=== PATIENT | female | born 1945 | race Caucasian/White ===

== ENCOUNTER → 2017-10-25 | Outpatient (CLI) | payer OTHER ==
[2017-10-25 19:06] LABS: ALT/SGPT 39 U/L (12-78); AST/SGOT 39 U/L (15-37); BLOOD UREA NITROGEN 11 mg/dl (7-18); CALCIUM 9.5 mg/dl (8.5-10.1); CARBON DIOXIDE 30 mmol/L (21-32); CREATININE 0.84 mg/dl (0.60-1.20); GLUCOSE 113 mg/dl (70-99); POTASSIUM 5.1 mmol/L (3.5-5.1); SODIUM 127 mmol/L (136-145)
[2017-10-25 19:08] LABS: CHOLESTEROL 200 mg/dl (0-200); LDL CHOLESTEROL CALCULATED 105 mg/dl
== END | disposition home or self-care (01) ==
LOC: C.LABMFLN 16:38
PROVIDERS: ATTEND Family Medicine
DX: I10 Essential (primary) hypertension (principal); E78.00 Pure hypercholesterolemia, unspecified; E87.1 Hypo-osmolality and hyponatremia; E11.29 Type 2 diabetes mellitus with other diabetic kidney complication; R35.0 Frequency of micturition

== ENCOUNTER 2024-07-17 10:42 | Inpatient (IN) ==
[2024-07-17 11:28] LABS: Basophils # (auto) 0.04 K/uL (0.00-0.20); Basophils % (auto) 0.2 %; Eosinophils # (auto) 0.02 K/uL (0.00-0.50); Eosinophils % (auto) 0.1 %; Hematocrit (blood only) 28.9 % (37.0-47.0); Hemoglobin 9.7 g/dl (12.0-16.0); Immature Granulocytes # (auto) 0.12 K/uL (0.01-0.20); Immature Granulocytes % (auto) 0.7 %; Lymphocytes # (auto) 0.97 K/uL (1.20-3.40); Lymphocytes % (auto) 5.6 %; Mean Corpuscular Hemoglobin 27.1 pg (25.0-34.0); Mean Corpuscular Hgb Conc 33.6 g/dL (32.0-36.0); Mean Corpuscular Volume 80.7 fL (80.0-100.0); Mean Platelet Volume 10.3 fL (9.4-12.4); Monocytes # (auto) 0.98 K/uL (0.11-0.59); Monocytes % (auto) 5.6 %; Neutrophils # (auto) 15.34 K/uL (1.40-6.50); Neutrophils % (auto) 87.8 %; Platelet Count 226 K/uL (130-400); RDW Coefficient of Variation 14.3 % (11.5-14.5); RDW Standard Deviation 41.5 fL (36.4-46.3); Red Blood Count 3.58 M/uL (4.20-5.40); White Blood Count 17.47 K/ul (4.8-10.8)
[2024-07-17 11:44] LABS: Albumin Globulin Ratio 1.1 (0.9-2); Albumin Level 3.4 gm/dl (3.4-5.0); BUN Creatinine Ratio 13.6 (10-20); Bilirubin,Total 0.9 mg/dl (0.2-1.0); Calcium 8.7 mg/dl (8.6-10.3); Creatinine Clr Calc Pharmacy 34.1 ml/min; Est GFR (African American) 51.2 ml/min; Est GFR (Non-African American) 44.1 ml/min; Globulin 3.2 gm/dl (2.5-4.0); Magnesium 1.4 mg/dl (1.7-2.4); Potassium 3.7 mmol/L (3.5-5.1); Total Protein 6.6 gm/dl (6.0-8.3)
[2024-07-17 11:54] LABS: INR 1.4 (0.9-1.1); Partial Thromboplastin Ratio 1.3; Partial Thromboplastin Time 36 Seconds (21-31); Prothrombin Time 14.5 Seconds (9.0-12.0); Troponin I High Sensitivity 147.5 pg/ml (0-14)
[2024-07-17 12:00] LABS: Thyroid Stimulating Hormone 2.92 uIu/ml (0.300-4.500)
[2024-07-17] MEDS: SODIUM CHLORIDE 0.9% 1,000 ML IV ONE (12:03)
[2024-07-17] MEDS: ACETAMINOPHEN 1,000 MG/100 ML VIAL IV STA (12:03)
[2024-07-17] MEDS: cefTRIAXone SODIUM 2,000 MG/50 ML BAG IV STA (12:05)
--- NOTE | 2024-07-17 12:36 | Emergency Department Note ---
Impression & Plan Fever, Hypomagnesemia, Bacteremia, Leukocytosis, Acute hyponatremia, Non-ST elevation [place] (NSTEMI) ED Provider Note HISTORY OF PRESENT ILLNESS: Patient is a 78-year-old female presenting with fever. Patient reports over the last 3 days she has been having fever and chills and general malaise. Her outpatient provider had ordered laboratory workup, including blood cultures that were performed on 07/14/2024. She was called and told to present to the emergency department, as her blood cultures tested positive for Streptococcus species in 2 out of 2 bottles. Patient denies any chest pain or shortness of breath. She does have a history of mitral and aortic valve replacements. Reports her last valve was replaced about 2 years ago. Denies any abdominal pain, nausea or vomiting. She reportedly is on oral antibiotics, but this is unable to be confirmed in documentation. He denies any dysuria or hematuria. Patient denies any rashes or skin changes. Denies any headache or changes in vision. reports she has been intermittently confused over the last few days with her fever. ROS: as above PHYSICAL EXAM: Constitutional: Patient appears in no acute distress. HENT: Head: Normocephalic and atraumatic. Eyes: EOMI, PERRL Mouth/Throat: Mucous membranes moist. Neck: Trachea midline. Neck supple. Cardiovascular: RRR, No rubs or gallops. Intact distal pulses. Pulmonary/Chest: No respiratory distress. Breath sounds clear and equal bilaterally. No wheezes or rales. Abdominal: Abdomen soft, no tenderness, rebound or guarding. Musculoskeletal: No edema, tenderness or deformity noted. Skin: Warm and dry. No rash, erythema, pallor or cyanosis Psychiatric: Appropriate mood and affect for situation. Neurological: Alert and keenly responsive. CN II-XII grossly intact, moving all extremities equally and fully. MDM: - Vitals signs showed fever and tachycardia - History obtained via patient. History as above. - Chronic conditions affecting care: DM-2; HLD; CAD; aortic and mitral valve replacements - Differential diagnoses include, but are not limited to: Pneumonia; ACS; endocarditis; pulmonary edema; bacteremia; UTI - Order placed for continuous cardiac monitoring. At this time, monitor showed rate of 94 bpm with normal sinus rhythm, per my interpretation. - External medical records reviewed. Documentation from [facility] was reviewed. Patient grew Streptococcus species DNA by PCR on blood cultures obtained on 07/14/2024. - EKG interpreted by myself showed normal sinus rhythm. Rate 93 bpm. QT 400. No acute ischemic changes. - Laboratory workup interpreted by myself showed leukocytosis (WBC 17.47) with neutrophil predominance; elevated ESR (86); elevated INR (1.4); normal procalcitonin; hyponatremia (124); hypomagnesemia (Mg 1.4); evaded troponin (147.5); elevated CRP (16.05); normal TSH - Blood cultures obtained - UA negative for infection - Viral respiratory panel negative - CXR negative for pneumonia, per my interpretation. - Blood cultures results dated 07/14/2024 were reviewed. Patient grew Streptococcus mutans in 2 out of 2 bottles. On discussion with pharmacist in the ER, given 2g IV rocephin for antibiotic coverage. She was in 1500 cc normal saline for fluid resuscitation. Given 1 g IV acetaminophen for fever - Given patient's positive blood cultures and her valve replacements, concern for possible endocarditis. However, had an echocardiogram on 07/14/2024 which was read as negative and showed no abnormalities on the valves. However, given her positive blood cultures, will admit to hospital service for further evaluation and management. - Discussion was had with pillowcase cutter about patient's case and need for admission - Hospitalist, Dr. Ivory, consulted for admission - Patient admitted to [facility] hospitalist service for further evaluation and management. ASSESSMENT AND PLAN: Diagnosis: Fever; bacteremia; leukocytosis; acute hyponatremia; hypomagnesemia; NSTEMI Plan: Admit Past Med/Surg History Problem List (Updated 07/17/24 @ 15:48 by Kira Greenfield MD) Non-ST elevation [place] (NSTEMI) (Acute) Acute hyponatremia (Acute) Leukocytosis (Acute) Bacteremia (Acute) Hypomagnesemia (Acute) Fever (Acute) Fever Anemia Dyspnea H/O prosthetic aortic valve replacement Fatigue Chills Inflammatory arthritis Vitamin B 12 deficiency Purulent rhinorrhea Fugue Hypomagnesemia TIA (transient ischemic attack) S/P mitral valve replacement Atrial flutter Serous otitis media Bilateral otitis media SIADH (syndrome of inappropriate ADH production) CAD (coronary artery disease) S/P aortic valve replacement Mitral valve stenosis Chronic heart failure with preserved ejection fraction Dyslipidemia Benign essential hypertension (Acute) Aortic stenosis Congestive heart failure (CHF) Lesion of larynx Hoarseness Medicare annual wellness visit, subsequent Hyponatremia Peripheral neuropathy Insomnia Vitamin D insufficiency Medicare annual wellness visit, subsequent Benign paroxysmal positional vertigo (Acute) Controlled diabetes mellitus with microalbuminuria, without long-term current use of insulin (Acute) Edema (Acute) Gait disturbance (Acute) Hypercholesterolemia (Acute) Hyperkalemia (Acute) Hyponatremia (Acute) Osteopenia (Acute) Tremor (Acute) Urine frequency (Acute) Medical History Type 2 diabetes mellitus Surgical History Hx of aortic valve replacement History of appendectomy History of tonsillectomy History of hysterectomy History of section History of dilation and curettage History of colonoscopy History of cataract surgery Family History Brother COPD (chronic obstructive pulmonary disease) Mother COPD (chronic obstructive pulmonary disease) Father Coronary heart disease Myocardial infarction Daughter Rheumatoid arthritis Denies family history of Ovarian cancer Prostate cancer Breast cancer Colorectal cancer Social History Smoking Status: Never smoker Second Hand Exposure: Yes; Hx Alcohol Use: No Hx Substance Use: No Preferred Language: Pashto Communication Ability: Effective Visual Impairment: Limited Hearing Ability: Normal Assembly Detailer Required: No Beliefs That Will Affect Care: None marital status: Current Living Situation: Spouse current occupational status: retired Feels Safe at Home: Yes Childhood Exposure to Second-Hand Smoke: Yes Diet: diabetic caffeine: Yes Dental Care, Regularly: No Physical Activity Frequency: 3-4 Times per Week Seatbelt Use: always Sunscreen Use: No Allergies Allergies Allergy/AdvReac Type Severity Reaction Status Date / Time codeine Allergy Cough Verified 07/17/24 12:01 Penicillins Allergy Hives Verified 07/17/24 12:01 ropinirole [From Requip] Allergy Unknown Verified 07/17/24 12:01 Home Meds Home Medications Medication Instructions Recorded Confirmed docusate sodium 100 mg capsule 100 mg PO DAILY 08/17/22 07/09/24 (Dulcolax Stool Softener (docusate)) fluticasone propionate 50 2 spray intranasal DAILY PRN 08/17/22 07/09/24 mcg/actuation nasal allergy symptoms spray,suspension Previous Rx's Medication Instructions Recorded lancets 33 gauge (OneTouch Delica #100 ea 05/07/19 Lancets) blood sugar diagnostic #50 ea 06/07/22 azithromycin 500 mg tablet 500 mg PO .COMPLEX #3 tabs 07/24/22 cholecalciferol (vitamin D3) 25 2,000 unit PO DAILY #30 caps 08/16/22 mcg (1,000 unit) capsule (Vitamin D3) losartan 100 mg tablet 100 mg PO DAILY #90 tabs 12/04/23 rosuvastatin 20 mg tablet 20 mg PO DAILY #90 tabs 12/04/23 apixaban 5 mg tablet (Eliquis) 5 mg PO BID #60 tabs 12/16/23 albuterol sulfate 90 mcg/actuation 2 puff inhalation Q6H PRN 02/18/24 aerosol inhaler shortness of breath or wheezing #6.7 grams blood sugar diagnostic (OneTouch #100 ea 02/18/24 Ultra Test strips) blood-glucose meter (OneTouch #1 ea 02/18/24 Ultra2 Meter) lancets 30 gauge (OneTouch #100 ea 02/18/24 UltraSoft 2 Lancet) amitriptyline 10 mg tablet 20 mg (2 x 10 mg) PO DAILY #180 04/27/24 tabs amlodipine 5 mg tablet 5 mg PO DAILY #90 tabs 05/26/24 furosemide 20 mg tablet 20 mg PO DAILY #90 tabs 06/16/24 metformin 500 mg tablet 500 mg PO BID #180 tabs 07/02/24 cyanocobalamin (vitamin B-12) 1,000 mcg IM .COMPLEX 1 week #10 mL 07/13/24 1,000 mcg/mL injection solution syringe with needle, safety 3 mL #10 ea 07/13/24 25 gauge x 1" (BD Integra Syringe) Results & Data (ED) Vital Signs Vital Signs - 24 hr 07/17/24 10:57 07/17/24 10:57 07/17/24 11:14 Temperature 37.8 C H 37.8 C H Temperature Source Oral Oral Pulse Rate 83 Pulse Rate [Apical] 83 Pulse Rhythm Regular Pulse Rhythm [Apical] Regular Pulse Strength Normal Pulse Strength [Apical] Normal Respiratory Rate 20 20 Respiratory Effort / Characteristics Non-Labored Spontaneous Non-Labored Spontaneous Respiratory Depth Normal Normal Respiratory Pattern Regular Regular Blood Pressure [Left Arm] 130/60 Blood Pressure Mean [Left Arm] 83 Blood Pressure Position [Left Arm] Pulse Oximetry 98 98 98 Oxygen Delivery Method Room Air Room Air Room Air Sepsis Recent Fever Within 48 Hours Yes Sepsis New/Unexplained Change in Mental Status Yes Sepsis Action Taken by Nursing No Action Required 07/17/24 11:14 07/17/24 11:25 07/17/24 14:04 Temperature 36.6 C Temperature Source Oral Pulse Rate 83 93 H Pulse Rate [Apical] 81 Pulse Rhythm Regular Pulse Rhythm [Apical] Regular Pulse Strength Pulse Strength [Apical] Normal Respiratory Rate 20 20 Respiratory Effort / Characteristics Non-Labored Spontaneous Respiratory Depth Normal Respiratory Pattern Regular Blood Pressure [Left Arm] 117/70 Blood Pressure Mean [Left Arm] 85 Blood Pressure Position [Left Arm] Semi-fowlers Pulse Oximetry 98 98 Oxygen Delivery Method Room Air Room Air Sepsis Recent Fever Within 48 Hours Sepsis New/Unexplained Change in Mental Status Sepsis Action Taken by Nursing Laboratory Data 07/17/24 10:56 07/17/24 10:56 Lab Results 07/17/24 07/17/24 07/17/24 Range/Units 10:56 11:35 12:20 WBC 17.47 H (4.8-10.8) K/ul RBC 3.58 L (4.20-5.40) M/uL Hgb 9.7 L (12.0-16.0) g/dl Hct 28.9 L (37.0-47.0) % MCV 80.7 (80.0-100.0) fL MCH 27.1 (25.0-34.0) pg MCHC 33.6 (32.0-36.0) g/dL RDW Std Deviation 41.5 (36.4-46.3) fL RDW Coeff of Viktor 14.3 (11.5-14.5) % Plt Count 226 (130-400) K/uL MPV 10.3 (9.4-12.4) fL Immature Gran % (Auto) 0.7 % Neut % (Auto) 87.8 % Lymph % (Auto) 5.6 % [place] % (Auto) 5.6 % Eos % (Auto) 0.1 % Baso % (Auto) 0.2 % Neut # (Auto) 15.34 H (1.40-6.50) K/uL Lymph # (Auto) 0.97 L (1.20-3.40) K/uL [place] # (Auto) 0.98 H (0.11-0.59) K/uL Eos # (Auto) 0.02 (0.00-0.50) K/uL Baso # (Auto) 0.04 (0.00-0.20) K/uL Immature Gran # (Auto) 0.12 (0.01-0.20) K/uL ESR 86 H (0-30) mm/hr PT 14.5 H (9.0-12.0) Seconds INR 1.4 H (0.9-1.1) APTT 36 H (21-31) Seconds PTT Ratio 1.3 Sodium 124 L (136-145) mmol/L Potassium 3.7 (3.5-5.1) mmol/L Chloride 90 L (98-107) mmol/L Carbon Dioxide 24 (21-32) mmol/L Anion Gap 10 (3-11) BUN 16 (6-23) mg/dl Creatinine 1.18 (0.6-1.2) mg/dl Est Cr Clr Drug Dosing 34.1 ml/min Est GFR ( Amer) 51.2 ml/min Est GFR (Non-Af Amer) 44.1 ml/min BUN/Creatinine Ratio 13.6 (10-20) Glucose 178 H (70-99(Fasting)) mg/dl Osmolality (280-300) mOsm/kg Lactate 1.1 (0.4-2.0) mmol/L Calcium 8.7 (8.6-10.3) mg/dl Magnesium 1.4 L (1.7-2.4) mg/dl Total Bilirubin 0.9 (0.2-1.0) mg/dl AST 24 (13-39) U/L ALT 21 (7-52) U/L Alkaline Phosphatase 70 (34-104) U/L Troponin I High Sens 147.5 H* (0-14) pg/ml C-Reactive Protein 16.05 H (0-0.5) mg/dl Total Protein 6.6 (6.0-8.3) gm/dl Albumin 3.4 (3.4-5.0) gm/dl Globulin 3.2 (2.5-4.0) gm/dl Albumin/Globulin Ratio 1.1 (0.9-2) Procalcitonin Cancelled TSH 2.920 (0.300-4.500) uIu/ml Urine Color Urine Appearance (Clear) Urine pH (4.5-7.5) Ur Specific [place] (1.000-1.030) Urine Protein (Negative) Urine Glucose (UA) (Negative) Urine Ketones (Negative) Urine Blood (Negative) Urine Nitrite (Negative) Urine Bilirubin (Negative) Urine Urobilinogen (Negative) Ur Leukocyte Esterase (Negative) Urine WBC (Auto) (0-5) /hpf Urine RBC (Auto) (0-2) /hpf U Hyaline Cast (Auto) (0-2) /lpf U Epithel Cells (Auto) (0-2) /hpf Urine Bacteria (Auto) (None Seen) Adenovirus (PCR) Not Detected (NotDetected) B. pertussis DNA (PCR) Not Detected (NotDetected) B.parapertussis DNA PCR Not Detected (NotDetected) C. pneumoniae DNA (PCR) Not Detected (NotDetected) Coronavirus OC43 (PCR) Not Detected (NotDetected) Coronavirus HKU1 (PCR) Not Detected (NotDetected) Coronavirus 229E (PCR) Not Detected (NotDetected) SARS-CoV-2 (PCR) Not Detected (NotDetected) Coronavirus NL63 (PCR) Not Detected (NotDetected) Human Metapneumovir PCR Not Detected (NotDetected) Influenza Type A (PCR) Not Detected (NotDetected) Influenza Type B (PCR) Not Detected (NotDetected) M. pneumoniae (PCR) Not Detected (NotDetected) Parainfluenza 1 (PCR) Not Detected (NotDetected) Parainfluenza 2 (PCR) Not Detected (NotDetected) Parainfluenza 3 (PCR) Not Detected (NotDetected) Parainfluenza 4 (PCR) Not Detected (NotDetected) RSV (PCR) Not Detected (NotDetected) Entero/Rhino (PCR) Not Detected (NotDetected) 07/17/24 07/17/24 Range/Units 13:00 14:00 WBC (4.8-10.8) K/ul RBC (4.20-5.40) M/uL Hgb (12.0-16.0) g/dl Hct (37.0-47.0) % MCV (80.0-100.0) fL MCH (25.0-34.0) pg MCHC (32.0-36.0) g/dL RDW Std Deviation (36.4-46.3) fL RDW Coeff of Viktor (11.5-14.5) % Plt Count (130-400) K/uL MPV (9.4-12.4) fL Immature Gran % (Auto) % Neut % (Auto) % Lymph % (Auto) % [place] % (Auto) % Eos % (Auto) % Baso % (Auto) % Neut # (Auto) (1.40-6.50) K/uL Lymph # (Auto) (1.20-3.40) K/uL [place] # (Auto) (0.11-0.59) K/uL Eos # (Auto) (0.00-0.50) K/uL Baso # (Auto) (0.00-0.20) K/uL Immature Gran # (Auto) (0.01-0.20) K/uL ESR (0-30) mm/hr PT (9.0-12.0) Seconds INR (0.9-1.1) APTT (21-31) Seconds PTT Ratio Sodium (136-145) mmol/L Potassium (3.5-5.1) mmol/L Chloride (98-107) mmol/L Carbon Dioxide (21-32) mmol/L Anion Gap (3-11) BUN (6-23) mg/dl Creatinine (0.6-1.2) mg/dl Est Cr Clr Drug Dosing ml/min Est GFR ( Amer) ml/min Est GFR (Non-Af Amer) ml/min BUN/Creatinine Ratio (10-20) Glucose (70-99(Fasting)) mg/dl Osmolality 263 L (280-300) mOsm/kg Lactate (0.4-2.0) mmol/L Calcium (8.6-10.3) mg/dl Magnesium (1.7-2.4) mg/dl Total Bilirubin (0.2-1.0) mg/dl AST (13-39) U/L ALT (7-52) U/L Alkaline Phosphatase (34-104) U/L Troponin I High Sens (0-14) pg/ml C-Reactive Protein (0-0.5) mg/dl Total Protein (6.0-8.3) gm/dl Albumin (3.4-5.0) gm/dl Globulin (2.5-4.0) gm/dl Albumin/Globulin Ratio (0.9-2) Procalcitonin 0.28 TSH (0.300-4.500) uIu/ml Urine Color Yellow Urine Appearance Cloudy A (Clear) Urine pH 6.0 (4.5-7.5) Ur Specific [place] 1.012 (1.000-1.030) Urine Protein 2+ H (Negative) Urine Glucose (UA) Negative (Negative) Urine Ketones Negative (Negative) Urine Blood Negative (Negative) Urine Nitrite Negative (Negative) Urine Bilirubin Negative (Negative) Urine Urobilinogen Negative (Negative) Ur Leukocyte Esterase Negative (Negative) Urine WBC (Auto) 0-5 (0-5) /hpf Urine RBC (Auto) 0-2 (0-2) /hpf U Hyaline Cast (Auto) 0-2 (0-2) /lpf U Epithel Cells (Auto) 3-5 H (0-2) /hpf Urine Bacteria (Auto) None Seen (None Seen) Adenovirus (PCR) (NotDetected) B. pertussis DNA (PCR) (NotDetected) B.parapertussis DNA PCR (NotDetected) C. pneumoniae DNA (PCR) (NotDetected) Coronavirus OC43 (PCR) (NotDetected) Coronavirus HKU1 (PCR) (NotDetected) Coronavirus 229E (PCR) (NotDetected) SARS-CoV-2 (PCR) (NotDetected) Coronavirus NL63 (PCR) (NotDetected) Human Metapneumovir PCR (NotDetected) Influenza Type A (PCR) (NotDetected) Influenza Type B (PCR) (NotDetected) M. pneumoniae (PCR) (NotDetected) Parainfluenza 1 (PCR) (NotDetected) Parainfluenza 2 (PCR) (NotDetected) Parainfluenza 3 (PCR) (NotDetected) Parainfluenza 4 (PCR) (NotDetected) RSV (PCR) (NotDetected) Entero/Rhino (PCR) (NotDetected) Administered Medications Discontinued Medications Acetaminophen (Ofirmev) 1,000 mg in 100 mls @ 400 mls/hr IV NOW STA Stop: 07/17/24 12:04 Last Infusion: 07/17/24 13:06 Dose: Infused Documented By: Admin: 07/17/24 12:03 Dose: 400 mls/hr Documented By: NA Ceftriaxone Sodium (Rocephin) 2,000 mg in 50 mls @ 100 mls/hr IV NOW STA Stop: 07/17/24 12:24 Last Infusion: 07/17/24 13:06 Dose: Infused Documented By: Admin: 07/17/24 12:05 Dose: 100 mls/hr Documented By: NA Sodium Chloride (Nss) 1,000 mls @ 999 mls/hr IV .Q1H1M ONE Stop: 07/17/24 12:55 Last Infusion: 07/17/24 13:07 Dose: Infused Documented By: Admin: 07/17/24 12:03 Dose: 999 mls/hr Documented By: NA Sodium Chloride (Nss) 500 mls @ 999 mls/hr IV .Q31M ONE Stop: 07/17/24 12:25 Last Admin: 07/17/24 13:07 Dose: 999 mls/hr Documented By: CATHYW Imaging Data Radiologist's Impression: Chest X-Ray 07/17/24 12:45 SINGLE VIEW CHEST CLINICAL HISTORY: Fever FINDINGS: An AP, portable, upright chest radiograph is obtained. No prior studies are available for comparison at the time of dictation. The patient is status post midline sternotomy. The heart is enlarged noting atherosclerotic calcification of the thoracic aorta. The pulmonary vasculature is nondistended congested. Nonspecific interstitial thickening is likely chronic. Scarring/atelectasis is noted at the lung bases. The lungs and pleural spaces are otherwise clear. No pneumothorax is seen. The skeletal structures are osteopenic. The bony thorax is grossly intact. Degenerative change is noted in the spine. IMPRESSION: Cardiomegaly with no active disease in the chest. ACT 112: Negative or not required by law. Electronically signed by: Mulugeta Jolly M.D. 07/17/2024 1:18 PM Discharge Plan Visit Data Chief Complaint: Infection ED Provider: Kira Greenfield Discharge Problem: Fever, Hypomagnesemia, Bacteremia, Leukocytosis, Acute hyponatremia, Non-ST elevation [place] (NSTEMI) Forms Stand Alone Forms: [facility] Prescriptions Prescriptions: No Action (DME) OneTouch Ultra Blue Test Strip Strip See Dose Instructions .ROUTE .MEDSUPPLY Qty: 50 11RF Rx Instructions: test sugars once a day rosuvastatin 20 mg tablet 20 mg PO DAILY Qty: 90 3RF Rx Instructions: Take with supper instead of pravastatin for cholesterol. losartan 100 mg tablet 100 mg PO DAILY Qty: 90 3RF Eliquis 5 mg tablet 5 mg PO BID Qty: 60 5RF amitriptyline 10 mg tablet 20 mg PO DAILY Qty: 180 3RF furosemide 20 mg tablet 20 mg PO DAILY Qty: 90 3RF metformin 500 mg tablet 500 mg PO BID Qty: 180 3RF (DME) lancets [OneTouch Delica Lancets] 33 gauge misc See Dose Instructions .ROUTE .MEDSUPPLY Qty: 100 3RF Dose Instruction: As directed Rx Instructions: test sugar once a day fluticasone propionate 50 mcg/actuation spray,suspension 2 spray intranasal DAILY PRN (Reason: allergy symptoms) amlodipine 5 mg tablet 5 mg PO DAILY Qty: 90 3RF azithromycin 500 mg tablet 500 mg PO .COMPLEX Qty: 3 3RF Rx Instructions: 500 mg orally 30-60 mins prior to dental cleaning; docusate sodium [Dulcolax Stool Softener (dss)] 100 mg capsule 100 mg PO DAILY cholecalciferol (vitamin D3) [Vitamin D3] 25 mcg (1,000 unit) capsule 2,000 unit PO DAILY Qty: 30 0RF albuterol sulfate 90 mcg/actuation HFA aerosol inhaler 2 puff inhalation Q6H PRN (Reason: shortness of breath or wheezing) Qty: 6.7 5RF (DME) blood-glucose meter [OneTouch Ultra2 Meter] Misc See Rx Instructions .Route Qty: 1 0RF Rx Instructions: As directed (DME) lancets [OneTouch UltraSoft 2 Lancet] 30 gauge misc See Rx Instructions .Route Qty: 100 3RF Rx Instructions: daily As directed (DME) OneTouch Ultra Test Strip See Rx Instructions .Route Qty: 100 3RF Rx Instructions: daily As directed cyanocobalamin (vitamin B-12) 1,000 mcg/mL solution 1,000 mcg IM .COMPLEX 7 Days Qty: 10 3RF Rx Instructions: 1,000 mcg intramuscularly Daily for 1 week, weekly for 4 weeks, then monthly; (DME) BD Integra Syringe 3 mL 25 gauge x 1" syringe See Rx Instructions .ROUTE .MEDSUPPLY Qty: 10 3RF Rx Instructions: daily x 1 week, weekly x 4 weeks, then monthly Referrals Referrals: Mulugeta Roger MD [Primary Care Provider] -
[2024-07-17 12:59] LABS: Adenovirus PCR Not Detected (NotDetected); Bordetella parapertussis PCR Not Detected (NotDetected); Bordetella pertussis PCR Not Detected (NotDetected); Chlamydia pneumoniae PCR Not Detected (NotDetected); Coronavirus 229E PCR Not Detected (NotDetected); Coronavirus CoV-2 (COVID19)PCR Not Detected (NotDetected); Coronavirus HKU1 PCR Not Detected (NotDetected); Coronavirus NL63 PCR Not Detected (NotDetected); Coronavirus OC43PCR Not Detected (NotDetected); Human Metapneumovirus PCR Not Detected (NotDetected); Influenza A PCR Not Detected (NotDetected); Influenza B PCR Not Detected (NotDetected); Mycoplasma pneumoniae PCR Not Detected (NotDetected); Parainfluenza Virus 1 PCR Not Detected (NotDetected); Parainfluenza Virus 2 PCR Not Detected (NotDetected); Parainfluenza Virus 3 PCR Not Detected (NotDetected); Parainfluenza Virus 4 PCR Not Detected (NotDetected); Respiratory Syncytial VirusPCR Not Detected (NotDetected); Rhinovirus/Enterovirus PCR Not Detected (NotDetected)
[2024-07-17] MEDS: SODIUM CHLORIDE 0.9% 500 ML IV ONE (13:07)
--- NOTE | 2024-07-17 13:19 | XRay Report ---
SINGLE VIEW CHEST CLINICAL HISTORY: Fever FINDINGS: An AP, portable, upright chest radiograph is obtained. No prior studies are available for c omparison at the time of dictation. The patient is status post midline sternotomy. The heart is enlar ged noting atherosclerotic calcification of the thoracic aorta. The pulmonary vasculature is nondiste nded congested. Nonspecific interstitial thickening is likely chronic. Scarring/atelectasis is noted at the lung bases. The lungs and pleural spaces are otherwise clear. No pneumothorax is seen. The ske letal structures are osteopenic. The bony thorax is grossly intact. Degenerative change is noted in t he spine. IMPRESSION: Cardiomegaly with no active disease in the chest. ACT 112: Negative or not required by law. Electronically signed by: Mulugeta Jolly M.D. 07/17/2024 1:18 PM
[2024-07-17 14:19] LABS: Appearance Urine Cloudy (Clear); Bacteria Urine Automated None Seen (None Seen); Bilirubin Urine Negative (Negative); Blood Urine Negative (Negative); Cast Urine Automated 0-2 /lpf (0-2); Color Urine Yellow; Glucose Urine UA Negative (Negative); Ketones Urine Negative (Negative); Leukocyte Esterase Urine Negative (Negative); Nitrite Urine Negative (Negative); Protein Urine 2+ (Negative); RBC Urine Automated 0-2 /hpf (0-2); Specific Gravity Urine 1.012 (1.000-1.030); Urobilinogen Urine Negative (Negative); WBC Urine Automated 0-5 /hpf (0-5)
--- NOTE | 2024-07-17 14:48 | History & Physical Report ---
Date of Service July 17, 2024 Assessment & Plan (1) Endocarditis: Plan: Worsening fatigue x 1 week, and acute onset of fever the morning of 07/17 Concern for endocarditis given history of mitral and aortic valve replacement Recent outpatient workup showed elevated ESR and CRP on outpatient labs Blood cultures drawn on 07/14 revealed Streptococcus mutans in both bottles Patient denies any recent dental procedures Blood culture x 1 drawn in the ED; Rocephin given shortly after Lactate and procalcitonin WNL Leukocytosis at 17.47 with neutrophil predominance; afebrile, but reported fever at home Troponin elevated at 147.5 on arrival, repeat pending Continue Rocephin 2000 mg IV q24h Infectious disease consult appreciated; ?rifampin A.m. CBC, BMP, Mag, CRP (2) S/P aortic valve replacement: Plan: Aortic and mitral valve [place] [facility] [place] echocardiogram on 07/14 revealed LVEF at 60 to 65% and mild pulmonary hypertension (RVSP 47mmHg) Bioprosthetic aortic valve with acceptable transvalvular gradient, mitral valve with mildly elevated transvalvular gradient (no significant regurgitation) While echocardiogram was performed recently, if positive blood culture on repeat, would recommend getting a DION (3) Hyponatremia: Plan: Na 124 on arrival NSS 1000mL IV x 2 given in the ED SIADH labs ordered, pending Trend BMP (4) Hypomagnesemia: Plan: Mag 1.4 on arrival Magnesium sulfate 1 g IV x 2 Recheck a.m. mag (5) Anemia: Plan: Hgb 9.7 on arrival (most recently 11.4 on 07/09); MCV 80.7 Clinically no signs of bleeding on physical exam Suspected due to vitamin B12 deficiency (low at 80 on 07/09) Continue vitamin B12 supplementation Trend H&H Plan Disposition: Admit to PCU telemetry Full code Heart healthy, T2DM diet VTE PPx: On Eliquis History of Present Illness Chief Complaint: Infection Primary Care Provider: Mulugeta Roger MD Penny is a pleasant 78-year-old female with PMH of tremor, BPPV, peripheral neuropathy, CHF, dyslipidemia, CAD, s/p bioprosthetic mitral valve and aortic valve, SIADH, inflammatory arthritis, and TIA. She presented via EMS on 07/17 due to worsening fatigue x 1 week, and acute onset of fever this morning. Patient's (James) is at bedside and helps provide history. He reports that the patient has been increasingly fatigued over the past week, and was not responding as well to questioning this morning. Patient endorses being more confused than usual. Per , she had difficulty getting out of bed, and then could not get back into bed. She endorses ambulatory dysfunction. Does not ambulate with a walker or cane at baseline. Patient did not take her regular morning medications today; reports there was a medication check 1 week ago, when she was taken off Cozaar and placed on something else. believes this is when she started to go downhill. Patient denies any chest pain over the past week. However, when asked to take a deep breath, she does endorse pleuritic chest pain substernally. This is new for her. She characterizes it as an achy pain. History of valve replacements 2 years ago. She had an echocardiogram done 2 days ago to assess for valve infection given elevated CRP and ESR on outpatient labs. She denies any recent dental procedures. No prior history of valve infections. No sick contacts. She denies smoking, tobacco use, recent alcohol use. Regarding patient's penicillin allergy, she reports that she had a rash around 44 years ago when given penicillin; no history of anaphylaxis/throat closure. Patient's vitals are stable at time of admission. ED course: Acetaminophen 1000 mg IV Rocephin 2000 mg IV NSS 1500 mL IV ROS: Patient endorses OROZCO, fever this morning (did not take temp at the time), confusion, and pleuritic CP. Patient denies chills, nightsweats, dizziness, lightheadedness, rashes, loss of vision, double vision, photophobia, neck pain/stiffness, chest pain, chest palpitations, SOB, cough, abdominal pain, N/V/D, changes in urinary/bowel habits , burning with urination, blood in the urine/stool, or numbness/tingling in the arms/legs. Allergies Allergy/AdvReac Type Severity Reaction Status Date / Time codeine Allergy Cough Verified 07/17/24 12:01 Penicillins Allergy Hives Verified 07/17/24 12:01 ropinirole [From Requip] Allergy Unknown Verified 07/17/24 12:01 Home Medications Medication Instructions Recorded Confirmed Type lancets 33 gauge ([facility] #100 ea 05/07/19 07/09/24 Rx Lancets) blood sugar diagnostic #50 ea 06/07/22 07/09/24 Rx azithromycin 500 mg tablet 500 mg PO .COMPLEX #3 tabs 07/24/22 07/17/24 Rx cholecalciferol (vitamin D3) 25 2,000 unit PO DAILY #30 caps 08/16/22 07/17/24 Rx mcg (1,000 unit) capsule (Vitamin D3) docusate sodium 100 mg capsule 100 mg PO DAILY 08/17/22 07/17/24 History (Dulcolax Stool Softener (docusate)) fluticasone propionate 50 2 spray intranasal DAILY PRN 08/17/22 07/17/24 History mcg/actuation nasal allergy symptoms spray,suspension losartan 100 mg tablet 100 mg PO DAILY #90 tabs 12/04/23 07/17/24 Rx rosuvastatin 20 mg tablet 20 mg PO DAILY #90 tabs 12/04/23 07/17/24 Rx apixaban 5 mg tablet (Eliquis) 5 mg PO BID #60 tabs 12/16/23 07/17/24 Rx albuterol sulfate 90 mcg/actuation 2 puff inhalation Q6H PRN 02/18/24 07/17/24 Rx aerosol inhaler shortness of breath or wheezing #6.7 grams blood sugar diagnostic ([facility] 02/18/24 07/09/24 Rx Ultra Test strips) blood-glucose meter ([facility] 02/18/24 07/09/24 Rx Ultra2 Meter) lancets 30 gauge ([facility] 02/18/24 07/09/24 Rx UltraSoft 2 Lancet) amitriptyline 10 mg tablet 20 mg (2 x 10 mg) PO DAILY #180 04/27/24 07/17/24 Rx tabs furosemide 20 mg tablet 20 mg PO DAILY #90 tabs 06/16/24 07/17/24 Rx metformin 500 mg tablet 500 mg PO BID #180 tabs 07/02/24 07/17/24 Rx syringe with needle, safety 3 mL #10 ea 07/13/24 07/13/24 Rx 25 gauge x 1" (BD Integra Syringe) amlodipine 5 mg tablet 5 mg PO UD 07/17/24 07/17/24 History cyanocobalamin (vitamin B-12) 1,000 mcg IM UD 07/17/24 07/17/24 History 1,000 mcg/mL injection solution Past Med/Surg History Problem List (Updated 07/17/24 @ 16:16 by Haris Mcgovern PA-C) Endocarditis Non-ST elevation AK (NSTEMI) (Acute) Acute hyponatremia (Acute) Leukocytosis (Acute) Bacteremia (Acute) Hypomagnesemia (Acute) Fever (Acute) Fever Anemia Dyspnea H/O prosthetic aortic valve replacement Fatigue Chills Inflammatory arthritis Vitamin B 12 deficiency Purulent rhinorrhea Fugue Hypomagnesemia TIA (transient ischemic attack) S/P mitral valve replacement Atrial flutter Serous otitis media Bilateral otitis media SIADH (syndrome of inappropriate ADH production) CAD (coronary artery disease) S/P aortic valve replacement Mitral valve stenosis Chronic heart failure with preserved ejection fraction Dyslipidemia Benign essential hypertension (Acute) Aortic stenosis Congestive heart failure (CHF) Lesion of larynx Hoarseness Medicare annual wellness visit, subsequent Hyponatremia Peripheral neuropathy Insomnia Vitamin D insufficiency Medicare annual wellness visit, subsequent Benign paroxysmal positional vertigo (Acute) Controlled diabetes mellitus with microalbuminuria, without long-term current use of insulin (Acute) Edema (Acute) Gait disturbance (Acute) Hypercholesterolemia (Acute) Hyperkalemia (Acute) Hyponatremia (Acute) Osteopenia (Acute) Tremor (Acute) Urine frequency (Acute) Medical History Type 2 diabetes mellitus Surgical History Hx of aortic valve replacement History of appendectomy History of tonsillectomy History of hysterectomy History of section History of dilation and curettage History of colonoscopy History of cataract surgery Family History Brother COPD (chronic obstructive pulmonary disease) Mother COPD (chronic obstructive pulmonary disease) Father Coronary heart disease Myocardial infarction Daughter Rheumatoid arthritis Denies family history of Ovarian cancer Prostate cancer Breast cancer Colorectal cancer Social History Smoking Status: Never smoker Second Hand Exposure: Yes; Hx Alcohol Use: No Hx Substance Use: No Preferred Language: Polish Communication Ability: Effective Visual Impairment: Limited Hearing Ability: Normal Patient Registration Manager Required: No Beliefs That Will Affect Care: None marital status: Current Living Situation: Spouse current occupational status: retired Feels Safe at Home: Yes Childhood Exposure to Second-Hand Smoke: Yes Diet: diabetic caffeine: Yes Dental Care, Regularly: No Physical Activity Frequency: 3-4 Times per Week Seatbelt Use: always Sunscreen Use: No Review of Systems Review of Systems: See HPI above Physical Exam Physical Exam: General: no acute distress; lethargic; non-toxic appearing; cooperative; SpO2 98% on RA HEENT: normocephalic, atraumatic; no scleral icterus; PERRLA w/ EOMs intact; vision and hearing grossly intact Neck: supple; no lymphadenopathy; trachea midline Skin: warm, dry without signs of tenting; no cyanosis; no rashes, bruising, lesions, or erythema noted CV: chest wall is TTP below the xiphoid on palpation; RRR; S1/S2 normal; no murmurs/rubs/gallops; pulses intact and symmetric at radial, DP, and PT Lungs: no acute respiratory distress; symmetrical chest wall expansion; clear breath sounds across all lung boykin w/o adventitious sounds; no wheezing ABD: Soft, NTP in all 4 quadrants; BS present; no rebound/guarding; no distention; no rashes or bruising on the abdomen, flanks, or chest wall MSK: no tics or fasciculations; no edema noted in the LEs b/l, nonerythematous Neuro: A&Ox3; patient appears lethargic and is sometimes slow to respond to questioning; however, she exhibits a normal mood and affect; fluent speech; no focal deficits; patient reports decrease sensation in lower extremities bilaterally (which she reports is not new for her) Results & Data Results & Data Vital Signs (Past 12 Hours) Vital Signs Temp Pulse Pulse Resp BP Pulse Ox O2 Del Method 07/17/24 14:04 36.6 C 81 20 117/70 98 Room Air 07/17/24 11:25 93 H 07/17/24 11:14 83 20 98 Room Air 07/17/24 11:14 98 Room Air 07/17/24 10:57 37.8 C H 83 20 130/60 98 Room Air 07/17/24 10:57 37.8 C H 83 20 98 Room Air Laboratory Results Abnormal lab results 07/17/24 07/17/24 Range/Units 10:56 14:00 WBC 17.47 H (4.8-10.8) K/ul RBC 3.58 L (4.20-5.40) M/uL Hgb 9.7 L (12.0-16.0) g/dl Hct 28.9 L (37.0-47.0) % Neut # (Auto) 15.34 H (1.40-6.50) K/uL Lymph # (Auto) 0.97 L (1.20-3.40) K/uL [place] # (Auto) 0.98 H (0.11-0.59) K/uL PT 14.5 H (9.0-12.0) Seconds INR 1.4 H (0.9-1.1) APTT 36 H (21-31) Seconds Sodium 124 L (136-145) mmol/L Chloride 90 L (98-107) mmol/L Glucose 178 H (70-99(Fasting)) mg/dl Magnesium 1.4 L (1.7-2.4) mg/dl Troponin I High Sens 147.5 H* (0-14) pg/ml Urine Appearance Cloudy A (Clear) Urine Protein 2+ H (Negative) U Epithel Cells (Auto) 3-5 H (0-2) /hpf Diagnostic Findings Chest X-Ray 07/17/24 12:45 SINGLE VIEW CHEST CLINICAL HISTORY: Fever FINDINGS: An AP, portable, upright chest radiograph is obtained. No prior studies are available for comparison at the time of dictation. The patient is status post midline sternotomy. The heart is enlarged noting atherosclerotic calcification of the thoracic aorta. The pulmonary vasculature is nondistended congested. Nonspecific interstitial thickening is likely chronic. Scarring/atelectasis is noted at the lung bases. The lungs and pleural spaces are otherwise clear. No pneumothorax is seen. The skeletal structures are osteopenic. The bony thorax is grossly intact. Degenerative change is noted in the spine. IMPRESSION: Cardiomegaly with no active disease in the chest. ACT 112: Negative or not required by law. Electronically signed by: Mulugeta Jolly M.D. 07/17/2024 1:18 PM ECG Additional Comments: ECG revealed wide QRS rhythm at 93 bpm; QTc 497; ST wave abnormality, consider lateral ischemia Code Status & VTE Plan VTE Prophylaxis Plan VTE Prophylaxis will be ordered: Yes Supervising Physician Co-Signing Physician Notes Patient seen and examined, chart reviewed, case discussed with Haris Mcgovern PA-C and I agree with the assessment and plan as above except as otherwise noted Labs and images reviewed Penny is a 78-year-old female with a past medical history of CAD, bioprosthetic mitral valve/aortic valve, SIADH, inflammatory arthritis, TIA, peripheral neuropathy, BPPV who presents with worsening fatigue of 1 week and concern for altered mentation. No chest pain or chest pressure. She reportedly had elevated CRP/here as outpatient labs and had an outpatient echo TTE which did not show evidence of vegetation at that time. Blood cultures from 07/14+11/22 for strep mutans; no odontogenic disease. She has a leukocytosis with neutrophilic predominance and a NLR of approximately 15 with persistently elevated inflammatory markers. CRP is rapidly uptrending. Troponin is elevated at 182 and trended, no chest pain. She does not have any shortness of breath and chest x-ray is clear. She is anticoagulated on Eliquis and compliant with this medication. Given positive blood cultures, viridans streptococci, leukocytosis and prosthetic AV and MV she is at high risk for endocarditis. Agree with Rocephin every 24 hours 2 g. While this was not seen on her TTE this is not sufficient to rule out potential endocarditis. Patient has been placed on Rocephin which is continued. ID consulted. Valence blood cultures have been drawn; if positive would follow-up with DION for further evaluation. Agree with above. PG Care Time/CCT Total # of Minutes Spent Total Time Spent with Patient: Total time spent is greater than 50% in coordination of care (as documented) at patient's floor/unit and/or counseling patient: Coding [place] [address] INT INP/OBS CARE 3/75MIN Patient Type Established History Comprehensive Exam Comprehensive Medical Decision Making High Complexity Diagnoses Endocarditis I38 S/P aortic valve replacement Z95.2 Hyponatremia E87.1 Hypomagnesemia E83.42 Anemia D64.9
[2024-07-17 15:29] LABS: C Reactive Protein 16.05 mg/dl (0-0.5)
[2024-07-17] MEDS: MAGNESIUM SULFATE / D5W 1 GM/100 ML BAG IV SCH (16:26)
[2024-07-17 16:30] LABS: BUN Creatinine Ratio 12.5 (10-20); Calcium 8.1 mg/dl (8.6-10.3); Creatinine Clr Calc Pharmacy 33.5 ml/min; Est GFR (African American) 50.1 ml/min; Est GFR (Non-African American) 43.3 ml/min; Potassium 3.7 mmol/L (3.5-5.1)
[2024-07-17] MEDS ORDERED: ONDANSETRON INJ 2 MG/ML 2 ML VIAL IV PRN (17:54)
[2024-07-17] MEDS ORDERED: GLUCAGON FOR INJ 1 MG VIAL SQ PRN (17:54)
[2024-07-17] MEDS ORDERED: FLUTICASONE PROPIONATE NA SPR 16 GM BTL PRN (17:54)
[2024-07-17] MEDS ORDERED: GLUCOSE 40% GEL 15 GM TUBE PO PRN (17:54)
[2024-07-17] MEDS ORDERED: CARBOHYDRATES FOR HYPOGLYCEMIA PO PRN (17:54)
[2024-07-17] MEDS ORDERED: DEXTROSE 50% 50 ML SYRINGE IV PRN (17:54)
[2024-07-17] MEDS ORDERED: GLUCOSE 10 TAB/TUBE PO PRN (17:54)
[2024-07-17] MEDS: INSULIN ASPART PER UNIT CHARGE SC SCH (18:31)
--- OUTSIDE RECORDS SUMMARY | 2024-07-17 18:47 | External Medical Summary | Summary of Care ---
Author Name Unknown Organization [facility] Address [address] [place] [address] Phone [phone] Care Team Providers Care Scrap Drop Engineer Name Role Phone Mulugeta Roger MD Primary Care Provider [phone] Reason for Visit * Reason Comments Outpatient Testing Encounter Details Date Type Department Care Team (Late st Contact Info) Description 07/14/2024 11:40 AM EDT Laboratory Laboratory, [facility] [address] [place] [phone] [facility], Lab [address] [place], [place] [id number] Anemia; Chills; Fatigue; Heart valve transplanted; Hyposmolality Allergies Active Allergy Reactions Criticality Noted Date Comments Lisinopril Cough 01/18/2012 Morphine And Codeine Rash 10/19/2008 Penicillins Rash 10/19/2008 Ropinirole Edema Other 08/25/2014 Feet/hands documented as of this encounter (statuses as of 07/14/2024) Medications Medication Sig Dispensed Refills Start Date End Date Status FLUTICASONE PROPIONATE 50 MCG/ACT NA SUSPIndications:B enign paroxysmal vertigo,Allergic rhinitis 2 sprays in each nostril daily 1 Inhaler 5 11/01/2011 Active Additional Information Patient taking differently: 2 SprayNasalDAILY PRN, Reported on 05/23/2023 LOSARTAN POTASSIUM 100 MG PO TABSIndications:H TN, goal below 140/90 TAKE 1 TABLET BY MOUTH EVERY DAY 90 Tab 3 09/15/2013 Active AMITRIPTYLINE HCL 10 MG PO TABS Take 2 Tablets by mouth at bedtime. 180 Tab 1 08/25/2014 Active Vitamin D3 25 MCG (1000 UT) Oral Tablet Take 1 Tablet by mouth in the morning. Active metFORMIN (GLUCOPHAGE) 500 MG Tablet Take 1 Tablet by mouth 2 times a day with morning and evening meals. Active Classics Rolling Walker Use as directed . 1 Each 06/26/2022 Active Docusate Sodium 100 MG Oral Tablet Take 1 Tablet by mouth in the morning. Active Furosemide 20 MG Oral Tablet (Lasix) Take 1 Tablet by mouth in the morning. 30 Tablet 09/04/2022 Active Rosuvastatin Calcium 20 MG Oral Tablet (Crestor) 1 Tablet. 02/14/2023 Active Apixaban 5 MG Oral Tablet (Eliquis) Take 1 Tablet by mouth in the morning and 1 Tablet before bedtime. Active documented as of this encounter (statuses as of 07/14/2024) Active Problems Problem Noted Date Diagnosed Date Aortic valve stenosis, etiol ogy of cardiac valve disease unspecified 05/27/2023 Dysrhythmia 05/23/2023 Generalized weakness 05/23/2023 Chronic diastolic (congestive) heart failure Last Assessment & Plan: Current Status: "Stable" for patient / At or near baseline Degree of Condition Awareness: Demonstrates very good awareness of condition, disease course, and prognosis "RED FLAG" HF Symptoms: o NO IDENTIFIED SYMPTOMS Current Heart Failure Classifications: o No symptoms ([employer] [place] [employer] CLASS I) Diagnostic Review: Recent Labs Units 09/05/22 0940 08/04/22 0632 08/03/22 1036 08/03/22 0551 08/02/222036 LEFT VENTRICULAR EJECTION FRACTION % -- -- 55 -- -- BNP (NT-PRO-BNP) - [facility] pg/mL -- -- -- -- 2,545* ESTIMATED GLOMERULAR FILTRATION RATE - [facility] mL/min 62 < > -- < > 79 HGB - [facility] g/dL 11.6* < > -- < > 10.0* < > = values in this interval not displayed. 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 She reports she never heard about ortho spine referral. New referral placed for eval and sent via telephone encounter for scheduling to arrange Anemia 09/05/2022 Aortic valve stenosis 06/19/2022 Mitral valve disease 06/19/2022 S/P AVR (aortic valve replacement) 06/19/2022 S/P MVR (mitral valve replacement) 06/19/2022 Iron deficiency anemia 05/25/2022 History of pemphigoid 09/14/2015 Overview: ICD10 Remitted as of 2014. 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 Dyslipidemia, goal LDL below 100 10/06/2009 Overview: 01/28--st zocor 10mg (did not use 08/30-01/29)--04/30--chg to lipitor. -- Tc/ldl high--st crestor Was on vytorin x 3 wks Roxann Keys, CYNDEE and dc sec to Feeling sick to stomach( was ok on crestor), is on colestid now. Cervical spondylosis 07/26/2009 Overview: Xray--LH-- ylb48--dxs DDD, mod spondylarthriis Alcohol ingestion, 1-4 drinks per day on alcohol screening 05/13/2009 Overview: 04/01-US RT UQ--fatty liver, 2 cysts, prob ashley repl pancreas. Dbf67--els hep screen 05/13/2009--nl cbc ex MCV 99, nl B12, folate,na 130, bmp ow ok, ua dil sg 1.009, lft ex ast/alt 65/65, GGTP 116, nl coags, mg low 1.3--st suppl-- 334/86/154/163 ---dec etoh - start colestid. --ch hepatitis -- HTN, goal below 140/90 05/11/2009 Overview: 12/30--dc lis cough--chg losartan --05/01--cough resolved Cpg44--fnh lis 20-dc hctz low na 05/29--chg lis/hctz 10/12.5 sec cost Ykjn75-Rgoaib 100/12.5 --ekg-- Sinus rhythm with Possible Premature atrial complexes with Aberrant conduction Nonspecific ST abnormality Benign paroxysmal vertigo 05/11/2009 Overview: Saw Jaya And Elizabeth Ramos -- had Joie montes with help yr ago - meclizine prn Ckkcs66--kxv C Doppler,nml stress echo, nml ekg, EEg, nml ECHO, ef >60%, Ct Head-- chr sm vs isch chg, cxr,MRA, MRI-- chr sm vs ds (ford by Hector) Allergic rhinitis 05/11/2009 Overview: Altagracia. Overweight (BMI 25.0-29.9) 05/11/2009 Overview: 05/11/2009--BMI: 28.69 kg/m documented as of this encounter (statuses as of 07/14/2024) Resolved Problems Problem Noted Date Diagnosed Date Resolved Date Shortness of breath 08/03/2022 08/04/20 Simple chronic serous otitis media 12/17/2011 08/20/2022 Overview: ICD-10 update of inactive term Aortic valve stenosis 02/21/20102021 Overview: 02/27--Ef 55-60%, Bl ., Tr MR Reeder 07/26/2009 09/04/2022 Overview: H/o zoster . Hypomagnesemia 05/13/2009 05/27/2023 Overview: Buqa81-1.3--st ysd89--9.8, Abnormal transaminases 05/13/200908/20 Overview: 04/30--neg sec cause ford--spe, ceruloplasmin, miguel, ama, c/p anca, AAT, gliadin ab Mixed dyslipidemia 05/11/2009 9 Overview: Per Lipid Taxonomy. Was on vytorin x 3 wks Roxann Yohn, [employer] and dc sec to Feeling sick to stomach( was ok on crestor Routine medical exam 05/11/2009 022 Overview: New pt eval--05/11/2009--no records available.---07/26/2009--rec rev-- Zspon64--uoz C Doppler,nml stress echo, nml ekg, EEg, nml ECHO, ef >60%, CT Head-- chr sm vs isch chg, cxr,MRA, MRI-- chr sm vs ds (ford by Hector) Other screening mammogram 05/11/2009 Overview: Neg 05/02;; 04/01--lt neg---rt asy--scv--neg. 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 SSA,SSB, MIGUEL all were negative 11/29 documented as of this encounter (statuses as of 07/14/2024) Immunizations Name Administration Dates Next Due COVID-19, mRNA, LNP-s, PF, B ooster, 100mcg/0.5mg (Moderna) 10/18/2021 Pneumococcal Polysaccharide PPV23 (Pneumovax) 01/30/2011 Seasonal Influenza, MDCK, Tr ivalent, PF, (Flucelvax) 10/01/2013 Seasonal Influenza, Trivalen t, (IIV3), with Preserv, (Fluzone) 08/28/2012,08/08/2011,07/26/2009 TDAP, Age 7 and older, IM (Adacel) 03/06(Deferred: Patient Refused - insurance does not cover) Varicella Zoster Vaccine (Adult) 01/01/2012 documented as of this encounter Social History Tobacco Use Types Packs/Day Years Used Date Smoking Tobacco: Never Smokeless Tobacco: Never Alcohol Use Standard Drinks/Week Comments Not Currently 3.3 (1 standard drink = 0.6 oz p ure alcohol) not since 01/2022 Hunger Vital Sign Answer Date Recorded Within the past 12 months, y ou worried that your food would run out before you got the money to buy more. Never true 05/28/20 23 Within the past 12 months, t he food you bought just didn't last and you didn't have money to get more. Never true 05/28/2023 Childcare Answer Date Recorded Do you feel overwhelmed with taking care of a child, family member or friend? No 05/28/2023 Does your family need help f inding childcare? (Household - for ages 0-17 years) Not on file 05/28/2023 Clothing Answer Date Recorded Have you been unable to get clothing when it was really needed? No 05/28/2023 Is your family able to get c lothes or diapers when needed? (Household - for ages 0-17 years) Not on file 05/28/2023 Personal Safety Answer Date Recorded Do you feel unsafe or have concerns for your saf ety? No 05/28/2023 Do you have concerns for you r family's safety? (Household - for ages 0-17 years) Not on file 05/28/2023 Utilities Answer Date Recorded Do you have trouble paying y our heating, water, or electric bill? (Adult - for ages 18 years and over) Not on file 06/02/2024 Is your family able to pay t he heat, water, or electric bill? (Household - for ages 0-17 years) Not on file 06/02/2024 Does your family have access to good internet? (Household - for ages 0-17 years) Not on file 06/02/2024 Employment Status Answer Date Recorded Are you unemployed or without regular income? No 05/28/2023 Does the household have a re gular source of income? (Household - for ages 0-17 years) Not on file 05/28/2023 Social Connections Answer Date Recorded How often do you feel lonely or isolated from those around you? (Adult - for ages 18 years and over) Not on file 06/02/2024 Financial Resource Strain Answer Date R ecorded Do you have any trouble payi ng for your medications, or do you think you might in the future? No 05/28/2023 Does your family have troubl e paying for medicine? (Household - for ages 0-17 years) Not on file 05/28/2023 Transportation Needs Answer Date Record ed READ ONLY Do you have troubl e getting a ride to medical visits or work? Never True 05/28/2023 Does your family have a hard time getting a ride to doctors visits? (Household - for ages 0-17 years) Not on file 05/28/2023 Has lack of transportation k ept you from medical appointments, meetings, work, or from getting things needed for daily living? Check all that apply. (Adult - for ages 18 years and over) Not on file 05/28/2023 Do you (or your family) have trouble finding or paying for a ride (transportation)? (Household - for ages 0-17 years) Not on file 05/28/2023 Housing Stability Answer Date Recorded Do you currently live in a s helter or have no steady place to sleep at night? No 05/28/2023 READ ONLY Do you think you a re at risk of becoming homeless? No 05/28/2023 Does your family worry about paying for your home or becoming homeless? (Household - for ages 0-17 years) Not on file 0 05/28/2023 Are you homeless or worried that you might be in the future? (Adult - for ages 18 years and over) Not on file Are you (or your family) ivring eless or worried that you might be in the future? (Household - for ages 0-17 years) Not on file Food Insecurity Answer Date Recorded Do you need food for this week? No 05/28/2023 Are you able to get enough f ood for your family? (Household - for ages 0-17 years) Not on file 05/28/2023 Does your family need food t his week? (Household - for ages 0-17 years) Not on file 05/28/2023 Do you always have enough fo od for your family? (Household - for ages 0-17 years) Not on file 05/28/2023 Sex and Gender Information Value Date Recorded Sex Assigned at Not on file Gender Identity Not on file Sexual Orientation Not on file Job Start Date Occupation Industry Not on file Not on file Not on file documented as of this encounter Functional Status Functional Status Response Date of Assess ment Are you deaf or do you have serious difficulty h earing? No 05/23/2023 Are you blind or do you have serious difficulty seeing, even when wearing glasses? No 05/23/2023 Do you have serious difficul ty walking or climbing stairs? (5 years old or older) No 05/23/2023 Do you have difficulty dress ing or bathing? (5 years old or older) No 05/23/2023 Because of a physical, menta l, or emotional condition, do you have difficulty doing errands alone such as visiting a doctor s office or shopping? (15 years old or older) No 05/23/20 Cognitive Status Response Date of Assessm ent Because of a physical, menta l, or emotional condition, do you have serious difficulty concentrating, remembering, or making decisions? (5 years old or older) No 05/23/2023 documented as of this encounter Plan of Treatment Pending Results Name Type Priority Associated Diagnoses Date /Time CBC WITH WBC DIFFERENTIAL Lab Routine Anemia 07/14/2024 11:46 AM EDT CULTURE, BLOOD Lab Routine Chills Fatigue Heart valve transplanted 07/14/2024 11:46 AM EDT BASIC METABOLIC PANEL Lab Routine Hyposmolality 07/14/2024 11:46 AM EDT CBC Lab Routine Anemia 07/14/2024 11:46 AM EDT DIFFERENTIAL, AUTOMATED Lab Routine Anemia 07/14/2024 11:46 AM EDT Scheduled Procedures Name Priority Associated Diagnoses Date/Ti me COLONOSCOPY FLEXIBLE PROXIMA L DIAGNOSTIC Recall Encounter for screening colonoscopy Health Maintenance Due Date Last Done Comments DTap/Tdap Vaccines (1 - Tdap) 1964 Depression Screening 03/31/2015 03/31/2014 Diabetic Foot Exam 12/29/2017 12/29/2016 Zoster Vaccines (3 of 3) 04/19/2023 02/22/2023, 12/19 COVID-19 Vaccine ( season) 2024 08/19/2023, 08/16/2022, 10/18/2021 Influenza Vaccine (FLU shot) (#1) 2024 11/17/2019, 10/01/2013, 08/28/2012, Additional history exists Albumin/Creatinine Ratio 08/12/2024 023, 05/09/2022, 11/07/2021, Additional history exists HbA1c 08/13/2024 02/12/2024, 07/22, 05/24/2023, Additional history exists Diabetic Eye Exam 04/02/2025 04/02/2024, , 07/05/2021, Additional history exists GFR 05/22/2025 05/22/2024, 01/20, 08/12/2023, Additional history exists DXA Scan 03/14/2030 03/14/2023, 04/21, 03/21/2012, Additional history exists Hepatitis C Screening Completed 05/25/2009 Pneumococcal Vaccine: 65+ Years Completed 02/14/2023, 09/30/2015, 08/10/2014, Additional history exists HPV (Gardasil) Vaccine Aged Out No lo nger eligible based on patient's age to complete this topic Hepatitis B Vaccine Aged Out No longe r eligible based on patient's age to complete this topic MENINGOCOCCAL (MENACTRA/MENVEO) Aged Out No longer eligible based on patient's age to complete this topic documented as of this encounter Medical Devices Implanted Type Area Gas Pipe Layer Device Identifier Shelf Expiration Date Model / Serial / Lot Suture Steel 6 B&S19 M654g - [id number] Implanted:Qty: 7 on 06/19/2022 by Jack Garner MD at OR [facility] [place] N/A: Sternum JNJ : [employer] 03/20/2027 [id number] / / [id number] Clip Occl Atri Flex V 35mm - [id number] Implanted:Qty: 1 on 06/19/2022 by Jack Garner MD at OR [facility] [place] N/A: Heart [employer] [id number] 12/19/2024 [id number] / / [id number] Pericardium Bovine 8x14 - [id number] - [id number] Implanted:Qty: 1 on 06/19/2022 by Jack Garner MD at OR [facility] [place] N/A: Heart [employer] [facility] [id number] 01/16/2028 E8P14 / [id number] / [id number] Valve Heart Mitral Epic 27mm - [id number] Implanted:Qty: 1 on 06/19/2022 by Jack Garner MD at OR [facility] [place] N/A: Heart [facility] : CARDIOVASCULAR [id number] 04/30/2025 H661-32D- 00 / [id number] / [id number] Valve Heart Aortic Epic 21mm - [id number] Implanted:Qty: 1 on 06/19/2022 by Jack Garner MD at OR [facility] [place] N/A: Heart [employer] : CARDIOVASCULAR [id number] 05/05/2024 TBM984-52 -00 / [id number] / [id number] documented as of this encounter Visit Diagnoses Diagnosis Anemia Anemia, unspecified Chills Chills (without fever) Fatigue Other malaise and fatigue Heart valve transplanted Heart valve replaced by transplant Hyposmolality Hyposmolality and/or hyponatremia documented in this encounter Advance Directives * Full Code (Latest Code Status on File) Date Activated Date Inactivated Comments 05/23/2023 10:05 PM 05/27/2023 4:57 PM This order re flects the patients wishes and were consensually agreed upon. Question Answer Comments Discussion of Advance Directives occurred with: Patient * Full Code Date Activated Date Inactivated Comments 08/03/2022 12:44 AM 08/04/2022 8:30 PM This orde r reflects the patients wishes and were consensually agreed upon. Question Answer Comments Discussion of Advance Directives occurred with: Patient * Full Code Date Activated Date Inactivated Comments 06/19/2022 7:08 PM 06/27/2022 5:04 PM Question Answer Comments Discussion of Advance Directives occurred with: Patient Healthcare Agents on File Name Relationship Healthcare Agent Relationshi p Communication Vik Camarena Spouse Health Care Repr esentative (appointed verbally by patient or by statute hierarchy) Care Teams Scrap Drop Engineer Relationship Specialty Start Date End Date Mulugeta Roger MD PCP - General Family Medicine 08/02/22 documented as of this encounter
--- OUTSIDE RECORDS SUMMARY | 2024-07-17 18:47 | External Medical Summary ---
Author Name Unknown Address Unknown Organization [id number]:[facility] [place] [facility] [place] [address] [place] [address] Laboratory Report Ordering Provider Test Date Status ALVA COTE 07/14/2024 11:46:02 Final Observation Date Value Abnormality Reference (Units ) Status WBC, Total 07/14/2024 11:46:02 12.19 Above high normal 4.00-10.80 (K/uL) Final RBC 07/14/2024 11:46:02 3.78 3.85-5.15 (M/uL) Final Hemoglobin 07/14/2024 11:46:02 10.7 Below low normal 12.0-15.3 (g/dL) Final HCT 07/14/2024 11:46:02 32.5 Below low normal 36.0-45.2 (%) Final MCV 07/14/2024 11:46:02 86.0 81.5-97.5 (fL) Final MCH 07/14/2024 11:46:02 28.3 27.0-34.0 (pg) Final MCHC 07/14/2024 11:46:02 32.9 32.0-36.0 (g/dL) Final RDW 07/14/2024 11:46:02 14.6 11.5-15.5 (%) Final Platelets 07/14/2024 11:46:02 173 140-400 (K/uL) Final MPV 07/14/2024 11:46:02 11.6 6.6-11.1 (fL) Final Nucleated erythrocytes/100 leukocytes [Ratio] in Blood by Automated count 07/14/2024 11:46:02 0 <=0 (/100 WBCs) Final Performing Location [facility] [place] [address] [place] [address]
--- OUTSIDE RECORDS SUMMARY | 2024-07-17 18:47 | External Medical Summary ---
Author Name Unknown Address Unknown Organization [id number][place] [place] [address] [facility] [facility] [address] Laboratory Report Ordering Provider Test Date Status ALVA COTE 07/14/2024 11:46:02 Final Observation Date Value Abnormality Reference (Units ) Status SYNC LEUKOCYTES IN BLOOD BY AUTOMATED COUNT 07/14/2024 11:46:02 12.19 Above high normal 4.00-10.80 (K/uL) Final Segs 07/14/2024 11:46:02 82.1 Above high normal 40.0-75.0 (%) Final Lymphs % 07/14/2024 11:46:02 10.1 Below low normal 18.0-42.0 (%) Final Monos 07/14/2024 11:46:02 6.8 1.0-11.0 (%) Final Eosinophils 07/14/2024 11:46:02 0.2 0.0-6.0 (%) Final Basos 07/14/2024 11:46:02 0.2 0.0-2.0 (%) Final Immature Granulocyte, Percent 07/14/2024 11:46:02 0.6 0.0-2.0 (%) Final Absolute Segs 07/14/2024 11:46:02 10.01 Above high normal 1.80-7.70 (K/uL) Final Lymphs, absolute 07/14/2024 11:46:02 1.23 1.00-4.80 (K/ul) Final Monos, Abs 07/14/2024 11:46:02 0.83 0.00-1.10 (K/uL) Final Eos, Abs 07/14/2024 11:46:02 0.02 0.00-0.70 (K/uL) Final Basos, Abs 07/14/2024 11:46:02 0.03 0.00-0.20 (K/uL) Final Immature Granulocytes, Number 07/14/2024 11:46:02 0.07 0.00-0.20 (K/uL) Final Performing Location [facility] [place] [facility] [address] [facility] [address]
--- OUTSIDE RECORDS SUMMARY | 2024-07-17 18:47 | External Medical Summary ---
Author Name Unknown Address Unknown Organization [id number]:LABORATORY [facility] - [address] [place], [place] [address] [address] Laboratory Report Ordering Provider Test Date Status ALVA COTE 07/14/2024 11:46:02 Final Observation Date Value Abnormality Reference (Units) Status Streptococcus sp DNA [Presence] by JENIFER with probe detection in Positive blood culture 07/14/2024 11:46:02 Positive Very abnormal Negative Final Blood pathogens panel by JENIFER with non-probe detection in Positive blood culture 07/14/2024 11:46:02 Negative for all other bacterial targets and resistance genes. Final This assay detects: Enteroco ccus faecalis,Enterococcus faecium, Listeria monocytogenes,Staphylococcus,Staphylococcus aureus,Staphylococcus epidermidis,Staphylococcus lugdunensis, Streptococcus,Streptococcus agalactiae, Streptococcus pneumoniae,Streptococcus pyogenes, Acinetobacter calcoaceticus-baumannii complex,Bacteriodes fragilis,Stenotrophomonas maltophilia,Enterobacterales,Enterobacter cloacae complex,Escherichia coli, Klebsiella oxytoca,Klebsiella pneumoniae,Klebsiella aerogenes,Proteus, Serratia marcescens,Salmonella spp.,Haemophilus influenzae, Neisseria meningitidis, Pseudomonas aeruginosa,Charu albicans,Charu auris,Charu glabrata,Charu krusei,Charu parapsilosis,Charu tropicalis,Cryptococcus neoformans/phoebe, KPC carbapenem resistance gene, mecA/C resistance gene,mecA/C MREJ (MRSA)resistance gene,Ruddy/B vancomycin resistance gene,VIM resistance gene, OXA-48-like resistance gene, NDM resistance gene,MCR-1 resistance gene, IMP resistance gene and CTX-M resistance gene.

The validation of this specimen type for this assay was developed and performance characteristics determined by [facility]. It has not been cleared or approved by the U.S. Food and Drug Administration (FDA). The FDA has determined that such clearance or approval is not necessary. Performing Location LABORATORY [facility] - [address] [place] [address]
--- OUTSIDE RECORDS SUMMARY | 2024-07-17 18:47 | External Medical Summary ---
Author Name Unknown Address Unknown Organization [id number]:[facility] [place] - [facility] [address] [place] [address] Laboratory Report Ordering Provider Test Date Status ALVA COTE 07/14/2024 11:46:02 Final Observation Date Value Abnormality Reference (Units ) Status BUN 07/14/2024 11:46:02 17 6-20 (mg/dL) Final Creatinine 07/14/2024 11:46:02 1.3 Above high normal 0.5-1.0 (mg/dL) Final Glomerular filtration rate/1.73 sq M.predicted [Volume Rate/Area] in Serum, Plasma or Blood by Creatinine-based formula (CKD-EPI) 07/14/2024 11:46:02 42 Below low normal >=60 (mL/min) Final eGFR is calculated based on the CKD-EPI 2020 equation. Sodium 07/14/2024 11:46:02 125 Below low normal 135 -146 (mmol/L) Final Potassium 07/14/2024 11:46:02 3.9 3.5-5.1 (m mol/L) Final Cl 07/14/2024 11:46:02 90 Below low normal 98- 107 (mmol/L) Final CO2 07/14/2024 11:46:02 23 22-32 (mmo l/L) Final Anion gap 07/14/2024 11:46:02 12 7-15 (mmol /L) Final Glucose 07/14/2024 11:46:02 161 Above high normal 70 -120 (mg/dL) Final Calcium 07/14/2024 11:46:02 8.9 8.4-10.2 ( mg/dL) Final Performing Location LABORATORY [facility] [place] - [address] [place] [address]
[2024-07-17] MEDS: APIXABAN 5 MG TABLET PO SCH (20:03)
--- NOTE | 2024-07-17 22:25 | Electrocardiogram Report ---
Test Reason : Blood Pressure : */* mmHG Vent. Rate : 93 BPM Atrial Rate : * BPM P-R Int : 200 ms QRS Dur : 122 ms QT Int : 400 ms P-R-T Axes : * -12 100 degrees QTcB Int : 497 ms Sinus rhythm Minimal voltage criteria for LVH, may be normal variant Non-specific intra-ventricular conduction block Septal infarct , age undetermined Abnormal ECG No previous ECGs available Confirmed by Ronen Espinoza ([id number]) on 07/17/2024 10:25:39 PM Referred By: Mulugeta Roger Confirmed By: Ronen Espinoza
[2024-07-18] MEDS: ACETAMINOPHEN 325 MG TAB PO PRN (03:21)
[2024-07-18] MEDS: ALBUTEROL HFA 8 GM INHALER INH PRN (03:47)
--- OUTSIDE RECORDS SUMMARY | 2024-07-18 06:00 | External Medical Summary ---
Author Name Unknown Address Unknown Organization [id number]:[facility] [place] [address] [facility] [address] [place] [id number] Laboratory Report Ordering Provider Test Date Status ALVA COTE 07/14/2024 11:46:02 Final Observation Date Value Abnormality Reference (Units ) Status Bacteria identified in Specimen by Culture 07/14/2024 11:46:02 [id number]^STREP TOCOCCUS MUTANS Very abnormal Final Both bottles of set Streptoc occus mutans
Antimicrobial susceptibility testing is not routinely performed on isolates from only one of two blood cultures as these are almost always not clinically significant. Gram Stain 07/14/2024 11:46:02 Anaerobic alan ttle Gram positive cocci Very abnormal Final This is an appended report. These results have been appended to a previously preliminary verified report. Gram Stain 07/14/2024 11:46:02 Anaerobic bottle Very abnorma l Final No yeast seen
This is an appended report. These results have been appended to a previously preliminary verified report.
Corrected result: Previously reported as Yeast on 07/15/2024 at 1301 EDT.
Corrected result: Previously reported as Anaerobic bottle No organisms seen on 07/17/2024 at 1016 EDT. Gram Stain 07/14/2024 11:46:02 Aerobic montrell le Gram positive cocci in chains Very abnormal Final This is an appended report. These results have been appended to a previously preliminary verified report.
Test: Culture, Blood
Specimen Source: Blood, Venous
Specimen Type: Blood
Specimen Date: 07/14/2024 1146
Result Date: 07/17/2024 1114
Result Status: Final result
Abnormal: Yes
Resulting Lab: [facility] [place]
[address]
[place] [address]

CULTURE

Both bottles of set Streptococcus mutans (Panic)

Antimicrobial susceptibility testing is not routinely performed on isolates
from only one of two blood cultures as these are almost always not
clinically significant.

STAIN

Anaerobic bottle Gram positive cocci

This is an appended report. These results have been appended to a
previously preliminary verified report.

Anaerobic bottle

No yeast seen
This is an appended report. These results have been appended to a
previously preliminary verified report.
Corrected result: Previously reported as Yeast on 07/15/2024 at 1301 EDT.
Corrected result: Previously reported as Anaerobic bottle No organisms seen
on 07/17/2024 at 1016 EDT.

Aerobic bottle Gram positive cocci in chains

This is an appended report. These results have been appended to a
previously preliminary verified report.

null Performing Location [facility] [place] [address] [facility] [id number]
--- OUTSIDE RECORDS SUMMARY | 2024-07-18 06:00 | External Medical Summary | Summary of Care ---
Author Name Unknown Organization [facility] Address [address] [place] [address] Phone [phone] Care Team Providers Care Flexographic Press Helper Name Role Phone Mulugeta Roger MD Primary Care Provider [phone] Reason for Referral * Evaluate & Treat - Unlimited Visits (Within 10 days (routine)) - Authorized Specialty Diagnoses / Procedures Referred By Contkristi t Referred To Contact Rheumatology Diagnoses Unspecified osteoarthritis, unspecified site Mulugeta Roger MD [address] [place] [id number] Referral ID Status Reason Start Date Expiration Date Visits Requested Visits Authorized [id number] Authorized Specialty Services Required 07/17/2024 999 999 Question Answer Referral Priority Within 10 days (routine) Where should this appointment be scheduled? Sue Reason for referral: Osteoarthritis Did you try PT or standard pain control measures? Yes - not specified Comments Osteoarthritis, unspecified Encounter Details Date Type Department Care Team (Late st Contact Info) Description 07/17/2024 Orders Only Access [facility], [address] *DO NOT REMOVE THIS DEPARTMENT* [place] [id number] Request, External Referral Unspecified osteoarthritis, unspecified site* Allergies Active Allergy Reactions Criticality Noted Date Comments Lisinopril Cough 01/18/2012 Morphine And Codeine Rash 10/19/2008 Penicillins Rash 10/19/2008 Ropinirole Edema Other 08/25/2014 Feet/hands documented as of this encounter (statuses as of 07/17/2024) Medications Medication Sig Dispensed Refills Start Date [...] as of this encounter (statuses as of 07/17/2024) Active Problems Problem Noted Date Diagnosed Date [...] other specified forms of tremor Overview: 03/02--Real santana--no intervention Special screening for osteoporosis 03/31/2012 Overview: 03/01--Low risk --rpt 4 yrs. Dyslipidemia, goal LDL below 100 10/06/2009 Overview: 4/10--st zocor 10mg (did not use 08/30-01/29)--04/30--chg to lipitor. -- Tc/ldl high--st chapincito Was on vytorin x 3 wks Roxannnathaniel Keys, CYNDEE and dc sec to Feeling sick to stomach( was ok on crestor), is on colestid now. Cervical spondylosis 07/26/2009 Overview: Xray--LH-- mti03--wwv DDD, mod spondylarthriis Alcohol ingestion, 1-4 drinks per day on alcohol screening 05/13/2009 Overview: 04/01-US RT UQ--fatty liver, 2 cysts, prob ashley repl pancreas. Ydk34--bhs hep screen 05/13/2009--nl cbc ex MCV 99, nl B12, folate,na 130, bmp ow ok, ua dil sg 1.009, lft ex ast/alt 65/65, GGTP 116, nl coags, mg low 1.3--st suppl-- 334/86/154/163 ---dec etoh - start colestid. --ch hepatitis -- HTN, goal below 140/90 05/11/2009 Overview: 12/30--dc lis cough--chg losartan --05/01--cough resolved Phi71--xph lis 20-dc hctz low na 05/29--chg lis/hctz 10/12.5 sec cost Arxq53-Kbbkpd 100/12.5 --ekg-- Sinus rhythm with Possible Premature atrial complexes with Aberrant conduction Nonspecific ST abnormality Benign paroxysmal vertigo 05/11/2009 Overview: Saw Jaya And Elizabeth Ramos -- had Joie montes with help yr ago - meclizine prn Mgvai47--fdt C Doppler,nml stress echo, nml ekg, EEg, nml ECHO, ef >60%, Ct Head-- chr sm vs isch chg, cxr,MRA, MRI-- chr sm vs ds (ford by Hector) Allergic rhinitis 05/11/2009 Overview: Altagracia. Overweight (BMI 25.0-29.9) 05/11/2009 Overview: 05/11/2009--BMI: 28.69 kg/m documented as of this encounter (statuses as of 07/17/2024) Resolved Problems Problem Noted Date Diagnosed Date Resolved Date Shortness of breath 08/03/2022 08/04/20 Simple chronic serous otitis media 12/17/2011 08/20/2022 Overview: ICD-10 update of inactive term Aortic valve stenosis 02/21/20102021 Overview: 02/27--Ef 55-60%, Bl ., Tr MR Reeder 07/26/2009 09/04/2022 Overview: H/o zoster dec06. Hypomagnesemia 05/13/2009 05/27/2023 Overview: Zrca46-9.3--st opu55--3.8, Abnormal transaminases 05/13/200908/20 Overview: 04/30--neg sec cause ford--spe, ceruloplasmin, miguel, ama, c/p anca, AAT, gliadin ab Mixed dyslipidemia 05/11/2009 12//200 9 Overview: Per Lipid Taxonomy. Was on vytorin x 3 wks Roxann Massimo, CYNDEE and dc sec to Feeling sick to stomach( was ok on crestor Routine medical exam 05/11/2009 022 Overview: New pt eval--05/11/2009--no records available.---07/26/2009--rec rev-- Wtjvl71--mgr C Doppler,nml stress echo, nml ekg, EEg, nml ECHO, ef >60%, CT Head-- chr sm vs isch chg, cxr,MRA, MRI-- chr sm vs ds (ford by Hector) Other screening mammogram 05/11/2009 Overview: Neg 05/02;; 04/01--lt neg---rt asy--scv--neg. Mammo--mhr55--SW---4/10--neg;;;neg -02/28 Screening for malignant neoplasm of cervix 05/11/2009 08/20/2022 Overview: Sp total hysterectomy 1990, last pap 5-6 yrs ago --Roxann Keys--pap-fb [employer] worker vag smear neg --04/30 Special screening for malign ant neoplasms, colon 05/11/2009 08/20/2022 Overview: Iam69--=EXRT+ --had csope--DrEverhart-07/14/2009--Gr IH, diverticulosis, --07/15/09 - UGI series-- neg Pdjk88-Dfbhy had csope--had ho yr ago. 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 SSA,SSB, MIGUEL all were negative 11/29 documented as of this encounter (statuses as of 07/17/2024) Immunizations Name Administration Dates Next Due COVID-19, [...] on file Are you (or your family) irving eless or worried that you might be [...] as of this encounter Plan of Treatment Scheduled Procedures Name Priority Associated Diagnoses Date/Ti me COLONOSCOPY FLEXIBLE PROXIMA L DIAGNOSTIC Recall Encounter for screening colonoscopy Scheduled Referrals Name Type Priority Associated Diagnoses Orde r Schedule RHEUMATOLOGY REFERRAL OP Referral Within 10 days (routine) Unspecified osteoarthritis, unspecified site Ordered: 07/17/2024 Health Maintenance Due Date Last Done Comments [...] 04/02/2024, , 07/05/2021, Additional history exists GFR 07/14/2025 07/14/2024, 0811/2023, 02/12/2024, Additional history exists DXA Scan 03/14/2030 03/14/2023, [...] this encounter Medical Devices Implanted Type Area Frame Opener Device Identifier Shelf Expiration Date Model / Serial / Lot Suture Steel 6 B&S19 M654g - [id number] Implanted:Qty: 7 on 06/19/2022 by Jack Garner MD at [facility] [place] N/A: Sternum JNJ : [employer] 03/20/2027 M654G / / [id number] Clip Occl Atri Flex V 35mm - [id number] Implanted:Qty: 1 on 06/19/2022 by Jack Garner MD at [facility] [place] N/A: Heart [employer] [id number] 12/19/2024 [id number] / / [id number] Pericardium Bovine 8x14 - [id number] - [id number] Implanted:Qty: 1 on 06/19/2022 by Jack Garner MD at [facility] [place] N/A: Heart [employer] [id number] 01/16/2028 [id number] / [id number] / [id number] Valve Heart Mitral Epic 27mm - [id number] Implanted:Qty: 1 on 06/19/2022 by Jack Garner MD at [facility] [place] N/A: Heart [employer] : CARDIOVASCULAR [id number] 04/30/2025 [id number] 00 / [id number] / [id number] Valve Heart Aortic Epic 21mm - [id number] Implanted:Qty: 1 on 06/19/2022 by Jack Garner MD at [facility] [place] N/A: Heart [employer] : CARDIOVASCULAR [id number] 05/05/2024 [id number] -00 / [id number] / [id number] documented as of this encounter Visit Diagnoses Diagnosis Unspecified osteoarthritis, unspecified site- Primary documented in this encounter Advance Directives * [...] patient or by statute hierarchy) Care Teams Flexographic Press Helper Relationship Specialty Start Date End Date Mulugeta Roger MD PCP - General Family Medicine 08/02/22 documented as of this encounter
[2024-07-18 06:24] LABS: Basophils # (auto) 0.03 K/uL (0.00-0.20); Basophils % (auto) 0.2 %; Eosinophils # (auto) 0.02 K/uL (0.00-0.50); Eosinophils % (auto) 0.1 %; Hematocrit (blood only) 28.3 % (37.0-47.0); Hemoglobin 9.3 g/dl (12.0-16.0); Immature Granulocytes % (auto) 0.7 %; Lymphocytes # (auto) 1.01 K/uL (1.20-3.40); Lymphocytes % (auto) 6.8 %; Mean Corpuscular Hgb Conc 32.9 g/dL (32.0-36.0); Mean Corpuscular Volume 82.3 fL (80.0-100.0); Mean Platelet Volume 10.6 fL (9.4-12.4); Monocytes # (auto) 0.94 K/uL (0.11-0.59); Monocytes % (auto) 6.4 %; Neutrophils # (auto) 12.69 K/uL (1.40-6.50); Neutrophils % (auto) 85.8 %; Platelet Count 205 K/uL (130-400); RDW Coefficient of Variation 14.4 % (11.5-14.5); RDW Standard Deviation 42.7 fL (36.4-46.3); Red Blood Count 3.44 M/uL (4.20-5.40); White Blood Count 14.79 K/ul (4.8-10.8)
[2024-07-18 06:37] LABS: BUN Creatinine Ratio 15.5 (10-20); C Reactive Protein 18.68 mg/dl (0-0.5); Calcium 8.7 mg/dl (8.6-10.3); Creatinine Clr Calc Pharmacy 33.3 ml/min; Est GFR (African American) 52.2 ml/min; Est GFR (Non-African American) 45.1 ml/min; Magnesium 1.9 mg/dl (1.7-2.4); Potassium 3.6 mmol/L (3.5-5.1)
[2024-07-18] MEDS: amLODIPine BESYLATE 5 MG TAB PO SCH (08:42)
[2024-07-18] MEDS: LOSARTAN POTASSIUM 50 MG TAB PO SCH (08:42)
[2024-07-18] MEDS: ROSUVASTATIN CALCIUM 20 MG TAB PO SCH (08:42)
[2024-07-18] MEDS: DOCUSATE SODIUM 100 MG CAP PO SCH (08:48)
--- NOTE | 2024-07-18 10:07 | Hospitalist Progress Note ---
Date of Service July 18, 2024 Assessment & Plan (1) Endocarditis: (2) S/P mitral valve replacement: (3) Hyponatremia: (4) Hypomagnesemia: (5) Anemia: Plan # Endocarditis: Worsening fatigue x 1 week, and acute onset of fever the morning of 07/17 Concern for endocarditis given history of mitral and aortic valve replacement Recent outpatient workup showed elevated ESR and CRP on outpatient labs Blood cultures drawn on 07/14 revealed Streptococcus mutans in both bottles Patient denies any recent dental procedures Blood culture x 1 drawn in the ED; Rocephin given shortly after Lactate and procalcitonin WNL Troponin elevated at 147.5 trending to 279 Continue Rocephin 2000 mg IV q24h Infectious disease consult appreciated; ?rifampin # S/P aortic valve replacement: Aortic and mitral valve replacement on 06/19/2022 at [facility] Most recent echocardiogram on 07/14 revealed LVEF at 60 to 65% and mild pulmonary hypertension (RVSP 47mmHg) Bioprosthetic aortic valve with acceptable transvalvular gradient, mitral valve with mildly elevated transvalvular gradient (no significant regurgitation) While echocardiogram was performed recently, if positive blood culture on repeat, would recommend getting a DION # Hyponatremia: Improving NSS 1000mL IV x 2 given in the ED Trend BMP # Hypomagnesemia: Improved # Anemia: Hgb 9.3 Suspected due to vitamin B12 deficiency (low at 80 on 07/09) Continue vitamin B12 supplementation Trend H&H Plan Disposition: Admit to PCU telemetry Full code Heart healthy, T2DM diet VTE PPx: On Eliquis Admission and Anticipated Discharge Date Admission Date: July 17, 2024 Supervising Physician Co-Signing Physician Notes I personally examined the patient and verified all carnes points of history and exam, discussed case, and agree with decision making with Dr Calderón Feels much better. notes that her mentation is back to baseline. No new joint pain/back pain/etc. Vitals noted, in general she is awake and alert pleasant no distress. HEENT normocephalic atraumatic mucous membranes moist. Breathing unlabored no accessory muscle use good effort. Skin without rashes pallor or icterus. Neuro without focal deficits. Strep bacteremiafollow-up culture showing no growth to date. Will need to obtain cultures from outside lab especially to evaluate sensitivities. Continue Rocephin for now. Continue to follow. Transthoracic echo negative which is reassuring. No new bone or joint pain making osteomyelitis or septic arthritis less likely. Await sensitivities, and then likely start to build plan for definitive therapy. anticoagulated Subjective Patient seen and evaluated at bedside this morning. No acute events overnight. No acute concerns or complaints this am. States feeling slightly better than at time of admission. Review of Systems Review of Systems: reviewed, per HPI Physical Exam Physical Exam: Constitutional: well-appearing, no acute distress HEENT: NCAT, no conjunctival injection CV: clinically well perfused Resp: no increased work of breathing GI: non-distended MSK: no gross deformities appreciated Skin: warm, dry, no rash appreciated Neuro: alert, oriented, no focal neurologic deficit appreciated Results & Data Results & Data Vital Signs (Past 12 Hours) Vital Signs Temp Pulse Pulse Pulse Resp BP Pulse Ox 07/18/24 07:52 36.7 C 75 17 128/78 99 07/18/24 07:31 74 07/18/24 03:47 100 H 20 90 07/18/24 03:28 38.5 C H 102 H 18 137/59 L 90 07/18/24 03:22 38.5 C H 07/17/24 23:00 76 07/17/24 22:54 37.7 C H 90 18 153/89 H 94 O2 Del Method 07/18/24 07:52 Room Air 07/18/24 07:31 07/18/24 03:47 Room Air 07/18/24 03:28 Room Air 07/18/24 03:22 07/17/24 23:00 07/17/24 22:54 Room Air Resident Activity Tracking Resident Involvement: Resident Care Provided Care Provided: Adult Hospital Medicine
[2024-07-18] MEDS: cefTRIAXone SODIUM 2,000 MG/50 ML BAG IV SCH (12:15)
--- NOTE | 2024-07-18 16:03 | Billing Data ---
Date of Service July 18, 2024 Coding Level of Care Code 06427 SUB INP/OBS CARE
[2024-07-18 18:50] LABS: A calco-baum cmplx NotReported Not Detected (NotDetected); Bact fragilis Not Reported Not Detected (NotDetected); Blood Culture Id Panel See PCR Comment (NotDetected); C auris Not Reported Not Detected (NotDetected); Calbicans Not Reported Not Detected (NotDetected); Candida glabrata Not Reported Not Detected (NotDetected); Candida krusei Not Reported Not Detected (NotDetected); Cneoformans/gatti Not Reported Not Detected (NotDetected); Cparapsilosis Not Reported Not Detected (NotDetected); E cloacae compx Not Reported Not Detected (NotDetected); Efaecalis Not Reported Not Detected (NotDetected); Efaecium Not Reported Not Detected (NotDetected); Enterobacterales Not Reported Not Detected (NotDetected); Escherichia coli Not Reported Not Detected (NotDetected); H influenzae Not Reported Not Detected (NotDetected); K aerogenes Not Reported Not Detected (NotDetected); Koxytoca Not Reported Not Detected (NotDetected); Kpneumoniae grp Not Reported Not Detected (NotDetected); Lmonocyt Not Reported Not Detected (NotDetected); N meningitidis Not Reported Not Detected (NotDetected); P aeruginosa Not Reported Not Detected (NotDetected); Proteus spp Not Reported Not Detected (NotDetected); Salmonella spp Not Reported Not Detected (NotDetected); Staph lugdunensis Not Reported Not Detected (NotDetected); Staph spp. Not Reported Not Detected (NotDetected); Staphaureus Not Reported Not Detected (NotDetected); Staphepi Not Reported Not Detected (NotDetected); Stenmaltophilia Not Reported Not Detected (NotDetected); Strep agal(GrpB) Not Reported Not Detected (NotDetected); Strep pneum Not Reported Not Detected (NotDetected); Strep pyog (GrpA) Not Reported Not Detected (NotDetected); Strep spp Not Reported DETECTED (NotDetected)
[2024-07-18 18:55] LABS: Streptococcus spp DETECTED (NotDetected)
[2024-07-19 07:15] LABS: Basophils # (auto) 0.04 K/uL (0.00-0.20); Basophils % (auto) 0.3 %; Eosinophils # (auto) 0.07 K/uL (0.00-0.50); Eosinophils % (auto) 0.5 %; Hematocrit (blood only) 27.2 % (37.0-47.0); Hemoglobin 9.4 g/dl (12.0-16.0); Immature Granulocytes % (auto) 0.7 %; Lymphocytes # (auto) 1.35 K/uL (1.20-3.40); Lymphocytes % (auto) 9.1 %; Mean Corpuscular Hemoglobin 27.5 pg (25.0-34.0); Mean Corpuscular Hgb Conc 34.6 g/dL (32.0-36.0); Mean Corpuscular Volume 79.5 fL (80.0-100.0); Mean Platelet Volume 10.3 fL (9.4-12.4); Monocytes # (auto) 0.98 K/uL (0.11-0.59); Monocytes % (auto) 6.6 %; Neutrophils # (auto) 12.24 K/uL (1.40-6.50); Neutrophils % (auto) 82.8 %; Platelet Count 229 K/uL (130-400); RDW Coefficient of Variation 14.2 % (11.5-14.5); RDW Standard Deviation 41.7 fL (36.4-46.3); Red Blood Count 3.42 M/uL (4.20-5.40); White Blood Count 14.78 K/ul (4.8-10.8)
[2024-07-19 07:46] LABS: BUN Creatinine Ratio 17.7 (10-20); C Reactive Protein 16.15 mg/dl (0-0.5); Calcium 8.8 mg/dl (8.6-10.3); Creatinine Clr Calc Pharmacy 40.6 ml/min; Est GFR (African American) 65.7 ml/min; Est GFR (Non-African American) 56.6 ml/min; Potassium 3.6 mmol/L (3.5-5.1)
--- NOTE | 2024-07-19 10:11 | Hospitalist Progress Note ---
Date of Service July 19, 2024 Assessment & Plan (1) Endocarditis: (2) S/P mitral valve replacement: (3) Hyponatremia: (4) Hypomagnesemia: (5) Anemia: Plan # Endocarditis: Worsening fatigue x 1 week, and acute onset of fever the morning of 07/17 Concern for endocarditis given history of mitral and aortic valve replacement Recent outpatient workup showed elevated ESR and CRP on outpatient labs Blood cultures drawn on 07/14 revealed Streptococcus mutans in both bottles Patient denies any recent dental procedures Blood culture x 1 drawn in the ED; Rocephin given shortly after Lactate and procalcitonin WNL Troponin elevated at 147.5 trending to 279 Continue Rocephin 2000 mg IV q24h Add gentamicin per pharmacy Await sensitivities Infectious disease consult appreciated; ?rifampin # S/P aortic valve replacement: Aortic and mitral valve replacement on 06/19/2022 at [facility] [place] Most recent echocardiogram on 07/14 revealed LVEF at 60 to 65% and mild pulmonary hypertension (RVSP 47mmHg) Bioprosthetic aortic valve with acceptable transvalvular gradient, mitral valve with mildly elevated transvalvular gradient (no significant regurgitation) While echocardiogram was performed recently, if positive blood culture on repeat, would recommend getting a DION # Hyponatremia: Improving NSS 1000mL IV x 2 given in the ED Trend BMP # Hypomagnesemia: Improved # Anemia: Hgb 9.3 Suspected due to vitamin B12 deficiency (low at 80 on 07/09) Continue vitamin B12 supplementation Trend H&H Plan Disposition: Admit to PCU telemetry Full code Heart healthy, T2DM diet VTE PPx: On Eliquis Admission and Anticipated Discharge Date Admission Date: July 17, 2024 Supervising Physician Co-Signing Physician Notes I personally examined the patient and verified all carnes points of history and exam, discussed case, and agree with decision making with Dr Saldana visited twice - sleeping comfortably both times. Vitals noted, resting comfortably and appears in no distress. HEENT normocephalic atraumatic mucous membranes moist. Breathing unlabored no accessory muscle use good effort. Skin without rashes pallor or icterus. Neuro without focal deficits at rest. Strep bacteremiafollow-up culture showing no growth to date. dr saldana called outside lab - no sensitivities to be run. hopefully can get sensitivities on in-house culture. add gent to rocephin for now, f/u culture sent today to eval for clearing. TTE negative. no significant bone/joint pain. ongoing supportive care. ID input to come tomorrow (and will most specifically request input on utility of DION and on optimal treatment abx/duration) anticoagulated Subjective Patient seen and evaluated at bedside this morning. No acute events overnight. New oxygen requirement 2L NC this am. Blood cultures this visit gram positive cocci in chains in both bottles. Attempted to contact outside lab - cultures positive for strep mutans, no sensitivities performed. Review of Systems Review of Systems: reviewed, per HPI Physical Exam Physical Exam: Constitutional: well-appearing, no acute distress HEENT: NCAT, no conjunctival injection CV: clinically well perfused, +mechanical valve click Resp: diminished breath sounds b/l, no focal findings GI: non-distended MSK: no gross deformities appreciated Skin: warm, dry, no rash appreciated Neuro: alert, oriented, no focal neurologic deficit appreciated Results & Data Results & Data Vital Signs (Past 12 Hours) Vital Signs Temp Pulse Pulse Resp BP Pulse Ox O2 Del Method 07/19/24 07:31 97 H 18 96 Nasal Cannula 07/19/24 07:09 37.6 C H 96 H 18 134/70 87 L Room Air 07/19/24 03:56 37.5 C 87 16 154/72 H 90 Room Air 07/18/24 23:15 83 07/18/24 22:47 37.2 C 82 14 133/65 91 Room Air 07/18/24 22:28 Room Air O2 Flow Rate 07/19/24 07:31 2 07/19/24 07:09 07/19/24 03:56 07/18/24 23:15 07/18/24 22:47 07/18/24 22:28 Resident Activity Tracking Resident Involvement: Resident Care Provided Care Provided: Adult Hospital Medicine
[2024-07-19] MEDS ORDERED: GENTAMICIN CONSULT ACTIVE PRN (10:27)
--- NOTE | 2024-07-19 11:10 | XRay Report ---
TWO VIEW CHEST CLINICAL HISTORY: Hypoxia FINDINGS: PA and lateral chest radiographs are compared to study dated 07/17/2024. The patient is stat us post midline sternotomy and cardiac valve surgeries. The heart is enlarged noting atherosclerotic calcification of the thoracic aorta. The pulmonary vasculature is noncongested. Scarring/atelectasis is noted at the lung bases. Question trace left pleural effusion. Airspace opacities at the left lung base have modestly increased. No pneumothorax is seen. The skeletal structures are osteopenic. The b eva thorax is grossly intact. Degenerative change is noted in the spine. IMPRESSION: 1. Cardiomegaly without radiographic evidence of congestive failure. 2. Airspace opacities at the left lung base appear modestly increased. This could represent progressi ve atelectasis. Correlate clinically for evidence of a mild pneumonitis. 3. Question trace left pleural effusion. ACT 112: Negative or not required by law. Electronically signed by: Mulugeta Jolly M.D. 07/19/2024 11:08 AM
[2024-07-19] MEDS: GENTAMICIN SULFATE IV ONE (11:42)
[2024-07-19] MEDS: DEXTROSE 5% IV ONE (11:42)
--- NOTE | 2024-07-19 15:34 | Billing Data ---
Date of Service July 19, 2024 Coding Level of Care Code 36058 SUB INP/OBS CARE MIN
--- NOTE | 2024-07-19 16:00 | Pharmacy Report ---
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 h/o bioprosthetic aortic valve replacement 06/19/22. On day #3 of ceftriaxone IV. Gentamicin IV added today for synergy. Pertinent microbiologic data includes: 07/17/27 - BC: gram positive cocci in chains BCID2 detected Strep sp. 07/14/24- BC at outside facility grew Strep mutans Plan Gentamicin * Gram positive synergy dosing for patient with CrCL < 60 mL/min * Dose: 1 mg/kg (AdjBW) IV q12h * Tough level ordered for 07/20 @ 1130 to rule out drug accumulation. Goal is to maintain trough levels < 1 mcg/mL * Peak level monitoring not routinely recommended Ceftriaxone 2000 mg IV q24h Pharmacy will continue to follow and will adjust dose/frequency as necessary. Thank you.
--- NOTE | 2024-07-19 17:06 | Electrocardiogram Report ---
Test Reason : Blood Pressure : */* mmHG Vent. Rate : 67 BPM Atrial Rate : 250 BPM P-R Int : * ms QRS Dur : 122 ms QT Int : 468 ms P-R-T Axes : * 75 74 degrees QTcB Int : 494 ms Atrial fibrillation Non-specific intra-ventricular conduction delay Nonspecific ST abnormality Abnormal ECG When compared with ECG of 17-Jul-2024 10:52, Atrial fibrillation has replaced Sinus rhythm Criteria for Septal infarct are no longer Present T wave inversion no longer evident in Lateral leads Confirmed by Carleen Cohen (Yimi) on 07/19/2024 5:06:03 PM Referred By: Mulugeta Roger Confirmed By: Carleen Cohen
[2024-07-19] MEDS: DEXTROSE 5% IV SCH (23:57)
[2024-07-19] MEDS: GENTAMICIN SULFATE IV SCH (23:57)
[2024-07-20 08:49] LABS: Basophils # (auto) 0.05 K/uL (0.00-0.20); Basophils % (auto) 0.5 %; Eosinophils # (auto) 0.18 K/uL (0.00-0.50); Eosinophils % (auto) 1.7 %; Hematocrit (blood only) 27.4 % (37.0-47.0); Hemoglobin 9.4 g/dl (12.0-16.0); Immature Granulocytes # (auto) 0.07 K/uL (0.01-0.20); Immature Granulocytes % (auto) 0.7 %; Lymphocytes % (auto) 13.2 %; Mean Corpuscular Hemoglobin 27.8 pg (25.0-34.0); Mean Corpuscular Hgb Conc 34.3 g/dL (32.0-36.0); Mean Corpuscular Volume 81.1 fL (80.0-100.0); Mean Platelet Volume 10.2 fL (9.4-12.4); Monocytes # (auto) 0.55 K/uL (0.11-0.59); Monocytes % (auto) 5.2 %; Neutrophils # (auto) 8.37 K/uL (1.40-6.50); Neutrophils % (auto) 78.7 %; Platelet Count 260 K/uL (130-400); RDW Coefficient of Variation 14.5 % (11.5-14.5); RDW Standard Deviation 42.6 fL (36.4-46.3); Red Blood Count 3.38 M/uL (4.20-5.40); White Blood Count 10.62 K/ul (4.8-10.8)
[2024-07-20 09:15] LABS: Calcium 8.9 mg/dl (8.6-10.3); Est GFR (African American) 62.5 ml/min; Est GFR (Non-African American) 53.9 ml/min; Potassium 3.5 mmol/L (3.5-5.1)
--- NOTE | 2024-07-20 10:26 | Hospitalist Progress Note ---
Date of Service July 20, 2024 Assessment & Plan (1) Endocarditis: (2) S/P mitral valve replacement: (3) Hyponatremia: (4) Hypomagnesemia: (5) Anemia: Plan # Endocarditis: Worsening fatigue x 1 week, and acute onset of fever the morning of 07/17 Concern for endocarditis given history of mitral and aortic valve replacement Recent outpatient workup showed elevated ESR and CRP. CRP downtrending. Blood cultures drawn on 07/17 revealed Streptococcus spp Patient states no Blood Cx or antibiotics were done as an outpatient. Blood Cx from 07/13/24 cancelled. Given positive blood cultures, will order DION, patient in agreement; patient does not want to proceed w/ surgical intervention until she speaks w/ her cardiothoracic surgeons first. May do DION and if vegetations found, have her f/u with her surgeons for intervention if indicated and if preferred. Patient denies any recent dental procedures Continue Rocephin 2000 mg IV q24h and Gentamicin ID consult placed. Would appreciate reccs. Anticipate 6 weeks of abx therapy (Rocephin?) If DION negative for vegetations, may consider CTAP w/ contrast to r/o GI source if indicated # S/P aortic and mitral valve replacement: [place] [facility] [place] recent echocardiogram on 07/14 revealed LVEF at 60 to 65% and mild pulmonary hypertension (RVSP 47mmHg) Reccs for DION as mentioned above. # Hyponatremia: Hx SIADH Stable Trend BMP # Hypomagnesemia: Resolved # Anemia: Stable. Hgb 9.3 in am labs Had low vitamin B12 levels in the past, but MCV from am labs now microcytic despite iron supplementation. Iron studies ordered and suggestive of anemia of chronic disease. Continue to manage chronic disease and current infection since this may help with anemia Trend H&H Plan Disposition: Stabilize and discuss w/ ID regarding plan for antibiotic therapy as part of discharge planning Full code Heart healthy, T2DM diet VTE PPx: On Eliquis Admission and Anticipated Discharge Date Admission Date: July 17, 2024 Supervising Physician Co-Signing Physician Notes Attending attestation Pt seen and examined in concert with Dr. Glasgow. In agreement with the documented findings as noted in the resident documentation with any exceptions or additions as noted here. Resting comfortably in bed without complaint. On examination, S1/S2 nl RRR no MCG. CTAB. Abd NT/ND BS+ve Strep bacteremia - final sensitivities pending, will narrow as recommended by ID upon receipt. Monitor BMP daily for tolerance of gentamycin. DION for evaluation for valvular pathology. Else see resident documentation as noted. Subjective Patient evaluated at bedside and states she feels somewhat better today. She has been ambulating with help w/o subsequent chest pain or MESA. Currently breathing comfortably at room air. States that yesterday she did not feel any new symptoms when she needed to be placed in NC. Denies chest pain, SOB, fevers, chills, N/V/D, or any other sxs. Review of Systems Review of Systems: reviewed, per HPI Physical Exam Physical Exam: Constitutional: well-appearing, no acute distress HEENT: NCAT, no conjunctival injection CV: clinically well perfused, +mechanical valve click Resp: CTA bilaterally, breathing comfortably at room air, normal respiratory effort, no respiratory distress. GI: non-distended MSK: no gross deformities appreciated Skin: warm, dry, no rash appreciated Neuro: alert, oriented, no focal neurologic deficit appreciated Results & Data Results & Data Vital Signs (Past 12 Hours) Vital Signs Temp Pulse Pulse Resp BP Pulse Ox O2 Del Method 07/20/24 09:06 Room Air 07/20/24 07:55 36.7 C 78 17 132/75 96 Room Air 07/20/24 07:13 78 07/20/24 04:15 36.4 C L 79 18 130/77 96 Room Air 07/19/24 23:37 37.3 C 79 18 122/66 93 Room Air 07/19/24 23:32 78 Resident Activity Tracking Resident Involvement: Resident Care Provided Care Provided: Adult Hospital Medicine
[2024-07-20] MEDS: GENTAMICIN TROUGH ONE (12:20)
--- NOTE | 2024-07-20 13:19 | Infectious Disease Consult ---
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 History of bioprosthetic mitral valve and bioprosthetic [place] [facility] [place] 3. Antibiotic allergy history: penicillin (rash 44 years ago; no hx of anaphylaxis/throat closure) Impression: Penny Camarena is a 78-year-old woman with history of and MS s/p bioprosthetic mitral valve and bioprosthetic aortic valve replacements [place] [facility] [place] CHF, CAD, TIA, inflammatory arthritis, SIADH, who presents to [facility] on with fatigue, confusion, and fever. BCx x1 set from 07/17 are positive for Strep mutans in 2 of 2 bottles. ID is consulted for Strep bacteremia and suspected infective endocarditis. The pt was seen in the ED at [facility] on 05/22/2024 for disorientation, where she had difficulty speaking for ~10 minutes while gardening; her symptoms resolved and she went to the ED where she was noted to have hypertension (SBP >200) and headache, which improved with labetalol and she had her antihypertensives titrated as an outpatient. She had outpatient cardiology follow-up on 06/30/24 where she reported feeling very tired, and also experienced periodic wheezing for which she was using an inhaler. At the time no fevers, chills, chest pain, palpitations. Over the last 1 week, she has had notable fatigue and progressively worsening confusion. Her fatigue and weakness have progressed to the point that she has not been able to ambulate (does not require assistance at baseline). She also reported pleuritic and achy chest pain in the substernal area. Given her fatigue as an outpatient, she had labs and TTE done 07/14. 07/14 TTE without reported vegetations; LVEF at 60 to 65%, mild PH, bioprosthetic aortic valve with acceptable transvalvular gradient, bioprosthetic mitral valve with mildly eleva tino transvalvular gradient (no significant regurgitation) slightly increased compared to prior on 03/2023. On 07/17, she developed fever. BCx were ordered for 07/13 but the order in the EMR appears to be cancelled. In the ED on 07/17, T37.8 (TMax 38.5 on 07/18) HR 83 BP 130/60. Labs showed WBC 17.47 Hgb 9.7 plt 226 ESR 86 CRP 16.05. Troponin 147.5. She was started on ceftriaxone on 07/17. BCx (1 set collected) from 07/17 grew Strep mutans in 2 of 2 bottles. On 07/19, gentamicin was added. Reported history of penicillin allergy (rash 44 years ago; no hx of anaphylaxis/throat closure). 07/19 BCx x1 set were obtained, thus far NGTD. No recent reported dental procedures; no prior history of valve infections. She has not seen a dentist in several years and thinks she has a cavity in her R lower mouth; no recent pain, discharge, gum swelling, or discharge from that area. Aside from her valve replacements, she denies other hardware. At the time of evaluation, she reports feeling better since she has come to the hospital and been placed on abx. She denies any joint or back pain, denies abdominal pain or pain elsewhere. Discussion Pt with Strep mutans bacteremia on 07/17; only 1 set collected but positive in 2 of 2 bottles. This is in the setting of 1+ week of fatigue and constitutional symptoms, as well as new fevers. This clinical picture Is highly c/f infective prosthetic valve endocarditis in this patient with a history of both mitral and aortic bioprosthetic valve replacements. 07/14 TTE without vegetations reported but with slightly elevated mitral transvalvular gradient. Appreciate cardiology evaluation, would consider DION to further visualize bioprosthetic valves, though given high suspicion will likely treat as PVE regardless. Strep mutants is often of dental/oral source; pt without recent dental procedures but has not had dental care in several years and believes she has a cavity though can sometimes be associated with GI pathology; would consider CT A/P. Would continue ceftriaxone for viridans Strep bacteremia with concern for suspected infective prosthetic valve endocarditis. The patient has also been started on gentamicin if tolerating this from an adverse effects perspective, would be reasonable to continue for though there is limited benefit and potential risk (e.g., nephrotoxicity, ototoxicity). Will follow 07/15 Strep sensis (especially PCN THONG). If PCN THONG <= 0.125, would consider stopping gentamicin or doing only 2 weeks of gentamicin. For viridans Strep with PCN THONG >0.125, sometimes 6 weeks of adjunctive gentamicin can be considered. Recommendations: - Continue ceftriaxone 2g IV q24h - Continue gentamicin for now, dosing per Rx (currently on 1 mg/kg q12h for CrCl of ~40; if CrCl improves >60 will likely need frequency increase) - Obtain CT A/P with contrast to further evaluate for GI source - F/u 07/14 Strep THONG - F/u repeat BCx from 07/19 to ensure remains negative - Appreciate cardiology evaluation, would consider DION to further visualize bioprosthetic valves - Ensure pt reestablishes with dental care as an outpatient ID will continue to follow. Celena Anderson MD, S Infectious Diseases [facility] Connect ID Connect direct line: [phone] Consultation Information Consultation was provided via telemedicine using two-way real-time interactive telecommunication between the patient and the telemedicine provider. For the duration of the visit, the provider was performing the assessment from a different facility than the patient. This includesuse of bluetooth stethoscope forauscultationperformed by the telepresenter that the telemedicine provider can hear if described in the physical exam. Consulting Technical Director contact information: Please call ID Connect Call Center . 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 BCx x1 set from 07/17 are positive for Strep mutans in 2 of 2 bottles. ID is consulted for Strep bacteremia and suspected infective endocarditis. The pt was seen in the ED at [facility] on 05/22/2024 for disorientation, where she had difficulty speaking for ~10 minutes while gardening; her symptoms resolved and she went to the ED where she was noted to have hypertension (SBP >200) and headache, which improved with labetalol and she had her antihypertensives titrated as an outpatient. She had outpatient cardiology follow-up on 06/30/24 where she reported feeling very tired, and also experienced periodic wheezing for which she was using an inhaler. At the time no fevers, chills, chest pain, palpitations. Over the last 1 week, she has had notable fatigue and progressively worsening confusion. Her fatigue and weakness have progressed to the point that she has not been able to ambulate (does not require assistance at baseline). She also reported pleuritic and achy chest pain in the substernal area. Given her fatigue as an outpatient, she had labs and TTE done 07/14. 07/14 TTE without reported vegetations; LVEF at 60 to 65%, mild PH, bioprosthetic aortic valve with acceptable transvalvular gradient, bioprosthetic mitral valve with mildly elevated transvalvular gradient (no significant regurgitation) slightly increased compared to prior on 03/2023. On 07/17, she developed fever. BCx were ordered for 07/13 but the order in the EMR appears to be cancelled. In the ED on 07/17, T37.8 (TMax 38.5 on 07/18) HR 83 BP 130/60. Labs showed WBC 17.47 Hgb 9.7 plt 226 ESR 86 CRP 16.05. Troponin 147.5. She was started on ceftriaxone on 07/17. BCx (1 set collected) from 07/17 grew Strep mutans in 2 of 2 bottles. On 07/19, gentamicin was added. Reported history of penicillin allergy (rash 44 years ago; no hx of anaphylaxis/throat closure). 07/19 BCx x1 set were obtained, thus far NGTD. No recent reported dental procedures; no prior history of valve infections. She has not seen a dentist in several years and thinks she has a cavity in her R lower mouth; no recent pain, discharge, gum swelling, or discharge from that area. Aside from her valve replacements, she denies other hardware. At the time of evaluation, she reports feeling better since she has come to the hospital and been placed on abx. She denies any joint or back pain, denies abdominal pain or pain elsewhere. Allergies Allergy/AdvReac Type Severity Reaction Status Date / Time codeine Allergy Cough Verified 07/17/24 12:01 Penicillins Allergy Hives Verified 07/17/24 12:01 ropinirole [From Requip] Allergy Unknown Verified 07/17/24 12:01 Home Medications Medication Instructions Recorded Confirmed Type lancets 33 gauge ([email or web address] #[facility] ea 05/07/19 07/09/24 Rx Lancets) blood sugar diagnostic #50 ea 06/07/22 07/09/24 Rx azithromycin 500 mg tablet 500 mg PO .COMPLEX #3 tabs 07/24/22 07/17/24 Rx cholecalciferol (vitamin D3) 25 2,000 unit PO DAILY #30 caps 08/16/22 07/17/24 Rx mcg (1,000 unit) capsule (Vitamin D3) docusate sodium 100 mg capsule 100 mg PO DAILY 08/17/22 07/17/24 History (Dulcolax Stool Softener (docusate)) fluticasone propionate 50 2 spray intranasal DAILY PRN 08/17/22 07/17/24 History mcg/actuation nasal allergy symptoms spray,suspension losartan 100 mg tablet 100 mg PO DAILY #90 tabs 12/04/23 07/17/24 Rx rosuvastatin 20 mg tablet 20 mg PO DAILY #90 tabs 12/04/23 07/17/24 Rx apixaban 5 mg tablet (Eliquis) 5 mg PO BID #60 tabs 12/16/23 07/17/24 Rx albuterol sulfate 90 mcg/actuation 2 puff inhalation Q6H PRN 02/18/24 07/17/24 Rx aerosol inhaler shortness of breath or wheezing #6.7 grams blood sugar diagnostic ([email or web address] #100 ea 02/18/24 07/09/24 Rx Ultra Test strips) blood-glucose meter ([employer] #1 ea 02/18/24 07/09/24 Rx Ultra2 Meter) lancets 30 gauge ([employer] #100 ea 02/18/24 07/09/24 Rx UltraSoft 2 Lancet) amitriptyline 10 mg tablet 20 mg (2 x 10 mg) PO DAILY #180 04/27/24 07/17/24 Rx tabs furosemide 20 mg tablet 20 mg PO DAILY #90 tabs 06/16/24 07/17/24 Rx metformin 500 mg tablet 500 mg PO BID #180 tabs 07/02/24 07/17/24 Rx syringe with needle, safety 3 mL #10 ea 07/13/24 07/13/24 Rx 25 gauge x 1" (BD Integra Syringe) amlodipine 5 mg tablet 5 mg PO UD 07/17/24 07/17/24 History cyanocobalamin (vitamin B-12) 1,000 mcg IM UD 07/17/24 07/17/24 History 1,000 mcg/mL injection solution Patient History Medical History (Updated 07/20/24 @ 13:19 by Celena Anderson MD) Non-ST elevation CA (NSTEMI) Fever Fever Dyspnea Fatigue Chills Inflammatory arthritis Purulent rhinorrhea Fugue Hypomagnesemia TIA (transient ischemic attack) Serous otitis media Bilateral otitis media Hoarseness Medicare annual wellness visit, subsequent Hyponatremia Medicare annual wellness visit, subsequent Benign paroxysmal positional vertigo Hyperkalemia Hyponatremia Urine frequency Type 2 diabetes mellitus Surgical History (Updated 07/13/24 @ 14:16 by Mulugeta Roger MD) Hx of aortic valve replacement 06/19/2022 Replacement aortic valve,non-coronary sinus (Left) REPLACEMENT AORTIC VALVE WITH ANNULUS ENLARGEMENT [place] Gar[place] [facility] [place]22 Replace mitral valve w/bypass (N/A) REPLACEMENT MITRAL VALVE performed by Jack Garner MD [place] [facility] [place]22 Atrial reconstruct,extensive w/ bypass (N/A) OPERATIVE TISSUE ABLATION AND RECONSTRUCION ATRIA EXTENSIVE MAZE CARDIOPULMONARY BYPASS performed [place] Gar[place] [facility] [place] of appendectomy History of tonsillectomy History of hysterectomy History of section History of dilation and curettage History of colonoscopy History of cataract surgery Family History Brother COPD (chronic obstructive pulmonary disease) Mother COPD (chronic obstructive pulmonary disease) Father Coronary heart disease Myocardial infarction Daughter Rheumatoid arthritis Denies family history of Ovarian cancer Prostate cancer Breast cancer Colorectal cancer Social History Smoking Status: Never smoker Second Hand Exposure: Yes; Hx Alcohol Use: No Hx Substance Use: No Preferred Language: Telugu Communication Ability: Effective Visual Impairment: Limited Hearing Ability: Normal 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 General: Well-appearing, no acute distress HEENT: Conjunctivae non-injected, sclerae anicteric, MMM, OP clear. No obvious gum swelling, redness, or drainage noted. Resp: Respirations nonlabored. Back: No tenderness to palpation along spine Ext: No joint warmth or effusions noted. Birthmark on R 2nd and 3rd toes. Skin: No rashes or lesions. Neuro: Alert & interactive. Grossly non-focal. Psych: Pleasant, appropriate. Results & Data Vital Signs (Past 12 Hours) Vital Signs Temp Pulse Pulse Resp BP Pulse Ox O2 Del Method 07/20/24 09:06 Room Air 07/20/24 07:55 36.7 C 78 17 132/75 96 Room Air 07/20/24 07:13 78 07/20/24 04:15 36.4 C L 79 18 130/77 96 Room Air Diagnostic Findings Diagnostics: 07/14 TTE without reported vegetations; LVEF at 60 to 65%, mild PH, bioprosthetic aortic valve with acceptable transvalvular gradient, bioprosthetic mitral valve with mildly elevated transvalvular gradient (no significant regurgitation) slightly increased compared to prior on 03/2023 Micro Data: 07/19 BCx x1: NGTD 07/17 BCx x1: Strep mutans in 2 of 2 bottles Antibiotic Summary: ceftriaxone (07/17 present) gentamicin (07/19 present)
--- NOTE | 2024-07-20 13:36 | Pharmacy Report ---
Pharmacy PK ABX Note - Date of Service July 20, 2024 - Assessment and Plan Assessment 07/20 * Gentamicin trough drawn today is 1.07mcg/ml. Goal is to maintain trough < 1mcg/ml in order to minimize toxicity. The gentamicin interval will be extended from q12 hours to q 18 hours. * ID is following and will determine the continued need/duration of gentamicin in addition to the ceftriaxone (per note from today). 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 * On day #3 of ceftriaxone IV. Gentamicin IV added today for synergy. Pertinent microbiologic data includes: 07/17/27 - BC: gram positive cocci in chains BCID2 detected Strep sp. 07/14/24- BC at outside facility grew Strep mutans Plan Gentamicin * Gram positive synergy dosing for patient with CrCL < 60 mL/min * Dose: 1 mg/kg (AdjBW) IV q 18 hours * Tough level ordered for 07/22 with AM labs. Goal is to maintain trough levels < 1 mcg/mL * Peak level monitoring not routinely recommended Ceftriaxone 2000 mg IV q24h Pharmacy will continue to follow and will adjust dose/frequency as necessary. Thank you.
[2024-07-20] MEDS: GENTAMICIN SULFATE IV SCH (17:31)
[2024-07-20] MEDS: DEXTROSE 5% IV SCH (17:31)
--- NOTE | 2024-07-21 08:15 | Anesthesiology Consultation ---
Date of Service July 21, 2024 Assessment & Plan Chart Review Chart Review: Acceptable Risk for Surgery and Patient NOT seen in Pre Admission Testing Consults Requested none ASA ASA4 Proposed Anesthesia Anesthesia Type: MAC Risk / Benefits Reviewed With: PT / POA / Parent / Guardian, Accepts Plan and Informed Consent Obtained History Surgery Operation Date: 07/21/24 07:45 Proposed Procedures p Transesophageal Echo w/Anesthesia - Rishi Zacarias MD Height/Weight Height: 5 ft Weight: 62 kg Allergies Allergy/AdvReac Type Severity Reaction Status Date / Time codeine Allergy Cough Verified 07/17/24 12:01 Penicillins Allergy Hives Verified 07/17/24 12:01 ropinirole [From Requip] Allergy Unknown Verified 07/17/24 12:01 Medications Home Medications Medication Instructions Recorded Confirmed Last Taken lancets 33 gauge ([employer] Delica #100 ea 05/07/19 07/09/24 Unknown Lancets) blood sugar diagnostic #50 ea 06/07/22 07/09/24 Unknown azithromycin 500 mg tablet 500 mg PO .COMPLEX #3 tabs 07/24/22 07/17/24 Unknown cholecalciferol (vitamin D3) 25 2,000 unit PO DAILY #30 caps 08/16/22 07/17/24 Unknown mcg (1,000 unit) capsule (Vitamin D3) docusate sodium 100 mg capsule 100 mg PO DAILY 08/17/22 07/17/24 Unknown (Dulcolax Stool Softener (docusate)) fluticasone propionate 50 2 spray intranasal DAILY PRN 08/17/22 07/17/24 Unknown mcg/actuation nasal allergy symptoms spray,suspension losartan 100 mg tablet 100 mg PO DAILY #90 tabs 12/04/23 07/17/24 Unknown rosuvastatin 20 mg tablet 20 mg PO DAILY #90 tabs 12/04/23 07/17/24 Unknown apixaban 5 mg tablet (Eliquis) 5 mg PO BID #60 tabs 12/16/23 07/17/24 Unknown albuterol sulfate 90 mcg/actuation 2 puff inhalation Q6H PRN 02/18/24 07/17/24 Unknown aerosol inhaler shortness of breath or wheezing #6.7 grams blood sugar diagnostic ([employer] #100 ea 02/18/24 07/09/24 Unknown Ultra Test strips) blood-glucose meter ([employer] #1 ea 02/18/24 07/09/24 Unknown Ultra2 Meter) lancets 30 gauge (OneTouch #100 ea 02/18/24 07/09/24 Unknown UltraSoft 2 Lancet) amitriptyline 10 mg tablet 20 mg (2 x 10 mg) PO DAILY #180 04/27/24 07/17/24 Unknown tabs furosemide 20 mg tablet 20 mg PO DAILY #90 tabs 06/16/24 07/17/24 Unknown metformin 500 mg tablet 500 mg PO BID #180 tabs 07/02/24 07/17/24 Unknown syringe with needle, safety 3 mL #10 ea 07/13/24 07/13/24 Unknown 25 gauge x 1" (BD Integra Syringe) amlodipine 5 mg tablet 5 mg PO UD 07/17/24 07/17/24 Unknown cyanocobalamin (vitamin B-12) 1,000 mcg IM UD 07/17/24 07/17/24 Unknown 1,000 mcg/mL injection solution Active Medications Generic Name Dose Route Start Last Admin Trade Name [facility] PRN Reason Stop Dose Admin Acetaminophen 650 mg 07/17/24 17:54 07/19/24 07:27 Acetaminophen 325 Mg Tab PO 08/16/24 17:53 650 mg Q4H PRN Administration Pain or Fever Albuterol 2 puffs 07/17/24 17:54 07/18/24 03:47 Albuterol Hfa 8 Gm Inhaler INH 08/16/24 17:53 2 puffs Q6H PRN Administration shortness of breath or wheezing Amlodipine Besylate 5 mg 07/18/24 09:00 07/20/24 08:48 Amlodipine Besylate 5 Mg Tab PO 08/17/24 08:59 5 mg DAILY JON Administration Apixaban 5 mg 07/17/24 21:00 07/20/24 20:45 Apixaban 5 Mg Tablet PO 08/16/24 20:59 5 mg BID JON Administration Docusate Sodium 100 mg 07/18/24 09:00 07/20/24 08:48 Docusate Sodium 100 Mg Cap PO 08/17/24 08:59 100 mg DAILY JON Administration Ceftriaxone Sodium 2,000 mg in 50 mls @ 100 mls/hr 07/18/24 12:00 07/20/24 12:56 Rocephin IV 08/29/24 11:59 Infused Q24H JON Infusion Gentamicin Sulfate 55 mg/ 101.375 mls @ 100 mls/hr 07/20/24 18:00 07/20/24 18:47 Dextrose IV 08/30/24 17:59 Infused Q18H JON Infusion Insulin Aspart 0 units 07/17/24 17:54 07/20/24 20:45 Insulin Aspart Per Unit Charge SC 08/16/24 17:53 2 units ACHS JON Administration Losartan Potassium 100 mg 07/18/24 09:00 07/20/24 08:48 Losartan Potassium 50 Mg Tab PO 08/17/24 08:59 100 mg DAILY JON Administration Rosuvastatin Calcium 20 mg 07/18/24 09:00 07/20/24 08:48 Rosuvastatin Calcium 20 Mg Tab PO 08/17/24 08:59 20 mg DAILY JON Administration NPO Date Last Intake of Fluids: 07/20/24 Time Last Intake of Fluids: 21:00 Date Last Intake of Solids: 07/20/24 Time Last Intake of Solids: 17:00 Past Medical History Medical History Non-ST elevation WI (NSTEMI) Fever Fever Dyspnea Fatigue Chills Inflammatory arthritis Purulent rhinorrhea Fugue Hypomagnesemia TIA (transient ischemic attack) Serous otitis media Bilateral otitis media Hoarseness Medicare annual wellness visit, subsequent Hyponatremia Medicare annual wellness visit, subsequent Benign paroxysmal positional vertigo Hyperkalemia Hyponatremia Urine frequency Type 2 diabetes mellitus Exercise / Class Metabolic Activity III < 4 Walking/Shop/Light housework Past Family History Family History Brother COPD (chronic obstructive pulmonary disease) Mother COPD (chronic obstructive pulmonary disease) Father Coronary heart disease Myocardial infarction Daughter Rheumatoid arthritis Denies family history of Ovarian cancer Prostate cancer Breast cancer Colorectal cancer Past Surgical History Surgical History Hx of aortic valve replacement 06/19/2022 Replacement aortic valve,non-coronary sinus (Left) REPLACEMENT AORTIC VALVE WITH ANNULUS ENLARGEMENT performed by Jack Garner MD at [facility] – [place] 06/19/2022 Replace mitral valve w/bypass (N/A) REPLACEMENT MITRAL VALVE performed by Jack Garner MD at [facility] 06/19/2022 Atrial reconstruct,extensive w/ bypass (N/A) OPERATIVE TISSUE ABLATION AND RECONSTRUCION ATRIA EXTENSIVE MAZE CARDIOPULMONARY BYPASS performed by Jack Garner MD at [facility] History of appendectomy History of tonsillectomy History of hysterectomy History of section History of dilation and curettage History of colonoscopy History of cataract surgery Past Anesthesia History No Hx of Anesthesia Complications and No Family Hx of Anesthesia Complications History of PONV No Hx of PONV and No Hx of Motion Sickness Social History Smoking Status: Never smoker Hx Alcohol Use: No Alcohol type: beer, wine and hard liquor Hx Substance Use: No substance use type: does not use Physical Exam Vital Signs Last Vital Signs Temp 36.7 C 07/21/24 03:39 Pulse 80 07/21/24 07:24 Resp 16 07/21/24 07:24 BP 137/66 07/21/24 07:24 Pulse Ox 95 07/21/24 07:24 O2 Del Method Room Air 07/21/24 07:24 O2 Flow Rate 2 07/19/24 15:03 Constitutional + obese; no acute distress ENMT Mouth: + dentition abnormality, + dental restorations and + poor dentition Thyromental Distance: < 3.5 Finger Breadths Mallampati Class: II Neck normal visual inspection and trachea midline; neck extension not limited Respiratory + uses accessory muscles Auscultation: + diminished lung sounds Cardiovascular Rate/Rhythm: regular rate and regular rhythm Heart Sounds: + murmur Vessels: no carotid bruit Musculoskeletal Spine: normal cervical ROM and no pain with cervical ROM Extremities: extremities normal to inspection; full ROM of extremities Neurologic moves all extremities Motor/Sensory: no sensory deficit Psychiatric Orientation: alert and oriented x 3 Testing Laboratory Results 07/20/24 08:14 07/20/24 08:14 PT 14.5 Seconds (9.0-12.0) H 07/17/24 10:56 INR 1.4 (0.9-1.1) H 07/17/24 10:56 APTT 36 Seconds (21-31) H 07/17/24 10:56 Urine Color Yellow 07/17/24 14:00 Urine Appearance Cloudy (Clear) A 07/17/24 14:00 Urine pH 6.0 (4.5-7.5) 07/17/24 14:00 Ur Specific Russell 1.012 (1.000-1.030) 07/17/24 14:00 Urine Protein 2+ (Negative) H 07/17/24 14:00 Urine Glucose (UA) Negative (Negative) 07/17/24 14:00 Urine Ketones Negative (Negative) 07/17/24 14:00 Urine Nitrite Negative (Negative) 07/17/24 14:00 Ur Leukocyte Esterase Negative (Negative) 07/17/24 14:00 Urine WBC (Auto) 0-5 /hpf (0-5) 07/17/24 14:00 Urine RBC (Auto) 0-2 /hpf (0-2) 07/17/24 14:00 U Hyaline Cast (Auto) 0-2 /lpf (0-2) 07/17/24 14:00 U Epithel Cells (Auto) 3-5 /hpf (0-2) H 07/17/24 14:00 Urine Bacteria (Auto) None Seen (None Seen) 07/17/24 14:00 07/19/24 07:39 Aerobic Blood Culture - Preliminary Blood No growth in Aerobic bottle after 24 hours. Anaerobic Blood Culture - Preliminary No growth in Anaerobic bottle after 24 hours. 07/17/24 11:35 Aerobic Blood Culture - Preliminary Blood Streptococcus species Anaerobic Blood Culture - Preliminary Streptococcus species
[2024-07-21] MEDS ORDERED: ePHEDrine sulfate 50 MG/ML AMP IV PRN (08:25)
--- NOTE | 2024-07-21 08:25 | Communication Note ---
Date of Service: July 21, 2024 07/19/2024-CXR-CM;Left lung base opacity;ASCVD aorta 07/19/24- EKG-A Fib @ 67;NS IVCD;NS ST abnl 07/14/2470-Ryai-KE-60%;mild LVH;mild LA dilation;bioprosthetic AV;bioprosthetic MV w/ slightly increased gradient;mod. TR;mild pulm. HTN 47 torr
[2024-07-21] MEDS ORDERED: PROPOFOL IV EMULSION 10 MG/ML 20 ML VIAL IV ONE (08:37)
--- NOTE | 2024-07-21 08:41 | Anesthesiology Progress Note ---
Date of Service July 21, 2024 Anesthesia Post Procedure Vital Signs Vital Signs: Temp Pulse Pulse Pulse Resp BP Pulse Ox 07/21/24 07:24 80 16 137/66 95 07/21/24 03:39 36.7 C 78 18 139/74 92 07/20/24 22:40 37 C 79 18 129/68 94 07/20/24 21:55 81 07/20/24 20:40 07/20/24 19:09 36.6 C 80 18 138/68 97 07/20/24 17:22 66 07/20/24 15:00 36.6 C 89 16 115/66 98 07/20/24 11:34 36.6 C 88 18 118/75 97 07/20/24 09:06 O2 Del Method 07/21/24 07:24 Room Air 07/21/24 03:39 Room Air 07/20/24 22:40 Room Air 07/20/24 21:55 07/20/24 20:40 Room Air 07/20/24 19:09 Room Air 07/20/24 17:22 07/20/24 15:00 Room Air 07/20/24 11:34 Room Air 07/20/24 09:06 Room Air Transfer of Care Handoff Completed per policy Notes Mental Status: alert / awake / arousable Patient Amnestic to Procedure: Yes Nausea / Vomiting: adequately controlled Pain: adequately controlled Airway Patency, RR, SpO2: stable & adequate BP & HR: stable & adequate Hydration State: stable & adequate Anesthetic Complications: no major complications apparent
--- NOTE | 2024-07-21 09:06 | Hospitalist Progress Note ---
Date of Service July 21, 2024 Assessment & Plan (1) Endocarditis: (2) S/P mitral valve replacement: (3) Hyponatremia: (4) Hypomagnesemia: (5) Anemia: Plan # Endocarditis: Concern for endocarditis given history of mitral and aortic valve replacement in the setting of strep bacteremia Blood cultures drawn on 07/17 revealed Streptococcus spp Patient states Blood Cx from [facility] grew Strep mutans (07/14/24) but no sensitivities were done due to belief it was a contaminant Given positive blood cultures; DION w/ mitral valve endocarditis Patient denies any recent dental procedures; no dental f/u in years Continue Rocephin 2000 mg IV q24h and Gentamicin ID consult placed. Would appreciate reccs. Anticipate 6 weeks of abx therapy (Rocephin 6 weeks and Gentamicin 2 weeks?), but abx may change based on culture sensitivities if they become available; will need outpatient ID f/u # S/P aortic and mitral valve replacement: [place] [facility] [place] recent echocardiogram on 07/14 revealed LVEF at 60 to 65% and mild pulmonary hypertension (RVSP 47mmHg) DION as mentioned above. # Hyponatremia: Hx SIADH Stable Trend BMP # Anemia: Stable. Hgb 9.3 in am labs Had low vitamin B12 levels in the past, but MCV from am labs now microcytic despite iron supplementation. Iron studies ordered and suggestive of anemia of chronic disease. Continue to manage chronic disease and current infection since this may help with anemia Trend H&H Plan Disposition: Stabilize and discuss w/ ID regarding plan for antibiotic therapy as part of discharge planning Full code Heart healthy, T2DM diet VTE PPx: On [facility] Admission and Anticipated Discharge Date Admission Date: July 17, 2024 Supervising Physician Co-Signing Physician Notes Attending attestation Pt seen and examined in concert with Dr. Glasgow. In agreement with the documented findings as noted in the resident documentation with any exceptions or additions as noted here. Resting comfortably in bed without complaint. On examination, S1/S2 nl RRR no MCG. CTAB. Abd NT/ND BS+ve Bacterial endocarditis, strep mutans - ID consult - +ve echo, pending repeat Cx. Continue IV abx for regimen noted with outpatient/HH if possible. Monitor BMP daily for tolerance of gentamicin. Else see resident documentation as noted. Subjective Patient sitting on the bedside chair comfortably. AAOx3, afebrile and in NAD. States she feels sore throat after DION from earlier today. No chest pain, SOB, or other systemic symptoms. Review of Systems Review of Systems: reviewed, per HPI Physical Exam Physical Exam: Constitutional: well-appearing, no acute distress HEENT: NCAT, no conjunctival injection CV: clinically well perfused, +mechanical valve click Resp: CTA bilaterally, breathing comfortably at room air, normal respiratory effort, no respiratory distress. GI: non-distended MSK: no gross deformities appreciated Skin: warm, dry, no rash appreciated Neuro: alert, oriented, no focal neurologic deficit appreciated Results & Data Results & Data Vital Signs (Past 12 Hours) Vital Signs Temp Pulse Pulse Pulse Resp BP Pulse Ox 07/21/24 08:55 36.7 C 72 16 123/68 93 07/21/24 08:45 81 16 123/52 L 98 07/21/24 08:30 80 16 126/61 98 07/21/24 07:24 80 16 137/66 95 07/21/24 03:39 36.7 C 78 18 139/74 92 07/20/24 22:40 37 C 79 18 129/68 94 07/20/24 21:55 81 O2 Del Method 07/21/24 08:55 Room Air 07/21/24 08:45 Room Air 07/21/24 08:30 Room Air 07/21/24 07:24 Room Air 07/21/24 03:39 Room Air 07/20/24 22:40 Room Air 07/20/24 21:55 Resident Activity Tracking Resident Involvement: Resident Care Provided Care Provided: Adult Hospital Medicine
[2024-07-21] MEDS: BENZOCAINE/TETRACAIN/BUTAM 50 APPLN/5 GM CAN EXT ONE (09:24)
[2024-07-21 09:59] LABS: Basophils # (auto) 0.05 K/uL (0.00-0.20); Basophils % (auto) 0.4 %; Eosinophils # (auto) 0.18 K/uL (0.00-0.50); Eosinophils % (auto) 1.6 %; Hematocrit (blood only) 30.7 % (37.0-47.0); Hemoglobin 10.1 g/dl (12.0-16.0); Immature Granulocytes # (auto) 0.06 K/uL (0.01-0.20); Immature Granulocytes % (auto) 0.5 %; Lymphocytes # (auto) 1.54 K/uL (1.20-3.40); Lymphocytes % (auto) 13.7 %; Mean Corpuscular Hemoglobin 27.2 pg (25.0-34.0); Mean Corpuscular Hgb Conc 32.9 g/dL (32.0-36.0); Mean Corpuscular Volume 82.7 fL (80.0-100.0); Mean Platelet Volume 9.8 fL (9.4-12.4); Monocytes % (auto) 7.1 %; Neutrophils # (auto) 8.61 K/uL (1.40-6.50); Neutrophils % (auto) 76.7 %; Platelet Count 281 K/uL (130-400); RDW Coefficient of Variation 14.6 % (11.5-14.5); RDW Standard Deviation 43.8 fL (36.4-46.3); Red Blood Count 3.71 M/uL (4.20-5.40); White Blood Count 11.24 K/ul (4.8-10.8)
--- NOTE | 2024-07-21 09:59 | XCELERA ---
[id number]
[2024-07-21 10:16] LABS: BUN Creatinine Ratio 18.2 (10-20); Calcium 9.1 mg/dl (8.6-10.3); Creatinine Clr Calc Pharmacy 38.5 ml/min; Est GFR (African American) 63.3 ml/min; Est GFR (Non-African American) 54.6 ml/min
--- NOTE | 2024-07-21 14:18 | Infectious Disease Progress Nt ---
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 Strep mutans bacteremia 07/14 and Strep spp bacteremia 07/17 (2 of 2 bottles) and prosthetic mitral valve endocarditis (seen on 07/21 DION) 2. History of bioprosthetic mitral valve and bioprosthetic aortic valve replacements ([place]19/20[place] [facility] [place] 3. Antibiotic allergy history: penicillin (rash 44 years ago; no hx of anaphylaxis/throat closure) Impression: Penny Camarena is a 78-year-old woman with history of and MS s/p bioprosthetic mitral valve and bioprosthetic aortic valve replacements (06/19/2022 at [facility] [place] CHF, CAD, TIA, inflammatory arthritis, SIADH, who presents to [facility] on with fatigue, confusion, and fever. OSH BCx ([facility]) from 07/14 + Strep mutans. BCx x1 set from 07/17 are positive for Strep spp in 2 of 2 bottles. 07/21 DION confirmed prosthetic mitral valve endocarditis. ID is consulted for Strep bacteremia and suspected infective endocarditis. The pt was seen in the ED at [facility] on 05/22/2024 for disorientation, where she had difficulty speaking for ~10 minutes while gardening; her symptoms resolved and she went to the ED where she was noted to have hypertension (SBP >200) and headache, which improved with labetalol and she had her antihypertensives titrated as an outpatient. She had outpatient cardiology follow-up on 06/30/24 where she reported feeling very tired, and also experienced periodic wheezing for which she was using an inhaler. At the time no fevers, chills, chest pain, palpitations. Over the last 1 week, she has had notable fatigue and progressively worsening confusion. Her fatigue and weakness have progressed to the point that she has not been able to ambulate (does not require assistance at baseline). She also reported pleuritic and achy chest pain in the substernal area. Given her fatigue as an outpatient, she had labs and TTE done 07/14. 07/14 BCx (at O[facility]) reportedly + Strep mutans. 07/14 TTE without reported vegetations; LVEF at 60 to 65%, mild PH, bioprosthetic aortic valve with acceptable transvalvular gradient, bioprosthetic mitral valve with mildly elevated transvalvular gradient (no significant regurgitation) slightly increased compared to prior on 03/2023. On 07/17, she developed fever. In the ED on 07/17, T37.8 (TMax 38.5 on 07/18) HR 83 BP 130/60. Labs showed WBC 17.47 Hgb 9.7 plt 226 ESR 86 CRP 16.05. Troponin 147.5. She was started on ceftriaxone on 07/17. BCx (1 set collected) from 07/17 grew Strep spp. in 2 of 2 bottles. On 07/19, gentamicin was added. Reported history of penicillin allergy (rash 44 years ago; no hx of anaphylaxis/throat closure). 07/19 BCx x1 set were obtained, thus far NGTD. No recent reported dental procedures; no prior history of valve infections. She has not seen a dentist in several years and thinks she has a cavity in her R lower mouth; no recent pain, discharge, gum swelling, or discharge from that area. Aside from her valve replacements, she denies other hardware. At the time of evaluation, she reports feeling better since she has come to the hospital and been placed on abx. She denies any joint or back pain, denies ab dominal pain or pain elsewhere. Discussion Pt with Strep mutans bacteremia on 07/14 (OSH) and Strep spp bacteremia on 07/17 (only 1 set collected but positive in 2 of 2 bottles). On 07/21, [facility] reporting they are thus far unable to ID the Strep spp likely to be the same Strep mutans. She had presented with 1+ week of fatigue and constitutional symptoms, as well as new fevers. She was found to have prosthetic mitral valve endocarditis. 07/14 TTE without vegetations reported but with slightly elevated mitral transvalvular gradient. 07/21 DION with mobile mass c/w vegetation on ventricular aspect of bioprosthetic mitral valve (posteroseptal portion of valve annulus). Strep mutans is often of dental/oral source; pt without recent dental procedures but has not had dental care in several years and believes she has a cavity though can sometimes be associated with GI pathology. Pt without GI symptoms and reports last colonoscopy 8 years ago. Can follow with PCP and ID, and if pt with GI symptoms would have low threshold for CT A/P with contrast. Would continue ceftriaxone for viridans Strep bacteremia and prosthetic mitral valve endocarditis, to complete a 6-week course. Pt has also been started on gentamicin for synergy there is limited benefit and potential risk (e.g., nephrotoxicity, ototoxicity), though if tolerating this from an adverse effects perspective, would be reasonable to continue at this time would continue for a 2-week course (see below). Per both the [facility] (regarding the 07/14 BCx) and [facility]regarding the 07/[facility] BCx), both labs at this time feel it is unlikely that they will be able to obtain sensitivities for the Strep. In particular, was intending to evaluate the penicillin THONG if PCN THONG <=0.125 then the course of recommended gentamicin is shorter (only 2 weeks, rather than 6 weeks). For viridans Strep with PCN THONG >0.125, sometimes a full 6 weeks of adjunctive gentamicin can be considered. If PCN MICs are unable to be obtained, would favor erring on the shorter (2-week) course of gentamicin, especially with limited benefit and potential risk as discussed. Recommendations: - Continue ceftriaxone 2g IV q24h to complete a 6-week course (07/1908/30/24) - Continue gentamicin, appreciate pharmacy assistance with dosing (currently on 1 mg/kg q12h for CrCl of ~40; if CrCl improves >60 will likely need frequency increase), continue to complete a 2-week course (07/1908/02/24) - If any GI symptoms, would consider obtaining CT A/P with contrast - F/u 07/14 (OSH) and 07/17 BCx to see if able to obtain penicillin MICs - F/u repeat BCx from 07/19 until finalized to ensure remains negative - Ensure close follow-up with cardiology and primary care - Ensure pt reestablishes with dental care as an outpatient - Recommend referral to local outpatient ID for follow-up if able (e.g., [facility]) - Weekly lab monitoring while on IV antibiotics: CBC w/ diff, CMP, gentamicin levels per pharmacy. Ensure that labs are faxed to PCP and ID clinic (if applicable) Plan discussed with Dr. Glasgow and Dr. Montesinos. Thank you for letting ID participate in the care of this patient. ID will sign off at this time. If questions, please contact the [facility] at [phone]. Celena Anderson MD, MHS Infectious Diseases [facility]/ID Connect ID Connect direct line: [phone] Admission and Anticipated Discharge Date Admission Date: July 17, 2024 Subjective This patient recommendation is based on a telemedicine consult request which was completed asynchronously through chart review and information provided by the primary physician. The patient was not seen or examined today. The evaluation is consultative in nature and all patient care and treatment decisions can either be accepted or rejected by the patient's primary hospital-based treating physician using their own independent medical judgment for their patient. Time Spent Reviewing Chart: 31+ minutes PLEASE NOTE: E-consult was performed for this visit given limited telepresenter availability today. - Received call from micro lab, unlikely to be able to obtain speciation/sensis for 07/17 Strep spp. Primary team contacted [facility] micro lab for 07/14 BCx unlikely to be able to obtain sensis but will attempt. - 07/21 DION with mobile mass c/w vegetation on ventricular aspect of bioprosthetic mitral valve (posteroseptal portion of valve annulus) - 07/19 BCx remain NGTD - Afebrile, WBC 11.24 Results & Data Vital Signs (Past 12 Hours) Vital Signs Temp Pulse Pulse Pulse Resp BP Pulse Ox 07/21/24 14:03 80 07/21/24 12:00 36.7 C 83 16 120/45 L 93 07/21/24 10:18 36.8 C 82 16 115/65 95 07/21/24 09:34 36.7 C 83 18 137/62 95 07/21/24 09:16 36.7 C 81 18 118/68 93 07/21/24 08:55 63 07/21/24 08:55 36.7 C 72 16 123/68 93 07/21/24 08:45 81 16 123/52 L 98 07/21/24 08:30 80 16 126/61 98 07/21/24 07:24 80 16 137/66 95 07/21/24 03:39 36.7 C 78 18 139/74 92 O2 Del Method 07/21/24 14:03 07/21/24 12:00 Room Air 07/21/24 10:18 Room Air 07/21/24 09:34 Room Air 07/21/24 09:16 Room Air 07/21/24 08:55 07/21/24 08:55 Room Air 07/21/24 08:45 Room Air 07/21/24 08:30 Room Air 07/21/24 07:24 Room Air 07/21/24 03:39 Room Air Diagnostic Findings Diagnostics: 07/21 DION with mobile mass c/w vegetation on ventricular aspect of bioprosthetic mitral valve (posteroseptal portion of valve annulus) 07/14 TTE without reported vegetations; LVEF at 60 to 65%, mild PH, bioprosthetic aortic valve with acceptable transvalvular gradient, bioprosthetic mitral valve with mildly elevated transvalvular gradient (no significant regurgitation) slightly increased compared to prior on 03/2023 Micro Data: 07/19 BCx x1: NGTD 07/17 BCx x1: Strep spp in 2 of 2 bottles 07/14 BCx ([facility]): reportedly + Strep mutans Antibiotic Summary: ceftriaxone (07/17 present) gentamicin (07/19 present)
[2024-07-22] MEDS: GENTAMICIN TROUGH 1 EACH SCH (05:13)
[2024-07-22 06:15] LABS: Basophils # (auto) 0.08 K/uL (0.00-0.20); Basophils % (auto) 0.7 %; Eosinophils # (auto) 0.33 K/uL (0.00-0.50); Eosinophils % (auto) 2.7 %; Hemoglobin 9.3 g/dl (12.0-16.0); Immature Granulocytes # (auto) 0.11 K/uL (0.01-0.20); Immature Granulocytes % (auto) 0.9 %; Lymphocytes # (auto) 1.78 K/uL (1.20-3.40); Lymphocytes % (auto) 14.7 %; Mean Corpuscular Hgb Conc 33.2 g/dL (32.0-36.0); Mean Corpuscular Volume 81.4 fL (80.0-100.0); Mean Platelet Volume 9.8 fL (9.4-12.4); Monocytes # (auto) 0.95 K/uL (0.11-0.59); Monocytes % (auto) 7.9 %; Neutrophils # (auto) 8.84 K/uL (1.40-6.50); Neutrophils % (auto) 73.1 %; Platelet Count 274 K/uL (130-400); RDW Coefficient of Variation 14.5 % (11.5-14.5); RDW Standard Deviation 42.9 fL (36.4-46.3); Red Blood Count 3.44 M/uL (4.20-5.40); White Blood Count 12.09 K/ul (4.8-10.8)
[2024-07-22 06:16] LABS: BUN Creatinine Ratio 18.3 (10-20); Calcium 8.9 mg/dl (8.6-10.3); Est GFR (African American) 68.2 ml/min; Est GFR (Non-African American) 58.9 ml/min; Potassium 4.1 mmol/L (3.5-5.1)
--- NOTE | 2024-07-22 07:30 | Pharmacy Report ---
Pharmacy PK ABX Note - Date of Service July 22, 2024 - Assessment and Plan Assessment 07/22 * Day #4 gentamicin * Gentamicin trough drawn today is 0.67mcg/mL. This is within the goal range (trough < 1mcg/mL) so the gentamicin 55mg iv q 18 hours will be continued. * Gentamicin to be continued through 08/02 per ID. * + leukocytosis and afebrile 07/20 * Gentamicin trough drawn today is 1.07mcg/ml. Goal is to maintain trough < 1mcg/ml in order to minimize toxicity. The gentamicin interval will be extended from q12 hours to q 18 hours. * ID is following and will determine the continued need/duration of gentamicin in addition to the ceftriaxone (per note from today). 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 * On day #3 of ceftriaxone IV. Gentamicin IV added today for synergy. Pertinent microbiologic data includes: 07/17/27 - BC: gram positive cocci in chains BCID2 detected Strep sp.--per lab, unable to identify sp 07/14/24- BC at outside facility grew Strep mutans Plan Gentamicin * Gram positive synergy dosing for patient with CrCL < 60 mL/min * Continue 1 mg/kg (AdjBW) IV q 18 hours * Another Tough level will likely be ordered in the next few days to ensure trough remains < 1. * Peak level monitoring not routinely recommended Ceftriaxone 2000 mg IV q24h to continue thrugh 08/30/24. Pharmacy will continue to follow and will adjust dose/frequency as necessary. Thank you.
[2024-07-22] MEDS ORDERED: Nursing to Pharmacy Communication SCH (07:45)
--- NOTE | 2024-07-22 12:00 | Hospitalist Progress Note ---
Date of Service July 22, 2024 Assessment & Plan (1) Endocarditis: (2) S/P mitral valve replacement: (3) Hyponatremia: (4) Hypomagnesemia: (5) Anemia: Plan # Endocarditis: Blood cultures drawn on 07/17 revealed Streptococcus spp Patient states Blood Cx from [facility] grew Strep mutans (07/14/24) but no sensitivities were done due to belief it was a contaminant DION from 07/21/24 noting mobile mass c/w vegetation on ventricular aspect of bioprosthetic mitral valve (posteroseptal portion of valve annulus) Patient denies any recent dental procedures; no dental f/u in years; will need after discharge Continue Rocephin 2000 mg IV q24h and Gentamicin ID consult placed. Recc 6 weeks of Rocephin IV and 2 weeks of Gentamicin. Weekly CBC w/ Diff, CMP, Gentamicin levels per pharmacy Outpatient f/u with ID, cardiology, and PCP PICC line to be placed today. Consent obtained and scanned to patient's chart. CM notified Abx should be available. Plan for discharge tomorrow if she remains clinically stable. # S/P aortic and mitral valve replacement: Aortic and mitral valve replacement on 06/19/2022 at [facility] [place] Most recent echocardiogram on 07/14 revealed LVEF at 60 to 65% and mild pulmonary hypertension (RVSP 47mmHg) DION as mentioned above. # Hyponatremia: Hx SIADH Stable Trend BMP # Anemia: Stable. Hgb 9.3 in am labs Iron studies ordered and suggestive of anemia of chronic disease. Continue to manage chronic disease and current infection since this may help with anemia Trend H&H Plan Disposition: Possible discharge back home with HH once IV abx are coordinated. Full code Heart healthy, T2DM diet VTE PPx: On Eliquis Admission and Anticipated Discharge Date Admission Date: July 17, 2024 Supervising Physician Co-Signing Physician Notes Attending attestation Pt seen and examined in concert with Dr. Glasgow. In agreement with the documented findings as noted in the resident documentation with any exceptions or additions as noted here. Resting comfortably in bed without complaint. On examination, S1/S2 nl RRR no MCG. CTAB. Abd NT/ND BS+ve Bacterial endocarditis, strep mutans - ID consult - +ve echo - Continue IV abx for regimen noted with outpatient/HH if possible. Monitor BMP daily for tolerance of gentamicin. PICC placement today for outpatient transition tomorrow. Else see resident documentation as noted. Subjective Patient evaluated at bedside and found to be AAOx3, afebrile, and in NAD. She refers feeling much improvement. Is able to ambulate w/o MESA or chest pain, No fevers/chills, N/V/D, or other systemic symptoms. Review of Systems Review of Systems: reviewed, per HPI Physical Exam Physical Exam: Constitutional: well-appearing, no acute distress HEENT: NCAT, no conjunctival injection CV: clinically well perfused, +mechanical valve click Resp: CTA bilaterally, breathing comfortably at room air, normal respiratory effort, no respiratory distress. GI: non-distended MSK: no gross deformities appreciated Skin: warm, dry, no rash appreciated Neuro: alert, oriented, no focal neurologic deficit appreciated Results & Data Results & Data Vital Signs (Past 12 Hours) Vital Signs Temp Pulse Resp BP Pulse Ox O2 Del Method 07/22/24 07:39 36.7 C 80 16 130/68 96 Room Air 07/22/24 03:31 36.8 C 78 18 144/76 H 95 Room Air Resident Activity Tracking Resident Involvement: Resident Care Provided Care Provided: Adult Hospital Medicine
[2024-07-23 04:30] VITALS: RESP 18
[2024-07-23] MEDS: GENTAMICIN SULFATE IV SCH (05:42)
[2024-07-23] MEDS: DEXTROSE 5% IV SCH (05:42)
[2024-07-23 07:22] LABS: Basophils # (auto) 0.09 K/uL (0.00-0.20); Basophils % (auto) 0.6 %; Eosinophils # (auto) 0.49 K/uL (0.00-0.50); Eosinophils % (auto) 3.5 %; Hematocrit (blood only) 28.5 % (37.0-47.0); Hemoglobin 9.3 g/dl (12.0-16.0); Immature Granulocytes # (auto) 0.11 K/uL (0.01-0.20); Immature Granulocytes % (auto) 0.8 %; Lymphocytes # (auto) 2.21 K/uL (1.20-3.40); Lymphocytes % (auto) 15.6 %; Mean Corpuscular Hemoglobin 27.4 pg (25.0-34.0); Mean Corpuscular Hgb Conc 32.6 g/dL (32.0-36.0); Mean Corpuscular Volume 83.8 fL (80.0-100.0); Mean Platelet Volume 9.8 fL (9.4-12.4); Monocytes # (auto) 0.98 K/uL (0.11-0.59); Monocytes % (auto) 6.9 %; Neutrophils # (auto) 10.32 K/uL (1.40-6.50); Neutrophils % (auto) 72.6 %; Platelet Count 283 K/uL (130-400); RDW Coefficient of Variation 14.6 % (11.5-14.5); RDW Standard Deviation 44.7 fL (36.4-46.3)
[2024-07-23 07:36] LABS: BUN Creatinine Ratio 18.8 (10-20); Calcium 9.1 mg/dl (8.6-10.3); Creatinine Clr Calc Pharmacy 40.3 ml/min; Potassium 4.4 mmol/L (3.5-5.1)
[2024-07-23 08:07] VITALS: O2SAT 97
--- NOTE | 2024-07-23 10:27 | Infectious Disease Progress Nt ---
Date of Service July 23, 2024 Assessment & Plan (1) Viridans streptococci infection: (2) Prosthetic valve endocarditis: (3) H/O prosthetic aortic valve replacement: Plan ID Problem List: 1. Strep mutans bacteremia 07/14 and Strep spp bacteremia 07/17 (2 of 2 bottles) and prosthetic mitral valve endocarditis (seen on 07/21 DION) 2. History of bioprosthetic mitral valve and bioprosthetic aortic valve replacements (06/19/2022 at [facility] [place]) 3. Antibiotic allergy history: penicillin (rash 44 years ago; no hx of anaphylaxis/throat closure) Impression: Penny Camarena is a 78-year-old woman with history of and MS s/p bioprosthetic mitral valve and bioprosthetic aortic valve replacements (06/19/2022 at [facility] [place]), CHF, CAD, TIA, inflammatory arthritis, SIADH, who presents to [facility] on with fatigue, confusion, and fever. OSH BCx ([facility]) from 07/14 + Strep mutans. BCx x1 set from 07/17 are positive for Strep spp in 2 of 2 bottles. 07/21 DION confirmed prosthetic mitral valve endocarditis. ID is consulted for Strep bacteremia and suspected infective endocarditis. The pt was seen in the ED at [facility] on 05/22/2024 for disorientation, where she had difficulty speaking for ~10 minutes while gardening; her symptoms resolved and she went to the ED where she was noted to have hypertension (SBP >200) and headache, which improved with labetalol and she had her antihypertensives titrated as an outpatient. She had outpatient cardiology follow-up on 06/30/24 where she reported feeling very tired, and also experienced periodic wheezing for which she was using an inhaler. At the time no fevers, chills, chest pain, palpitations. Over the last 1 week, she has had notable fatigue and progressively worsening confusion. Her fatigue and weakness have progressed to the point that she has not been able to ambulate (does not require assistance at baseline). She also reported pleuritic and achy chest pain in the substernal area. Given her fatigue as an outpatient, she had labs and TTE done 07/14. 07/14 BCx (at OSH [facility]) reportedly + Strep mutans. 07/14 TTE without reported vegetations; LVEF at 60 to 65%, mild PH, bioprosthetic aortic valve with acceptable transvalvular gradient, bioprosthetic mitral valve with mildly elevated transvalvular gradient (no significant regurgitation) slightly increased compared to prior on 03/2023. On 07/17, she developed fever. In the ED on 07/17, T37.8 (TMax 38.5 on 07/18) HR 83 BP 130/60. Labs showed WBC 17.47 Hgb 9.7 plt 226 ESR 86 CRP 16.05. Troponin 147.5. She was started on ceftriaxone on 07/17. BCx (1 set collected) from 07/17 grew Strep spp. in 2 of 2 bottles. On 07/19, gentamicin was added. Reported history of penicillin allergy (rash 44 years ago; no hx of anaphylaxis/throat closure). 07/19 BCx x1 set were obtained, thus far NGTD. No recent reported dental procedures; no prior history of valve infections. She has not seen a dentist in several years and thinks she has a cavity in her R lower mouth; no recent pain, discharge, gum swelling, or discharge from that area. Aside from her valve replacements, she denies other hardware. At the time of evaluation, she reports feeling better since she has come to the hospital and been placed on abx. She denies any joint or back pain, denies ab dominal pain or pain elsewhere. Discussion Pt with Strep mutans bacteremia on 07/14 (OSH) and Strep spp bacteremia on 07/17 (only 1 set collected but positive in 2 of 2 bottles). [facility] reporting they are thus far unable to ID the Strep spp likely to be the same Strep mutans. She had presented with 1+ week of fatigue and constitutional symptoms, as well as new fevers. She was found to have prosthetic mitral valve endocarditis. 07/14 TTE without vegetations reported but with slightly elevated mitral transvalvular gradient. 07/21 DION with mobile mass c/w vegetation on ventricular aspect of bioprosthetic mitral valve (posteroseptal portion of valve annulus). Strep mutans is often of dental/oral source; pt without recent dental procedures but has not had dental care in several years and believes she has a cavity though can sometimes be associated with GI pathology. Pt without GI symptoms and reports last colonoscopy 8 years ago. Can follow with PCP and ID, and if pt with GI symptoms would have low threshold for CT A/P with contrast. Would continue ceftriaxone for viridans Strep bacteremia and prosthetic mitral valve endocarditis, to complete a 6-week course. Pt has also been started on gentamicin for synergy there is limited benefit and potential risk (e.g., nephrotoxicity, ototoxicity), though if tolerating this from an adverse effects perspective, would be reasonable to continue at this time would continue for a 2-week course (see below). Per both the [facility] micro lab (regarding the 07/14 BCx) and the [facility] lab (regarding the 07/17 BCx), both labs at this time unable to obtain sensitivities for the Strep. In particular, was intending to evaluate the penicillin THONG if PCN THONG <=0.125 then the course of recommended gentamicin is shorter (only 2 weeks, rather than 6 weeks). For viridans Strep with PCN THONG >0.125, sometimes a full 6 weeks of adjunctive gentamicin can be considered. If PCN MICs are unable to be obtained, would favor erring on the shorter (2-week) course of gentamicin, especially with limited benefit and potential risk as discussed. ID is reengaged on 07/23 due to WBC of 14.20 (72.6% neutrophils also with 3.5% eos and AEC of 490). Has been afebrile, SpO2 94-97% on RA. She has denied any new localizing symptoms (no cough, shortness of breath, diarrhea, or urinary symptoms). This leukocytosis is of unclear etiology. Consider possibilities of asymptomatic septic emboli to internal organs and would consider CT C/A/P with contrast. Also considered the possibility of allergy to abx (ceftriaxone or gent) but lower suspicion as only with low-level peripheral eosinophilia, no rash or fevers will continue to monitor for now. Recommendations: - Continue ceftriaxone 2g IV q24h to complete a 6-week course (07/1908/30/24) - Continue gentamicin, appreciate pharmacy assistance with dosing (currently on 1 mg/kg q12h for CrCl of ~40; if CrCl improves >60 will likely need frequency increase), continue to complete a 2-week course (07/1908/02/24) - Would obtain CT C/A/P with contrast to further evaluate leukocytosis of unclear etiology - F/u repeat BCx from 07/19 until finalized to ensure remains negative - Ensure close follow-up with cardiology and primary care - Ensure pt reestablishes with dental care as an outpatient - Recommend referral to local outpatient ID for follow-up if able (e.g., [facility]) - Weekly lab monitoring while on IV antibiotics: CBC w/ diff, CMP, gentamicin levels per pharmacy. Ensure that labs are faxed to PCP and ID clinic (if applicable) Plan discussed with Dr. Glasgow. Thank you for letting ID participate in the care of this patient. ID will sign off at this time. If questions, please contact the [facility] call center at [phone]. Celena Anderson MD, MHS Infectious Diseases [facility] direct line: [phone] Admission and Anticipated Discharge Date Admission Date: July 17, 2024 Subjective Subsequent visit was provided via telemedicine using two-way real-time interactive telecommunication between the patient and the telemedicine provider. For the duration of the visit, the provider was performing the assessment from a different facility than the patient. This includesuse of bluetooth stethoscope forauscultationperformed by the telepresenter that the telemedicine provider can hear if described in the physical exam. Button Broacher contact information: Please call [facility] Call Center . (Phone Number For Physician Use Only) After establishing a telemedicine visit, patient was: Patient was verified with two unique identifiers, Patient/authorized rep acknowledged consent and understanding and Gave permission to continue telehealth session Time Spent with Patient: Subsequent => 35 min - ID is reengaged on 07/23 due to WBC of 14.20 (72.6% neutrophils also with 3.5% eos and AEC of 490). Has been afebrile, SpO2 94-97% on RA - 07/19 BCx remain NGTD - Pt without localizing sx, had small amount of cough after DION but this resolved; no shortness of breath, diarrhea, rash, abdominal, or urinary symptoms. No joint pain or back pain; no hardware in place besides bioprosthetic valves Physical Exam Physical Exam: Exam obtained with aid of in-person telepresenter. General: Well-appearing, no acute distress HEENT: Conjunctivae non-injected, sclerae anicteric, MMM, OP clear. Resp: Respirations nonlabored. Back: No tenderness to palpation along spine Ext: No joint warmth or effusions noted. Trace edema of BLE Skin: No rashes or lesions. Neuro: Alert & interactive. Grossly non-focal. Psych: Pleasant, appropriate. Results & Data Vital Signs (Past 12 Hours) Vital Signs Temp Pulse Resp BP Pulse Ox O2 Del Method 07/23/24 09:10 Room Air 07/23/24 08:00 36.6 C 79 18 152/66 H 97 Room Air 07/23/24 03:20 36.9 C 71 18 141/65 H 94 Room Air 07/22/24 23:48 37.0 C 64 17 130/64 96 Room Air Diagnostic Findings Diagnostics: 07/21 DION with mobile mass c/w vegetation on ventricular aspect of bioprosthetic mitral valve (posteroseptal portion of valve annulus) 07/14 TTE without reported vegetations; LVEF at 60 to 65%, mild PH, bioprosthetic aortic valve with acceptable transvalvular gradient, bioprosthetic mitral valve with mildly elevated transvalvular gradient (no significant regurgitation) slightly increased compared to prior on 03/2023 Micro Data: 07/19 BCx x1: NGTD 07/17 BCx x1: Strep spp in 2 of 2 bottles (nonviable for sensis) 07/14 BCx ([facility]): reportedly + Strep mutans Antibiotic Summary: ceftriaxone (07/17 present) gentamicin (07/19 present)
[2024-07-23] MEDS: OPTIRAY 320 100ml IV ONE (10:56)
--- NOTE | 2024-07-23 11:34 | CT Scan Report ---
CT head/brain wo/w con CLINICAL HISTORY: Gram + bacteremia w/o source (kaplan scan) COMPARISON STUDY: No previous studies for comparison. TECHNIQUE: Axial images of the head were obtained before and after intravenous administration of Opti ray 320 IV. Automated exposure control was utilized for the study. A dose lowering technique was uti lized adhering to the principles of ALARA. FINDINGS: No acute intracranial hemorrhage, midline shift or mass effect is present. Mild ventricular dilatation is likely due to atrophy. Basal cisterns are patent. White matter hypodensity suggests sm all vessel disease. There are no findings to suggest acute dural sinus thrombosis or acute territoria l infarct. There is no intracranial mass or pathologic enhancement. No significant calvarial abnormal ities are present. Moderate right and small left mastoid effusions are present. IMPRESSION: 1. No acute intracranial findings. 2. Moderate right and small left mastoid effusions. ACT 112: Negative or not required by law. Electronically signed by: Colin Hardwick M.D. 07/23/2024 11:33 AM
--- NOTE | 2024-07-23 11:40 | CT Scan Report ---
CT OF THE NECK WITH IV CONTRAST CLINICAL HISTORY: Gram + bacteremia w/o source (kaplan scan) COMPARISON STUDY: No previous studies for comparison. TECHNIQUE: Following IV administration of 94 mL of Optiray, helical axial images of the neck were ob tained. Sagittal and coronal reconstructions were viewed. Automated exposure control was utilized f or the study. A dose lowering technique was utilized adhering to the principles of ALARA. FINDINGS: There is no fluid collection within the neck. No inflammation is identified. The parotid a nd submandibular glands are normal. Epiglottis is normal. There is no prevertebral edema. There is ex tensive calcified plaque within the carotid bifurcations. This is suboptimally assessed on this non-C TA exam results in severe stenosis of the proximal right internal carotid artery and moderate stenosi s of the distal left common carotid and proximal left internal carotid arteries. The chest CT will be reported separately. Moderate multilevel degenerative changes within the cervical spine are present with disc space narrowing and osteophytosis. IMPRESSION: 1. No acute process within the neck. No fluid collection to suggest abscess. No cervical lymphadenopa thy. 2. Extensive atherosclerotic plaque within the bilateral carotid bifurcations which results in severe stenosis of the proximal right internal carotid artery and moderate stenosis of the proximal left in ternal carotid artery. ACT 112: Negative or not required by law. Electronically signed by: Colin Hardwick M.D. 07/23/2024 11:38 AM
--- NOTE | 2024-07-23 11:43 | CT Scan Report ---
CT thoracic spine w con CLINICAL HISTORY: Gram + bacteremia w/o source (kaplan scan) COMPARISON STUDY: No previous studies for comparison. TECHNIQUE: Axial images of the thoracic spine were obtained following intravenous administration 94 c c of Optiray 320. Sagittal and coronal reformats were viewed. Automated exposure control was utilized for the study. A dose lowering technique was utilized adhering to the principles of ALARA. FINDINGS: Please note that the chest CT will be reported separately. Alignment of the thoracic spine is anatomic. There are no fractures. There are no osseous lesions. There is moderate osteophytosis wi thin the thoracic spine with mild disc space narrowing. Facet joints are intact. No bony erosion is i dentified. Paravertebral soft tissues are unremarkable by CT. The central canal and neural foramen ar e suboptimally assessed by CT. There are trace bilateral pleural effusions. IMPRESSION: 1. No thoracic spine fractures. 2. Mild multilevel degenerative changes within the thoracic spine. 3. No evidence for an infectious process within the thoracic spine. No evidence for discitis/osteomye litis or intracanalicular fluid collection although sensitivity diminished given CT technique. ACT 112: Negative or not required by law. Electronically signed by: Colin Hardwick M.D. 07/23/2024 11:42 AM
[2024-07-23 11:49] VITALS: BP 149/70; TEMP 99.5
--- NOTE | 2024-07-23 11:56 | CT Scan Report ---
CT SCAN OF THE CERVICAL SPINE CLINICAL HISTORY: Gram-positive bacteremia. COMPARISON STUDY: No priors. TECHNIQUE: CT scan of the cervical spine is performed from the skull base to the upper thoracic spine . Images are reviewed in the axial, sagittal, and coronal planes. IV contrast was not administered fo r this examination. A dose lowering technique was utilized adhering to the principles of ALARA. FINDINGS: Skeletal structures: The skeletal structures are osteopenic. There is no evidence of fracture or subl uxation involving the cervical spine. Vertebral body height and alignment are maintained. There is s traightening of the cervical lordosis. Anterior osteophytes are seen throughout. The odontoid process and lateral masses are intact. The atlantoaxial articulation is preserved noting productive degenera tive change. The spinous processes appear intact. There is moderate multilevel facet arthropathy. Intervertebral discs: There is minimal disc space narrowing at C4-C5. Moderate to severe narrowing is seen at the remaining cervical levels. Central canal: Large posterior disc osteophyte complexes at C3-C4, C5-C6, C6-C7 likely contribute to multilevel acquired compromise of the central canal. Soft tissues: The prevertebral and paraspinous soft tissues are within normal limits. There is advanc ed atherosclerotic calcification of the carotid bulbs. Calvarium: The visualized calvarium at the skull base appears intact. Brain parenchyma: Partially visualized brain parenchyma at the skull base is within normal limits. Sinuses and mastoids: A small amount of fluid is seen in the left sphenoid sinus. There are bilateral mastoid effusions. Lung apices: Clear as visualized. IMPRESSION: 1. No acute bony abnormality is seen involving the cervical spine. 2. Osteopenia and spondylotic change as above. ACT 112: Negative or not required by law. Electronically signed by: Mulugeta Jolly M.D. 07/23/2024 11:55 AM
--- NOTE | 2024-07-23 12:46 | CT Scan Report ---
CT SCAN OF THE CHEST WITH IV CONTRAST CLINICAL HISTORY: Bacteremia COMPARISON STUDY: Chest x-ray dated 07/19/2024. TECHNIQUE: Following the IV administration of 94 cc of Optiray 320, CT scan of the thorax was perform ed from the thoracic inlet to the upper abdomen. Images are reviewed in the axial, sagittal, and alin nal planes. IV contrast was administered without complication. A dose lowering technique was utilize d adhering to the principles of ALARA. FINDINGS: Thyroid: Imaged portions of the thyroid gland are normal in size and attenuation. Thoracic aorta: There is atherosclerotic calcification of the thoracic aorta, which is normal in pio annamarie and demonstrates standard 3-vessel arch anatomy. No dissection is seen. Pulmonary vasculature: The main pulmonary arteries are dilated suggesting pulmonary artery hypertensi on. There are no filling defects identified in the central pulmonary vessels to indicate pulmonary em bolus. Note that this examination was not protocoled for evaluation of the pulmonary arteries. Heart: The patient is status post midline sternotomy. There is evidence of previous aortic and mitral valve surgery. The heart is enlarged and without pericardial effusion. The coronary arteries are den sely calcified. Lungs and pleural spaces: Evaluation of the lung parenchyma is degraded by motion artifact. There are trace pleural effusions with dependent atelectasis. The trachea and central airways are clear. There are scattered calcific granulomas. Foci of parenchymal scarring are noted in both lungs. No lobar c onsolidation is identified. Faint groundglass opacities are seen throughout both lungs with lower lob e predominance. Mediastinum: Mildly enlarged mesenteric lymph nodes are nonspecific. A pretracheal node on image #87 measures 9 mm short axis. A precarinal node on image #110 measures 13 mm in short axis. There are abena cification containing nodes. Allegra: Prominent right hilar nodes measure up to 8 mm in short axis. Axillae: There is no axillary lymphadenopathy. Upper abdomen: There is a small to moderate hiatal hernia. A 3 cm left lobe hepatic cyst is partially imaged. Skeletal structures: The skeletal structures are osteopenic. No lytic or blastic bony lesions are see n. Spondylotic change is seen throughout the thoracic spine. Arthritic change is seen in the shoulder s. IMPRESSION: 1. Faint groundglass opacities are seen throughout both lungs with a lower lobe predominance. This co uld represent a minimal pneumonitis or possibly fluid overload/congestive change. Clinical correlatio n will be required. 2. Cardiomegaly and trace pleural effusions. 3. Advanced coronary artery atherosclerosis. 4. Mildly enlarged mediastinal lymph nodes are nonspecific and may be reactive. 5. Additional findings as above. ACT 112: Negative or not required by law. Electronically signed by: Mulugeta Jolly M.D. 07/23/2024 12:44 PM
--- NOTE | 2024-07-23 12:46 | CT Scan Report ---
ABDOMEN AND PELVIS CT WITH IV CONTRAST; CT LUMBAR SPINE WITH IV CONTRAST CT DOSE: 3071.79 mGy.cm HISTORY: Acute bacteremia Gram + bacteremia w/o source (kaplan scan) TECHNIQUE: Multiaxial CT images of the abdomen, pelvis and lumbar spine were performed following the IV administration of cc of Optiray, A dose lowering technique was utilized adhering to the principle s of ALARA. COMPARISON STUDY: CT chest and thoracic spine studies of same day FINDINGS: CT ABDOMEN/PELVIS: Median sternotomy. Coronary arterial calcifications. Left atrial exclusion of asci suimt. Aortic valvular endograft. Trace pleural effusions with mild bibasilar atelectasis. No free air. Scattered calcified granulomata in the spleen. There are a few small likely benign indeterminate spl enic hypodensities. There are a few cystic foci of the pancreas measuring up to 2.1 cm suggestive of sidebranch IPMN's. Unremarkable right adrenal gland. 10 mm left adrenal myelolipoma. Cholelithiasis. Hepatic cysts measure up to 2.9 cm. Patency of the hepatic and portal veins. Unremarkable kidneys without hydronephrosis. Decompressed urinary bladder with mild wall thickening. Hysterectomy. Atherosclerosis of the aorta without aneurysm. No lymphadenopathy. Small hiatal hernia. No bowel obstruction or bowel wall thickening. Colonic diverticulosis. Moderate colonic fecal retent ion. Nonvisualization of the appendix. Unremarkable soft tissues. CT LUMBAR SPINE: Noted there are 6 lumbar type vertebral segments present. The L5-S1 intervertebral d isc space is described on axial image 310 of series 20. There is a moderate L1 compression deformity with 4 mm retropulsion which appears chronic. No significant central canal stenosis. There is multile usha vacuum disc phenomenon. No acute endplate erosions to suggest discitis/osteomyelitis. Mild lumbar levoscoliosis. No fluid collections are identified within the central canal. Multilevel neural scott inal narrowing is suboptimally evaluated by CT technique. Moderate central canal stenosis at L3-L4 se condary to posterior annular disc bulging. There is at least mild central canal stenosis at L1-L2. IMPRESSION: 1. No acute intra-abdominal or intrapelvic abnormality identified. 2. Colonic diverticulosis without acute diverticulitis. 3. Cholelithiasis. 4. No evidence of acute discitis/osteomyelitis within the lumbar spine. 5. Moderate L1 compression deformity with 4 mm retropulsion, likely chronic. ACT 112: Negative or not required by law. The above report was generated using voice recognition software. It may contain grammatical, syntax o r spelling errors. Electronically signed by: Shola Brown M.D. 07/23/2024 12:44 PM
--- NOTE | 2024-07-23 13:29 | XRay Report ---
SINGLE VIEW CHEST CLINICAL HISTORY: PICC placement. FINDINGS: An AP, portable, upright chest radiograph is compared to study dated 07/19/2024 and correlat ed with chest CT performed earlier the same day 07/23/2024. The examination is degraded by portable te chnique, apical lordotic positioning, and patient rotation. The patient is status post midline villa otomy. A left-sided PICC line has been placed. The tip projects over the cavoatrial junction. The hea rt is enlarged and noting atherosclerotic calcification of the thoracic aorta. The pulmonary vasculat ure is nondistended congested. Chronic interstitial thickening is similar to previous. There is bibas ilar scarring/atelectasis. No airspace consolidation or large pleural effusion is identified. No pneu mothorax is seen. The skeletal structures are osteopenic. The bony thorax is grossly intact. Degenera tive change is noted in the shoulders. IMPRESSION: 1. A left-sided PICC line has been placed as above. 2. Cardiomegaly with no acute cardiopulmonary abnormality identified. ACT 112: Negative or not required by law. Electronically signed by: Mulugeta Jolly M.D. 07/23/2024 1:28 PM
--- NOTE | 2024-07-23 15:08 | Discharge Summary ---
Date of Service July 23, 2024 Admission HPI Per Admitting Provider Penny is a pleasant 78-year-old female with PMH of tremor, BPPV, peripheral neuropathy, CHF, dyslipidemia, CAD, s/p bioprosthetic mitral valve and aortic valve, SIADH, inflammatory arthritis, and TIA. She presented via EMS on 07/17 due to worsening fatigue x 1 week, and acute onset of fever this morning. Patient's (James) is at bedside and helps provide history. He reports that the patient has been increasingly fatigued over the past week, and was not responding as well to questioning this morning. Patient endorses being more confused than usual. Per , she had difficulty getting out of bed, and then could not get back into bed. She endorses ambulatory dysfunction. Does not ambulate with a walker or cane at baseline. Patient did not take her regular morning medications today; reports there was a medication check 1 week ago, when she was taken off Cozaar and placed on something else. believes this is when she started to go downhill. Patient denies any chest pain over the past week. However, when asked to take a deep breath, she does endorse pleuritic chest pain substernally. This is new for her. She characterizes it as an achy pain. History of valve replacements 2 years ago. She had an echocardiogram done 2 days ago to assess for valve infection given elevated CRP and ESR on outpatient labs. She denies any recent dental procedures. No prior history of valve infections. No sick contacts. She denies smoking, tobacco use, recent alcohol use. Regarding patient's penicillin allergy, she reports that she had a rash around 44 years ago when given penicillin; no history of anaphylaxis/throat closure. Patient's vitals are stable at time of admission. ED course: Acetaminophen 1000 mg IV Rocephin 2000 mg IV NSS 1500 mL IV ROS: Patient endorses OROZCO, fever this morning (did not take temp at the time), confusion, and pleuritic CP. Patient denies chills, nightsweats, dizziness, lightheadedness, rashes, loss of vision, double vision, photophobia, neck pain/stiffness, chest pain, chest palpitations, SOB, cough, abdominal pain, N/V/D, changes in urinary/bowel habits, burning with urination, blood in the urine/stool, or numbness/tingling in the arms/legs. Admission Exam Per Admitting Provider General: no acute distress; lethargic; non-toxic appearing; cooperative; SpO2 98% on RA HEENT: normocephalic, atraumatic; no scleral icterus; PERRLA w/ EOMs intact; vision and hearing grossly intact Neck: supple; no lymphadenopathy; trachea midline Skin: warm, dry without signs of tenting; no cyanosis; no rashes, bruising, lesions, or erythema noted CV: chest wall is TTP below the xiphoid on palpation; RRR; S1/S2 normal; no murmurs/rubs/gallops; pulses intact and symmetric at radial, DP, and PT Lungs: no acute respiratory distress; symmetrical chest wall expansion; clear breath sounds across all lung boykin w/o adventitious sounds; no wheezing ABD: Soft, NTP in all 4 quadrants; BS present; no rebound/guarding; no distention; no rashes or bruising on the abdomen, flanks, or chest wall MSK: no tics or fasciculations; no edema noted in the LEs b/l, nonerythematous Neuro: A&Ox3; patient appears lethargic and is sometimes slow to respond to questioning; however, she exhibits a normal mood and affect; fluent speech; no focal deficits; patient reports decrease sensation in lower extremities bilaterally (which she reports is not new for her) Principal Diagnosis Endocarditis Discharge Exam Constitutional: well-appearing, no acute distress HEENT: NCAT, no conjunctival injection CV: clinically well perfused, +mechanical valve click Resp: CTA bilaterally, breathing comfortably at room air, normal respiratory effort, no respiratory distress. GI: non-distended MSK: no gross deformities appreciated Skin: warm, dry, no rash appreciated Neuro: alert, oriented, no focal neurologic deficit appreciated Discharge Data Allergies Allergy/AdvReac Type Severity Reaction Status Date / Time codeine Allergy Cough Verified 07/17/24 12:01 Penicillins Allergy Hives Verified 07/17/24 12:01 ropinirole [From Requip] Allergy Unknown Verified 07/17/24 12:01 Consultations 07/17/24 14:01 ED Decision to Admit Stat 07/17/24 17:54 Consult Infectious Diseases Routine Procedures Performed Operation Date: 07/21/24 07:45 Actual Procedures p Echo Transesophageal - Rishi Zacarias MD s Echo Color Flow - Rishi Zacarias MD Ordered Studies 07/23/24 10:26 CT head/brain wo/w con Urgent 07/23/24 10:28 CT abd pelvis IV con only Urgent CT neck soft tissues [CT soft tissue neck w con] Urgent 07/23/24 10:30 CT chest diagnostic w con Urgent 07/23/24 10:31 CT cervical spine wo con Urgent CT lumbar spine w con Urgent CT thoracic spine w con Urgent Hospital Course (1) Endocarditis: (2) S/P mitral valve replacement: (3) Hyponatremia: (4) Hypomagnesemia: (5) Anemia: Plan # Prosthetic Valve Endocarditis: Blood cultures drawn on 07/17 revealed Streptococcus spp DION from 07/21/24 noting mobile mass c/w vegetation on ventricular aspect of bioprosthetic mitral valve (posteroseptal portion of valve annulus) Patient denies any recent dental procedures; no dental f/u in years; advised to establish care for regular dental care after discharge as this may have acted as a possible cause for infection. Continue Rocephin 2000 mg IV q24h and Gentamicin after discharge. PICC line placed. Home health coordinated. 6 weeks of Rocephin (07/19/2024 - 08/30/2024) 2 weeks of Gentamicin (07/19/2024 - 08/02/2024); goal trough level < 1 per pharmacy Weekly CBC w/ Diff, CMP, Gentamicin levels Outpatient f/u with ID, cardiology, and PCP is advised # S/P aortic and mitral valve replacement: [place] [facility] [place] [place] recent echocardiogram on 07/14 revealed LVEF at 60 to 65% and mild pulmonary hypertension (RVSP 47mmHg) DION as mentioned above. # Hyponatremia: Hx SIADH Stable # Anemia: Stable. Hgb 9.3 in am labs Iron studies ordered and suggestive of anemia of chronic disease. Continue to manage chronic disease and current infection since this may help with anemia Patient found stable and fit for discharge back home today. Total Time Total Time Spent Total Time Spent (In Minutes): As per attending attestation. Discharge Plan Discharge Items Patient Disposition: Home - Home Health Services Reason For Visit: ENDOCARDITIS Discharge Diagnosis: Endocarditis Activity: Per Instructions section Non-emergency contact: Primary Care Provider and Guest Services Attendant Call non-emergency contact if: you have any medication questions, your symptoms worsen and you have a fever Follow-up/Referrals: Mulugeta Roger MD [Primary Care Provider] - 07/27/24 11:30 am Diet: Carb Consistent or DM2 and Heart Healthy Addtl Attending Provider Instructions: You were admitted due to progressive fatigue that was found to be related to a bacteria that had gotten into your blood. Due to this bacteria being in your blood, it got to your heart and seeded one of the heart valves you had replaced, resulting in a little lump being in said valve. The treatment for this is intravenous antibiotics which should be continued for a total of 6 weeks. So you could have these antibiotics administered, we had a PICC line placed, which is used to give these intravenous antibiotics. During the time you are getting this treatment, you should have weekly labs done. We strongly encourage you to follow up with your primary care physician as well as an infectious disease physician to keep an eye and help you though this process. We also encourage you to discuss with your primary care sales representative, and to establish care with a dentist. A discharge summary will be sent to your primary care physician to ensure continuity of care. Please bring this discharge summary with you to your next office appointment so that your provider can review it at that time. Follow-up appointments: Keep all your follow-up appointments as already scheduled. If you cannot make an appointment, notify your provider. Medications: Your medication list has been reviewed and reconciled upon discharge to ensure accuracy and continuity of care. An updated list of all your medications is included with your hospital discharge paperwork. Please review this list closely, and make note of any changes. Take your medications as instructed; do not skip a dose of your medicines. Make sure all of your doctors know every medicine you are taking (including feer-acb-pwlxnpy medicines, vitamins, and supplements). Call your primary care provider before taking any new medicines (including over- the-counter medicines, vitamins, and supplements), because some of these may interact with your current medications, or may make your symptoms worse. Tell your primary care provider if you cannot afford your medications. CONTACT YOUR PRIMARY CARE PROVIDER if you experience any of the following: Worsening of symptoms Fever, chills, or fatigue Difficulty following your treatment plan, or difficulty taking medications CALL 911 OR GO TO THE EMERGENCY DEPARTMENT if you experience any of the following: Sudden, severe abdominal pain or nausea/vomiting Severe chest pain, or chest pain that radiates (moves) to your jaw or arm Sudden, severe shortness of breath or difficulty breathing Thank you for allowing us to participate in your care. Pending Studies at Discharge: No Stand-Alone Forms: My [facility], Smoking Cessation Medications and DC Order Prescriptions: Continued (DME) blood sugar diagnostic Strip See Dose Instructions .ROUTE .MEDSUPPLY Qty: 50 11RF Rx Instructions: test sugars once a day rosuvastatin 20 mg tablet 20 mg PO DAILY Qty: 90 3RF Rx Instructions: Take with supper instead of pravastatin for cholesterol. losartan 100 mg tablet 100 mg PO DAILY Qty: 90 3RF Eliquis 5 mg tablet 5 mg PO BID Qty: 60 5RF amitriptyline 10 mg tablet 20 mg PO DAILY Qty: 180 3RF furosemide 20 mg tablet 20 mg PO DAILY Qty: 90 3RF metformin 500 mg tablet 500 mg PO BID Qty: 180 3RF (DME) lancets [OneTouch Delica Lancets] 33 gauge misc See Dose Instructions .ROUTE .MEDSUPPLY Qty: 100 3RF Dose Instruction: As directed Rx Instructions: test sugar once a day fluticasone propionate 50 mcg/actuation spray,suspension 2 spray intranasal DAILY PRN (Reason: allergy symptoms) azithromycin 500 mg tablet 500 mg PO .COMPLEX Qty: 3 3RF Rx Instructions: 500 mg orally 30-60 mins prior to dental cleaning; docusate sodium [Dulcolax Stool Softener (dss)] 100 mg capsule 100 mg PO DAILY cholecalciferol (vitamin D3) [Vitamin D3] 25 mcg (1,000 unit) capsule 2,000 unit PO DAILY Qty: 30 0RF albuterol sulfate 90 mcg/actuation HFA aerosol inhaler 2 puff inhalation Q6H PRN (Reason: shortness of breath or wheezing) Qty: 6.7 5RF (DME) blood-glucose meter [OneTouch Ultra2 Meter] Misc See Rx Instructions .Route Qty: 1 0RF Rx Instructions: As directed (DME) lancets [OneTouch UltraSoft 2 Lancet] 30 gauge misc See Rx Instructions .Route Qty: 100 3RF Rx Instructions: daily As directed (DME) OneTouch Ultra Test Strip See Rx Instructions .Route Qty: 100 3RF Rx Instructions: daily As directed (DME) BD Integra Syringe 3 mL 25 gauge x 1" syringe See Rx Instructions .ROUTE .MEDSUPPLY Qty: 10 3RF Rx Instructions: daily x 1 week, weekly x 4 weeks, then monthly cyanocobalamin (vitamin B-12) 1,000 mcg/mL solution 1,000 mcg IM UD Rx Instructions: 1,000 mcg intramuscularly Daily for 1 week, weekly for 4 weeks, then monthly; 07/17: still doing once a week injection amlodipine 5 mg tablet 5 mg PO UD Rx Instructions: 5 mg po daily pt isnt too sure of the medication. last filled 05/26 for 90 day supply Discharge Orders: Discharge Order (Routine); Ordered 07/23/24 Ordered By: Jackeline Glasgow Admission Data Admit Date/Time: 07/17/24 16:05 Attending Provider: Rishi Montesinos Admit Provider: Savage Ivory Primary Care Provider: Mulugeta Roger Other Providers: Savage Ivory; Stefanie Boothe; Laverne Felder; Marielle Sharif; Sherri Mora; Celine Mcmanus; Celena Anderson; [facility] Other Interventions: Discharge Summary Assessment (RN) Last Done: 07/23/24 15:38 Supervising Physician Co-Signing Physician Notes Attending attestation Pt seen and examined in concert with Dr. Glasgow. In agreement with the documented findings as noted in the resident documentation with any exceptions or additions as noted here. Resting comfortably in bed without complaint. On examination, S1/S2 nl RRR no MCG. CTAB. Abd NT/ND BS+ve Bacterial endocarditis, strep mutans - ID consult - +ve echo - Continue IV abx for regimen noted with outpatient/HH. Monitor BMP twice per week for tolerance of gentamicin. PICC placement outpatient transition completed. Else see resident documentation as noted. Total attending physician time spent with this patient's care on the day of discharge: 35 minutes. Resident Activity Tracking Resident Involvement: Resident Care Provided Care Provided: Adult Hospital Medicine
[2024-07-23 15:39] VITALS: PULSE 81
== END 2024-07-23 16:05 | disposition home health service (06) | DRG 314 ==
LOC: ED 10:42 → SUATTDRO 16:05 → 2S 16:05

== ENCOUNTER 2024-08-05 11:52 | Inpatient (IN) ==
--- NOTE | 2024-08-05 12:05 | Emergency Department Note ---
Impression & Plan LYNN (acute kidney injury) ADMIT ED Provider Note HPI: History obtained from patient. The patient is a 78-year-old female who presents the emergency department with 2 days of generalized weakness and fatigue. Patient states she felt so tired this morning that she could not get out of bed. Patient is noted to have history of prosthetic valve endocarditis, she is currently on IV antibiotics via PICC line in the left upper extremity. Patient just finished her course of gentamicin on 08/02/2024, she is currently on Rocephin until August 30. Patient denies any recent fever, on arrival here to the ED the patient is hemodynamically stable, she is somewhat listless appearing but otherwise is alert and in no acute distress, patient is saturating well on room air on arrival. Patient does note that she is felt somewhat unsteady on her feet over the past several days and she did have a fall yesterday. Patient denies any head injury or loss of consciousness with her fall. ROS: - Per HPI Differential Diagnosis: Viral upper respiratory infection/COVID-19/influenza A, urinary tract infection, sepsis, acute kidney injury/dehydration, intracranial hemorrhage/subdural hematoma, amongst other potential pathologies. *Outpatient medications and allergy history reviewed. PE: General: Alert HEENT: Normocephalic, trachea midline Eyes: Extraocular eye movement is intact, no scleral erythema Pulmonary: Clear to auscultation bilaterally, no wheezing Cardio: Regular rate and rhythm GI: Abdomen is soft to palpation : No suprapubic tenderness MSK: No evidence of trauma or malformation of the extremities, no edema Skin: No evidence of rash, PICC line to left upper extremity without any surrounding erythema Neuro: Alert, no focal deficits Psychiatric: Cooperative INDEPENDENT INTERPRETATIONS: campus monitor: (As interpreted by myself): - An order was placed for continuous cardiac monitoring - Patient was noted to be in sinus rhythm with a rate of 65 EKG: (As interpreted by myself): Rate: 75 Rhythm: Sinus rhythm Intervals: Within normal limits ST changes: No ST elevation Time: 1157 Chest x-ray: (As interpreted by myself): No acute disease Interventions provided in ED: -IV fluid bolus Medical Decision Making: IV was established and lab work obtained, patient was placed on campus monitor. Lab work shows a mild leukocytosis of 11.36 which appears to be chronic in nature, hemoglobin is stable 11.0., Platelet count is normal, CMP shows chronic hyponatremia at 128, creatinine is elevated acutely at 2.41, BUN is mildly elevated at 29. Lactic acid is normal. Troponin is elevated at 55 however this is lower than the patient's previous levels. TSH is within normal limits. Viral panel testing is negative. Chest x-ray does not show any evidence of acute disease. Patient was recently on gentamicin and just finished this 3 days ago, I suspect this is likely the source of her acute kidney injury. Patient does not have any abdominal pain, denies any nausea or vomiting. Given the patient's acute kidney injury, I did discuss her case with the on-call hospitalist, Dr. Gentile, and the patient was placed for admission in stable condition. The patient and her who later arrived at the bedside are in agreement to this plan. Patient was placed for admission in stable condition. Consultants/Discussions held with other healthcare providers: -Hospitalist, Dr. Gentile Disposition discussion held by myself with: -Patient and patient's at the bedside Diagnosis: 1. Acute kidney injury 2. History of endocarditis, currently on IV antibiotics via PICC line 3. Elevated high-sensitivity troponin level 4. Leukocytosis 5. Hyponatremia, chronic 6. Anemia, chronic Disposition: Admission Ki Marie DO Emergency Medicine Past Med/Surg History Problem List (Updated 08/05/24 @ 14:27 by Ki Marie DO) LYNN (acute kidney injury) (Acute) Prosthetic valve endocarditis Vitamin B 12 deficiency Atrial flutter SIADH (syndrome of inappropriate ADH production) CAD (coronary artery disease) Mitral valve stenosis Chronic heart failure with preserved ejection fraction Dyslipidemia Benign essential hypertension (Acute) Aortic stenosis Congestive heart failure (CHF) Lesion of larynx Peripheral neuropathy Insomnia Vitamin D insufficiency Controlled diabetes mellitus with microalbuminuria, without long-term current use of insulin (Acute) Edema (Acute) Gait disturbance (Acute) Hypercholesterolemia (Acute) Osteopenia (Acute) Tremor (Acute) Medical History Viridans streptococci infection Endocarditis Acute hyponatremia Leukocytosis Bacteremia Hypomagnesemia Anemia Non-ST elevation IA (NSTEMI) Fever Fever Dyspnea Fatigue Chills Inflammatory arthritis Purulent rhinorrhea Fugue Hypomagnesemia TIA (transient ischemic attack) Serous otitis media Bilateral otitis media Hoarseness Medicare annual wellness visit, subsequent Hyponatremia Medicare annual wellness visit, subsequent Benign paroxysmal positional vertigo Hyperkalemia Hyponatremia Urine frequency Type 2 diabetes mellitus Surgical History H/O prosthetic aortic valve replacement S/P mitral valve replacement S/P aortic valve replacement Hx of aortic valve replacement History of appendectomy History of tonsillectomy History of hysterectomy History of section History of dilation and curettage History of colonoscopy History of cataract surgery Family History Brother COPD (chronic obstructive pulmonary disease) Mother COPD (chronic obstructive pulmonary disease) Father Coronary heart disease Myocardial infarction Daughter Rheumatoid arthritis Denies family history of Ovarian cancer Prostate cancer Breast cancer Colorectal cancer Social History Smoking Status: Never smoker Second Hand Exposure: Yes; Hx Alcohol Use: No Hx Substance Use: No Preferred Language: Divehi Communication Ability: Effective Visual Impairment: Limited Hearing Ability: Normal Help Desk Agent Required: No Beliefs That Will Affect Care: None marital status: Current Living Situation: Spouse current occupational status: retired Feels Safe at Home: Yes Childhood Exposure to Second-Hand Smoke: Yes Diet: diabetic caffeine: Yes Dental Care, Regularly: No Physical Activity Frequency: 3-4 Times per Week Seatbelt Use: always Sunscreen Use: No Assistive Devices: Bedside Commode, Cane, Glasses and Walker Allergies Allergies Allergy/AdvReac Type Severity Reaction Status Date / Time codeine Allergy Cough Verified 08/05/24 14:05 Penicillins Allergy Hives Verified 08/05/24 14:05 ropinirole [From Requip] Allergy Unknown Verified 08/05/24 14:05 Home Meds Home Medications Medication Instructions Recorded Confirmed docusate sodium 100 mg capsule 100 mg PO DAILY 08/17/22 08/05/24 (Dulcolax Stool Softener (docusate)) fluticasone propionate 50 2 spray intranasal DAILY PRN 08/17/22 08/05/24 mcg/actuation nasal allergy symptoms spray,suspension amlodipine 5 mg tablet 5 mg PO DAILY 07/17/24 08/05/24 cyanocobalamin (vitamin B-12) 1,000 mcg IM UD 07/17/24 08/05/24 1,000 mcg/mL injection solution ceftriaxone 1 gram intravenous 2 g IV DAILY 07/27/24 08/05/24 piggyback Previous Rx's Medication Instructions Recorded lancets 33 gauge (OneTouch Delica #100 ea 05/07/19 Lancets) blood sugar diagnostic #50 ea 06/07/22 cholecalciferol (vitamin D3) 25 2,000 unit PO DAILY #30 caps 08/16/22 mcg (1,000 unit) capsule (Vitamin D3) losartan 100 mg tablet 100 mg PO DAILY #90 tabs 12/04/23 rosuvastatin 20 mg tablet 20 mg PO DAILY #90 tabs 12/04/23 albuterol sulfate 90 mcg/actuation 2 puff inhalation Q6H PRN 02/18/24 aerosol inhaler shortness of breath or wheezing #6.7 grams blood sugar diagnostic (OneTouch #100 ea 02/18/24 Ultra Test strips) blood-glucose meter (OneTouch #1 ea 02/18/24 Ultra2 Meter) lancets 30 gauge (OneTouch #100 ea 02/18/24 UltraSoft 2 Lancet) amitriptyline 10 mg tablet 20 mg (2 x 10 mg) PO DAILY #180 04/27/24 tabs furosemide 20 mg tablet 20 mg PO DAILY #90 tabs 06/16/24 metformin 500 mg tablet 500 mg PO BID #180 tabs 07/02/24 syringe with needle, safety 3 mL #10 ea 07/13/24 25 gauge x 1" (BD Integra Syringe) apixaban 5 mg tablet (Eliquis) 5 mg PO BID #60 tabs 07/31/24 Results & Data (ED) Vital Signs Vital Signs - 24 hr 08/05/24 11:56 08/05/24 11:56 08/05/24 11:56 Temperature 36.5 C 36.5 C Temperature Source Oral Oral Pulse Rate 76 Pulse Rate [Apical] 78 Pulse Rhythm Regular Pulse Rhythm [Apical] Regular Pulse Strength Normal Pulse Strength [Apical] Normal Respiratory Rate 16 16 Respiratory Effort / Characteristics Non-Labored Non-Labored Respiratory Depth Normal Normal Respiratory Pattern Regular Blood Pressure 117/68 Blood Pressure [Right Arm] 117/68 Blood Pressure Mean 84 Blood Pressure Mean [Right Arm] 84 Blood Pressure Position Lying Blood Pressure Position [Right Arm] Lying Pulse Oximetry 92 92 Oxygen Delivery Method Room Air Room Air Room Air Sepsis Recent Fever Within 48 Hours No Sepsis New/Unexplained Change in Mental Status N/A Sepsis Action Taken by Nursing No Action Required 08/05/24 12:08 08/05/24 13:04 08/05/24 13:05 Temperature Temperature Source Pulse Rate 75 71 Pulse Rate [Apical] 60 Pulse Rhythm Regular Pulse Rhythm [Apical] Regular Pulse Strength Pulse Strength [Apical] Normal Respiratory Rate 16 16 Respiratory Effort / Characteristics Non-Labored Respiratory Depth Normal Respiratory Pattern Blood Pressure Blood Pressure [Right Arm] 113/58 L Blood Pressure Mean Blood Pressure Mean [Right Arm] 76 Blood Pressure Position Blood Pressure Position [Right Arm] Lying Pulse Oximetry 99 96 Oxygen Delivery Method Room Air Sepsis Recent Fever Within 48 Hours Sepsis New/Unexplained Change in Mental Status Sepsis Action Taken by Nursing Laboratory Data 08/05/24 12:05 08/05/24 12:05 Lab Results 08/05/24 08/05/24 Range/Units 12:05 12:12 WBC 11.36 H (4.8-10.8) K/ul RBC 3.92 L (4.20-5.40) M/uL Hgb 11.0 L (12.0-16.0) g/dl Hct 32.0 L (37.0-47.0) % MCV 81.6 (80.0-100.0) fL MCH 28.1 (25.0-34.0) pg MCHC 34.4 (32.0-36.0) g/dL RDW Std Deviation 44.3 (36.4-46.3) fL RDW Coeff of Viktor 14.8 H (11.5-14.5) % Plt Count 194 (130-400) K/uL MPV 10.4 (9.4-12.4) fL Immature Gran % (Auto) 0.4 % Neut % (Auto) 76.8 % Lymph % (Auto) 8.6 % Irwin % (Auto) 8.1 % Eos % (Auto) 5.7 % Baso % (Auto) 0.4 % Neut # (Auto) 8.71 H (1.40-6.50) K/uL Lymph # (Auto) 0.98 L (1.20-3.40) K/uL Irwin # (Auto) 0.92 H (0.11-0.59) K/uL Eos # (Auto) 0.65 H (0.00-0.50) K/uL Baso # (Auto) 0.05 (0.00-0.20) K/uL Immature Gran # (Auto) 0.05 (0.01-0.20) K/uL PT 12.8 H (9.0-12.0) Seconds INR 1.2 H (0.9-1.1) Sodium 128 L (136-145) mmol/L Potassium 3.9 (3.5-5.1) mmol/L Chloride 90 L (98-107) mmol/L Carbon Dioxide 29 (21-32) mmol/L Anion Gap 9 (3-11) BUN 29 H (6-23) mg/dl Creatinine 2.41 H (0.6-1.2) mg/dl Est Cr Clr Drug Dosing 16.3 ml/min eGFR 20.07 BUN/Creatinine Ratio 12.0 (10-20) Glucose 150 H (70-99(Fasting)) mg/dl Lactate 1.5 (0.4-2.0) mmol/L Calcium 9.5 (8.6-10.3) mg/dl Total Bilirubin 0.4 (0.2-1.0) mg/dl AST 16 (13-39) U/L ALT 16 (7-52) U/L Alkaline Phosphatase 60 (34-104) U/L Total Creatine Kinase 38 (26-192) U/L Troponin I High Sens 55.3 H* (0-14) pg/ml Total Protein 7.9 (6.0-8.3) gm/dl Albumin 3.8 (3.4-5.0) gm/dl Globulin 4.1 H (2.5-4.0) gm/dl Albumin/Globulin Ratio 0.9 (0.9-2) TSH 2.468 (0.300-4.500) uIu/ml Adenovirus (PCR) Not Detected (NotDetected) B. pertussis DNA (PCR) Not Detected (NotDetected) B.parapertussis DNA PCR Not Detected (NotDetected) C. pneumoniae DNA (PCR) Not Detected (NotDetected) Coronavirus OC43 (PCR) Not Detected (NotDetected) Coronavirus HKU1 (PCR) Not Detected (NotDetected) Coronavirus 229E (PCR) Not Detected (NotDetected) SARS-CoV-2 (PCR) Not Detected (NotDetected) Coronavirus NL63 (PCR) Not Detected (NotDetected) Human Metapneumovir PCR Not Detected (NotDetected) Influenza Type A (PCR) Not Detected (NotDetected) Influenza Type B (PCR) Not Detected (NotDetected) M. pneumoniae (PCR) Not Detected (NotDetected) Parainfluenza 1 (PCR) Not Detected (NotDetected) Parainfluenza 2 (PCR) Not Detected (NotDetected) Parainfluenza 3 (PCR) Not Detected (NotDetected) Parainfluenza 4 (PCR) Not Detected (NotDetected) RSV (PCR) Not Detected (NotDetected) Entero/Rhino (PCR) Not Detected (NotDetected) Administered Medications Discontinued Medications Lactated Ringer's (Lr) 1,000 mls @ 999 mls/hr IV .Q1H1M ONE Stop: 08/05/24 13:51 Last Admin: 08/05/24 12:59 Dose: 999 mls/hr Documented By: [facility] Imaging Data Radiologist's Impression: Chest X-Ray 08/05/24 12:02 XR chest 1V portable CLINICAL HISTORY: weakness TECHNIQUE: Single frontal radiograph of the chest was obtained. Comparison: Comparison is made to chest radiograph 07/23/2024 FINDINGS: Median sternotomy wires are unchanged. The cardiomediastinal silhouette is normal. The lungs are clear. No evidence of pleural effusion or pneumothorax. IMPRESSION: No acute chest disease. ACT 112: Negative or not required by law. Electronically signed by: Blade Hernadez M.D. 08/05/2024 12:[address] 08/05/24 12:03 CT head/brain wo con CLINICAL HISTORY: fall Technique: Contiguous axial CT images of the head were acquired from the base of the skull to the vertex without intravenous contrast administration. Images were viewed in brain, subdural and bone windows. Automated dose lowering techniques and/or adjustment according to patient size were utilized for this exam. Comparison: Comparison is made to CT head 07/23/2024 Findings: Areas of decreased attenuation are present in the periventricular and subcortical white matter bilaterally consistent with small vessel ischemic disease. Generalized cerebral atrophy with commensurate enlargement of the ventricles, sulci, and cisterns is also present. There is no acute intracranial hemorrhage or evidence of acute territorial infarction. No shift of the midline structures, mass effect, or extra-axial abnormalities are shown. Atherosclerotic calcifications are present in the intracranial segments of the internal carotid arteries. Imaged portions of the paranasal sinuses and mastoid air cells are clear. The orbits appear normal. There are no acute fractures of the calvaria or scalp swelling. Impression: No acute intracranial hemorrhage, no evidence of acute territorial infarction or other acute intracranial disease process. ACT 112: Negative or not required by law. Electronically signed by: Blade Hernadez M.D. 08/05/2024 1:37 PM Discharge Plan Visit Data Chief Complaint: Weakness ED Provider: Ki Marie Discharge Problem: LYNN (acute kidney injury) Forms Stand Alone Forms: [facility] [place] [email or web address] Prescriptions Prescriptions: No Action (DME) blood sugar diagnostic Strip See Dose Instructions .ROUTE .MEDSUPPLY Qty: 50 11RF Rx Instructions: test sugars once a day rosuvastatin 20 mg tablet 20 mg PO DAILY Qty: 90 3RF Rx Instructions: Take with supper instead of pravastatin for cholesterol. losartan 100 mg tablet 100 mg PO DAILY Qty: 90 3RF amitriptyline 10 mg tablet 20 mg PO DAILY Qty: 180 3RF furosemide 20 mg tablet 20 mg PO DAILY Qty: 90 3RF metformin 500 mg tablet 500 mg PO BID Qty: 180 3RF Eliquis 5 mg tablet 5 mg PO BID Qty: 60 11RF (DME) lancets [OneTouch Delica Lancets] 33 gauge misc See Dose Instructions .ROUTE .MEDSUPPLY Qty: 100 3RF Dose Instruction: As directed Rx Instructions: test sugar once a day fluticasone propionate 50 mcg/actuation spray,suspension 2 spray intranasal DAILY PRN (Reason: allergy symptoms) Rx Instructions: Unable to verify OTC meds at this date/time. docusate sodium [Dulcolax Stool Softener (dss)] 100 mg capsule 100 mg PO DAILY Rx Instructions: Unable to verify OTC meds at this date/time. cholecalciferol (vitamin D3) [Vitamin D3] 25 mcg (1,000 unit) capsule 2,000 unit PO DAILY Qty: 30 0RF albuterol sulfate 90 mcg/actuation HFA aerosol inhaler 2 puff inhalation Q6H PRN (Reason: shortness of breath or wheezing) Qty: 6.7 5RF (DME) blood-glucose meter [OneTouch Ultra2 Meter] Misc See Rx Instructions .Route Qty: 1 0RF Rx Instructions: As directed (DME) lancets [OneTouch UltraSoft 2 Lancet] 30 gauge misc See Rx Instructions .Route Qty: 100 3RF Rx Instructions: daily As directed (DME) OneTouch Ultra Test Strip See Rx Instructions .Route Qty: 100 3RF Rx Instructions: daily As directed (DME) BD Integra Syringe 3 mL 25 gauge x 1" syringe See Rx Instructions .ROUTE .MEDSUPPLY Qty: 10 3RF Rx Instructions: daily x 1 week, weekly x 4 weeks, then monthly ceftriaxone 1 gram piggyback 2 g IV DAILY Rx Instructions: VIA PICC 6 weeks of Rocephin (07/19/2024 - 08/30/2024) cyanocobalamin (vitamin B-12) 1,000 mcg/mL solution 1,000 mcg IM UD Rx Instructions: 1,000 mcg intramuscularly Daily for 1 week, weekly for 4 weeks, then monthly; 07/17: still doing once a week injection amlodipine 5 mg tablet 5 mg PO DAILY Referrals Referrals: Mulugeta Roger MD [Primary Care Provider] -
[2024-08-05 12:35] LABS: Basophils # (auto) 0.05 K/uL (0.00-0.20); Basophils % (auto) 0.4 %; Eosinophils # (auto) 0.65 K/uL (0.00-0.50); Eosinophils % (auto) 5.7 %; Immature Granulocytes # (auto) 0.05 K/uL (0.01-0.20); Immature Granulocytes % (auto) 0.4 %; Lymphocytes # (auto) 0.98 K/uL (1.20-3.40); Lymphocytes % (auto) 8.6 %; Mean Corpuscular Hemoglobin 28.1 pg (25.0-34.0); Mean Corpuscular Hgb Conc 34.4 g/dL (32.0-36.0); Mean Corpuscular Volume 81.6 fL (80.0-100.0); Mean Platelet Volume 10.4 fL (9.4-12.4); Monocytes # (auto) 0.92 K/uL (0.11-0.59); Monocytes % (auto) 8.1 %; Neutrophils # (auto) 8.71 K/uL (1.40-6.50); Neutrophils % (auto) 76.8 %; Platelet Count 194 K/uL (130-400); RDW Coefficient of Variation 14.8 % (11.5-14.5); RDW Standard Deviation 44.3 fL (36.4-46.3); Red Blood Count 3.92 M/uL (4.20-5.40); White Blood Count 11.36 K/ul (4.8-10.8)
--- NOTE | 2024-08-05 12:40 | XRay Report ---
XR chest 1V portable CLINICAL HISTORY: weakness TECHNIQUE: Single frontal radiograph of the chest was obtained. Comparison: Comparison is made to chest radiograph 07/23/2024 FINDINGS: Median sternotomy wires are unchanged. The cardiomediastinal silhouette is normal. The lungs are demetrice r. No evidence of pleural effusion or pneumothorax. IMPRESSION: No acute chest disease. ACT 112: Negative or not required by law. Electronically signed by: Blade Hernadez M.D. 08/05/2024 12:38 PM
[2024-08-05 12:50] LABS: Albumin Globulin Ratio 0.9 (0.9-2); Albumin Level 3.8 gm/dl (3.4-5.0); Bilirubin,Total 0.4 mg/dl (0.2-1.0); Calcium 9.5 mg/dl (8.6-10.3); Creatinine Clr Calc Pharmacy 16.3 ml/min; Globulin 4.1 gm/dl (2.5-4.0); Potassium 3.9 mmol/L (3.5-5.1); Total Protein 7.9 gm/dl (6.0-8.3)
[2024-08-05] MEDS: LACTATED RINGER'S 1,000 ML IV ONE (12:59)
[2024-08-05 13:02] LABS: Troponin I High Sensitivity 55.3 pg/ml (0-14)
[2024-08-05 13:05] LABS: Thyroid Stimulating Hormone 2.468 uIu/ml (0.300-4.500)
[2024-08-05 13:07] LABS: INR 1.2 (0.9-1.1); Prothrombin Time 12.8 Seconds (9.0-12.0)
[2024-08-05 13:17] LABS: Adenovirus PCR Not Detected (NotDetected); Bordetella parapertussis PCR Not Detected (NotDetected); Bordetella pertussis PCR Not Detected (NotDetected); Chlamydia pneumoniae PCR Not Detected (NotDetected); Coronavirus 229E PCR Not Detected (NotDetected); Coronavirus CoV-2 (COVID19)PCR Not Detected (NotDetected); Coronavirus HKU1 PCR Not Detected (NotDetected); Coronavirus NL63 PCR Not Detected (NotDetected); Coronavirus OC43PCR Not Detected (NotDetected); Human Metapneumovirus PCR Not Detected (NotDetected); Influenza A PCR Not Detected (NotDetected); Influenza B PCR Not Detected (NotDetected); Mycoplasma pneumoniae PCR Not Detected (NotDetected); Parainfluenza Virus 1 PCR Not Detected (NotDetected); Parainfluenza Virus 2 PCR Not Detected (NotDetected); Parainfluenza Virus 3 PCR Not Detected (NotDetected); Parainfluenza Virus 4 PCR Not Detected (NotDetected); Respiratory Syncytial VirusPCR Not Detected (NotDetected); Rhinovirus/Enterovirus PCR Not Detected (NotDetected)
--- NOTE | 2024-08-05 13:39 | CT Scan Report ---
CT head/brain wo con CLINICAL HISTORY: fall Technique: Contiguous axial CT images of the head were acquired from the base of the skull to the moody desiree without intravenous contrast administration. Images were viewed in brain, subdural and [facility]. Automated dose lowering techniques and/or adjustment according to patient size were utilized for this exam. Comparison: Comparison is made to CT head 07/23/2024 Findings: Areas of decreased attenuation are present in the periventricular and subcortical white matter bilate rally consistent with small vessel ischemic disease. Generalized cerebral atrophy with commensurate e nlargement of the ventricles, sulci, and cisterns is also present. There is no acute intracranial hem orrhage or evidence of acute territorial infarction. No shift of the midline structures, mass effect, or extra-axial abnormalities are shown. Atherosclerotic calcifications are present in the intracran ial segments of the internal carotid arteries. Imaged portions of the paranasal sinuses and mastoid air cells are clear. The orbits appear normal. There are no acute fractures of the calvaria or scalp swelling. Impression: No acute intracranial hemorrhage, no evidence of acute territorial infarction or other acute intracra nial disease process. ACT 112: Negative or not required by law. Electronically signed by: Blade Hernadez M.D. 08/05/2024 1:37 PM
[2024-08-05] MEDS: SODIUM CHLORIDE 0.9% 1,000 ML IV ONE (14:30)
--- NOTE | 2024-08-05 14:38 | History & Physical Report ---
Date of Service August 05, 2024 Assessment & Plan (1) LYNN (acute kidney injury): Plan: Creatinine 2.41 from 1.1; 8 days ago. Low suspicion this was gentamicin induced since this was discontinued on August 02 and symptoms present for last 2 days. AIN from ceftriaxone a possibility but would favoring continuing this and monitoring renal function following fluids on admission - no rash or fever, eosinophilia not out of proportion to other cell lines US renal to assess for post obstructive cause UA pending collection - low suspicion of UTI since she is already on antibiotics IV fluids overnight Hold metformin, furosemide and losartan (2) Prosthetic valve endocarditis: Plan: Suspected this is successfully being treated and main presentation is due to LYNN as above rather than worsening endocarditis Continue intravenous ceftriaxone 2 g IV daily CRP and EHR added to prior labs, follow-up blood cultures (3) SIADH (syndrome of inappropriate ADH production): Plan: However sodium previously improved with NSS alone. If still low tomorrow consider fluid restriction and salt tabs. Furosemide on hold due to LYNN (4) Controlled diabetes mellitus with microalbuminuria, without long-term current use of insulin: Plan: HbA1C 7.4 in June, no need to repeat Hold metformin due to LYNN Novolog: --Goal BSG Range: Low 110 mg/dL, High 140 mg/dL --Correction Factor: 45 mg/dL/unit No carb ratio --BSGs ACHS if eating, q6h if npo If requiring frequently consider basal + carb ratio insulin (5) Benign essential hypertension: Plan: Continue amlodipine Hold losartan and furosemide due to LYNN as above Plan VTE Prophylaxis - Eliquis Diet - heart healthy, T2DM Disposition - admit to med/tele Admission and Anticipated Discharge Date Admission Date: August 05, 2024 History of Present Illness Chief Complaint: Generalized weakness Primary Care Provider: Mulugeta Roger MD Penny Pierre is a 78 year old female with recent diagnosis of endocarditis currently on ceftriaxone who presents to the ER with generalized weakness. She notes yesterday felt more fatigued and struggling to keep her eyes open therefore drinking less although she did have a full meal last night. She fell backwards yesterday from standing and hit her head but not hard and no loss of consciousness. She appeared to be much more fatigued today therefore decided to come to the ER for evaluation. In the ER she was noted to have LYNN. She was recently on gentamicin although this was finished on August 02 and Cr was normal on July 28. She denies any urinary symptoms, rash, fever or chills. She was diagnosed with Strep Viridans endocarditis during her hospitalization from July 17 t July 23. This was treated with ceftriaxone and gentamicin with gentamicin course discontinued on August 02 per ID recommendations. Allergies Allergy/AdvReac Type Severity Reaction Status Date / Time codeine Allergy Cough Verified 08/05/24 14:05 Penicillins Allergy Hives Verified 08/05/24 14:05 ropinirole [From Requip] Allergy Unknown Verified 08/05/24 14:05 Home Medications Medication Instructions Recorded Confirmed Type lancets 33 gauge (OneTouch Delica #100 ea 05/07/19 07/29/24 Rx Lancets) blood sugar diagnostic #50 ea 06/07/22 07/29/24 Rx cholecalciferol (vitamin D3) 25 2,000 unit PO DAILY #30 caps 08/16/22 08/05/24 Rx mcg (1,000 unit) capsule (Vitamin D3) docusate sodium 100 mg capsule 100 mg PO DAILY 08/17/22 08/05/24 History (Dulcolax Stool Softener (docusate)) fluticasone propionate 50 2 spray intranasal DAILY PRN 08/17/22 08/05/24 History mcg/actuation nasal allergy symptoms spray,suspension losartan 100 mg tablet 100 mg PO DAILY #90 tabs 12/04/23 08/05/24 Rx rosuvastatin 20 mg tablet 20 mg PO DAILY #90 tabs 12/04/23 08/05/24 Rx albuterol sulfate 90 mcg/actuation 2 puff inhalation Q6H PRN 02/18/24 08/05/24 Rx aerosol inhaler shortness of breath or wheezing #6.7 grams blood sugar diagnostic (OneTouch #100 ea 02/18/24 07/29/24 Rx Ultra Test strips) blood-glucose meter (OneTouch #1 ea 02/18/24 07/29/24 Rx Ultra2 Meter) lancets 30 gauge (OneTouch #100 ea 02/18/24 07/29/24 Rx UltraSoft 2 Lancet) amitriptyline 10 mg tablet 20 mg (2 x 10 mg) PO DAILY #180 04/27/24 08/05/24 Rx tabs furosemide 20 mg tablet 20 mg PO DAILY #90 tabs 06/16/24 08/05/24 Rx metformin 500 mg tablet 500 mg PO BID #180 tabs 07/02/24 08/05/24 Rx syringe with needle, safety 3 mL #10 ea 07/13/24 07/29/24 Rx 25 gauge x 1" (BD Integra Syringe) amlodipine 5 mg tablet 5 mg PO DAILY 07/17/24 08/05/24 History cyanocobalamin (vitamin B-12) 1,000 mcg IM UD 07/17/24 08/05/24 History 1,000 mcg/mL injection solution ceftriaxone 1 gram intravenous 2 g IV DAILY 07/27/24 08/05/24 History piggyback apixaban 5 mg tablet (Eliquis) 5 mg PO BID #60 tabs 07/31/24 08/05/24 Rx Past Med/Surg History Problem List (Updated 08/05/24 @ 14:27 by Ki Marie DO) LYNN (acute kidney injury) (Acute) Prosthetic valve endocarditis Vitamin B 12 deficiency Atrial flutter SIADH (syndrome of inappropriate ADH production) CAD (coronary artery disease) Mitral valve stenosis Chronic heart failure with preserved ejection fraction Dyslipidemia Benign essential hypertension (Acute) Aortic stenosis Congestive heart failure (CHF) Lesion of larynx Peripheral neuropathy Insomnia Vitamin D insufficiency Controlled diabetes mellitus with microalbuminuria, without long-term current use of insulin (Acute) Edema (Acute) Gait disturbance (Acute) Hypercholesterolemia (Acute) Osteopenia (Acute) Tremor (Acute) Medical History Viridans streptococci infection Endocarditis Acute hyponatremia Leukocytosis Bacteremia Hypomagnesemia Anemia Non-ST elevation [place] (NSTEMI) Fever Fever Dyspnea Fatigue Chills Inflammatory arthritis Purulent rhinorrhea Fugue Hypomagnesemia TIA (transient ischemic attack) Serous otitis media Bilateral otitis media Hoarseness Medicare annual wellness visit, subsequent Hyponatremia Medicare annual wellness visit, subsequent Benign paroxysmal positional vertigo Hyperkalemia Hyponatremia Urine frequency Type 2 diabetes mellitus Surgical History H/O prosthetic aortic valve replacement S/P mitral valve replacement S/P aortic valve replacement Hx of aortic valve replacement History of appendectomy History of tonsillectomy History of hysterectomy History of section History of dilation and curettage History of colonoscopy History of cataract surgery Family History Brother COPD (chronic obstructive pulmonary disease) Mother COPD (chronic obstructive pulmonary disease) Father Coronary heart disease Myocardial infarction Daughter Rheumatoid arthritis Denies family history of Ovarian cancer Prostate cancer Breast cancer Colorectal cancer Social History Smoking Status: Never smoker Second Hand Exposure: Yes; Hx Alcohol Use: No Hx Substance Use: No Preferred Language: Yi Communication Ability: Effective Visual Impairment: Limited Hearing Ability: Normal Screw Remover Required: No Beliefs That Will Affect Care: None marital status: Current Living Situation: Spouse current occupational status: retired Other Information That Helps Us Care for You: No Feels Safe at Home: Yes Childhood Exposure to Second-Hand Smoke: Yes Diet: diabetic caffeine: Yes Dental Care, Regularly: No Physical Activity Frequency: 3-4 Times per Week Seatbelt Use: always Sunscreen Use: No Assistive Devices: Denture - Upper and Glasses Review of Systems Review of Systems: All systems reviewed & are unremarkable except as noted in HPI & below Physical Exam Constitutional: WD/WN, vitals as above Eyes: + anicteric sclerae; normal pupil size ENMT: external ear and nose normal, oropharynx normal Respiratory: normal respiratory effort, lungs clear to auscultation Cardiovascular: Rate/Rhythm: regular rate and regular rhythm Heart Sounds: + murmur (apical murmur) Gastrointestinal (Abdomen): normal bowel sounds, soft, nontender, no hepatosplenomegaly Musculoskeletal: no cyanosis or clubbing, extremities motor strength 5/5 Skin: no rashes, warm and dry Neurologic: moves all extremities and awake; not confused Psychiatric: A+Ox3, euthymic affect Genitourinary: no CVA tenderness Results & Data Results & Data Vital Signs (Past 12 Hours) Vital Signs Temp Pulse Pulse Resp BP BP Pulse Ox 08/05/24 14:31 57 L 20 126/67 95 08/05/24 13:05 60 16 113/58 L 96 08/05/24 13:04 71 08/05/24 12:08 75 16 99 08/05/24 11:56 36.5 C 78 16 117/68 92 08/05/24 11:56 08/05/24 11:56 36.5 C 76 16 117/68 92 O2 Del Method 10/16/24 14:31 Room Air 08/05/24 13:05 Room Air 08/05/24 13:04 08/05/24 12:08 08/05/24 11:56 Room Air 08/05/24 11:56 Room Air 08/05/24 11:56 Room Air Laboratory Results Abnormal lab results 08/05/24 Range/Units 12:05 WBC 11.36 H (4.8-10.8) K/ul RBC 3.92 L (4.20-5.40) M/uL Hgb 11.0 L (12.0-16.0) g/dl Hct 32.0 L (37.0-47.0) % RDW Coeff of Viktor 14.8 H (11.5-14.5) % Neut # (Auto) 8.71 H (1.40-6.50) K/uL Lymph # (Auto) 0.98 L (1.20-3.40) K/uL [place] # (Auto) 0.92 H (0.11-0.59) K/uL Eos # (Auto) 0.65 H (0.00-0.50) K/uL PT 12.8 H (9.0-12.0) Seconds INR 1.2 H (0.9-1.1) Sodium 128 L (136-145) mmol/L Chloride 90 L (98-107) mmol/L BUN 29 H (6-23) mg/dl Creatinine 2.41 H (0.6-1.2) mg/dl Glucose 150 H (70-99(Fasting)) mg/dl Troponin I High Sens 55.3 H* (0-14) pg/ml Globulin 4.1 H (2.5-4.0) gm/dl Diagnostic Findings CT head/brain wo con CLINICAL HISTORY: fall Technique: Contiguous axial CT images of the head were acquired from the base of the skull to the vertex without intravenous contrast administration. Images were viewed in brain, subdural and bone windows. Automated dose lowering techniques and/or adjustment according to patient size were utilized for this exam. Comparison: Comparison is made to CT head 07/23/2024 Findings: Areas of decreased attenuation are present in the periventricular and subcortical white matter bilaterally consistent with small vessel ischemic disease. Generalized cerebral atrophy with commensurate enlargement of the ventricles, sulci, and cisterns is also present. There is no acute intracranial hemorrhage or evidence of acute territorial infarction. No shift of the midline structures, mass effect, or extra-axial abnormalities are shown. Atherosclerotic calcifications are present in the intracranial segments of the internal carotid arteries. Imaged portions of the paranasal sinuses and mastoid air cells are clear. The orbits appear normal. There are no acute fractures of the calvaria or scalp swelling. Impression: No acute intracranial hemorrhage, no evidence of acute territorial infarction or other acute intracranial disease process. XR chest 1V portable CLINICAL HISTORY: weakness TECHNIQUE: Single frontal radiograph of the chest was obtained. Comparison: Comparison is made to chest radiograph 07/23/2024 FINDINGS: Median sternotomy wires are unchanged. The cardiomediastinal silhouette is normal. The lungs are clear. No evidence of pleural effusion or pneumothorax. IMPRESSION: No acute chest disease. Medications Administered ER medications given: Lactated Ringer's 1 L bolus ECG Rate (beats per minute): 75 Rhythm: atrial fibrillation Findings: + other (None specific intraventricular conduction delay) Comparison ECG Date: from (July 19, 2024) Change: no significant change Code Status & VTE Plan Code Status Full VTE Prophylaxis Plan VTE Prophylaxis will be ordered: Yes PG Care Time/CCT Total # of Minutes Spent Total Time Spent with Patient: Total time spent is greater than 50% in coordination of care (as documented) at patient's floor/unit and/or counseling patient: Coding Level of Care Code 13825 INT INP/OBS CARE MIN Diagnoses LYNN (acute kidney injury) N17.9 Prosthetic valve endocarditis T82.6XXA; I38 SIADH (syndrome of inappropriate ADH production) E22.2 Controlled diabetes mellitus with microalbuminuria, without long-term current use of insulin E11.29; R80.9 Benign essential hypertension I10
[2024-08-05] MEDS: cefTRIAXone SODIUM 2,000 MG/50 ML BAG IV STA (14:57)
[2024-08-05 14:58] LABS: C Reactive Protein 11.57 mg/dl (0-0.5)
--- NOTE | 2024-08-05 15:03 | Electrocardiogram Report ---
Test Reason : Blood Pressure : */* mmHG Vent. Rate : 75 BPM Atrial Rate : * BPM P-R Int : * ms QRS Dur : 124 ms QT Int : 436 ms P-R-T Axes : * -7 77 degrees QTcB Int : 486 ms Sinus rhythm with 1st degree A-V block Possible Old Septal infarct Non-specific intra-ventricular conduction delay Abnormal ECG When compared with ECG of 19-Jul-2024 12:37, Atrial fibrillation no longer present Borderline Criteria for Septal infarct now present Confirmed by Chase Burton ([id number]) on 08/05/2024 3:03:27 PM Referred By: REFERRED SELF Confirmed By: Chase Burton
--- NOTE | 2024-08-05 15:59 | Ultrasound Report ---
RENAL ULTRASOUND HISTORY: Acute kidney injury LYNN COMPARISON: 07/23/2024. FINDINGS: Right kidney: 10.0 cm. Unchanged trace perinephric edema. No hydronephrosis. Normal corticomedullary differentiation and cortical thickness. Left kidney: 11.1 cm. Trace perinephric edema. No hydronephrosis. Normal corticomedullary differentia tion and cortical thickness. Bladder: No bladder wall thickening. The bilateral ureteral jets were identified. IMPRESSION: Unremarkable exam. No renal calculi or hydronephrosis identified. ACT 112: Negative or not required by law. Electronically signed by: Shola Brown M.D. 08/05/2024 3:58 PM
[2024-08-05] MEDS: ADVANCED PROBIOTIC 625 MG CAPSULE PO SCH (17:53)
[2024-08-05] MEDS: SODIUM CHLORIDE 0.9% 1,000 ML IV SCH (18:08)
[2024-08-05] MEDS ORDERED: GLUCOSE 40% GEL 15 GM TUBE PO PRN (19:17)
[2024-08-05] MEDS ORDERED: CARBOHYDRATES FOR HYPOGLYCEMIA PO PRN (19:17)
[2024-08-05] MEDS ORDERED: GLUCOSE 10 TAB/TUBE PO PRN (19:17)
[2024-08-05] MEDS ORDERED: GLUCAGON FOR INJ 1 MG VIAL SQ PRN (19:17)
[2024-08-05] MEDS ORDERED: DEXTROSE 50% 50 ML SYRINGE IV PRN (19:17)
[2024-08-05] MEDS: APIXABAN 5 MG TABLET PO SCH (20:31)
[2024-08-05] MEDS: INSULIN ASPART PER UNIT CHARGE SC SCH (20:31)
[2024-08-05] MEDS: AMITRIPTYLINE HCL 10 MG TAB PO SCH (20:32)
[2024-08-06 00:16] LABS: Appearance Urine Cloudy (Clear); Bacteria Urine Automated None Seen (None Seen); Bilirubin Urine Negative (Negative); Blood Urine Trace (Negative); Color Urine Yellow; Glucose Urine UA Negative (Negative); Ketones Urine Negative (Negative); Leukocyte Esterase Urine Negative (Negative); Nitrite Urine Negative (Negative); Protein Urine 2+ (Negative); RBC Urine Automated 0-2 /hpf (0-2); Urobilinogen Urine Negative (Negative); WBC Urine Automated 0-5 /hpf (0-5)
[2024-08-06 08:04] LABS: Basophils # (auto) 0.04 K/uL (0.00-0.20); Basophils % (auto) 0.3 %; Eosinophils # (auto) 0.56 K/uL (0.00-0.50); Eosinophils % (auto) 4.3 %; Hematocrit (blood only) 27.4 % (37.0-47.0); Immature Granulocytes # (auto) 0.05 K/uL (0.01-0.20); Immature Granulocytes % (auto) 0.4 %; Lymphocytes # (auto) 0.86 K/uL (1.20-3.40); Lymphocytes % (auto) 6.6 %; Mean Corpuscular Hemoglobin 26.5 pg (25.0-34.0); Mean Corpuscular Hgb Conc 32.8 g/dL (32.0-36.0); Mean Corpuscular Volume 80.6 fL (80.0-100.0); Mean Platelet Volume 10.5 fL (9.4-12.4); Monocytes # (auto) 0.97 K/uL (0.11-0.59); Monocytes % (auto) 7.5 %; Neutrophils # (auto) 10.53 K/uL (1.40-6.50); Neutrophils % (auto) 80.9 %; Platelet Count 167 K/uL (130-400); RDW Coefficient of Variation 14.8 % (11.5-14.5); RDW Standard Deviation 43.9 fL (36.4-46.3); White Blood Count 13.01 K/ul (4.8-10.8)
[2024-08-06 08:10] LABS: BUN Creatinine Ratio 10.8 (10-20); Calcium 8.2 mg/dl (8.6-10.3); Creatinine Clr Calc Pharmacy 19.5 ml/min; Potassium 3.5 mmol/L (3.5-5.1)
--- NOTE | 2024-08-06 08:43 | Hospitalist Progress Note ---
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 Ddx includes prerenal (lasix + ARB), related to gentamycin stopped 08/02, AIN related to ceftriaxone (ongoing). Good UOP overnight and throughout the day today, Cr improved to 2. Suspect this will resolve with time/fluids Check urine sodium, urine BUN, urine Cr Hold metformin, furosemide and losartan Monitor BMP daily, monitor UOP Acute encephalopathy -persistently drowsy for a week and remains so. not on sedating meds. denies any OTC meds or new meds. Lethargy is out of proportion to her mild uremia and moderate stable hyponatremia -check vbg r/o hypercarbia - negative -brain MRI evaluate for septic emboli - ordered stat but still not done by late afternoon -if these are negative would discuss with ID and change antibiotics since ceftriaxone could rarely cause encephalopathy (2) Prosthetic valve endocarditis: Plan: Suspected this is successfully being treated and main presentation is due to LYNN as above rather than worsening endocarditis Continue intravenous ceftriaxone 2 g IV daily CRP improved from 16 --> 11.5, ESR increased from 86-->106, afebrile follow-up blood cultures (3) SIADH (syndrome of inappropriate ADH production): Plan: However sodium previously improved with NSS alone. If still low tomorrow consider fluid restriction and salt tabs. Furosemide on hold due to LYNN urine sodium will be elevated because of loop diuretic normal salt diet monitor BMP (4) Controlled diabetes mellitus with microalbuminuria, without long-term current use of insulin: Plan: HbA1C 7.4 in June, no need to repeat Hold metformin due to LYNN Novolog: --Goal BSG Range: Low 110 mg/dL, High 140 mg/dL --Correction Factor: 45 mg/dL/unit No carb ratio --BSGs ACHS if eating, q6h if npo If requiring frequently consider basal + carb ratio insulin (5) Benign essential hypertension: Plan: Continue amlodipine Hold losartan and furosemide due to LYNN as above Plan VTE Prophylaxis - Gene Has PICC line I called and left voicemail at her home for her Admission and Anticipated Discharge Date Admission Date: August 05, 2024 Subjective She is actually oriented but lethargic and speaks slowly, falls asleep during conversation She says this has been going on for a week She denies any headache, neck pain, back pain, visual changes, weakness or numbness of face/arms/legs No shortness of breath or cough No abdominal pain or N/V/D, no dysuria Physical Exam 2 Physical Exam: PHYSICAL EXAMINATION Last 24h vital signs reviewed, see documentation in flowsheet General: comfortable appearing, no distress HEENT: Normocephalic, atraumatic, pupils round and equal, sclerae anicteric, no conjunctival injection, moist mucus membranes Lungs: Normal respiratory effort. Clear to auscultation bilaterally. No RRW Heart: Regular rate and rhythm, no murmurs. No JVD Abdomen: Soft, nontender, nondistended. Bowel sounds present. Extremities: Warm, dry, well-perfused. No extremity edema. Neuro: very sleepy and lethargic, arouses to gentle tactile stimulation does answer questions coherently but increased latency of speech and falls asleep during conversation several times, EOMI PERRL face symmetric, visual boykin full to confrontation, tongue midline, tube coverer are equal no pronator drift, can lift both heels off the bed Psych: sleepy, no agitation Results & Data Results & Data Vital Signs (Past 12 Hours) Vital Signs Temp Pulse Pulse Resp BP BP Pulse Ox 08/06/24 07:50 37.3 C 86 16 127/58 L 91 08/06/24 07:47 08/06/24 07:13 68 08/06/24 04:06 38.0 C H 87 20 145/71 H 92 08/06/24 00:34 37.3 C 70 20 155/70 H 95 08/05/24 22:25 91 H O2 Del Method 08/06/24 07:50 Room Air 08/06/24 07:47 Room Air 08/06/24 07:13 08/06/24 04:06 Room Air 08/06/24 00:34 Room Air 08/05/24 22:25 Laboratory Results 08/06/24 07:03 08/06/24 07:03 PG Care Time/CCT Total # of Minutes Spent Total Time Spent with Patient: Total time spent is greater than 50% in coordination of care (as documented) at patient's floor/unit and/or counseling patient: Coding Level of Care Code 20207 SUB INP/OBS CARE MIN Diagnoses LYNN (acute kidney injury) N17.9 Prosthetic valve endocarditis T82.6XXA; I38 SIADH (syndrome of inappropriate ADH production) E22.2 Controlled diabetes mellitus with microalbuminuria, without long-term current use of insulin E11.29; R80.9 Benign essential hypertension I10
[2024-08-06] MEDS: CHOLECALCIFEROL 25 MCG (1000 UNITS) TAB PO SCH (09:59)
[2024-08-06] MEDS: ROSUVASTATIN CALCIUM 20 MG TAB PO SCH (10:00)
[2024-08-06] MEDS: amLODIPine BESYLATE 5 MG TAB PO SCH (10:01)
[2024-08-06] MEDS: DOCUSATE SODIUM 100 MG CAP PO SCH (10:02)
[2024-08-06 12:02] LABS: Base Excess VBG -0.5 mEq/L; HCO3 VBG 24 mmol/L; Oxygen Saturation VBG 62.9 %; PCO2 VBG 39 mmHg (38-50); PO2 VBG 39 mmHg
[2024-08-06] MEDS: SODIUM CHLORIDE 0.9% 1,000 ML IV SCH (14:39)
[2024-08-06] MEDS: cefTRIAXone SODIUM 2,000 MG/50 ML BAG IV SCH (15:29)
--- NOTE | 2024-08-06 17:01 | XRay Report ---
XR KUB pre MRI CLINICAL HISTORY: MRI CLEARANCE TECHNIQUE: 1 view of the abdomen was obtained. Comparison: None available at the time of this dictation. FINDINGS: Lung bases are unremarkable. Degenerative changes are seen in the visualized skeleton. The bowel gas pattern is nonobstructive. Small stool burden is seen. IMPRESSION: No radiodense foreign body is seen. ACT 112: Negative or not required by law. Electronically signed by: Blade Hernadez M.D. 08/06/2024 5:00 PM
--- NOTE | 2024-08-06 17:04 | Communication Note ---
Date of Service: August 06, 2024 Reviewed EKG tracing EKG with IVCD, unclear what the rhythm is. There are distinct p waves with consistently differing NC interval. potentially mobitz type 2
--- NOTE | 2024-08-06 17:55 | Magnetic Resonance Report ---
MR brain wo con CLINICAL HISTORY: persist AMS/drowy, endocarditis, ?septic emboli TECHNIQUE: Multiplanar and multisequence MR images of the brain were obtained without intravenous con trast. Comparison: None available at the time of this dictation. FINDINGS: No abnormal restricted diffusion is identified. Foci of T2 and FLAIR hyperintensity are noted in the paraventricular areas consistent with chronic small vessel ischemic disease. Ex vacuo ventriculomegal y and sulcal enlargement is noted compatible with diffuse volume loss. No mass is seen. There is no m ass effect or midline shift. There is no evidence of acute intraparenchymal hemorrhage. No extra axia l fluid collections are seen. The corpus callosum, pituitary gland, and cerebellar tonsils appear harvey ssly unremarkable. Flow voids of the major intracranial arterial vessels are identified. The imaged portions of the para nasal sinuses, mastoid air cells, and orbits are unremarkable. IMPRESSION: Chronic volume loss and age related white matter changes without evidence of acute abnormality. In pa rticular no MRI evidence of septic emboli. ACT 112: Negative or not required by law. Electronically signed by: Blade Hernadez M.D. 08/06/2024 5:53 PM
[2024-08-06] MEDS: ACETAMINOPHEN 325 MG TAB PO PRN (20:31)
[2024-08-07 04:42] LABS: Creatinine Urine Random 30.6 mg/dl
--- NOTE | 2024-08-07 07:47 | Electrocardiogram Report ---
Test Reason : Blood Pressure : */* mmHG Vent. Rate : 86 BPM Atrial Rate : 86 BPM P-R Int : * ms QRS Dur : 128 ms QT Int : 396 ms P-R-T Axes : * 25 75 degrees QTcB Int : 473 ms Sinus rhythm with 1st degree A-V block with frequent Premature atrial complexes in a pattern of bigem iny Non-specific intra-ventricular conduction block Abnormal ECG When compared with ECG of 05-Aug-2024 11:57, Premature atrial complexes now present Criteria for Septal infarct no longer present Confirmed by Chase Burton ([id number]) on 08/07/2024 7:47:16 AM Referred By: REFERRED SELF Confirmed By: Chase Burton
[2024-08-07 08:09] LABS: BUN Creatinine Ratio 11.1 (10-20); Creatinine Clr Calc Pharmacy 20.2 ml/min; Hematocrit (blood only) 27.8 % (37.0-47.0); Mean Corpuscular Hemoglobin 26.2 pg (25.0-34.0); Mean Corpuscular Hgb Conc 32.4 g/dL (32.0-36.0); Mean Platelet Volume 10.3 fL (9.4-12.4); Platelet Count 146 K/uL (130-400); Potassium 3.3 mmol/L (3.5-5.1); RDW Coefficient of Variation 14.6 % (11.5-14.5); RDW Standard Deviation 43.7 fL (36.4-46.3); Red Blood Count 3.43 M/uL (4.20-5.40); White Blood Count 18.06 K/ul (4.8-10.8)
[2024-08-07 08:33] LABS: Basophils # (auto) 0.06 K/uL (0.00-0.20); Basophils % (auto) 0.3 %; Eosinophils # (auto) 0.22 K/uL (0.00-0.50); Eosinophils % (auto) 1.2 %; Immature Granulocytes # (auto) 0.08 K/uL (0.01-0.20); Immature Granulocytes % (auto) 0.4 %; Lymphocytes # (auto) 0.51 K/uL (1.20-3.40); Lymphocytes % (auto) 2.8 %; Monocytes % (auto) 4.4 %; Neutrophils # (auto) 16.39 K/uL (1.40-6.50); Neutrophils % (auto) 90.9 %; Toxic Vacuolation 1+
--- NOTE | 2024-08-07 09:17 | XRay Report ---
XR chest 1V portable HISTORY: 78 years-old Female fever acute fever COMPARISON: 08/05/2024 TECHNIQUE: AP view of the chest FINDINGS: Cardiac silhouette is mildly enlarged. A left-sided PICC distal tip terminates in the expected locati on of the mid inferior SVC. Median sternotomy. Left atrial exclusion device. Pulmonary vascular conge stion with interstitial coarsening. No pneumothorax. Trace pleural effusions with hazy right basilar predominant opacities. Bones appear grossly intact. IMPRESSION: 1. Cardiomegaly with interstitial pulmonary edema. 2. Trace pleural effusions with interval development of asymmetric right lung base opacities which ma y represent atelectasis versus pneumonitis. 3. Unchanged left-sided PICC. ACT 112: Negative or not required by law. The above report was generated using voice recognition software. It may contain grammatical, syntax o r spelling errors. Electronically signed by: Shola Brown M.D. 08/07/2024 9:16 AM
--- NOTE | 2024-08-07 10:35 | Hospitalist Progress Note ---
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 Ddx includes prerenal (lasix + ARB), related to gentamycin stopped 08/02, AIN related to ceftriaxone (ongoing). Good UOP, Cr same 2-->1.9 overnight Check urine sodium, urine BUN, urine Cr - pending. Ron elevated because of lasix. Hold metformin, furosemide and losartan Acute encephalopathy -persistently drowsy for a week [employer] through 08/06. not on sedating meds. denies any OTC meds or new meds. Lethargy is out of proportion to her mild uremia and moderate stable hyponatremia -checked vbg r/o hypercarbia - negative -brain MRI with contrast 08/06 evaluate for septic emboli - was negative also no evidence of stroke -encephalopathy related to ceftriaxone is rare but can occur -mentation clearly improved today Fever, increased leukocytosis -admission blood cx NGTD, repeat blood culture (has PICC) -repeat CXR today with possible pneumonia/pneumonitis R base. Procal mildly elevated. Potentially could have an aspiration pneumonia/pneumonitis vs septic emboli. consider chest CT. Reconsult ID Continue ceftriaxone at this time (2) Prosthetic valve endocarditis: Plan: Viridans strep, mitral valve vegetation seen on DION. Has bioprosthetic MVR and AVR See above. Reccomendation was for 2 weeks IV gentamycin (completed 08/02) and six weeks ceftriaxone Continue intravenous ceftriaxone 2 g IV daily CRP improved from 16 --> 11.5, ESR increased from 86-->106 follow-up blood cultures repeat blood culture today (3) SIADH (syndrome of inappropriate ADH production): Plan: However sodium previously improved with NSS alone. If still low tomorrow consider fluid restriction and salt tabs. Furosemide on hold due to LYNN urine sodium elevated because of loop diuretic normal salt diet monitor BMP -unchanged Na 129 (4) Controlled diabetes mellitus with microalbuminuria, without long-term current use of insulin: Plan: HbA1C 7.4 in June, no need to repeat Hold metformin due to LYNN continue premeal aspart. with one high BG, otherwise at goal (5) Benign essential hypertension: Plan: Continue amlodipine Hold losartan and furosemide due to LYNN as above Plan VTE Prophylaxis - apixaban reports two falls [employer] - PT, OT Has PICC line Admission and Anticipated Discharge Date Admission Date: August 05, 2024 Subjective Lethargy much improved/resolved? Doesn't seem confused today No cough but appears dyspneic Tmax 101 last night WBC up R sided / RUQ abdominal pain but had fallen twice she thinks she bruised it. no bruising on exam. Not tender on repeat exam. Physical Exam 2 Physical Exam: PHYSICAL EXAMINATION Last 24h vital signs reviewed, see documentation in flowsheet General: awake sitting up in bed, continues to be ill appearing HEENT: Normocephalic, atraumatic, pupils round and equal, sclerae anicteric, no conjunctival injection, moist mucus membranes Lungs: increased WOB mildly tachypneic. Clear to auscultation bilaterally. No RRW Heart: Regular rate and rhythm, no murmurs. No JVD Abdomen: Soft, nontender, nondistended. Bowel sounds present. Extremities: Warm, dry, well-perfused. No extremity edema. Neuro: much more alert, no longer falling asleep during conversation, montse, eomi, face symmetric, speech intact, maex4 Psych: normal affect and behavior Results & Data Results & Data Vital Signs (Past 12 Hours) Vital Signs Temp Pulse Pulse Resp BP Pulse Ox O2 Del Method 08/07/24 07:39 37.7 C H 105 H 18 148/75 H 93 Room Air 08/07/24 05:14 95 Nasal Cannula 08/07/24 04:00 93 Room Air 08/07/24 03:59 98 H 08/07/24 03:42 104 H 08/07/24 03:30 37.4 C 122 H 22 159/66 H 91 Room Air 08/06/24 22:55 36.6 C 82 16 111/58 L 90 Room Air O2 Flow Rate 08/07/24 07:39 08/07/24 05:14 2 08/07/24 04:00 08/07/24 03:59 08/07/24 03:42 08/07/24 03:30 08/06/24 22:55 Laboratory Results 08/07/24 07:32 08/07/24 07:32 Diagnostic Findings KUB X-Ray 08/06/24 00:00 XR KUB pre MRI CLINICAL HISTORY: MRI CLEARANCE TECHNIQUE: 1 view of the abdomen was obtained. Comparison: None available at the time of this dictation. FINDINGS: Lung bases are unremarkable. Degenerative changes are seen in the visualized skeleton. The bowel gas pattern is nonobstructive. Small stool burden is seen. IMPRESSION: No radiodense foreign body is seen. ACT 112: Negative or not required by law. Electronically signed by: Blade Hernadez M.D. 08/06/2024 5:00 PM Brain MRI 08/06/24 10:40 MR brain wo con CLINICAL HISTORY: persist AMS/drowy, endocarditis, ?septic emboli TECHNIQUE: Multiplanar and multisequence MR images of the brain were obtained without intravenous contrast. Comparison: None available at the time of this dictation. FINDINGS: No abnormal restricted diffusion is identified. Foci of T2 and FLAIR hyperintensity are noted in the paraventricular areas consistent with chronic small vessel ischemic disease. Ex vacuo ventriculomegaly and sulcal enlargement is noted compatible with diffuse volume loss. No mass is seen. There is no mass effect or midline shift. There is no evidence of acute intraparenchymal hemorrhage. No extra axial fluid collections are seen. The corpus callosum, pituitary gland, and cerebellar tonsils appear grossly unremarkable. Flow voids of the major intracranial arterial vessels are identified. The imaged portions of the paranasal sinuses, mastoid air cells, and orbits are unremarkable. IMPRESSION: Chronic volume loss and age related white matter changes without evidence of acute abnormality. In particular no MRI evidence of septic emboli. ACT 112: Negative or not required by law. Electronically signed by: Blade Hernadez M.D. 08/06/2024 5:53 PM Chest X-Ray 08/07/24 08:50 XR chest 1V portable HISTORY: 78 years-old Female fever acute fever COMPARISON: 08/05/2024 TECHNIQUE: AP view of the chest FINDINGS: Cardiac silhouette is mildly enlarged. A left-sided PICC distal tip terminates in the expected location of the mid inferior SVC. Median sternotomy. Left atrial exclusion device. Pulmonary vascular congestion with interstitial coarsening. No pneumothorax. Trace pleural effusions with hazy right basilar predominant opacities. Bones appear grossly intact. IMPRESSION: 1. Cardiomegaly with interstitial pulmonary edema. 2. Trace pleural effusions with interval development of asymmetric right lung base opacities which may represent atelectasis versus pneumonitis. 3. Unchanged left-sided PICC. ACT 112: Negative or not required by law. The above report was generated using voice recognition software. It may contain grammatical, syntax or spelling errors. Electronically signed by: Shola Brown M.D. 08/07/2024 9:16 AM PG Care Time/CCT Total # of Minutes Spent Total Time Spent with Patient: Total time spent is greater than 50% in coordination of care (as documented) at patient's floor/unit and/or counseling patient: Coding Level of Care Code 36622 SUB INP/OBS CARE 3/50MIN Diagnoses LYNN (acute kidney injury) N17.9 Prosthetic valve endocarditis T82.6XXA; I38 SIADH (syndrome of inappropriate ADH production) E22.2 Controlled diabetes mellitus with microalbuminuria, without long-term current use of insulin E11.29; R80.9 Benign essential hypertension I10
--- NOTE | 2024-08-07 15:33 | Infectious Disease Consult ---
Date of Consultation August 07, 2024 Assessment & Plan (1) LYNN (acute kidney injury): (2) Prosthetic valve endocarditis: Plan This is a 78-year-old woman with history of and MS s/p bioprosthetic mitral valve and bioprosthetic aortic valve replacements (06/19/2022 at [facility]), CHF, CAD, TIA, inflammatory arthritis, SIADH, recently admitted to [facility] on 07/17/24 - 07/23/24 with fatigue, confusion, and fever. 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 She was evaluated by ID and marium cain to complete a 6-week course of Ceftriaxone (07/1908/30/24) and a 2 week course of gentamicin (07/19 08/02),She completed gentamicin as scheduled on 08/02. She presents to the ED on 08/05 with 2 days of general weakness and fatigue. She reports feeling so tired she could not get out of bed. She denies any fever, chills, sweats, headaches. She does feel unsteady on her feet and reports a fall the day prior to admission. She denies any issues with her PICC line. Post fall she did scrape her knee but denies any swelling or pain. She does however have some pain in the right upper quadrant status post fall. In the ED T36.5, pulse 76, RR 16, BP 117/68. Labs: WBC 11.36-, hemoglobin 11, hematocrit 32.0, sodium 128, BUN 29, creatinine 2.41, procalcitonin 0.85. Urinalysis 0-5 WBC 3-5 epithelial cells. Respiratory viral panel negative. CXR without opacities, pleural effusions or pneumothorax. CT head with no acute intracranial hemorrhage, evidence of territorial infarction or acute intracranial process. Renal ultrasound unremarkable MRI brain with no evidence of septic emboli. Noted Chronic volume loss and age-related white matter changes. Her WBC has increased to 18.06. Creatinine down 1.90. Blood cultures obtained and pending. ID consulted for history of prosthetic valve endocarditis, LYNN, lethargy and fever. She is currently receiving ceftriaxone. Course was complicated by one-time fever- Tmax 38 on 08/06 (04: 06). On my exam she is sleepy but arousable. She is able to tell me that she has abdominal pain status post fall. She denies rash, vision changes, back pain, oral/dental pain, change in urine or bowel habits. 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 Source of luekocytosis unclear. No signs of joe infection at PICC site on exam. Repeat BC pending. No evidence of septic emboli to head. Sh ehas abdominal pain, so would rule out process sp fall or emboli to abdomen. She has no urinary symptoms or oral lesions or dental complaints. She has a scrape on her L knee sp fall but no e kwan, effusion , warmth or erythema Strep mutans bacteremia on 07/14 (OSH) and Strep spp bacteremia on 07/17 (only 1 set collected but positive in 2 of 2 bottles). On 07/21, [facility] reported they were unable to ID the Strep spp likely to be the same Strep mutans. 07/14 TTE without vegetations reported but with slightly elevated mitral transvalvular gradient. 07/21 DION with mobile mass c/w vegetation on ventricular aspect of bioprosthetic mitral valve (posteroseptal portion of valve annulus). Strep mutans is often of dental/oral source; she denied recent dental procedures but has not had dental care in several years and believes she has a cavity though can sometimes be associated with GI pathology. Pt without GI symptoms and reports last colonoscopy 8 years ago. Can follow with PCP and ID Would continue ceftriaxone for viridans Strep bacteremia and prosthetic mitral valve endocarditis, to complete a 6-week course. She completed 2 weeks of gentamicin for synergy ( 07/1908/02/24) Per both the [facility] lab (regarding the 07/14 BCx) and the [facility] micro lab (regarding the 07/17 BCx), both labs unable to obtain sensitivities for the Strep. Repeat BC pending. Recommendations: Continue ceftriaxone 2g IV q24h to complete a 6-week course (07/1908/30/24) as scheduled Follow up Blood cultures Check CTAP to further evaluate abdomen as she complains of R sded tenderness and has some RUQ induration/tenderness on exam If she worsens clinically over the weekend, can start IV vancomycin per pharm dosing Monitor WBc, Cr Ordered ESR, crp for am Discussed with hospitalist, Dr. Up Thank you for this consult. ID will continue to follow [facility] will not round over the weekend. Please Call [phone] with questions Sherri Mora MD, MPH Infectious Disease [facility], [facility] Consultation Information Consultation was provided via telemedicine using two-way real-time interactive telecommunication between the patient and the telemedicine provider. For the duration of the visit, the provider was performing the assessment from a different facility than the patient. This includesuse of bluetooth stethoscope forauscultationperformed by the telepresenter that the telemedicine provider can hear if described in the physical exam. [facility] contact information: Please call [facility] Call Center . (Phone Number For Physician Use Only) After establishing a telemedicine visit, patient was: Patient was verified with two unique identifiers Time Spent with Patient: Initial => 75 min History of Present Illness Reason for Consultation: h/o prosthetic valve endocarditis, lethargy, lynn, weakness.. Requesting Physician: Celine Up MD Attending Physician: Celine Up MD History of Present Illness This is a 78-year-old woman with history of and MS s/p bioprosthetic mitral valve and bioprosthetic aortic valve replacements (06/19/2022 at [facility]), CHF, CAD, TIA, inflammatory arthritis, SIADH, recently admitted to [facility] on 07/17/24 - 07/23/24 with fatigue, confusion, and fever. 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 She was evaluated by ID and discharged to complete a 6-week course of Ceftriaxone (07/1908/30/24) and a 2 week course of gentamicin (07/19 08/02),She completed gentamicin as scheduled on 08/02. She presents to the ED on 08/05 with 2 days of general weakness and fatigue. She reports feeling so tired she could not get out of bed. She denies any fever, chills, sweats, headaches. She does feel unsteady on her feet and reports a fall the day prior to admission. She denies any issues with her PICC line. Post fall she did scrape her knee but denies any swelling or pain. She does however have some pain in the right upper quadrant status post fall. In the ED T36.5, pulse 76, RR 16, BP 117/68. Labs: WBC 11.36-, hemoglobin 11, hematocrit 32.0, sodium 128, BUN 29, creatinine 2.41, procalcitonin 0.85. Urinalysis 0-5 WBC 3-5 epithelial cells. Respiratory viral panel negative. CXR without opacities, pleural effusions or pneumothorax. CT head with no acute intracranial hemorrhage, evidence of territorial infarction or acute intracranial process. Renal ultrasound unremarkable MRI brain with no evidence of septic emboli. Noted Chronic volume loss and age-related white matter changes. Her WBC has increased to 18.06. Creatinine down 1.90. Blood cultures obtained and pending. ID consulted for history of prosthetic valve endocarditis, LYNN, lethargy and fever. She is currently receiving ceftriaxone. Course was complicated by one-time fever- Tmax 38 on 08/06 (04: 06). On my exam she is sleepy but arousable. She is able to tell me that she has abdominal pain status post fall. She denies rash, vision changes, back pain, oral/dental pain, change in urine or bowel habits. Allergies Allergy/AdvReac Type Severity Reaction Status Date / Time codeine Allergy Cough Verified 08/05/24 14:05 Penicillins Allergy Hives Verified 08/05/24 14:05 ropinirole [From Requip] Allergy Unknown Verified 08/05/24 14:05 Home Medications Medication Instructions Recorded Confirmed Type lancets 33 gauge (OneTouch Delica #100 ea 05/07/19 07/29/24 Rx Lancets) blood sugar diagnostic #50 ea 06/07/22 07/29/24 Rx cholecalciferol (vitamin D3) 25 2,000 unit PO DAILY #30 caps 08/16/22 08/05/24 Rx mcg (1,000 unit) capsule (Vitamin D3) docusate sodium 100 mg capsule 100 mg PO DAILY 08/17/22 08/05/24 History (Dulcolax Stool Softener (docusate)) fluticasone propionate 50 2 spray intranasal DAILY PRN 08/17/22 08/05/24 History mcg/actuation nasal allergy symptoms spray,suspension losartan 100 mg tablet 100 mg PO DAILY #90 tabs 12/04/23 08/05/24 Rx rosuvastatin 20 mg tablet 20 mg PO DAILY #90 tabs 12/04/23 08/05/24 Rx albuterol sulfate 90 mcg/actuation 2 puff inhalation Q6H PRN 02/18/24 08/05/24 Rx aerosol inhaler shortness of breath or wheezing #6.7 grams blood sugar diagnostic ([facility] 02/18/24 07/29/24 Rx Ultra Test strips) blood-glucose meter (Oneuch #1 ea 02/18/24 07/29/24 Rx Ultra2 Meter) lancets 30 gauge (Oneuch #100 ea 02/18/24 07/29/24 Rx UltraSoft 2 Lancet) amitriptyline 10 mg tablet 20 mg (2 x 10 mg) PO DAILY #180 04/27/24 08/05/24 Rx tabs furosemide 20 mg tablet 20 mg PO DAILY #90 tabs 06/16/24 08/05/24 Rx metformin 500 mg tablet 500 mg PO BID #180 tabs 07/02/24 08/05/24 Rx syringe with needle, safety 3 mL #10 ea 07/13/24 07/29/24 Rx 25 gauge x 1" (BD Integra Syringe) amlodipine 5 mg tablet 5 mg PO DAILY 07/17/24 08/05/24 History cyanocobalamin (vitamin B-12) 1,000 mcg IM UD 07/17/24 08/05/24 History 1,000 mcg/mL injection solution ceftriaxone 1 gram intravenous 2 g IV DAILY 07/27/24 08/05/24 History piggyback apixaban 5 mg tablet (Eliquis) 5 mg PO BID #60 tabs 07/31/24 08/05/24 Rx Patient History Medical History Viridans streptococci infection Endocarditis Acute hyponatremia Leukocytosis Bacteremia Hypomagnesemia Anemia Non-ST elevation NV (NSTEMI) Fever Fever Dyspnea Fatigue Chills Inflammatory arthritis Purulent rhinorrhea Fugue Hypomagnesemia TIA (transient ischemic attack) Serous otitis media Bilateral otitis media Hoarseness Medicare annual wellness visit, subsequent Hyponatremia Medicare annual wellness visit, subsequent Benign paroxysmal positional vertigo Hyperkalemia Hyponatremia Urine frequency Type 2 diabetes mellitus Surgical History H/O prosthetic aortic valve replacement S/P mitral valve replacement S/P aortic valve replacement Hx of aortic valve replacement History of appendectomy History of tonsillectomy History of hysterectomy History of section History of dilation and curettage History of colonoscopy History of cataract surgery Family History Brother COPD (chronic obstructive pulmonary disease) Mother COPD (chronic obstructive pulmonary disease) Father Coronary heart disease Myocardial infarction Daughter Rheumatoid arthritis Denies family history of Ovarian cancer Prostate cancer Breast cancer Colorectal cancer Social History Smoking Status: Never smoker Second Hand Exposure: Yes; Hx Alcohol Use: No Hx Substance Use: No Preferred Language: Tuvaluan Communication Ability: Effective Visual Impairment: Limited Hearing Ability: Normal 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 Pertinent positives as per HPI. Physical Exam Physical Exam: Gen- sleepy, but arousable and answers questions Neck- supple HEENT- No oral lesions, Anicteric sclera Abd- soft , RUQ tender with ? indurated area, Not eythematous or warm, N - No suprapubic tenderness, No cva tenderness MSK- No knee effusions No spinal or paraspinal tenderness. Ext- No edema Skin- Left knee scrape, no cellulitis or rashes Lines LUE PICC, clean, no erythema, not tender Results & Data Vital Signs (Past 12 Hours) Vital Signs Temp Pulse Pulse Pulse Resp BP Pulse Ox 08/07/24 11:17 37.4 C 90 18 127/71 95 08/07/24 10:35 08/07/24 07:39 37.7 C H 105 H 18 148/75 H 93 08/07/24 06:04 106 H 08/07/24 05:14 95 08/07/24 04:00 93 08/07/24 03:59 98 H 08/07/24 03:42 104 H O2 Del Method O2 Flow Rate 08/07/24 11:17 Nasal Cannula 2 08/07/24 10:35 Nasal Cannula 2 08/07/24 07:39 Room Air 08/07/24 06:04 08/07/24 05:14 Nasal Cannula 2 08/07/24 04:00 Room Air 08/07/24 03:59 08/07/24 03:42 Laboratory Results Laboratory Results - last 48 hr 08/05/24 08/05/24 08/06/24 20:23 23:45 07:03 WBC 13.01 H RBC 3.40 L Hgb 9.0 L Hct 27.4 L MCV 80.6 MCH 26.5 MCHC 32.8 RDW Std Deviation 43.9 RDW Coeff of Viktor 14.8 H Plt Count 167 MPV 10.5 Immature Gran % (Auto) 0.4 Neut % (Auto) 80.9 Lymph % (Auto) 6.6 [place] % (Auto) 7.5 Eos % (Auto) 4.3 Baso % (Auto) 0.3 Neut # (Auto) 10.53 H Lymph # (Auto) 0.86 L [place] # (Auto) 0.97 H Eos # (Auto) 0.56 H Baso # (Auto) 0.04 Immature Gran # (Auto) 0.05 Toxic Vacuolation VBG pH VBG pCO2 VBG pO2 VBG HCO3 VBG O2 Saturation VBG Base Excess Sodium 129 L Potassium 3.5 Chloride 96 L Carbon Dioxide 23 Anion Gap 10 BUN 22 Creatinine 2.03 H D Est Cr Clr Drug Dosing 19.5 eGFR 24.66 BUN/Creatinine Ratio 10.8 Glucose 130 H POC Glucose 183 H Lactate Calcium 8.2 L Troponin I High Sens Procalcitonin Urine Color Yellow Urine Appearance Cloudy A Urine pH 7.0 Ur Specific [place] 1.010 Urine Protein 2+ H Urine Glucose (UA) Negative Urine Ketones Negative Urine Blood Trace H Urine Nitrite Negative Urine Bilirubin Negative Urine Urobilinogen Negative Ur Leukocyte Esterase Negative Urine WBC (Auto) 0-5 Urine RBC (Auto) 0-2 U Hyaline Cast (Auto) 3-5 H U Epithel Cells (Auto) 3-5 H Urine Bacteria (Auto) None Seen Urine Yeast Present A Ur Random Creatinine Ur Random Sodium 08/06/24 08/06/24 08/07/24 11:51 22:00 03:32 WBC RBC Hgb Hct MCV MCH MCHC RDW Std Deviation RDW Coeff of Viktor Plt Count MPV Immature Gran % (Auto) Neut % (Auto) Lymph % (Auto) [place] % (Auto) Eos % (Auto) Baso % (Auto) Neut # (Auto) Lymph # (Auto) [place] # (Auto) Eos # (Auto) Baso # (Auto) Immature Gran # (Auto) Toxic Vacuolation VBG pH 7.40 VBG pCO2 39 VBG pO2 39 VBG HCO3 24 VBG O2 Saturation 62.9 VBG Base Excess -0.5 Sodium Potassium Chloride Carbon Dioxide Anion Gap BUN Creatinine Est Cr Clr Drug Dosing eGFR BUN/Creatinine Ratio Glucose POC Glucose 162 H Lactate Calcium Troponin I High Sens 69.0 H* Procalcitonin Urine Color Urine Appearance Urine pH Ur Specific [place] Urine Protein Urine Glucose (UA) Urine Ketones Urine Blood Urine Nitrite Urine Bilirubin Urine Urobilinogen Ur Leukocyte Esterase Urine WBC (Auto) Urine RBC (Auto) U Hyaline Cast (Auto) U Epithel Cells (Auto) Urine Bacteria (Auto) Urine Yeast Ur Random Creatinine 30.6 Ur Random Sodium 49 08/07/24 08/07/24 08/07/24 07:32 08:11 12:20 WBC 18.06 H RBC 3.43 L Hgb 9.0 L Hct 27.8 L MCV 81.0 MCH 26.2 MCHC 32.4 RDW Std Deviation 43.7 RDW Coeff of Viktor 14.6 H Plt Count 146 MPV 10.3 Immature Gran % (Auto) 0.4 Neut % (Auto) 90.9 Lymph % (Auto) 2.8 [place] % (Auto) 4.4 Eos % (Auto) 1.2 Baso % (Auto) 0.3 Neut # (Auto) 16.39 H Lymph # (Auto) 0.51 L [place] # (Auto) 0.80 H Eos # (Auto) 0.22 Baso # (Auto) 0.06 Immature Gran # (Auto) 0.08 Toxic Vacuolation 1+ VBG pH VBG pCO2 VBG pO2 VBG HCO3 VBG O2 Saturation VBG Base Excess Sodium 129 L Potassium 3.3 L Chloride 96 L Carbon Dioxide 23 Anion Gap 10 BUN 21 Creatinine 1.90 H Est Cr Clr Drug Dosing 20.2 eGFR 26.69 BUN/Creatinine Ratio 11.1 Glucose 148 H POC Glucose 164 H 226 H Lactate 1.3 Calcium 8.0 L Troponin I High Sens Procalcitonin 0.85 H Urine Color Urine Appearance Urine pH Ur Specific [place] Urine Protein Urine Glucose (UA) Urine Ketones Urine Blood Urine Nitrite Urine Bilirubin Urine Urobilinogen Ur Leukocyte Esterase Urine WBC (Auto) Urine RBC (Auto) U Hyaline Cast (Auto) U Epithel Cells (Auto) Urine Bacteria (Auto) Urine Yeast Ur Random Creatinine Ur Random Sodium 08/07/24 17:17 WBC RBC Hgb Hct MCV MCH MCHC RDW Std Deviation RDW Coeff of Viktor Plt Count MPV Immature Gran % (Auto) Neut % (Auto) Lymph % (Auto) [place] % (Auto) Eos % (Auto) Baso % (Auto) Neut # (Auto) Lymph # (Auto) [place] # (Auto) Eos # (Auto) Baso # (Auto) Immature Gran # (Auto) Toxic Vacuolation VBG pH VBG pCO2 VBG pO2 VBG HCO3 VBG O2 Saturation VBG Base Excess Sodium Potassium Chloride Carbon Dioxide Anion Gap BUN Creatinine Est Cr Clr Drug Dosing eGFR BUN/Creatinine Ratio Glucose POC Glucose 206 H Lactate Calcium Troponin I High Sens Procalcitonin Urine Color Urine Appearance Urine pH Ur Specific [place] Urine Protein Urine Glucose (UA) Urine Ketones Urine Blood Urine Nitrite Urine Bilirubin Urine Urobilinogen Ur Leukocyte Esterase Urine WBC (Auto) Urine RBC (Auto) U Hyaline Cast (Auto) U Epithel Cells (Auto) Urine Bacteria (Auto) Urine Yeast Ur Random Creatinine Ur Random Sodium Diagnostic Findings Microbiology 08/05/24 12:05 Blood Aerobic Blood Culture - Preliminary No growth in Aerobic bottle after 48 hours. 08/05/24 12:05 Blood Anaerobic Blood Culture - Preliminary No growth in Anaerobic bottle after 48 hours. 08/05/24 23:45 Urine,Clean Catch Urine Culture - Final Three types of organisms present, all moderate counts. Repeat collection recommended. No further identifications or sensitivities to follow. Chest X-Ray 08/05/24 12:02 XR chest 1V portable CLINICAL HISTORY: weakness TECHNIQUE: Single frontal radiograph of the chest was obtained. Comparison: Comparison is made to chest radiograph 07/23/2024 FINDINGS: Median sternotomy wires are unchanged. The cardiomediastinal silhouette is normal. The lungs are clear. No evidence of pleural effusion or pneumothorax. IMPRESSION: No acute chest disease. ACT 112: Negative or not required by law. Electronically signed by: Blade Hernadez M.D. 08/05/2024 12:[address] 08/05/24 12:03 CT head/brain wo con CLINICAL HISTORY: fall Technique: Contiguous axial CT images of the head were acquired from the base of the skull to the vertex without intravenous contrast administration. Images were viewed in brain, subdural and bone windows. Automated dose lowering techniques and/or adjustment according to patient size were utilized for this exam. Comparison: Comparison is made to CT head 07/23/2024 Findings: Areas of decreased attenuation are present in the periventricular and subcortical white matter bilaterally consistent with small vessel ischemic disease. Generalized cerebral atrophy with commensurate enlargement of the ventricles, sulci, and cisterns is also present. There is no acute intracranial hemorrhage or evidence of acute territorial infarction. No shift of the midline structures, mass effect, or extra-axial abnormalities are shown. Atherosclerotic calcifications are present in the intracranial segments of the internal carotid arteries. Imaged portions of the paranasal sinuses and mastoid air cells are clear. The orbits appear normal. There are no acute fractures of the calvaria or scalp swelling. Impression: No acute intracranial hemorrhage, no evidence of acute territorial infarction or other acute intracranial disease process. ACT 112: Negative or not required by law. Electronically signed by: Blade Hernadez M.D. 08/05/2024 1:37 PM Renal Ultrasound 08/05/24 14:56 RENAL ULTRASOUND HISTORY: Acute kidney injury LYNN COMPARISON: 07/23/2024. FINDINGS: Right kidney: 10.0 cm. Unchanged trace perinephric edema. No hydronephrosis. Normal corticomedullary differentiation and cortical thickness. Left kidney: 11.1 cm. Trace perinephric edema. No hydronephrosis. Normal corticomedullary differentiation and cortical thickness. Bladder: No bladder wall thickening. The bilateral ureteral jets were identified. IMPRESSION: Unremarkable exam. No renal calculi or hydronephrosis identified. ACT 112: Negative or not required by law. Electronically signed by: Shola Brown M.D. 08/05/2024 3:58 PM KUB X-Ray 08/06/24 00:00 XR KUB pre MRI CLINICAL HISTORY: MRI CLEARANCE TECHNIQUE: 1 view of the abdomen was obtained. Comparison: None available at the time of this dictation. FINDINGS: Lung bases are unremarkable. Degenerative changes are seen in the visualized skeleton. The bowel gas pattern is nonobstructive. Small stool burden is seen. IMPRESSION: No radiodense foreign body is seen. ACT 112: Negative or not required by law. Electronically signed by: Blade Hernadez M.D. 08/06/2024 5:00 PM Brain MRI 08/06/24 10:40 MR brain wo con CLINICAL HISTORY: persist AMS/drowy, endocarditis, ?septic emboli TECHNIQUE: Multiplanar and multisequence MR images of the brain were obtained without intravenous contrast. Comparison: None available at the time of this dictation. FINDINGS: No abnormal restricted diffusion is identified. Foci of T2 and FLAIR hyperintensity are noted in the paraventricular areas consistent with chronic small vessel ischemic disease. Ex vacuo ventriculomegaly and sulcal enlargement is noted compatible with diffuse volume loss. No mass is seen. There is no mass effect or midline shift. There is no evidence of acute intraparenchymal he morrhage. No extra axial fluid collections are seen. The corpus callosum, pituitary gland, and cerebellar tonsils appear grossly unremarkable. Flow voids of the major intracranial arterial vessels are identified. The imaged portions of the paranasal sinuses, mastoid air cells, and orbits are unremarkable. IMPRESSION: Chronic volume loss and age related white matter changes without evidence of acute abnormality. In particular no MRI evidence of septic emboli. ACT 112: Negative or not required by law. Electronically signed by: Blade Hernadez M.D. 08/06/2024 5:53 PM Chest X-Ray 08/07/24 08:50 XR chest 1V portable HISTORY: 78 years-old Female fever acute fever COMPARISON: 08/05/2024 TECHNIQUE: AP view of the chest FINDINGS: Cardiac silhouette is mildly enlarged. A left-sided PICC distal tip terminates in the expected location of the mid inferior SVC. Median sternotomy. Left atrial exclusion device. Pulmonary vascular congestion with interstitial coarsening. No pneumothorax. Trace pleural effusions with hazy right basilar predominant opacities. Bones appear grossly intact. IMPRESSION: 1. Cardiomegaly with interstitial pulmonary edema. 2. Trace pleural effusions with interval development of asymmetric right lung base opacities which may represent atelectasis versus pneumonitis. 3. Unchanged left-sided PICC. ACT 112: Negative or not required by law. The above report was generated using voice recognition software. It may contain grammatical, syntax or spelling errors. Electronically signed by: Shola Brown M.D. 08/07/2024 9:16 AM Medications Administered Home Medications Medication Instructions Recorded Confirmed Last Taken lancets 33 gauge (OneTouch Delica #100 ea 05/07/19 07/29/24 Unknown Lancets) blood sugar diagnostic #50 ea 06/07/22 07/29/24 Unknown cholecalciferol (vitamin D3) 25 2,000 unit PO DAILY #30 caps 08/16/22 08/05/24 08/04/24 mcg (1,000 unit) capsule (Vitamin D3) docusate sodium 100 mg capsule 100 mg PO DAILY 08/17/22 08/05/24 Unknown (Dulcolax Stool Softener (docusate)) fluticasone propionate 50 2 spray intranasal DAILY PRN 08/17/22 08/05/24 Unknown mcg/actuation nasal allergy symptoms spray,suspension losartan 100 mg tablet 100 mg PO DAILY #90 tabs 12/04/23 08/05/24 08/04/24 rosuvastatin 20 mg tablet 20 mg PO DAILY #90 tabs 12/04/23 08/05/24 08/04/24 albuterol sulfate 90 mcg/actuation 2 puff inhalation Q6H PRN 02/18/24 08/05/24 Unknown aerosol inhaler shortness of breath or wheezing #6.7 grams blood sugar diagnostic (OneTouch #100 ea 02/18/24 07/29/24 Unknown Ultra Test strips) blood-glucose meter (OneTouch #1 ea 02/18/24 07/29/24 Unknown Ultra2 Meter) lancets 30 gauge (OneTouch #100 ea 02/18/24 07/29/24 Unknown UltraSoft 2 Lancet) amitriptyline 10 mg tablet 20 mg (2 x 10 mg) PO DAILY #180 04/27/24 08/05/24 08/04/24 tabs furosemide 20 mg tablet 20 mg PO DAILY #90 tabs 06/16/24 08/05/24 08/04/24 metformin 500 mg tablet 500 mg PO BID #180 tabs 07/02/24 08/05/24 08/04/24 syringe with needle, safety 3 mL #10 ea 07/13/24 07/29/24 Unknown 25 gauge x 1" (BD Integra Syringe) amlodipine 5 mg tablet 5 mg PO DAILY 07/17/24 08/05/24 08/04/24 cyanocobalamin (vitamin B-12) 1,000 mcg IM UD 07/17/24 08/05/24 08/04/24 1,000 mcg/mL injection solution ceftriaxone 1 gram intravenous 2 g IV DAILY 07/27/24 08/05/24 08/04/24 piggyback apixaban 5 mg tablet (Eliquis) 5 mg PO BID #60 tabs 07/31/24 08/05/24 08/04/24 Active Medications Generic Name Dose Route Start Last Admin Trade Name Freq PRN Reason Stop Dose Admin Acetaminophen 650 mg 08/06/24 20:25 08/06/24 20:31 Acetaminophen 325 Mg Tab PO 09/05/24 20:24 650 mg Q6H PRN Administration Pain or Fever Amitriptyline HCl 20 mg 08/05/24 21:00 08/06/24 20:31 Amitriptyline Hcl 10 Mg Tab PO 09/04/24 20:59 20 mg HS JON Administration Amlodipine Besylate 5 mg 08/06/24 09:00 08/07/24 09:17 Amlodipine Besylate 5 Mg Tab PO 09/05/24 08:59 5 mg DAILY JON Administration Apixaban 5 mg 08/05/24 21:00 08/07/24 09:17 Apixaban 5 Mg Tablet PO 09/04/24 20:59 5 mg BID JON Administration Docusate Sodium 100 mg 08/06/24 09:00 08/07/24 09:17 Docusate Sodium 100 Mg Cap PO 09/05/24 08:59 100 mg DAILY JON Administration Ceftriaxone Sodium 2,000 mg in 50 mls @ 100 mls/hr 08/06/24 15:00 08/07/24 17:34 Rocephin IV 08/20/24 14:59 Infused Q24H JON Infusion Sodium Chloride 1,000 mls @ 100 mls/hr 08/05/24 17:30 08/07/24 18:23 Nss IV 09/04/24 17:29 100 mls/hr .Q10H JON Administration Insulin Aspart 0 units 08/05/24 21:00 08/07/24 18:24 Insulin Aspart Per Unit Charge SC 09/04/24 20:59 2 units ACHS JON Administration Lactobacillus Acidophilus 1,250 mg 08/05/24 16:45 08/07/24 09:17 Advanced Probiotic 625 Mg Capsule PO 09/04/24 16:44 1,250 mg DAILY JON Administration Rosuvastatin Calcium 20 mg 08/06/24 09:00 08/07/24 09:17 Rosuvastatin Calcium 20 Mg Tab PO 09/05/24 08:59 20 mg DAILY JON Administration Vitamin D 50 mcg 08/06/24 09:00 08/07/24 09:17 Cholecalciferol 25 Mcg (1000 Units) Tab PO 09/05/24 08:59 50 mcg DAILY JON Administration
--- NOTE | 2024-08-07 23:23 | CT Scan Report ---
Exam(s): CT ABDOMEN + PELVIS With Contrast Oral - High Density EXAM: CT Abdomen and Pelvis With Intravenous Contrast CLINICAL HISTORY: Reason for exam: RUQ pain, leukocytosis/fever, hx fall, endocarditi. TECHNIQUE: Axial computed tomography images of the abdomen and pelvis with intravenous contrast. CTDI is 21.57 mGy and DLP is 1009.3 mGy-cm. Automated exposure control was utilized for the study. A dose lowering technique was utilized adhering to the principles of ALARA. CONTRAST: Patient received of Oral - High Density contrast COMPARISON: No relevant prior studies available. FINDINGS: Lung bases: Unremarkable. No mass. No consolidation. Pleural space: Small bilateral pleural effusions. ABDOMEN: Liver: Small hepatic low attenuation cystic lesions measuring up to 2. 8 cm and the LEFT kidney. Gallbladder and bile ducts: Unremarkable. No calcified stones. No ductal dilation. Pancreas: Unremarkable. No mass. No ductal dilation. Spleen: Unremarkable. No splenomegaly. Adrenals: Unremarkable. No mass. Kidneys and ureters: No hydronephrosis, nephrolithiasis, or obstructive uropathy. Stomach and bowel: Diverticulosis, without acute diverticulitis. No small bowel obstruction. No free intraperitoneal air. PELVIS: Appendix: No findings to suggest acute appendicitis. Bladder: Unremarkable. No mass. Reproductive: Unremarkable as visualized. ABDOMEN and PELVIS: Intraperitoneal space: Unremarkable. No free air. No significant fluid collection. Bones/joints: Degenerative changes of the spine. No acute fracture. No dislocation. Soft tissues: Unremarkable. Vasculature: Atherosclerotic changes of the aorta. No abdominal aortic aneurysm. Lymph nodes: Unremarkable. No enlarged lymph nodes. IMPRESSION: 1. No hydronephrosis, nephrolithiasis, or obstructive uropathy. 2. Diverticulosis, without acute diverticulitis. No small bowel obstruction. No free intraperitoneal air. Electronically signed by: Joon Healy MD 08/07/24 23:22 PM
[2024-08-08 07:11] LABS: BUN Creatinine Ratio 10.3 (10-20); C Reactive Protein 24.94 mg/dl (0-0.5); Creatinine Clr Calc Pharmacy 20.2 ml/min
--- NOTE | 2024-08-08 07:43 | Hospitalist Progress Note ---
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 Good UOP, Cr remains unchanged at 1.94 Ron elevated because of lasix, so FeNa = 2.4% but probably inaccurate. urine BUN still pending for FeUrea Continue to hold metformin, furosemide and losartan Tachycardic this AM and increased anion gap - bolus 1L saline No obstruction or stones on CT abdomen/pelvis Consult nephrology, discussed with Dr. Killian (2) Fever: Plan: Fever, increased leukocytosis, increasing CRP Unclear what is driving this Consulted ID 08/[address] Mora -admission blood cx NGTD, repeat blood culture 08/07 (has PICC) -CT abdomen/pelvis with oral contrast only 08/07 unremarkable. There was possible R base infiltrate on CXR from 08/[address] has good images of both lung bases, mild atelectasis only -procal minimally elevated -CRP increasing from 11.6-->24.9 overnight, ESR stable at 105 -continue ceftriaxone this weekend for her endocarditis, however, if clinically worsening can change to vancomycin - prefer to avoid because of renal dysfunction. Has PCN allergy with hives. 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 not on sedating meds. denies any OTC meds or new meds. Lethargy is out of proportion to her mild uremia and moderate stable hyponatremia - seemed better to me 08/07 but once again lethargic and seems confused today similar to 08/06 -checked vbg r/o hypercarbia - negative -brain MRI with contrast 08/06 evaluate for septic emboli - was negative also no evidence of stroke -encephalopathy related to ceftriaxone is rare but can occur (4) Prosthetic valve endocarditis: Plan: Viridans strep, mitral valve vegetation seen on DION. Has bioprosthetic MVR and AVR See above. Recommendation was for 2 weeks IV gentamycin (completed 08/02) and six weeks ceftriaxone Continue intravenous ceftriaxone 2 g IV daily CRP improved from 16 --> 11.5-->24.9, ESR increased from 86-->106, 105 blood cultures 08/05 and 08/07 no growth to date (5) SIADH (syndrome of inappropriate ADH production): Plan: However sodium previously improved with NSS alone. If still low tomorrow consider fluid restriction and salt tabs. Furosemide on hold due to LYNN urine sodium elevated because of loop diuretic normal salt diet monitor BMP -still 129 today, at recent baseline (6) Controlled diabetes mellitus with microalbuminuria, without long-term current use of insulin: Plan: HbA1C 7.4 in June, no need to repeat Hold metformin due to LYNN continue premeal aspart. 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 I did see her early though and I woke her from sleeping she aroused easily to voice. She could not recall that she was seen by the infectious disease doctor yesterday when asked if she remembered me she said she did. She continues to appear a little bit tachypneic and is on oxygen. She denies any chest or abdominal pain Physical Exam 2 Physical Exam: PHYSICAL EXAMINATION Last 24h vital signs reviewed, see documentation in flowsheet General: lethargic but aroused to voice from sleeping, continues to be ill- appearing HEENT: Normocephalic, atraumatic, pupils round and equal, sclerae anicteric, no conjunctival injection, moist mucus membranes Lungs: mildly increased WOB mildly tachypneic. clear anteriorly no rales or wheezing Heart: tachycardic Regular rate and rhythm, no murmurs. No JVD Abdomen: Soft, nontender, nondistended. Bowel sounds present. Extremities: Warm, dry, well-perfused. No extremity edema. Neuro: lethargic though conversational, seems confused, oriented to hospital and basic situation, montse, eomi, face symmetric, speech intact, maex4 Psych: normal affect and behavior Results & Data Results & Data Vital Signs (Past 12 Hours) Vital Signs Temp Pulse Pulse Resp BP BP Pulse Ox 08/08/24 03:36 37.3 C 117 H 18 152/71 H 93 08/08/24 00:24 08/07/24 22:40 37.5 C 83 16 127/72 95 08/07/24 21:25 90 O2 Del Method O2 Flow Rate 08/08/24 03:36 Nasal Cannula 2 08/08/24 00:24 Nasal Cannula 2 08/07/24 22:40 Nasal Cannula 2 08/07/24 21:25 Laboratory Results 08/07/24 07:32 08/08/24 06:24 PG Care Time/CCT Total # of Minutes Spent Total Time Spent with Patient: Total time spent is greater than 50% in coordination of care (as documented) at patient's floor/unit and/or counseling patient: Coding Level of Care Code 68988 SUB INP/OBS CARE 3/50MIN Diagnoses LYNN (acute kidney injury) N17.9 Fever R50.9 Acute encephalopathy G93.40 Prosthetic valve endocarditis T82.6XXA; I38 SIADH (syndrome of inappropriate ADH production) E22.2 Controlled diabetes mellitus with microalbuminuria, without long-term current use of insulin E11.29; R80.9 Benign essential hypertension I10 Hypokalemia E87.6
[2024-08-08 08:17] LABS: Magnesium 1.3 mg/dl (1.7-2.4)
[2024-08-08] MEDS: SODIUM CHLORIDE 0.9% 1,000 ML IV ONE (08:39)
[2024-08-08] MEDS: POTASSIUM CHLORIDE CRTAB 20 MEQ TABCR PO SCH (08:45)
[2024-08-08] MEDS: MAGNESIUM SULFATE / D5W 1 GM/100 ML BAG IV SCH (12:20)
--- NOTE | 2024-08-08 13:27 | Nephrology Consultation ---
Date of Consultation August 08, 2024 Assessment & Plan (1) LYNN (acute kidney injury): Non-oliguric. Volume status acceptable. There is no indication for CONTROLLER COAL OR ORE at this time. NSS switched to LR @ 80 ml/hr x an additional L overnight. Electrolyte replacement is being provided for hypokalemia. Creatinine stable. LYNN is likely related to ATN and hemodynamic changes. Presentation is atypical for AIN. It is very reasonable to continue ceftriaxone as Rx. Close monitoring will be provided. Document strict I/O's. Repeat a metabolic profile tomorrow AM. Check CK with next blood work. Medications are appropriate for kidney dysfunction. Continue to hold losartan and metformin. No diuretics required at this time. Rosuvastatin dose reduced to 10 mg daily pending improvement in eGFR. (2) Hypokalemia: Replacement has been provided. Recheck tomorrow AM. Check Mg in the AM. (3) Prosthetic valve endocarditis: Remains on ceftriaxone. ID consultation reviewed. (4) SIADH (syndrome of inappropriate ADH production): Volume status acceptable. Tolerating IV 0.9% saline. Mild hyponatremia, chronic. Serum sodium stable. Potassium replacement is being provided. Recheck BMP tomorrow AM. History of Present Illness Reason for Consultation: LYNN Requesting Physician: Celine Up MD Attending Physician: Celine Up MD History of Present Illness Penny Camarena is a 78 year-old female with DMII, coronary artery disease, HFpEF, and MS s/p bioprosthetic mitral valve and bioprosthetic aortic valve replacements in 2021 at [facility] [place], inflammatory arthritis, and SIADH. Penny was recently admitted to [facility] from 07/17/24 - 07/23/24 with prosthetic mitral valve endocarditis. DION demonstrated a vegetation of the prosthetic mitral valve. Cultures +streptococcus. Penny was discharged with plans for Ceftriaxone x 6 weeks (07/1908/30/24) and gentamicin x 2 weeks (07/19 08/02). Penny presented to the ED at [facility] on 08/05 with general weakness and fatigue. She reported decreased PO intake and some mental status changes. She also reported pain in the right upper quadrant status post fall. Serum creatinine on presentation was 2.4 mg/dL. Creatinine was previously 1.1 mg/dL on 07/28/24. Creatinine has trended down to 1.9 mg/dL and remained stable. UA notable for +2 protein, trace blood. Microscopy demonstrating hyaline casts. Serum electrolytes are normal. CT with contrast was obtained on admission demonstrating normal appearing kidneys. Metformin, furosemide, and losartan have been held. Penny is receiving IV saline to maintain a positive fluid balance. Serum sodium remains stable at 128 mmol/L. Potassium 3.0 mmol/L. Penny is non-oliguric. She has not had any fevers or chills. She denies any rash. WBC is normal. Eosinophilia has not been present. Penny remains on ceftriaxone. Allergies Allergy/AdvReac Type Severity Reaction Status Date / Time codeine Allergy Cough Verified 08/05/24 14:05 Penicillins Allergy Hives Verified 08/05/24 14:05 ropinirole [From Requip] Allergy Unknown Verified 08/05/24 14:05 Home Medications Medication Instructions Recorded Confirmed Type lancets 33 gauge ([id number] #100 ea 05/07/19 07/29/24 Rx Lancets) blood sugar diagnostic #50 ea 06/07/22 07/29/24 Rx cholecalciferol (vitamin D3) 25 2,000 unit PO DAILY #30 caps 08/16/22 08/05/24 Rx mcg (1,000 unit) capsule (Vitamin D3) docusate sodium 100 mg capsule 100 mg PO DAILY 08/17/22 08/05/24 History (Dulcolax Stool Softener (docusate)) fluticasone propionate 50 2 spray intranasal DAILY PRN 08/17/22 08/05/24 History mcg/actuation nasal allergy symptoms spray,suspension losartan 100 mg tablet 100 mg PO DAILY #90 tabs 12/04/23 08/05/24 Rx rosuvastatin 20 mg tablet 20 mg PO DAILY #90 tabs 12/04/23 08/05/24 Rx albuterol sulfate 90 mcg/actuation 2 puff inhalation Q6H PRN 02/18/24 08/05/24 Rx aerosol inhaler shortness of breath or wheezing #6.7 grams blood sugar diagnostic (SkillsTrakTouch #100 ea 02/18/24 07/29/24 Rx Ultra Test strips) blood-glucose meter (OneTouch #1 ea 02/18/24 07/29/24 Rx Ultra2 Meter) lancets 30 gauge (OneTouch #100 ea 02/18/24 07/29/24 Rx UltraSoft 2 Lancet) amitriptyline 10 mg tablet 20 mg (2 x 10 mg) PO DAILY #180 04/27/24 08/05/24 Rx tabs furosemide 20 mg tablet 20 mg PO DAILY #90 tabs 06/16/24 08/05/24 Rx metformin 500 mg tablet 500 mg PO BID #180 tabs 07/02/24 08/05/24 Rx syringe with needle, safety 3 mL #10 ea 07/13/24 07/29/24 Rx 25 gauge x 1" (BD Integra Syringe) amlodipine 5 mg tablet 5 mg PO DAILY 07/17/24 08/05/24 History cyanocobalamin (vitamin B-12) 1,000 mcg IM UD 07/17/24 08/05/24 History 1,000 mcg/mL injection solution ceftriaxone 1 gram intravenous 2 g IV DAILY 07/27/24 08/05/24 History piggyback apixaban 5 mg tablet (Eliquis) 5 mg PO BID #60 tabs 07/31/24 08/05/24 Rx Patient History Medical History Viridans streptococci infection Endocarditis Acute hyponatremia Leukocytosis Bacteremia Hypomagnesemia Anemia Non-ST elevation RI (NSTEMI) Fever Fever Dyspnea Fatigue Chills Inflammatory arthritis Purulent rhinorrhea Fugue Hypomagnesemia TIA (transient ischemic attack) Serous otitis media Bilateral otitis media Hoarseness Medicare annual wellness visit, subsequent Hyponatremia Medicare annual wellness visit, subsequent Benign paroxysmal positional vertigo Hyperkalemia Hyponatremia Urine frequency Type 2 diabetes mellitus Surgical History H/O prosthetic aortic valve replacement S/P mitral valve replacement S/P aortic valve replacement Hx of aortic valve replacement History of appendectomy History of tonsillectomy History of hysterectomy History of section History of dilation and curettage History of colonoscopy History of cataract surgery Family History Brother COPD (chronic obstructive pulmonary disease) Mother COPD (chronic obstructive pulmonary disease) Father Coronary heart disease Myocardial infarction Daughter Rheumatoid arthritis Denies family history of Ovarian cancer Prostate cancer Breast cancer Colorectal cancer Social History Smoking Status: Never smoker Second Hand Exposure: Yes; Hx Alcohol Use: No Hx Substance Use: No Preferred Language: Kinyarwanda Communication Ability: Effective Visual Impairment: Limited Hearing Ability: Normal Primary Special Education Teacher Required: No Beliefs That Will Affect Care: None marital status: Current Living Situation: Spouse current occupational status: retired Other Information That Helps Us Care for You: No Feels Safe at Home: Yes Childhood Exposure to Second-Hand Smoke: Yes Diet: diabetic caffeine: Yes Dental Care, Regularly: No Physical Activity Frequency: 3-4 Times per Week Seatbelt Use: always Sunscreen Use: No Assistive Devices: Cane, Glasses and Walker Review of Systems Review of Systems: All systems reviewed & are unremarkable except as noted in HPI & below Constitutional: + fatigue and + anorexia; no fever and n o chills Physical Exam Constitutional: well developed, + ill appearing and + frail appearing; no ac bi distress Eyes: + anicteric sclerae ENMT: Mouth: + dry oral mucous membranes Neck: normal visual inspection and trachea midline Respiratory: normal respiratory effort Auscultation: lungs clear to auscultation bilaterally Cardiovascular: Rate/Rhythm: regular rate Heart Sounds: normal S1 and normal S2 Extremities: no edema Gastrointestinal (Abdomen): Inspection/Auscultation: + abdomen distended Percussion/Palpation: abdomen soft; abdomen nontender Musculoskeletal: Extremities: no cyanosis and no clubbing Skin: normal turgor; no rashes and no jaundice Neurologic: Motor/Sensory: no tremor and no asterixis Psychiatric: Orientation: alert and oriented x 3 Results & Data Vital Signs (Past 12 Hours) Vital Signs Temp Pulse Resp BP Pulse Ox O2 Del Method O2 Flow Rate 08/08/24 11:08 37.6 C H 72 18 119/69 95 Nasal Cannula 2 08/08/24 08:14 36.7 C 112 H 17 145/73 H 96 Nasal Cannula 2 08/08/24 08:00 Nasal Cannula 2 08/08/24 03:36 37.3 C 117 H 18 152/71 H 93 Nasal Cannula 2 Laboratory Results Laboratory Results - last 24 hr 08/07/24 08/07/24 08/08/24 17:17 20:30 06:24 ESR 105 H Sodium 128 L Potassium 3.0 L Chloride 95 L Carbon Dioxide 21 Anion Gap 12 H BUN 20 Creatinine 1.94 H Est Cr Clr Drug Dosing 20.2 eGFR 26.03 BUN/Creatinine Ratio 10.3 Glucose 146 H POC Glucose 206 H 187 H Calcium 8.0 L Magnesium 1.3 L C-Reactive Protein 24.94 H 08/08/24 08/08/24 07:59 12:09 ESR Sodium Potassium Chloride Carbon Dioxide Anion Gap BUN Creatinine Est Cr Clr Drug Dosing eGFR BUN/Creatinine Ratio Glucose POC Glucose 158 H 156 H Calcium Magnesium C-Reactive Protein Diagnostic Findings CT ABDOMEN + PELVIS With Contrast Oral - High Density COMPARISON: No relevant prior studies available. FINDINGS: Lung bases: Unremarkable. No mass. No consolidation. Pleural space: Small bilateral pleural effusions. ABDOMEN: Liver: Small hepatic low attenuation cystic lesions measuring up to 2. 8 cm and the LEFT kidney. Gallbladder and bile ducts: Unremarkable. No calcified stones. No ductal dilation. Pancreas: Unremarkable. No mass. No ductal dilation. Spleen: Unremarkable. No splenomegaly. Adrenals: Unremarkable. No mass. Kidneys and ureters: No hydronephrosis, nephrolithiasis, or obstructive uropathy. Stomach and bowel: Diverticulosis, without acute diverticulitis. No small bowel obstruction. No free intraperitoneal air. PELVIS: Appendix: No findings to suggest acute appendicitis. Bladder: Unremarkable. No mass. Reproductive: Unremarkable as visualized. ABDOMEN and PELVIS: Intraperitoneal space: Unremarkable. No free air. No significant fluid collection. Bones/joints: Degenerative changes of the spine. No acute fracture. No dislocation. Soft tissues: Unremarkable. Vasculature: Atherosclerotic changes of the aorta. No abdominal aortic aneurysm. Lymph nodes: Unremarkable. No enlarged lymph nodes. IMPRESSION: 1. No hydronephrosis, nephrolithiasis, or obstructive uropathy. 2. Diverticulosis, without acute diverticulitis. No small bowel obstruction. No free intraperitoneal air. XR chest 1V portable COMPARISON: 08/05/2024 FINDINGS: Cardiac silhouette is mildly enlarged. A left-sided PICC distal tip terminates in the expected location of the mid inferior SVC. Median sternotomy. Left atrial exclusion device. Pulmonary vascular congestion with interstitial coarsening. No pneumothorax. Trace pleural effusions with hazy right basilar predominant opacities. Bones appear grossly intact. IMPRESSION: 1. Cardiomegaly with interstitial pulmonary edema. 2. Trace pleural effusions with interval development of asymmetric right lung base opacities which may represent atelectasis versus pneumonitis. 3. Unchanged left-sided PICC. PG Care Time/CCT Total # of Minutes Spent Total Time Spent with Patient: Total time spent is greater than 50% in coordination of care (as documented) at patient's floor/unit and/or counseling patient: Coding Level of Care Code 08775 IN/OBS CONSULT LVL 4,60M Diagnoses LYNN (acute kidney injury) N17.9 Hypokalemia E87.6 Prosthetic valve endocarditis T82.6XXA; I38 SIADH (syndrome of inappropriate ADH production) E22.2
[2024-08-08] MEDS: PLASMA-LYTE A 1,000 ML IV SCH (15:20)
--- NOTE | 2024-08-08 17:00 | Communication Note ---
Date of Service: August 08, 2024 I called her Vik to give update, got voicemail again and left a message.
[2024-08-08] MEDS ORDERED: methylPREDNISolone 125 MG/2 ML VIAL IV STA (23:39)
[2024-08-09] MEDS: ALBUTEROL 0.083% NEBU SOLN 3 ML VIAL NEB PRN (00:01)
[2024-08-09 00:03] LABS: iSTAT Arterial Blood Gas HCO3 20 meg/L (19-24); iSTAT Arterial Blood Gas pCO2 35 mmHg (35-46); iSTAT Arterial Blood Gas pH 7.37 (7.35-7.45); iSTAT Arterial Blood Gas pO2 223 mmHg (80-95); iSTAT Carbon Dioxide 21 mmol/L (24-31); iSTAT Hematocrit 27 % (37-47); iSTAT Hemoglobin 9.2 g/dl (12.0-16.0); iSTAT Potassium 3.1 mmol/L (3.3-5.0); iSTAT Sodium 128 mmol/L (135-144)
[2024-08-09 00:06] LABS: Basophils # (auto) 0.05 K/uL (0.00-0.20); Basophils % (auto) 0.3 %; Eosinophils # (auto) 0.32 K/uL (0.00-0.50); Eosinophils % (auto) 1.8 %; Hematocrit (blood only) 26.4 % (37.0-47.0); Hemoglobin 8.6 g/dl (12.0-16.0); Immature Granulocytes # (auto) 0.17 K/uL (0.01-0.20); Lymphocytes # (auto) 0.48 K/uL (1.20-3.40); Lymphocytes % (auto) 2.8 %; Mean Corpuscular Hemoglobin 26.3 pg (25.0-34.0); Mean Corpuscular Hgb Conc 32.6 g/dL (32.0-36.0); Mean Corpuscular Volume 80.7 fL (80.0-100.0); Mean Platelet Volume 10.5 fL (9.4-12.4); Monocytes # (auto) 0.87 K/uL (0.11-0.59); Neutrophils # (auto) 15.55 K/uL (1.40-6.50); Neutrophils % (auto) 89.1 %; Platelet Count 150 K/uL (130-400); RDW Standard Deviation 44.1 fL (36.4-46.3); Red Blood Count 3.27 M/uL (4.20-5.40); White Blood Count 17.44 K/ul (4.8-10.8)
[2024-08-09 00:20] LABS: Albumin Globulin Ratio 0.8 (0.9-2); Albumin Level 2.7 gm/dl (3.4-5.0); Bilirubin,Total 0.3 mg/dl (0.2-1.0); Calcium 7.6 mg/dl (8.6-10.3); Creatinine Clr Calc Pharmacy 18.1 ml/min; Globulin 3.2 gm/dl (2.5-4.0); Magnesium 2.2 mg/dl (1.7-2.4); Potassium 3.1 mmol/L (3.5-5.1); Total Protein 5.9 gm/dl (6.0-8.3)
[2024-08-09 00:29] LABS: Troponin I High Sensitivity 145.8 pg/ml (0-14)
[2024-08-09] MEDS: PIPERACILLIN/TAZOBACTAM 4.5 GM/100 ML BAG IV STA (00:32)
[2024-08-09] MEDS: methylPREDNISolone 125 MG in SYRINGE 0 ML IV ONE (00:35)
[2024-08-09] MEDS: LINEZOLID 600 MG/300 ML BAG IV SCH (00:40)
--- NOTE | 2024-08-09 01:13 | Communication Note ---
Date of Service: August 09, 2024 Notified by nursing that patient at beginning of shift that patient was continuing to have intermittent fever, constant chills/sweats over several days. Patient was intermittently tachycardic, was treated with PRN Tylenol for temp of 37.8C. Nursing also noted that patient has remained sleepy and a bit short of breath which again was consistent with reported day time interactions, however it was also noted by nursing that the patient looked a bit more "puffy." I reviewed that patient's recent note from hospitalist and infectious disease, noted that the patient had recent brain MRI and CT A/P for concern of possible septic emboli considering her recent history of endocarditis. I noted that patient did not have a CBC completed on 08/08, so I added this to her morning labs and requested nursing notify me with any additional changes in her status. At approximately 23:30 a frandy steve was called to her room, patient was reportedly not responsive. Vitals at the time were stable, BP normotensive and HR 80s. Patient could be heard making some gurgling/?upper airway sounds, abdomen appears somewhat distended. Stat labs ordered at bedside and ABG obtained. Imaging ordered including CT head, XR chest due to concern for possible aspiration and KUB due to noted abdominal distention. Linezolid, Zosyn added for additional antibiotic coverage. Transfer orders placed to move patient from [facility] tele to PCU. CT head result showed no acute abnormalities. Resulting labs showed WBC 17.44, Hgb slightly lower at 8.6. Na 127, K 3.1. Lactate WNL. Mag 2.2. Potassium repletion ordered. CXR and KUB reviewed, per my interpretation and discussion with the attending physician, KUB appears abnormal compared to prior study. Considering the previous concern for emboli and new acute decompensation, decision was made to order new stat CT A/P, results pending at this time. Resident Activity Tracking Resident Involvement: Resident Care Provided Care Provided: Adult [facility] Medicine
[2024-08-09] MEDS: OPTIRAY 320 100ml IV ONE (01:40)
[2024-08-09] MEDS: POTASSIUM CHLORIDE / WTR 10 MEQ/100 ML PLCT IV SCH (01:50)
[2024-08-09] MEDS: PIPERACILLIN/TAZOBACTAM 4.5 GM/100 ML BAG IV SCH ×2 (03:39→17:31)
--- NOTE | 2024-08-09 03:53 | CT Scan Report ---
Exam(s): CT HEAD Without Contrast EXAM: CT Head Without Intravenous Contrast CLINICAL HISTORY: Reason for exam: altered mental status. TECHNIQUE: Axial computed tomography images of the head/brain without intravenous contrast. Automated exposure control was utilized for the study. A dose lowering technique was utilized adhering to the principles of ALARA. COMPARISON: No relevant prior studies available. FINDINGS: Brain: No acute intracranial abnormality. Consider MRI if there is further concern. Areas of decreased attenuation in the deep cerebral white matter are consistent with small vessel ischemic/degenerative changes. The cerebral and cerebellar sulci are prominent consistent with brain atrophy. No hemorrhage. Ventricles: Unremarkable. No ventriculomegaly. Bones/joints: Unremarkable. No acute fracture. Soft tissues: Unremarkable. Vasculature: Atherosclerotic disease. Sinuses: Unremarkable as visualized. Mastoid air cells: Unremarkable as visualized. No mastoid effusion. IMPRESSION: 1. No acute intracranial abnormality. Consider MRI if there is further concern. 2. Small vessel ischemic/degenerative changes. 3. Cerebral and cerebellar atrophy. Electronically signed by: Jeffrey Valdez MD 08/09/24 03:52 AM
--- NOTE | 2024-08-09 05:07 | CT Scan Report ---
Exam(s): CT ABDOMEN + PELVIS With Contrast IV Amt: 94 ml EXAM: CT Abdomen and Pelvis With Intravenous Contrast CLINICAL HISTORY: Reason for exam: abdominal distention, worsenign infection. TECHNIQUE: Axial computed tomography images of the abdomen and pelvis with intravenous contrast. Automated exposure control was utilized for the study. A dose lowering technique was utilized adhering to the principles of ALARA. CONTRAST: Patient received 94 ml of IV contrast COMPARISON: CT abdomen pelvis August 07, 2024. FINDINGS: Lung bases: Unremarkable. No mass. No consolidation. Pleural space: Small bilateral pleural effusions. Heart: Cardiomegaly. Prosthetic aortic and mitral valves. ABDOMEN: Liver: Hepatic cystic lesions. Gallbladder and bile ducts: Wall thickening of the gallbladder measuring up to approximately 7 mm. Small gallstones. Correlate for acute cholecystitis. No ductal dilation. Pancreas: Unremarkable. No mass. No ductal dilation. Spleen: Unremarkable. No splenomegaly. Adrenals: Unremarkable. No mass. Kidneys and ureters: Unremarkable. No hydronephrosis or delayed nephrogram. Stomach and bowel: Mild fluid distended small bowel, correlate for mild enteritis/ileus. Diverticulosis, without acute diverticulitis. No small bowel obstruction. No free intraperitoneal air. PELVIS: Appendix: No findings to suggest acute appendicitis. Bladder: Unremarkable. No mass. Reproductive: Unremarkable as visualized. ABDOMEN and PELVIS: Intraperitoneal space: Unremarkable. No free air. No significant fluid collection. Bones/joints: Degenerative changes of the spine. No acute fracture. No dislocation. Soft tissues: Unremarkable. Vasculature: Atherosclerotic changes of the aorta. No abdominal aortic aneurysm. Lymph nodes: Unremarkable. No enlarged lymph nodes. IMPRESSION: 1. Wall thickening of the gallbladder measuring up to approximately 7 mm. Small gallstones. Correlate for acute cholecystitis. 2. Small bilateral pleural effusions. 3. Mild fluid distended small bowel, correlate for mild enteritis/ileus. 4. Diverticulosis, without acute diverticulitis. No small bowel obstruction. No free intraperitoneal air. Electronically signed by: Joon Healy MD 08/09/24 05:05 AM
[2024-08-09 06:05] LABS: Hematocrit (blood only) 26.6 % (37.0-47.0); Hemoglobin 8.9 g/dl (12.0-16.0); Mean Corpuscular Hgb Conc 33.5 g/dL (32.0-36.0); Mean Corpuscular Volume 80.6 fL (80.0-100.0); Mean Platelet Volume 10.7 fL (9.4-12.4); Platelet Count 145 K/uL (130-400); RDW Standard Deviation 43.8 fL (36.4-46.3); White Blood Count 15.33 K/ul (4.8-10.8)
[2024-08-09 06:22] LABS: BUN Creatinine Ratio 11.2 (10-20); Calcium 7.5 mg/dl (8.6-10.3); Creatinine Clr Calc Pharmacy 18.2 ml/min; Magnesium 2.3 mg/dl (1.7-2.4); Potassium 4.3 mmol/L (3.5-5.1)
[2024-08-09 06:29] LABS: Basophils # (auto) 0.04 K/uL (0.00-0.20); Basophils % (auto) 0.3 %; Echinocytes 1+; Eosinophils # (auto) 0.06 K/uL (0.00-0.50); Eosinophils % (auto) 0.4 %; Immature Granulocytes # (auto) 0.17 K/uL (0.01-0.20); Immature Granulocytes % (auto) 1.1 %; Lymphocytes # (auto) 0.42 K/uL (1.20-3.40); Lymphocytes % (auto) 2.7 %; Monocytes # (auto) 0.23 K/uL (0.11-0.59); Monocytes % (auto) 1.5 %; Neutrophils # (auto) 14.41 K/uL (1.40-6.50); Polychromasia 1+
[2024-08-09 06:31] LABS: Troponin I High Sensitivity 88.2 pg/ml (0-14)
[2024-08-09] MEDS: ROSUVASTATIN CALCIUM 10 MG TAB PO SCH (08:26)
--- NOTE | 2024-08-09 09:37 | XRay Report ---
SINGLE VIEW CHEST CLINICAL HISTORY: Aspiration. FINDINGS: An AP, portable, upright chest radiograph is compared to study dated 08/07/2024. The examin ation is degraded by portable technique and patient rotation. The patient is status post midline rosaline rnotomy. A left-sided PICC line is unchanged in position. The heart is enlarged. Atherosclerotic calc ification of the thoracic aorta. There is pulmonary vascular congestion and evidence of interstitial edema. There are small layering pleural effusions with dependent consolidation. No pneumothorax is se en. The skeletal structures are osteopenic. The bony thorax is grossly intact. IMPRESSION: 1. Cardiomegaly with evidence of congestive failure and mild pulmonary edema. This is similar to monique mcfarlane. 2. Layering pleural effusions with dependent consolidation ACT 112: Negative or not required by law. Electronically signed by: Mulugeta Jolly M.D. 08/09/2024 9:35 AM
--- NOTE | 2024-08-09 10:24 | XRay Report ---
XR KUB/Abdomen 1 view CLINICAL HISTORY: distension TECHNIQUE: 1 view of the abdomen was obtained. Comparison: Comparison is made to CT abdomen pelvis 08/07/2024 FINDINGS: Lung bases are unremarkable. Degenerative changes are seen in the visualized skeleton. The bowel gas pattern is nonobstructive. A moderate amount of stool is noted within the large bowel. IMPRESSION: Nonobstructive bowel gas pattern. ACT 112: Negative or not required by law. Electronically signed by: Blade Hernadez M.D. 08/09/2024 10:22 AM
--- NOTE | 2024-08-09 11:30 | Nephrology Progress Note ---
Date of Service August 09, 2024 Assessment & Plan (1) LYNN (acute kidney injury): Plan: Non-oliguric. Volume status acceptable. There is no indication for [employer] at this time. IVF held. Penny is NPO. Oral NaHCO3 provided. Document strict I/O. Creatinine stable. LYNN is likely related to ATN and hemodynamic changes. Clinical presentation unlikely related to AIN. Ceftriaxone has been switched to Zosyn + Linezolid. Repeat metabolic profile ordered for this afternoon. Document strict I/O's. Repeat a metabolic profile tomorrow AM. Medications are appropriate for kidney dysfunction. Continue to hold losartan and metformin. No diuretics required at this time. Rosuvastatin dose reduced to 10 mg daily pending improvement in eGFR. (2) Hypokalemia: Plan: Improved with replacement. Prospective monitoring scheduled. (3) Prosthetic valve endocarditis: Plan: Ceftriaxone switched to Zosyn + Linezolid. ID consultation reviewed. (4) SIADH (syndrome of inappropriate ADH production): Plan: Sodium dropped to 123 mmol/L with isotonic fluids. Volume status acceptable. Oral NaCl provided now. Repeat serum sodium scheduled for this afternoon. Maintain free water restriction - currently NPO. Limit to 1.5 L/d. Admission and Anticipated Discharge Date Admission Date: August 05, 2024 Lali Francis was notably encephalopathic overnight. Episode of unresponsiveness noted. Fever documented as well. This morning, she was awake and sitting up in bed with physical therapy. She does not remember anything from last night or much of the day yesterday. Her mental status has improved now. She is breathing comfortably. She continues to endorse some left lower quadrant pain and discomfort. Some increased generalized fluid retention noted. No headaches. Review of Systems Review of Systems: All systems reviewed & are unremarkable except as noted in HPI & below Physical Exam Constitutional: well developed and + frail appearing; no acute distress Eyes: + anicteric sclerae ENMT: Mouth: + dry oral mucous membranes Neck: normal visual inspection and trachea midline Respiratory: normal respiratory effort Auscultation: lungs clear to auscultation bilaterally Cardiovascular: Rate/Rhythm: regular rate Heart Sounds: normal S1 and normal S2 Extremities: + edema Musculoskeletal: Extremities: no cyanosis and no clubbing Skin: normal turgor; no rashes and no jaundice Neurologic: Motor/Sensory: no tremor and no asterixis Psychiatric: Orientation: alert and oriented x 3 Results & Data Vital Signs (Past 12 Hours) Vital Signs Temp Pulse Resp BP BP Pulse Ox O2 Del Method 08/09/24 07:52 36.4 C L 72 18 114/72 99 Nasal Cannula 08/09/24 04:26 36.4 C L 74 17 108/65 99 Room Air 08/09/24 01:01 Nasal Cannula 08/09/24 00:44 36.6 C 83 17 102/62 98 Nasal Cannula 08/09/24 00:01 18 98 Nasal Cannula O2 Flow Rate 08/09/24 07:52 2 08/09/24 04:26 08/09/24 01:01 2 08/09/24 00:44 2 08/09/24 00:01 2 Laboratory Results Laboratory Results - last 24 hr 08/08/24 08/08/24 08/08/24 12:09 16:54 20:26 WBC RBC Hgb POC Hgb Hct POC Hct MCV MCH MCHC RDW Std Deviation RDW Coeff of Viktor Plt Count MPV Immature Gran % (Auto) Neut % (Auto) Lymph % (Auto) [place] % (Auto) Eos % (Auto) Baso % (Auto) Neut # (Auto) Lymph # (Auto) [place] # (Auto) Eos # (Auto) Baso # (Auto) Immature Gran # (Auto) Polychromasia Echinocytes POC pH POC pCO2 POC pO2 POC HCO3 POC Total CO2 POC Base Excess POC ABG O2 Sat POC Sodium Sodium POC Potassium Potassium Chloride Carbon Dioxide Anion Gap BUN Creatinine Est Cr Clr Drug Dosing eGFR BUN/Creatinine Ratio Glucose POC Glucose 156 H 156 H 169 H Fasting Glucose Lactate Calcium Magnesium Total Bilirubin AST ALT Alkaline Phosphatase Total Creatine Kinase Troponin I High Sens C-Reactive Protein Total Protein Albumin Globulin Albumin/Globulin Ratio Procalcitonin 08/08/24 08/08/24 08/08/24 23:30 23:46 23:48 WBC 17.44 H RBC 3.27 L Hgb 8.6 L POC Hgb 9.2 L Hct 26.4 L POC Hct 27 L MCV 80.7 MCH 26.3 MCHC 32.6 RDW Std Deviation 44.1 RDW Coeff of Viktor 15.0 H Plt Count 150 MPV 10.5 Immature Gran % (Auto) 1.0 Neut % (Auto) 89.1 Lymph % (Auto) 2.8 [place] % (Auto) 5.0 Eos % (Auto) 1.8 Baso % (Auto) 0.3 Neut # (Auto) 15.55 H Lymph # (Auto) 0.48 L [place] # (Auto) 0.87 H Eos # (Auto) 0.32 Baso # (Auto) 0.05 Immature Gran # (Auto) 0.17 Polychromasia Echinocytes POC pH 7.37 POC pCO2 35 POC pO2 223 H POC HCO3 20 POC Total CO2 21 L POC Base Excess -5.0 POC ABG O2 Sat 100.0 H POC Sodium 128 L Sodium 127 L POC Potassium 3.1 L Potassium 3.1 L Chloride 97 L Carbon Dioxide 21 Anion Gap 9 BUN 22 Creatinine 2.16 H Est Cr Clr Drug Dosing 18.1 eGFR 22.89 BUN/Creatinine Ratio Glucose POC Glucose 152 H Fasting Glucose 146 H Lactate 1.2 Calcium 7.6 L Magnesium 2.2 Total Bilirubin 0.3 AST 40 H ALT 33 Alkaline Phosphatase 55 Total Creatine Kinase Troponin I High Sens 145.8 H* C-Reactive Protein Total Protein 5.9 L Albumin 2.7 L Globulin 3.2 Albumin/Globulin Ratio 0.8 L Procalcitonin 08/09/24 08/09/24 08/09/24 05:30 07:45 08:02 WBC 15.33 H RBC 3.30 L Hgb 8.9 L POC Hgb Hct 26.6 L POC Hct MCV 80.6 MCH 27.0 MCHC 33.5 RDW Std Deviation 43.8 RDW Coeff of Viktor 15.0 H Plt Count 145 MPV 10.7 Immature Gran % (Auto) 1.1 Neut % (Auto) 94.0 Lymph % (Auto) 2.7 [place] % (Auto) 1.5 Eos % (Auto) 0.4 Baso % (Auto) 0.3 Neut # (Auto) 14.41 H Lymph # (Auto) 0.42 L [place] # (Auto) 0.23 Eos # (Auto) 0.06 Baso # (Auto) 0.04 Immature Gran # (Auto) 0.17 Polychromasia 1+ Echinocytes 1+ POC pH POC pCO2 POC pO2 POC HCO3 POC Total CO2 POC Base Excess POC ABG O2 Sat POC Sodium Sodium 123 L POC Potassium Potassium 4.3 D Chloride 95 L Carbon Dioxide 19 L Anion Gap 9 BUN 24 H Creatinine 2.15 H Est Cr Clr Drug Dosing 18.2 eGFR 23.01 BUN/Creatinine Ratio 11.2 Glucose 215 H POC Glucose 223 H Fasting Glucose Lactate Calcium 7.5 L Magnesium 2.3 Total Bilirubin AST ALT Alkaline Phosphatase Total Creatine Kinase 90 Troponin I High Sens 88.2 H* D C-Reactive Protein 28.01 H Total Protein Albumin Globulin Albumin/Globulin Ratio Procalcitonin 1.98 H 08/09/24 10:56 WBC RBC Hgb POC Hgb Hct POC Hct MCV MCH MCHC RDW Std Deviation RDW Coeff of Viktor Plt Count MPV Immature Gran % (Auto) Neut % (Auto) Lymph % (Auto) [place] % (Auto) Eos % (Auto) Baso % (Auto) Neut # (Auto) Lymph # (Auto) [place] # (Auto) Eos # (Auto) Baso # (Auto) Immature Gran # (Auto) Polychromasia Echinocytes POC pH POC pCO2 POC pO2 POC HCO3 POC Total CO2 POC Base Excess POC ABG O2 Sat POC Sodium Sodium POC Potassium Potassium Chloride Carbon Dioxide Anion Gap BUN Creatinine Est Cr Clr Drug Dosing eGFR BUN/Creatinine Ratio Glucose POC Glucose 269 H Fasting Glucose Lactate Calcium Magnesium Total Bilirubin AST ALT Alkaline Phosphatase Total Creatine Kinase Troponin I High Sens C-Reactive Protein Total Protein Albumin Globulin Albumin/Globulin Ratio Procalcitonin PG Care Time/CCT Total # of Minutes Spent Total Time Spent with Patient: Total time spent is greater than 50% in coordination of care (as documented) at patient's floor/unit and/or counseling patient: Coding Level of Care Code 32416 SUB INP/OBS CARE 3/50MIN Diagnoses LYNN (acute kidney injury) N17.9 Hypokalemia E87.6 Prosthetic valve endocarditis T82.6XXA; I38 SIADH (syndrome of inappropriate ADH production) E22.2
[2024-08-09] MEDS: SODIUM CHLORIDE 1 GM TABLET PO STA (12:04)
[2024-08-09 12:06] LABS: Appearance Urine Cloudy (Clear); Bacteria Urine Automated None Seen (None Seen); Bilirubin Urine Negative (Negative); Blood Urine 2+ (Negative); Color Urine Yellow; Glucose Urine UA 2+ (Negative); Granular Casts Urine Present /lpf (None Prsent); Ketones Urine Negative (Negative); Leukocyte Esterase Urine 1+ (Negative); Nitrite Urine Negative (Negative); Protein Urine 2+ (Negative); Specific Gravity Urine 1.021 (1.000-1.030); Urobilinogen Urine Negative (Negative)
--- NOTE | 2024-08-09 13:23 | Hospitalist Progress Note ---
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 Good UOP, Cr remains similar at 2.1 She now has some total body volume overload with anasarca and pleural effusions Ron elevated because of lasix, so FeNa = 2.4% but probably inaccurate. urine BUN still pending for FeUrea Continue to hold metformin, furosemide and losartan Not on IV fluids this AM, significantly more hyponatremic No obstruction or stones on CT abdomen/pelvis. [employer] Dr. Killian consulting. Picture is not typical for AIN -BMP daily (2) Fever: Plan: Fever, increased leukocytosis, increasing CRP, delirium with pretty dramatic waxing and waning ID consulting Unclear what is driving this. Probably had an aspiration evening of 08/08 and ceftriaxone was changed to pip-tazo and linezolid -blood cultures 08/05 and 08/07 remain NGTD (has PICC) -procal has increased from 0.28-->0.85-->1.98 -CT abdomen/pelvis with oral contrast only 08/[address] abdomen and pelvis 08/09 for code purple with some gallbladder wall thickening and sludge. May simply reflect anasarca however. LFT not abnormal and she has had Rt abdominal tenderness throughout the hospital course that she attributes to MSK injury from a fall [employer] -ordered RUQ ultrasound. Monitor labs and LFT -continue pip-tazo for now though her presentation does not seem convincing for cholecystitis. This will also cover a broader spectrum for a pneumonia, if present -has remote PCN reaction (hives 40+ years ago), monitor closely but tolerating so far -obtain MRSA nares. we have not seen anything that looks suspicious for MRSA so will stop linezolid -AM CBC procal and CRP -discuss with ID in AM (3) Acute encephalopathy: Plan: Acute encephalopathy -was persistently drowsy for a week [employer] through 08/06. not on sedating meds. denies any OTC meds or new meds. Lethargy is out of proportion to her mild uremia and moderate stable hyponatremia -has had dramatic waxing and waning, unresponsive night of 08/08 however today she is the best I have seen her and mentation seems normal -checked vbg r/o hypercarbia - negative, abg negative again overnight -brain MRI with contrast 08/06 evaluate for septic emboli - was negative also no evidence of stroke -encephalopathy related to ceftriaxone is rare but can occur, currently on pip- tazo (4) Prosthetic valve endocarditis: Plan: Viridans strep, mitral valve vegetation seen on DION. Has bioprosthetic MVR and AVR See above. Recommendation was for 2 weeks IV gentamycin (completed 08/02) and six weeks ceftriaxone CRP 16 --> 11.5-->24.9, ESR increased from 86-->106, 105 blood cultures 08/05 and 08/07 no growth to date has been on ceftriaxone, pip-tazo starting 08/09 as discussed above (5) SIADH (syndrome of inappropriate ADH production): Plan: urine sodium elevated because of loop diuretic normal salt diet (currently NPO for ultrasound) -sodium had been stable at 128-130, however has dropped to 123 this morning. Mentation is improved however. -Na bicarb po started by nephrology -hesitate to fluid restrict with ongoing LYNN and infectious issues, urea might be helpful monitor BMP - next one this afternoon (6) Controlled diabetes mellitus with microalbuminuria, without long-term current use of insulin: Plan: HbA1C 7.4 in June, no need to repeat Hold metformin due to LYNN continue premeal aspart - adjusted aspart CF and added CR (7) Benign essential hypertension: Plan: Continue amlodipine Hold losartan and furosemide due to LYNN as above (8) Hypokalemia: Plan: replaced K 4.3 today, mag 2.3 Plan VTE Prophylaxis - apixaban reports two falls [employer] - PT, OT - rec rehab Has PICC line Admission and Anticipated Discharge Date Admission Date: August 05, 2024 Subjective code purple called last night when she was poorly responsive and gurgling thought to have aspirated. antibiotics were broadened. CT head, abd/pelvis obtained. Transferred to PCU. Today she is much better, feels the best that she has since prior to admission and is also the best I have seen her mentation-ken[place], fully alert and AOx4 She continues to have right lateral / upper abdominal tenderness (though no pain) and states that is because she fell No N/V Has some shortness of breath, no chest pain She says the PCN related rash was 40 years ago when she was given a irina dose of PCN for an ectopic Physical Exam 2 Physical Exam: PHYSICAL EXAMINATION Last 24h vital signs reviewed, see documentation in flowsheet General: awake and alert, looks much more well HEENT: Normocephalic, atraumatic, pupils round and equal, sclerae anicteric, no conjunctival injection, dry mucus membranes Lungs: mildly increased WOB unchanged. clear anteriorly no rales or wheezing Heart: RRR no mrg Abdomen: Soft, nontender, nondistended. Bowel sounds present. Remains TTP R lateral and R upper abdomen Extremities: Warm, dry, well-perfused. Has anasarca UE and LE Neuro: AOx4, montse, eomi, face symmetric, speech intact, maex4 Psych: normal affect and behavior Results & Data Results & Data Vital Signs (Past 12 Hours) Vital Signs Temp Pulse Resp BP BP Pulse Ox O2 Del Method 08/09/24 08:00 Nasal Cannula 08/09/24 07:52 36.4 C L 72 18 114/72 99 Nasal Cannula 08/09/24 04:26 36.4 C L 74 17 108/65 99 Room Air 08/09/24 01:01 Nasal Cannula O2 Flow Rate 08/09/24 08:00 2 08/09/24 07:52 2 08/09/24 04:26 08/09/24 01:01 2 Laboratory Results 08/09/24 05:30 08/09/24 05:30 Diagnostic Findings Chest X-Ray 08/08/24 23:37 SINGLE VIEW CHEST CLINICAL HISTORY: Aspiration. FINDINGS: An AP, portable, upright chest radiograph is compared to study dated 08/07/2024. The examination is degraded by portable technique and patient rotation. The patient is status post midline sternotomy. A left-sided PICC line is unchanged in position. The heart is enlarged. Atherosclerotic calcification of the thoracic aorta. There is pulmonary vascular congestion and evidence of interstitial edema. There are small layering pleural effusions with dependent consolidation. No pneumothorax is seen. The skeletal structures are osteopenic. The bony thorax is grossly intact. IMPRESSION: 1. Cardiomegaly with evidence of congestive failure and mild pulmonary edema. This is similar to yesterday. 2. Layering pleural effusions with dependent consolidation ACT 112: Negative or not required by law. Electronically signed by: Mulugeta Jolly M.D. 08/09/2024 9:35 AM KUB X-Ray 08/08/24 23:38 XR KUB/Abdomen 1 view CLINICAL HISTORY: distension TECHNIQUE: 1 view of the abdomen was obtained. Comparison: Comparison is made to CT abdomen pelvis 08/07/2024 FINDINGS: Lung bases are unremarkable. Degenerative changes are seen in the visualized skeleton. The bowel gas pattern is nonobstructive. A moderate amount of stool is noted within the large bowel. IMPRESSION: Nonobstructive bowel gas pattern. ACT 112: Negative or not required by law. Electronically signed by: Blade Hernadez M.D. 08/09/2024 10:[address] 08/08/24 23:39 Exam(s): CT HEAD Without Contrast EXAM: CT Head Without Intravenous Contrast CLINICAL HISTORY: Reason for exam: altered mental status. TECHNIQUE: Axial computed tomography images of the head/brain without intravenous contrast. Automated exposure control was utilized for the study. A dose lowering technique was utilized adhering to the principles of ALARA. COMPARISON: No relevant prior studies available. FINDINGS: Brain: No acute intracranial abnormality. Consider MRI if there is further concern. Areas of decreased attenuation in the deep cerebral white matter are consistent with small vessel ischemic/degenerative changes. The cerebral and cerebellar sulci are prominent consistent with brain atrophy. No hemorrhage. Ventricles: Unremarkable. No ventriculomegaly. Bones/joints: Unremarkable. No acute fracture. Soft tissues: Unremarkable. Vasculature: Atherosclerotic disease. Sinuses: Unremarkable as visualized. Mastoid air cells: Unremarkable as visualized. No mastoid effusion. IMPRESSION: 1. No acute intracranial abnormality. Consider MRI if there is further concern. 2. Small vessel ischemic/degenerative changes. 3. Cerebral and cerebellar atrophy. Electronically signed by: Jeffrey Valdez MD 08/09/24 03:52 AM Abdomen/Pelvis CT 08/09/24 00:54 Exam(s): CT ABDOMEN + PELVIS With Contrast IV Amt: 94 ml EXAM: CT Abdomen and Pelvis With Intravenous Contrast CLINICAL HISTORY: Reason for exam: abdominal distention, worsenign infection. TECHNIQUE: Axial computed tomography images of the abdomen and pelvis with intravenous contrast. Automated exposure control was utilized for the study. A dose lowering technique was utilized adhering to the principles of ALARA. CONTRAST: Patient received 94 ml of IV contrast COMPARISON: CT abdomen pelvis August 07, 2024. FINDINGS: Lung bases: Unremarkable. No mass. No consolidation. Pleural space: Small bilateral pleural effusions. Heart: Cardiomegaly. Prosthetic aortic and mitral valves. ABDOMEN: Liver: Hepatic cystic lesions. Gallbladder and bile ducts: Wall thickening of the gallbladder measuring up to approximately 7 mm. Small gallstones. Correlate for acute cholecystitis. No ductal dilation. Pancreas: Unremarkable. No mass. No ductal dilation. Spleen: Unremarkable. No splenomegaly. Adrenals: Unremarkable. No mass. Kidneys and ureters: Unremarkable. No hydronephrosis or delayed nephrogram. Stomach and bowel: Mild fluid distended small bowel, correlate for mild enteritis/ileus. Diverticulosis, without acute diverticulitis. No small bowel obstruction. No free intraperitoneal air. PELVIS: Appendix: No findings to suggest acute appendicitis. Bladder: Unremarkable. No mass. Reproductive: Unremarkable as visualized. ABDOMEN and PELVIS: Intraperitoneal space: Unremarkable. No free air. No significant fluid collection. Bones/joints: Degenerative changes of the spine. No acute fracture. No dislocation. Soft tissues: Unremarkable. Vasculature: Atherosclerotic changes of the aorta. No abdominal aortic aneurysm. Lymph nodes: Unremarkable. No enlarged lymph nodes. IMPRESSION: 1. Wall thickening of the gallbladder measuring up to approximately 7 mm. Small gallstones. Correlate for acute cholecystitis. 2. Small bilateral pleural effusions. 3. Mild fluid distended small bowel, correlate for mild enteritis/ileus. 4. Diverticulosis, without acute diverticulitis. No small bowel obstruction. No free intraperitoneal air. Electronically signed by: Joon Healy MD 08/09/24 05:05 AM 08/09/24 05:30 08/09/24 05:30 PG Care Time/CCT Total # of Minutes Spent Total Time Spent with Patient: Total time spent is greater than 50% in coordination of care (as documented) at patient's floor/unit and/or counseling patient: Coding Level of Care Code 22737 SUB INP/OBS CARE 3/50MIN Diagnoses LYNN (acute kidney injury) N17.9 Fever R50.9 Acute encephalopathy G93.40 Prosthetic valve endocarditis T82.6XXA; I38 SIADH (syndrome of inappropriate ADH production) E22.2 Controlled diabetes mellitus with microalbuminuria, without long-term current use of insulin E11.29; R80.9 Benign essential hypertension I10 Hypokalemia E87.6
--- NOTE | 2024-08-09 14:49 | Ultrasound Report ---
US gallbladder CLINICAL HISTORY: RUQ pain, BG thickening on CT TECHNIQUE: Multiple real-time sonographic images of the right upper quadrant were obtained. Comparison: Comparison is made to CT abdomen pelvis 08/09/2024 FINDINGS: The liver is diffusely homogenous with normal contour and echogenicity. Cyst measures 2.0 x 2.1 cm. No intrahepatic ductal dilatation is seen. Thickening of the gallbladder wall measuring 6 mm, perich olecystic fluid and edema are seen. Gallstones and sludge are seen. A sonographic Blount's sign was n ot elicited by the mobile lounge driver or operator. The common duct measures 0.55 cm in diameter at the level of the he patic artery. The visualized portions of the pancreas appear normal. Trace perinephric fluid is seen. No ascites or free fluid is seen in Drake's pouch. IMPRESSION: Wall thickening and pericholecystic fluid are seen. Although Blount's sign is negative, clinical taryn elation to exclude pain medication administration is recommended. If clinical concern remains, nuclea r medicine HIDA scan can be performed. ACT 112: Negative or not required by law. Electronically signed by: Blade Hernadez M.D. 08/09/2024 2:48 PM
[2024-08-09] MEDS: SODIUM BICARBONATE 650 MG TAB PO SCH (15:16)
[2024-08-09 15:55] LABS: BUN Creatinine Ratio 14.1 (10-20); Calcium 8.1 mg/dl (8.6-10.3); Creatinine Clr Calc Pharmacy 15.7 ml/min; Potassium 3.3 mmol/L (3.5-5.1)
[2024-08-10 06:23] LABS: Mean Corpuscular Hemoglobin 26.6 pg (25.0-34.0); Mean Corpuscular Hgb Conc 33.3 g/dL (32.0-36.0); Mean Corpuscular Volume 79.7 fL (80.0-100.0); Platelet Count 171 K/uL (130-400); RDW Coefficient of Variation 14.9 % (11.5-14.5); RDW Standard Deviation 44.3 fL (36.4-46.3); Red Blood Count 3.01 M/uL (4.20-5.40); White Blood Count 18.01 K/ul (4.8-10.8)
[2024-08-10 06:50] LABS: Albumin Globulin Ratio 0.8 (0.9-2); Albumin Level 2.8 gm/dl (3.4-5.0); BUN Creatinine Ratio 15.3 (10-20); Bilirubin,Total 0.3 mg/dl (0.2-1.0); Creatinine Clr Calc Pharmacy 14.2 ml/min; Globulin 3.3 gm/dl (2.5-4.0); Magnesium 2.4 mg/dl (1.7-2.4); Potassium 3.1 mmol/L (3.5-5.1); Total Protein 6.1 gm/dl (6.0-8.3)
[2024-08-10 06:52] LABS: Basophils # (auto) 0.03 K/uL (0.00-0.20); Basophils % (auto) 0.2 %; Echinocytes 1+; Eosinophils # (auto) 0.02 K/uL (0.00-0.50); Eosinophils % (auto) 0.1 %; Immature Granulocytes # (auto) 0.15 K/uL (0.01-0.20); Immature Granulocytes % (auto) 0.8 %; Lymphocytes # (auto) 0.79 K/uL (1.20-3.40); Lymphocytes % (auto) 4.4 %; Monocytes # (auto) 0.52 K/uL (0.11-0.59); Monocytes % (auto) 2.9 %; Neutrophils % (auto) 91.6 %; Polychromasia 1+
[2024-08-10] MEDS: POTASSIUM CHLORIDE CRTAB 20 MEQ TABCR PO STA (10:17)
--- NOTE | 2024-08-10 10:25 | Nephrology Progress Note ---
Date of Service August 10, 2024 Assessment & Plan (1) LYNN (acute kidney injury): Plan: Non-oliguric. Volume status acceptable. There is no indication for MEDICAL STENOGRAPHER at this time. Unfortunately, creatinine rising. Electrolytes otherwise notable for hyponatremia, hypokalemia, and NAGMA. NaHCO3 and potassium replacement have been ordered. UA notable for +2 protein, +2 glucose, +2 blood, +LE. Microscopy demonstrating WBC 11-20, RBC 3-5, hyaline and granular casts. LYNN has been attributed to ATN and hemodynamic changes. Ceftriaxone has been switched to Zosyn + Linezolid. Repeat metabolic profile tomorrow AM. Document strict I/O's. Medications are appropriate for kidney dysfunction. Continue to hold losartan and metformin. No diuretics required at this time. Rosuvastatin dose reduced to 10 mg daily pending improvement in eGFR. (2) Hypokalemia: Plan: PO replacement ordered. Recheck metabolic profile + Mg tomorrow AM. (3) Prosthetic valve endocarditis: Plan: Ceftriaxone switched to Zosyn yesterday. ID consultation reviewed. Viridans strep with mitral valve vegetation. Bioprosthetic AVR and MVR. Completed gentamicin 08/02. Blood cultures 08/05 + 08/07 NGTD. (4) SIADH (syndrome of inappropriate ADH production): Plan: Sodium dropped to 123 mmol/L with isotonic fluids over the weekend. Volume status acceptable. Sodium improved with PO sodium. No PO fluid restriction has been required. Close monitoring provided. Uosm ordered. Admission and Anticipated Discharge Date Admission Date: August 05, 2024 Subjective No acute events overnight. Afebrile. Penny feels reasonably well this AM. She admits to some fatigue and generalized weakness. Edema and fluid retention in arms and legs has improved. She complains of some urinary frequency and reports that it is difficult for her to move to the commode/bathroom. She denies dysuria. She denies flank pain. Mild lower abdominal discomfort persists. No c hest pains or palpitations. No shortness of breath. Review of Systems Review of Systems: All systems reviewed & are unremarkable except as noted in HPI & below Physical Exam Constitutional: well developed and + ill appearing; no acute distress Eyes: + anicteric sclerae ENMT: Mouth: + dry oral mucous membranes Neck: normal visual inspection and trachea midline Respiratory: normal respiratory effort Auscultation: lungs clear to auscultation bilaterally and + rales (few faint rales at bases) Cardiovascular: Rate/Rhythm: + irregularly irregular Heart Sounds: normal S1 and normal S2 Extremities: + edema (improving) Gastrointestinal (Abdomen): Inspection/Auscultation: + abdomen distended P ercussion/Palpation: abdomen soft; abdomen nontender Musculoskeletal: Extremities: no cyanosis and no clubbing Skin: normal turgor; no rashes and no jaundice Neurologic: Motor/Sensory: no tremor and no asterixis Psychiatric: Orientation: alert and oriented x 3 Results & Data Vital Signs (Past 12 Hours) Vital Signs Temp Pulse Pulse Resp BP BP Pulse Ox 08/10/24 08:03 36.2 C L 76 18 108/65 96 08/10/24 05:47 36.2 C L 08/10/24 03:47 71 18 111/61 97 08/09/24 23:24 69 08/09/24 23:06 36.3 C L 67 18 108/63 96 O2 Del Method 08/10/24 08:03 Room Air 08/10/24 05:47 08/10/24 03:47 Room Air 08/09/24 23:24 08/09/24 23:06 Room Air Laboratory Results Laboratory Results - last 24 hr 08/09/24 08/09/24 08/09/24 10:56 11:30 15:09 WBC RBC Hgb Hct MCV MCH MCHC RDW Std Deviation RDW Coeff of Viktor Plt Count MPV Immature Gran % (Auto) Neut % (Auto) Lymph % (Auto) [place] % (Auto) Eos % (Auto) Baso % (Auto) Neut # (Auto) Lymph # (Auto) [place] # (Auto) Eos # (Auto) Baso # (Auto) Immature Gran # (Auto) Polychromasia Echinocytes Sodium 127 L Potassium 3.3 L D Chloride 97 L Carbon Dioxide 20 L Anion Gap 10 BUN 35 H Creatinine 2.49 H D Est Cr Clr Drug Dosing 15.7 eGFR 19.30 BUN/Creatinine Ratio 14.1 Glucose 212 H POC Glucose 269 H Calcium 8.1 L Magnesium Total Bilirubin AST ALT Alkaline Phosphatase Total Protein Albumin Globulin Albumin/Globulin Ratio Procalcitonin Urine Color Yellow Urine Appearance Cloudy A Urine pH 6.0 Ur Specific [place] 1.021 Urine Protein 2+ H Urine Glucose (UA) 2+ H Urine Ketones Negative Urine Blood 2+ H Urine Nitrite Negative Urine Bilirubin Negative Urine Urobilinogen Negative Ur Leukocyte Esterase 1+ H Urine WBC (Auto) 11-20 H Urine RBC (Auto) 3-5 H U Hyaline Cast (Auto) 11-20 H U Epithel Cells (Auto) 6-10 H Urine Bacteria (Auto) None Seen Granular Casts Present A Nasal Screen MRSA (PCR) 08/09/24 08/09/24 08/09/24 15:34 16:06 20:01 WBC RBC Hgb Hct MCV MCH MCHC RDW Std Deviation RDW Coeff of Viktor Plt Count MPV Immature Gran % (Auto) Neut % (Auto) Lymph % (Auto) [place] % (Auto) Eos % (Auto) Baso % (Auto) Neut # (Auto) Lymph # (Auto) [place] # (Auto) Eos # (Auto) Baso # (Auto) Immature Gran # (Auto) Polychromasia Echinocytes Sodium Potassium Chloride Carbon Dioxide Anion Gap BUN Creatinine Est Cr Clr Drug Dosing eGFR BUN/Creatinine Ratio Glucose POC Glucose 234 H 261 H Calcium Magnesium Total Bilirubin AST ALT Alkaline Phosphatase Total Protein Albumin Globulin Albumin/Globulin Ratio Procalcitonin Urine Color Urine Appearance Urine pH Ur Specific [place] Urine Protein Urine Glucose (UA) Urine Ketones Urine Blood Urine Nitrite Urine Bilirubin Urine Urobilinogen Ur Leukocyte Esterase Urine WBC (Auto) Urine RBC (Auto) U Hyaline Cast (Auto) U Epithel Cells (Auto) Urine Bacteria (Auto) Granular Casts Nasal Screen MRSA (PCR) Negative 08/10/24 08/10/24 05:38 07:08 WBC 18.01 H RBC 3.01 L Hgb 8.0 L Hct 24.0 L MCV 79.7 L MCH 26.6 MCHC 33.3 RDW Std Deviation 44.3 RDW Coeff of Viktor 14.9 H Plt Count 171 MPV 11.0 Immature Gran % (Auto) 0.8 Neut % (Auto) 91.6 Lymph % (Auto) 4.4 Nicol[place] % (Auto) 2.9 Eos % (Auto) 0.1 Baso % (Auto) 0.2 Neut # (Auto) 16.50 H Lymph # (Auto) 0.79 L [place] # (Auto) 0.52 Eos # (Auto) 0.02 Baso # (Auto) 0.03 Immature Gran # (Auto) 0.15 Polychromasia 1+ Echinocytes 1+ Sodium 129 L Potassium 3.1 L Chloride 97 L Carbon Dioxide 20 L Anion Gap 12 H BUN 43 H Creatinine 2.81 H D Est Cr Clr Drug Dosing 14.2 eGFR 16.69 BUN/Creatinine Ratio 15.3 Glucose 179 H POC Glucose 226 H Calcium 8.0 L Magnesium 2.4 Total Bilirubin 0.3 AST 38 ALT 42 Alkaline Phosphatase 54 Total Protein 6.1 Albumin 2.8 L Globulin 3.3 Albumin/Globulin Ratio 0.8 L Procalcitonin 2.65 H Urine Color Urine Appearance Urine pH Ur Specific [place] Urine Protein Urine Glucose (UA) Urine Ketones Urine Blood Urine Nitrite Urine Bilirubin Urine Urobilinogen Ur Leukocyte Esterase Urine WBC (Auto) Urine RBC (Auto) U Hyaline Cast (Auto) U Epithel Cells (Auto) Urine Bacteria (Auto) Granular Casts Nasal Screen MRSA (PCR) PG Care Time/CCT Total # of Minutes Spent Total Time Spent with Patient: Total time spent is greater than 50% in coordination of care (as documented) at patient's floor/unit and/or counseling patient: Coding Level of Care Code 07131 SUB INP/OBS CARE 3/50MIN Diagnoses LYNN (acute kidney injury) N17.9 Hypokalemia E87.6 Prosthetic valve endocarditis T82.6XXA; I38 SIADH (syndrome of inappropriate ADH production) E22.2
--- NOTE | 2024-08-10 12:49 | Infectious Disease Progress Nt ---
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 ( 07/17) + Strep spp in 2 of 2 bottles (07/21 DION confirmed prosthetic mitral valve endocarditis, tx 6-week course of CTX 07/19 08/30 and a 2 week course of gentamicin 07/19 08/02), who presented on 08/05 with 2 days of general weakness and fatigue with recent fall due to unsteadiness. In the ED T36.5, pulse 76, RR 16, BP 117/68. Labs: WBC 11.36-, Na 128, BUN 29, Cr 2.41, PCT 0.85. UA 0-5 WBC. RVP neg. CXR without opacities, pleural effusions or pneumothorax. CT head neg. Renal ultrasound unremarkable. MRI brain with no evidence of septic emboli, noted chronic volume loss and age- related white matter changes. Her WBC increased to 18.06. Cr down 1.90. BCX ngtd. ID consulted 08/07 for history of prosthetic valve endocarditis, LYNN, lethargy and fever, one time Tmax 38 on 08/06 (04: 06). CXR with interstitial edema, trace pleural effusion with interval development of asymmetric R lung base opacites which may represent atelectasis or pneumonitis. CTAP was advised, study on 08/07 without acute findings. On 08/09, she was noted to be unresponsive, vitals stable, making gurgling noises. Her abx were changed to zosyn and linezolid. CTH negative. CTAP repeated 08/09 showed wall thickening of GB, small gallstones, mild fluid distended small bowel. RUQ u/s with GB wall thickening and pericholecystic fluid, no mccann sign. CRP up to 28 from 11, PCT up to 1.98>2.95 from 0.85. UA with 11-20 WBC. Today WBC back up. Unclear source of her leukocytosis. She doesnt endorse anything on examination aside from her right sided rib pain from her fall. She has GB wall thickening on RUQ u/s but no abnormalities in LFTs or RUQ tenderness. We can keep on zosyn given she feels improved on this. MRSA screen is negative so I dont think she needs empiric MRSA coverage. Since she has rising WBC and only possible identifiable abnormality is gallbladder, may consider HIDA. Could also consider some level of aspiration that could have caused the R lung base opacities on CXR. 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 If questions or concerns, contact Infectious Disease Call Center . Marielle Sharif MD [facility], Division of Infectious Diseases [facility]: [phone] Admission and Anticipated Discharge Date Admission Date: August 05, 2024 Subjective Subsequent visit was provided via telemedicine using two-way real-time interactive telecommunication between the patient and the telemedicine provider. For the duration of the visit, the provider was performing the assessment from a different facility than the patient. This includesuse of bluetooth stethoscope forauscultationperformed by the telepresenter that the telemedicine provider can hear if described in the physical exam. Feather Separator contact information: Please call [facility] Call Center . (Phone Number For Physician Use Only) After establishing a telemedicine visit, patient was: Patient was verified with two unique identifiers, Patient/authorized rep acknowledged consent and understanding and Gave permission to continue telehealth session Time Spent with Patient: Subsequent => 55 min Patient seen and examined. She says she has right lower rib pain from her fall but otherwise denies abdominal pain. No vomiting or diarrhea. No rashes. She feels that since the abx change, her confusion is better. No urinary issues. No oral sores. Physical Exam Physical Exam: General: Awake, alert, no acute distress HEENT: NC/AT, EOMI, mmm Neck: supple Lungs: respirations non-labored Heart: nl peripheral perfusion Abdomen: soft, nontender Back: no spinal tenderness Skin: no rash Neuro: moving all extremities Results & Data Vital Signs (Past 12 Hours) Vital Signs Temp Pulse Resp BP BP Pulse Ox O2 Del Method 08/10/24 12:00 36.3 C L 70 16 110/65 97 Room Air 08/10/24 08:03 36.2 C L 76 18 108/65 96 Room Air 08/10/24 05:47 36.2 C L 08/10/24 03:47 71 18 111/61 97 Room Air Laboratory Results Labs reviewed. Diagnostic Findings Imaging reviewed.
[2024-08-10] MEDS: SODIUM BICARBONATE 650 MG TAB PO SCH (13:28)
--- NOTE | 2024-08-10 16:01 | Hospitalist Progress Note ---
Date of Service August 10, 2024 Assessment & Plan (1) LYNN (acute kidney injury): Plan: 78 y/o woman under treatment for streptococcus mutans prosthetic valve endocarditis (bioprosthetic MV and AV, vegetation on MV by DION) who was admitted with LYNN with creatinine 1.1 --> 2.41 over previous week LYNN with ATN, may have been precipitated by volume depletion with low oral intake for week [employer], 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 Recent gentamicin but completed 08/02 Ron elevated because of lasix, so FeNa = 2.4% but probably inaccurate. urine BUN still pending for FeUrea Continue to hold metformin, furosemide and losartan No obstruction or stones on CT abdomen/pelvis. [employer] consulting Cr continues to rise but UOP adequate and electrolytes ok. Cr up to 2.8 today. Hypokalemic with K 3.1 - being replaced orally. continue Nabicarb AM BMP (2) Fever: Plan: Fever, increased leukocytosis, increasing CRP, delirium with pretty dramatic waxing and waning ID consulting -blood cultures 08/05 and 08/07 remain NGTD (has PICC) -procal has increased from 0.28-->0.85-->1.98-->2.65 -MRSA nares was negative -CT abdomen/pelvis with oral contrast only 08/[address] abdomen and pelvis 08/09 for code purple with some gallbladder wall thickening and sludge. May simply reflect anasarca however. LFT not abnormal and she has had Rt abdominal tenderness throughout the hospital course that she attributes to MSK injury from a fall [employer]. RUQ ultrasound with some gb wall thickening but negative sonographic Blount's sign. LFT remain normal today. No abdominal pain and eating well. -I think this just reflects gallbladder edema related to anasarca, however, consider HIDA scan Unclear what is driving this. Probably had an aspiration evening of 08/08 and ceftriaxone was changed to pip-tazo and linezolid. Linezolid was stopped after one dose. Temp curve has improved. Mental status significantly improved. Leukocytosis and elevated procal persist -reviewed recs in ID note, continue pip-tazo for now (3) Acute encephalopathy: Plan: Acute encephalopathy -was persistently drowsy for a week [employer] through 08/06. not on sedating meds. denies any OTC meds or new meds. Lethargy was out of proportion to her mild uremia and moderate stable hyponatremia -checked vbg r/o hypercarbia - negative, abg negative again overnight -brain MRI with contrast 08/06 evaluate for septic emboli - was negative also no evidence of stroke -has had dramatic waxing and waning, unresponsive night of 08/08 however significantly improved since then. Not completely back to baseline but oriented to situation -encephalopathy related to ceftriaxone is rare but can occur, currently on pip- tazo and mental status has improved since that change (4) Prosthetic valve endocarditis: Plan: Viridans strep, mitral valve vegetation seen on DION. Has bioprosthetic MVR and AVR See above. Recommendation was for 2 weeks IV gentamycin (completed 08/02) and six weeks ceftriaxone CRP 16 --> 11.5-->24.9, ESR increased from 86-->106, 105 blood cultures 08/05 and 08/07 no growth to date has been on ceftriaxone, pip-tazo starting 08/09 as discussed above (5) SIADH (syndrome of inappropriate ADH production): Plan: urine sodium elevated because of loop diuretic normal salt diet (currently NPO for ultrasound) -sodium had been stable at 128-130, however has dropped to 123 this morning. Mentation is improved however. -Na bicarb po started by nephrology since then Na stable at 129 -hesitate to fluid restrict with ongoing LYNN and infectious issues, urea might be helpful monitor BMP (6) Controlled diabetes mellitus with microalbuminuria, without long-term current use of insulin: Plan: HbA1C 7.4 in June, no need to repeat Hold metformin due to LYNN continue premeal aspart and added glargine 5 bid (7) Benign essential hypertension: Plan: Continue amlodipine Hold losartan and furosemide due to LYNN as above (8) Hypokalemia: Plan: replaced po today AM BMP Plan VTE Prophylaxis - apixaban reports two falls [employer] - PT, OT - rec rehab Has PICC line Updated her daughter in room today. 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 The improvement ocurred from sat to sun. Her daughter and granddaughter are in the room She has R abdominal tenderness with palp only, no RUQ pain, no pain with eating, no nausea edema/puffiness is improved Physical Exam 2 Physical Exam: PHYSICAL EXAMINATION Last 24h vital signs reviewed, see documentation in flowsheet General: sitting up in chair, best i have seen her HEENT: Normocephalic, atraumatic, pupils round and equal, sclerae anicteric, no conjunctival injection, moist mucus membranes Lungs: CTAB no rrw Heart: RRR no mrg Abdomen: Soft, nontender, nondistended. Bowel sounds present. Remains TTP R lateral and R upper abdomen Extremities: Warm, dry, well-perfused. Has anasarca UE and LE ut much improved Neuro: AOx4, confusion mild at this point, montse, eomi, face symmetric, speech intact, maex4 Psych: normal affect and behavior Results & Data Results & Data Vital Signs (Past 12 Hours) Vital Signs Temp Pulse Resp BP Pulse Ox O2 Del Method 08/10/24 12:00 36.3 C L 70 16 110/65 97 Room Air 08/10/24 08:03 36.2 C L 76 18 108/65 96 Room Air 08/10/24 05:47 36.2 C L Laboratory Results 08/10/24 05:38 08/10/24 05:38 PG Care Time/CCT Total # of Minutes Spent Total Time Spent with Patient: Total time spent is greater than 50% in coordination of care (as documented) at patient's floor/unit and/or counseling patient: Coding Level of Care Code 45571 SUB INP/OBS CARE 2/35MIN Diagnoses LYNN (acute kidney injury) N17.9 Fever R50.9 Acute encephalopathy G93.40 Prosthetic valve endocarditis T82.6XXA; I38 SIADH (syndrome of inappropriate ADH production) E22.2 Controlled diabetes mellitus with microalbuminuria, without long-term current use of insulin E11.29; R80.9 Benign essential hypertension I10 Hypokalemia E87.6
[2024-08-10] MEDS: POTASSIUM CHLORIDE CRTAB 20 MEQ TABCR PO SCH (17:00)
--- NOTE | 2024-08-10 17:22 | Communication Note ---
Date of Service: August 10, 2024 Reviewed current EKG tracing and tele. She continues to be in an undetermined rhythm often it looks like a bigeminy or perhaps a mobitz 2 block. Has remained stable throughout however and no pauses or symptoms.
[2024-08-10] MEDS: LANTUS PER UNIT CHARGE SQ SCH (21:16)
--- NOTE | 2024-08-11 05:56 | Electrocardiogram Report ---
Test Reason : Blood Pressure : */* mmHG Vent. Rate : 76 BPM Atrial Rate : 73 BPM P-R Int : * ms QRS Dur : 132 ms QT Int : 444 ms P-R-T Axes : * -7 86 degrees QTcB Int : 499 ms Possible Atrial flutter Non-specific intra-ventricular conduction block Nonspecific T wave abnormality Abnormal ECG When compared with ECG of 06-Aug-2024 15:50, T wave inversion more evident in Lateral leads Confirmed by Ronen Espinoza ([id number]) on 08/11/2024 5:56:17 AM Referred By: REFERRED SELF Confirmed By: Ronen Espinoza
[2024-08-11 06:46] LABS: Albumin Globulin Ratio 0.9 (0.9-2); Albumin Level 2.9 gm/dl (3.4-5.0); BUN Creatinine Ratio 15.6 (10-20); Bilirubin,Total 0.3 mg/dl (0.2-1.0); Calcium 8.1 mg/dl (8.6-10.3); Creatinine Clr Calc Pharmacy 12.8 ml/min; Globulin 3.1 gm/dl (2.5-4.0); Potassium 3.5 mmol/L (3.5-5.1)
--- NOTE | 2024-08-11 08:26 | Hospitalist Progress Note ---
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 Recent gentamicin but completed 08/02 Continue to hold metformin, furosemide and losartan No obstruction or stones on CT abdomen/pelvis. 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 ua 08/09 with blood protein and casts (2) Acute encephalopathy: Plan: Acute encephalopathy -was persistently drowsy for a week LUTE PACKER OR APPLIER through 08/06. not on sedating meds. denies any OTC meds or new meds. Lethargy was out of proportion to her mild uremia and moderate stable hyponatremia -checked vbg r/o hypercarbia - negative, abg negative again overnight -brain MRI with contrast 08/06 evaluate for septic emboli - was negative also no evidence of stroke -has had dramatic waxing and waning, unresponsive night of 08/08 however significantly improved since then. Not completely back to baseline but oriented to situation -encephalopathy related to ceftriaxone is rare but can occur, currently on pip- tazo and mental status has improved since that change ID considering changing back to ceftriaxone (3) Prosthetic valve endocarditis: Plan: Viridans strep, mitral valve vegetation seen on DION. Has bioprosthetic MVR and AVR See above. Recommendation was for 2 weeks IV gentamycin (completed 08/02) and six weeks ceftriaxone CRP 16 --> 11.5-->24.9, ESR increased from 86-->106, 105 blood cultures 08/05 and 08/07 no growth to date has been on ceftriaxone, pip-tazo starting 08/09 as discussed above (4) SIADH (syndrome of inappropriate ADH production): Plan: urine sodium elevated because of loop diuretic normal salt diet (currently NPO for ultrasound) -sodium had been stable at 128-130, however has dropped to 123 this morning. Mentation is improved however. 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 the home phone Admission and Anticipated Discharge Date Admission Date: August 05, 2024 Subjective pt is doing well, still feels somewhat fatigued no focal issues discussed her antibiotics and her renal failure stable at this time Physical Exam Physical Exam: cardiac exam is regular with CHASE no peripheral stigmata of endocarditis lungs are clear Results & Data Results & Data Vital Signs (Past 12 Hours) Vital Signs Temp Pulse Pulse Resp BP Pulse Ox O2 Del Method 08/11/24 07:46 98.1 F 88 18 123/68 98 Room Air 08/11/24 03:25 98.1 F 72 18 116/71 93 Room Air 08/11/24 00:40 70 08/10/24 21:48 97.5 F L 71 18 117/61 100 Room Air Laboratory Results review chemistry discussed with ID PG Care Time/CCT Total # of Minutes Spent Total Time Spent with Patient: Total time spent is greater than 50% in coordination of care (as documented) at patient's floor/unit and/or counseling patient: Coding Level of Care Code 13069 SUB INP/OBS CARE 3/50MIN Diagnoses LYNN (acute kidney injury) N17.9 Acute encephalopathy G93.40 Prosthetic valve endocarditis T82.6XXA; I38 SIADH (syndrome of inappropriate ADH production) E22.2 Controlled diabetes mellitus with microalbuminuria, without long-term current use of insulin E11.29; R80.9 Benign essential hypertension I10
--- NOTE | 2024-08-11 09:57 | Nephrology Progress Note ---
Date of Service August 11, 2024 Assessment & Plan (1) LYNN (acute kidney injury): Plan: Non-oliguric. Volume status acceptable. There is no indication for OUTREACH CONSULTANT at this time. Unfortunately, creatinine continues to rise. Electrolytes otherwise notable for hyponatremia. NaHCO3 and potassium replacement have been provided. Additional 1 gram oral NaCl will be provided this AM along with a bolus of isotonic fluids. Urine osmolality ~300. Repeat labs this afternoon. I suspect a component or prerenal physiology. UA notable for +2 protein, +2 glucose, +2 blood, +LE. Microscopy demonstrating WBC 11-20, RBC 3-5, hyaline and granular casts. Clinical presentation suggestive of prerenal LYNN and likely superimposed ATN. Creatinine had been relatively stable until episode of unresponsiveness followed by CT w/ contrast on 08/09. I cannot exclude IE or infection mediated GN but this is less likely. LYNN has been attributed to ATN and hemodynamic changes. Ceftriaxone has been switched to Zosyn + Linezolid. AIN is less likely given kidney function had stablized over the weekend. Repeat metabolic profile tomorrow AM. Urine studies will also be updated along with ESR and C3/4. Document strict I/O's. Medications are appropriate for kidney dysfunction. Continue to hold losartan and metformin. No diuretics required at this time. Rosuvastatin dose reduced to 10 mg daily pending improvement in eGFR. (2) Hypokalemia: Plan: Improved with PO replacement. Continue KCl 20 mEQ BID. Monitor daily while inpatient. (3) Prosthetic valve endocarditis: Plan: Viridans strep with mitral valve vegetation. Bioprosthetic AVR and MVR. Completed gentamicin 08/02. Blood cultures 08/05 + 08/07 NGTD. Ceftriaxone switched to Zosyn. (4) SIADH (syndrome of inappropriate ADH production): Plan: Sodium dropped to 123 mmol/L with isotonic fluids over the weekend. Volume status acceptable. Sodium improved with PO sodium + limiting free water. Uosm remains inappropriately elevated at 300. No PO fluid restriction has been required. Close monitoring provided. Isotonic fluid bolus with PO NaCl provided this AM. Admission and Anticipated Discharge Date Admission Date: August 05, 2024 Subjective No acute events overnight. No fevers or chills. Penny reports increasing strength. She was out of bed walking in her hospital room this AM. She denies lightheadedness or dizziness. She denies chest pains or palpitations. No rash. Tenderness along the ribs/abdomen on the right side persists but improving. Appetite fair. Review of Systems Review of Systems: All systems reviewed & are unremarkable except as noted in HPI & below Physical Exam Constitutional: well developed; no acute distress Eyes: + anicteric sclerae ENMT: Mouth: + dry oral mucous membranes Neck: normal visual inspection and trachea midline Respiratory: normal respiratory effort Auscultation: lungs clear to auscultation bilaterally Cardiovascular: Rate/Rhythm: regular rate Heart Sounds: normal S1 and normal S2 Extremities: + edema (improving) Gastrointestinal (Abdomen): Percussion/Palpation: abdomen soft; abdomen nontender Musculoskeletal: Extremities: no cyanosis and no clubbing Skin: normal turgor; no rashes and no jaundice Neurologic: Motor/Sensory: no tremor and no asterixis Psychiatric: Orientation: alert and oriented x 3 Results & Data Vital Signs (Past 12 Hours) Vital Signs Temp Pulse Pulse Resp BP Pulse Ox O2 Del Method 08/11/24 07:46 36.7 C 88 18 123/68 98 Room Air 08/11/24 03:25 36.7 C 72 18 116/71 93 Room Air 08/11/24 00:40 70 Laboratory Results Laboratory Results - last 24 hr 08/10/24 08/10/24 08/10/24 11:08 16:20 16:26 Sodium Potassium Chloride Carbon Dioxide Anion Gap BUN Creatinine Est Cr Clr Drug Dosing eGFR BUN/Creatinine Ratio Glucose POC Glucose 248 H 257 H Calcium Total Bilirubin AST ALT Alkaline Phosphatase Total Protein Albumin Globulin Albumin/Globulin Ratio Urine Osmolality 311 L 08/10/24 08/10/24 08/11/24 16:44 20:01 05:59 Sodium 131 L Potassium 3.5 Chloride 100 Carbon Dioxide 22 Anion Gap 9 BUN 49 H Creatinine 3.15 H D Est Cr Clr Drug Dosing 12.8 eGFR 14.55 BUN/Creatinine Ratio 15.6 Glucose 137 H POC Glucose 235 H 254 H Calcium 8.1 L Total Bilirubin 0.3 AST 33 ALT 42 Alkaline Phosphatase 52 Total Protein 6.0 Albumin 2.9 L Globulin 3.1 Albumin/Globulin Ratio 0.9 Urine Osmolality 08/11/24 07:03 Sodium Potassium Chloride Carbon Dioxide Anion Gap BUN Creatinine Est Cr Clr Drug Dosing eGFR BUN/Creatinine Ratio Glucose POC Glucose 162 H Calcium Total Bilirubin AST ALT Alkaline Phosphatase Total Protein Albumin Globulin Albumin/Globulin Ratio Urine Osmolality PG Care Time/CCT Total # of Minutes Spent Total Time Spent with Patient: Total time spent is greater than 50% in coordination of care (as documented) at patient's floor/unit and/or counseling patient: Coding Level of Care Code 39936 SUB INP/OBS CARE 3/50MIN Diagnoses LYNN (acute kidney injury) N17.9 Hypokalemia E87.6 Prosthetic valve endocarditis T82.6XXA; I38 SIADH (syndrome of inappropriate ADH production) E22.2
[2024-08-11 10:07] LABS: Urea Nitrogen, Random Urine 210 mg/dL
[2024-08-11] MEDS: PLASMA-LYTE A 500 ML IV ONE ×2 (10:36→18:10)
[2024-08-11] MEDS: SODIUM CHLORIDE 1 GM TABLET PO STA (10:37)
--- NOTE | 2024-08-11 14:00 | Infectious Disease Progress Nt ---
Date of Service August 11, 2024 Assessment & Plan (1) Leukocytosis: (2) LYNN (acute kidney injury): (3) Prosthetic valve endocarditis: Plan 78yo F with h/o and MS s/p bioprosthetic MV and bioprosthetic AV replacements (06/19/2022 at [facility]), CHF, CAD, TIA, inflammatory arthritis, SIADH, recently admitted to [facility] on 07/17/24 - 07/23/24 with fatigue, confusion, and fever, dx with prosthetic mitral valve endocarditis with OSH BCx ([facility]) + Strep mutans ( 07/14) and BCx at [facility] ( 07/17) + Strep spp in 2 of 2 bottles (07/21 DION confirmed prosthetic mitral valve endocarditis, tx 6-week course of CTX 07/19 08/30 and a 2 week course of gentamicin 07/19 08/02), who presented on 08/05 with 2 days of general weakness and fatigue with recent fall due to unsteadiness. In the ED T36.5, pulse 76, RR 16, BP 117/68. Labs: WBC 11.36-, Na 128, BUN 29, Cr 2.41, PCT 0.85. UA 0-5 WBC. RVP neg. CXR without opacities, pleural effusions or pneumothorax. CT head neg. Renal ultrasound unremarkable. MRI brain with no evidence of septic emboli, noted chronic volume loss and age- related white matter changes. Her WBC increased to 18.06. Cr down 1.90. BCX ngtd. ID consulted 08/07 for history of prosthetic valve endocarditis, LYNN, lethargy and fever, one time Tmax 38 on 08/06 (04: 06). CXR with interstitial edema, trace pleural effusion with interval development of asymmetric R lung base opacites which may represent atelectasis or pneumonitis. CTAP was advised, study on 08/07 without acute findings. On 08/09, she was noted to be unresponsive, vitals stable, making gurgling noises. Her abx were changed to zosyn and linezolid. CTH negative. CTAP repeated 08/09 showed wall thickening of GB, small gallstones, mild fluid distended small bowel. RUQ u/s with GB wall thickening and pericholecystic fluid, no mccann sign. CRP up to 28 from , PCT up to 1.98>2.95 from 0.85. UA with 11-20 WBC. Serum WBC increased back on 08/10. Presently asymptomatic. CTX-induced encephalopathy is extremely rare and has been reported in patients with underlying AUDIOLOGY ASSISTANT disease or severe renal failure (typically on HD). She also had a leukocytosis and fever, and with elevated PCT, some questionable CTAP findings. With multiple concomitant abnormalities, I feel that it is difficult to attribute encephalopathy entirely to CTX. Case reports detailing encephalopathic cases often note myoclonic movements, psychosis, and seizures, which patient did not have. Furthermore, with her prosthetic valve endocarditis, would favor continuation of first-line regimen with CTX. At this time, zosyn is being continued for possible aspiration currently without respiratory issues (?gallbladder findings, though clinically without RUQ pain and normal LFTs). I would continue zosyn through today (day 3) and de-escalate back to CTX and afterwards, monitor on CTX therapy. If there are still ongoing c/f leukocytosis or she develops any abdominal pain/sepsis, would pursue further w/u with HIDA scan. # Leukocytosis # RUQ tenderness post fall # AMS improved # Prosthetic mitral valve endocarditis (seen on 07/21 DION) # Recent Strep mutans bacteremia 07/14 and Strep spp bacteremia 07/17 (2 of 2 bottles) # History of bioprosthetic mitral valve and bioprosthetic aortic valve replacements (06/19/2022 at [facility]) # Antibiotic allergy history: penicillin (rash 44 years ago; no hx of anaphylaxis/throat closure # PICC in place # LYNN - improving - monitor fever curve and WBC - continue empiric zosyn, renally adjusted through today - will change to CTX 2g IV q24h tomorrow and monitor - prior endocarditis treatment is through 08/30/24 Discussed with patient and primary team. ID will continue to follow. If questions or concerns, contact via [employer] or Infectious Disease Call Center . Marielle Sharif MD [facility], Division of Infectious Diseases [employer]: [phone] Admission and Anticipated Discharge Date Admission Date: August 05, 2024 Subjective Subsequent visit was provided via telemedicine using two-way real-time interactive telecommunication between the patient and the telemedicine provider. For the duration of the visit, the provider was performing the assessment from a different facility than the patient. This includesuse of bluetooth stethoscope forauscultationperformed by the telepresenter that the telemedicine provider can hear if described in the physical exam. Supervisor Winter contact information: Please call [employer] [facility] Call Center [phone]. (Phone Number For Physician Use Only) After establishing a telemedicine visit, patient was: Patient was verified with two unique identifiers, Patient/authorized rep acknowledged consent and understanding and Gave permission to continue telehealth session Time Spent with Patient: Subsequent => 55 min Patient doing well today. No pains. She says she had some loose stool yesterday but that is better today. Physical Exam Physical Exam: General: Awake, alert, no acute distress HEENT: NC/AT, EOMI, mmm Neck: supple Lungs: respirations non-labored Abdomen: soft, NT/ND Results & Data Vital Signs (Past 12 Hours) Vital Signs Temp Pulse Resp BP Pulse Ox O2 Del Method 08/11/24 11:34 36.7 C 76 18 112/58 L 95 Room Air 08/11/24 08:00 Room Air 08/11/24 07:46 36.7 C 88 18 123/68 98 Room Air 08/11/24 03:25 36.7 C 72 18 116/71 93 Room Air Laboratory Results Labs reviewed.
[2024-08-11 14:54] LABS: BUN Creatinine Ratio 15.7 (10-20); Creatinine Clr Calc Pharmacy 12.6 ml/min; Potassium 3.4 mmol/L (3.5-5.1)
[2024-08-12 02:22] LABS: Appearance Urine Clear (Clear); Bacteria Urine Automated None Seen (None Seen); Bilirubin Urine Negative (Negative); Blood Urine Trace (Negative); Cast Urine Automated 0-2 /lpf (0-2); Color Urine Yellow; Glucose Urine UA Negative (Negative); Ketones Urine Negative (Negative); Leukocyte Esterase Urine Trace (Negative); Nitrite Urine Negative (Negative); Protein Urine 1+ (Negative); RBC Urine Automated 0-2 /hpf (0-2); Specific Gravity Urine 1.012 (1.000-1.030); Urobilinogen Urine Negative (Negative); WBC Urine Automated 0-5 /hpf (0-5); pH Urine 6.5 (4.5-7.5)
[2024-08-12 06:32] LABS: Basophils # (auto) 0.04 K/uL (0.00-0.20); Basophils % (auto) 0.3 %; Eosinophils # (auto) 1.35 K/uL (0.00-0.50); Eosinophils % (auto) 9.2 %; Hematocrit (blood only) 24.2 % (37.0-47.0); Hemoglobin 8.3 g/dl (12.0-16.0); Immature Granulocytes # (auto) 0.16 K/uL (0.01-0.20); Immature Granulocytes % (auto) 1.1 %; Lymphocytes # (auto) 1.19 K/uL (1.20-3.40); Lymphocytes % (auto) 8.1 %; Mean Corpuscular Hemoglobin 26.9 pg (25.0-34.0); Mean Corpuscular Hgb Conc 34.3 g/dL (32.0-36.0); Mean Corpuscular Volume 78.6 fL (80.0-100.0); Mean Platelet Volume 9.9 fL (9.4-12.4); Monocytes # (auto) 0.84 K/uL (0.11-0.59); Monocytes % (auto) 5.7 %; Neutrophils # (auto) 11.04 K/uL (1.40-6.50); Neutrophils % (auto) 75.6 %; Nucleated RBC # (auto) 0.02 K/uL (0.00-0.12); Nucleated RBC % (auto) 0.1 %; Platelet Count 201 K/uL (130-400); RDW Coefficient of Variation 15.1 % (11.5-14.5); RDW Standard Deviation 43.3 fL (36.4-46.3); Red Blood Count 3.08 M/uL (4.20-5.40); White Blood Count 14.62 K/ul (4.8-10.8)
[2024-08-12 07:11] LABS: BUN Creatinine Ratio 14.2 (10-20); Calcium 8.3 mg/dl (8.6-10.3); Creatinine Clr Calc Pharmacy 13.3 ml/min; Phosphorus 2.6 mg/dl (2.5-4.9); Potassium 3.5 mmol/L (3.5-5.1)
[2024-08-12] MEDS: cefTRIAXone SODIUM 2,000 MG/50 ML BAG IV SCH (08:40)
[2024-08-12] MEDS: PLASMA-LYTE A 500 ML IV ONE (09:26)
--- NOTE | 2024-08-12 10:25 | Nephrology Progress Note ---
Date of Service August 12, 2024 Assessment & Plan (1) LYNN (acute kidney injury): Plan: Non-oliguric. Volume status acceptable. There is no indication for PRODUCTION HARDENER at this time. Creatinine stable. Electrolytes otherwise normal. Additional 1 gram oral NaCl will be provided this AM along with a bolus of isotonic fluids. LYNN attributed to ATN and intravascular volume depletion. Urine microscopy is now acellular. C3/C4 pending but presentation is not consistent with GN. Repeat metabolic profile tomorrow AM. Document strict I/O's. Medications are appropriate for kidney dysfunction. Continue to hold losartan and metformin. Rosuvastatin dose reduced to 10 mg daily pending improvement in eGFR. (2) Hypokalemia: Plan: Improved with PO replacement. Continue KCl 20 mEQ BID. Monitor daily while inpatient. (3) Prosthetic valve endocarditis: Plan: Viridans strep with mitral valve vegetation. Bioprosthetic AVR and MVR. Completed gentamicin 08/02. Blood cultures 08/05 + 08/07 NGTD. Zosyn switched back to Ceftriaxone this AM. Concern for encephalopathy with antibiotic in the past. Close monitoring required. (4) SIADH (syndrome of inappropriate ADH production): Plan: Sodium dropped to 123 mmol/L with isotonic fluids over the weekend. Volume status acceptable. Sodium improved with PO sodium + limiting free water. Uosm remains inappropriately elevated at 300. No PO fluid restriction has been required. Close monitoring provided. Isotonic fluid bolus with PO NaCl provided this AM. Admission and Anticipated Discharge Date Admission Date: August 05, 2024 Subjective Nose bleed this AM. Penny reports some associated nausea. No fevers or chills. Feeling weak and tired this AM. Slightly more confused. Reports no appetite. Review of Systems Review of Systems: All systems reviewed & are unremarkable except as noted in HPI & below Physical Exam Constitutional: + frail appearing; no acute distress Eyes: + anicteric sclerae ENMT: Nose: + epistaxis Mouth: + dry oral mucous membranes Neck: normal visual inspection Respiratory: normal respiratory effort Auscultation: + diminished lung sounds and + rales (few faint rales at bases) Cardiovascular: Rate/Rhythm: regular rate Heart Sounds: normal S1 and normal S2 Extremities: + edema (improving) Musculoskeletal: Extremities: no cyanosis and no clubbing Skin: no jaundice Neurologic: Motor/Sensory: no tremor and no asterixis Psychiatric: Orientation: alert and oriented x 3 Results & Data Vital Signs (Past 12 Hours) Vital Signs Temp Pulse Resp BP Pulse Ox O2 Del Method 08/12/24 08:12 37.1 C 87 17 129/74 94 Room Air 08/12/24 08:00 Room Air 08/12/24 03:56 36.5 C 98 H 18 136/70 93 Room Air 08/11/24 22:58 36.6 C 76 16 126/73 93 Room Air Laboratory Results Laboratory Results - last 24 hr 08/11/24 08/11/24 08/11/24 11:15 14:07 17:08 WBC RBC Hgb Hct MCV MCH MCHC RDW Std Deviation RDW Coeff of Viktor Plt Count MPV Immature Gran % (Auto) Neut % (Auto) Lymph % (Auto) Campbell % (Auto) Eos % (Auto) Baso % (Auto) Neut # (Auto) Lymph # (Auto) Campbell # (Auto) Eos # (Auto) Baso # (Auto) Immature Gran # (Auto) Absolute Nucleated RBC Nucleated RBC % (auto) ESR Sodium 132 L Potassium 3.4 L Chloride 100 Carbon Dioxide 23 Anion Gap 9 BUN 50 H Creatinine 3.19 H Est Cr Clr Drug Dosing 12.6 eGFR 14.33 BUN/Creatinine Ratio 15.7 Glucose 182 H POC Glucose 237 H 118 H Calcium 8.0 L Phosphorus Albumin Urine Color Urine Appearance Urine pH Ur Specific [place] Urine Protein Urine Glucose (UA) Urine Ketones Urine Blood Urine Nitrite Urine Bilirubin Urine Urobilinogen Ur Leukocyte Esterase Urine WBC (Auto) Urine RBC (Auto) U Hyaline Cast (Auto) U Epithel Cells (Auto) Urine Bacteria (Auto) Complement C3 Complement C4 Tot Complement (CH50) 08/11/24 08/12/24 08/12/24 20:04 06:16 08:23 WBC 14.62 H RBC 3.08 L Hgb 8.3 L Hct 24.2 L MCV 78.6 L MCH 26.9 MCHC 34.3 RDW Std Deviation 43.3 RDW Coeff of Viktor 15.1 H Plt Count 201 MPV 9.9 Immature Gran % (Auto) 1.1 Neut % (Auto) 75.6 Lymph % (Auto) 8.1 Campbell % (Auto) 5.7 Eos % (Auto) 9.2 Baso % (Auto) 0.3 Neut # (Auto) 11.04 H Lymph # (Auto) 1.19 L Campbell # (Auto) 0.84 H Eos # (Auto) 1.35 H Baso # (Auto) 0.04 Immature Gran # (Auto) 0.16 Absolute Nucleated RBC 0.02 Nucleated RBC % (auto) 0.1 ESR 108 H Sodium 135 L Potassium 3.5 Chloride 101 Carbon Dioxide 24 Anion Gap 10 BUN 43 H Creatinine 3.02 H Est Cr Clr Drug Dosing 13.3 eGFR 15.31 BUN/Creatinine Ratio 14.2 Glucose 85 POC Glucose 178 H 102 H Calcium 8.3 L Phosphorus 2.6 Albumin 3.0 L Urine Color Urine Appearance Urine pH Ur Specific [place] Urine Protein Urine Glucose (UA) Urine Ketones Urine Blood Urine Nitrite Urine Bilirubin Urine Urobilinogen Ur Leukocyte Esterase Urine WBC (Auto) Urine RBC (Auto) U Hyaline Cast (Auto) U Epithel Cells (Auto) Urine Bacteria (Auto) Complement C3 Pending Complement C4 Pending Tot Complement (CH50) Pending 08/12/24 Unknown WBC RBC Hgb Hct MCV MCH MCHC RDW Std Deviation RDW Coeff of Viktor Plt Count MPV Immature Gran % (Auto) Neut % (Auto) Lymph % (Auto) Campbell % (Auto) Eos % (Auto) Baso % (Auto) Neut # (Auto) Lymph # (Auto) Campbell # (Auto) Eos # (Auto) Baso # (Auto) Immature Gran # (Auto) Absolute Nucleated RBC Nucleated RBC % (auto) ESR Sodium Potassium Chloride Carbon Dioxide Anion Gap BUN Creatinine Est Cr Clr Drug Dosing eGFR BUN/Creatinine Ratio Glucose POC Glucose Calcium Phosphorus Albumin Urine Color Yellow Urine Appearance Clear Urine pH 6.5 Ur Specific [place] 1.012 Urine Protein 1+ H Urine Glucose (UA) Negative Urine Ketones Negative Urine Blood Trace H Urine Nitrite Negative Urine Bilirubin Negative Urine Urobilinogen Negative Ur Leukocyte Esterase Trace H Urine WBC (Auto) 0-5 Urine RBC (Auto) 0-2 U Hyaline Cast (Auto) 0-2 U Epithel Cells (Auto) 3-5 H Urine Bacteria (Auto) None Seen Complement C3 Complement C4 Tot Complement (CH50) PG Care Time/CCT Total # of Minutes Spent Total Time Spent with Patient: Total time spent is greater than 50% in coordination of care (as documented) at patient's floor/unit and/or counseling patient: Coding Level of Care Code 23089 SUB INP/OBS CARE 3/50MIN Diagnoses LYNN (acute kidney injury) N17.9 Hypokalemia E87.6 Prosthetic valve endocarditis T82.6XXA; I38 SIADH (syndrome of inappropriate ADH production) E22.2
[2024-08-12] MEDS: OXYMETAZOLINE 0.05% 30 ML BTL ONE (10:30)
[2024-08-12] MEDS: SODIUM CHLORIDE 1 GM TABLET PO SCH (10:32)
--- NOTE | 2024-08-12 11:08 | XRay Report ---
XR chest 1V portable CLINICAL HISTORY: Evaluate for pneumonia. Possible aspiration. COMPARISON STUDY: Chest CT July 23, 2024. Chest radiograph August 08, 2024. FINDINGS: A left PICC is in place. There are median sternotomy wires and a left atrial appendage occl uded place. Cardiomegaly is again noted. There is mild interstitial thickening. There is no pneumotho rax. Trace bilateral pleural effusions are present. Hazy right basilar opacity is unchanged. IMPRESSION: 1. Cardiomegaly with mild interstitial pulmonary edema, similar to prior exam. 2. Trace bilateral pleural effusions. Hazy right basilar opacity which favors atelectasis. No definit e consolidation to suggest pneumonia. ACT 112: Negative or not required by law. Electronically signed by: Colin Hardwick M.D. 08/12/2024 11:06 AM
[2024-08-12] MEDS ORDERED: methylPREDNISolone 125 MG/2 ML VIAL IV STA (16:06)
--- NOTE | 2024-08-12 16:14 | Hospitalist Progress Note ---
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 gentamicin but completed 08/02 Continue to hold metformin, furosemide and losartan No obstruction or stones on CT abdomen/pelvis. 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 ua 08/09 with blood protein and casts (3) Prosthetic valve endocarditis: Plan: Viridans strep, mitral valve vegetation seen on DION. Has bioprosthetic MVR and AVR See above. Recommendation was for 2 weeks IV gentamycin (completed 08/02) and six weeks ceftriaxone CRP 16 --> 11.5-->24.9, ESR increased from 86-->106, 105 blood cultures 08/05 and 08/07 no growth to date stopping ceftrixone, (4) SIADH (syndrome of inappropriate ADH production): Plan: urine sodium elevated because of loop diuretic normal salt diet (currently NPO for ultrasound) -sodium had been stable at 128-130, however has dropped to 123 this morning. Mentation is improved however. 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 Requested her number be entered in chart as an emergency contact since Anksuh's doesn't cloth picker the home phone Admission and Anticipated Discharge Date Admission Date: August 05, 2024 Subjective pt with some decompensation 08/12, epistaxis in am, remains anemic, platelets are ok, throughout the day lethargy worsened and developed maculopapular rash on chest face arms and knees no wheezing or tongue mouth swelling pt states feels fatigued Physical Exam Physical Exam: awake and alert, but is fatigued rash on face chest arms and knees, blanchable cardiac is regular with mild murmur lungs are diminished but otherwise clear, CXR review without infection Results & Data Results & Data Vital Signs (Past 12 Hours) Vital Signs Temp Pulse Pulse Resp BP Pulse Ox O2 Del Method 08/12/24 15:54 99.1 F 115 H 18 161/77 H 93 Room Air 08/12/24 14:00 90 08/12/24 11:34 98.1 F 85 17 129/71 91 Room Air 08/12/24 08:12 98.8 F 87 17 129/74 94 Room Air 08/12/24 08:00 Room Air Laboratory Results review cbc x 2 review chemistry esr markedly elevated PG Care Time/CCT Total # of Minutes Spent Total Time Spent with Patient: Total time spent is greater than 50% in coordination of care (as documented) at patient's floor/unit and/or counseling patient: Coding Level of Care Code 44628 SUB INP/OBS CARE 3/50MIN Diagnoses Acute encephalopathy G93.40 LYNN (acute kidney injury) N17.9 Prosthetic valve endocarditis T82.6XXA; I38 SIADH (syndrome of inappropriate ADH production) E22.2 Controlled diabetes mellitus with microalbuminuria, without long-term current use of insulin E11.29; R80.9 Benign essential hypertension I10
[2024-08-12] MEDS: FAMOTIDINE 20MG IV PUSH 20 MG/5 ML SYR IV STA (16:32)
[2024-08-12] MEDS: methylPREDNISolone 40 MG in SYRINGE 0 ML IV ONE (16:32)
[2024-08-13 07:20] LABS: Hematocrit (blood only) 22.3 % (37.0-47.0); Hemoglobin 7.4 g/dl (12.0-16.0); Mean Corpuscular Hemoglobin 26.1 pg (25.0-34.0); Mean Corpuscular Hgb Conc 33.2 g/dL (32.0-36.0); Mean Corpuscular Volume 78.8 fL (80.0-100.0); Mean Platelet Volume 10.6 fL (9.4-12.4); Platelet Count 183 K/uL (130-400); RDW Coefficient of Variation 15.5 % (11.5-14.5); RDW Standard Deviation 44.4 fL (36.4-46.3); Red Blood Count 2.83 M/uL (4.20-5.40); White Blood Count 14.38 K/ul (4.8-10.8)
[2024-08-13 07:38] LABS: Albumin Level 2.8 gm/dl (3.4-5.0); BUN Creatinine Ratio 17.8 (10-20); Calcium 8.3 mg/dl (8.6-10.3); Creatinine Clr Calc Pharmacy 14.9 ml/min; Phosphorus 4.8 mg/dl (2.5-4.9); Potassium 3.7 mmol/L (3.5-5.1)
--- NOTE | 2024-08-13 07:59 | Hospitalist Progress Note ---
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 gentamicin but completed 08/02 Continue to hold metformin, furosemide and losartan No obstruction or stones on CT abdomen/pelvis. Measurement Supervisor consulting Cr continues to rise but UOP adequate and electrolytes ok. ua 08/09 with blood protein and casts (3) Prosthetic valve endocarditis: Plan: Viridans strep, mitral valve vegetation seen on DION. Has bioprosthetic MVR and AVR See above. Recommendation was for 2 weeks IV gentamycin (completed 08/02) and six weeks ceftriaxone CRP 16 --> 11.5-->24.9, ESR increased from 86-->106, 105 blood cultures 08/05 and 08/07 no growth to date stopping ceftrixone, cefazolin (4) SIADH (syndrome of inappropriate ADH production): Plan: resolved urine sodium elevated because of loop diuretic normal salt diet (currently NPO for ultrasound) Mentation is improved -Na bicarb po started by nephrology since then -LYNN resolved (5) Controlled diabetes mellitus with microalbuminuria, without long-term current use of insulin: Plan: HbA1C 7.4 in June, no need to repeat Hold metformin due to LYNN continue premeal aspart and added glargine 5 bid (6) Benign essential hypertension: Plan: Continue amlodipine Hold losartan and furosemide due to LYNN as above Plan VTE Prophylaxis - apixaban reports two falls 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 Requested her number be entered in chart as an emergency contact since Ankush's doesn't fruit picker machine operator the home phone Admission and Anticipated Discharge Date Admission Date: August 05, 2024 Subjective pts rash and encephalopathy have resolved this am making question of timing of ceftriaxone a question Physical Exam Physical Exam: rash -resolved cardiac is regular lungs are clear but diminished at the bases encephalopathy has resolved Results & Data Results & Data Vital Signs (Past 12 Hours) Vital Signs Temp Pulse Pulse Resp BP Pulse Ox O2 Del Method 08/13/24 07:42 97.3 F L 84 20 135/73 96 Room Air 08/13/24 04:00 98.1 F 86 18 143/74 H 93 Room Air 08/13/24 00:00 97.9 F 91 H 18 101/64 94 Room Air 08/12/24 21:52 88 Laboratory Results reviewed cbc reviewed chemistry PG Care Time/CCT Total # of Minutes Spent Total Time Spent with Patient: Total time spent is greater than 50% in coordination of care (as documented) at patient's floor/unit and/or counseling patient: Coding Level of Care Code 30519 SUB INP/OBS CARE 3/50MIN Diagnoses Acute encephalopathy G93.40 LYNN (acute kidney injury) N17.9 Prosthetic valve endocarditis T82.6XXA; I38 SIADH (syndrome of inappropriate ADH production) E22.2 Controlled diabetes mellitus with microalbuminuria, without long-term current use of insulin E11.29; R80.9 Benign essential hypertension I10
[2024-08-13] MEDS: ceFAZolin 1000MG 1,000 MG/7.5 ML SYR IV SCH (10:07)
--- NOTE | 2024-08-13 10:14 | Nephrology Progress Note ---
Date of Service August 13, 2024 Assessment & Plan (1) LYNN (acute kidney injury): Plan: Non-oliguric. Volume status acceptable. Creatinine slightly improved. Electrolytes otherwise normal. LYNN attributed to ATN and intravascular volume depletion. Repeat metabolic profile tomorrow AM. Document strict I/O's. Medications are appropriate for kidney dysfunction. Continue to hold losartan and metformin. Rosuvastatin dose reduced to 10 mg daily pending improvement in eGFR. (2) Hypokalemia: Plan: Improved with PO replacement. Remains on KCl 20 mEQ BID. Monitor daily while inpatient. (3) Prosthetic valve endocarditis: Plan: Viridans strep with mitral valve vegetation. Bioprosthetic AVR and MVR. Completed gentamicin 08/02. Blood cultures 08/05 + 08/07 NGTD. Switched to Cefazolin. Does not appear to tolerate Ceftriaxone dye to encephalopathy and rash. (4) SIADH (syndrome of inappropriate ADH production): Plan: Sodium normalized. Volume status acceptable. Continue to monitor. PO fluid restriction has not been required. Admission and Anticipated Discharge Date Admission Date: August 05, 2024 Subjective No acute events overnight. Penny feels much better this AM. She is much more alert. Rash has cleared. She feels well overall. She denies fluid retention or edema. No fevers or chills. She did have some more bleeding from her nose this AM. Review of Systems Review of Systems: All systems reviewed & are unremarkable except as noted in HPI & below Physical Exam Constitutional: + frail appearing; no acute distress Eyes: + anicteric sclerae ENMT: Nose: + epistaxis Neck: normal visual inspection and trachea midline Respiratory: normal respiratory effort Auscultation: lungs clear to auscultation bilaterally Cardiovascular: Rate/Rhythm: regular rate Heart Sounds: normal S1 and normal S2 Extremities: + edema (improving) Musculoskeletal: Extremities: no cyanosis and no clubbing Skin: normal turgor; no rashes and no jaundice Neurologic: Motor/Sensory: no tremor and no asterixis Psychiatric: Orientation: alert and oriented x 3 Results & Data Vital Signs (Past 12 Hours) Vital Signs Temp Pulse Resp BP Pulse Ox O2 Del Method 08/13/24 07:42 36.3 C L 84 20 135/73 96 Room Air 08/13/24 04:00 36.7 C 86 18 143/74 H 93 Room Air 08/13/24 00:00 36.6 C 91 H 18 101/64 94 Room Air Laboratory Results Laboratory Results - last 24 hr 08/12/24 08/12/24 08/12/24 06:16 12:12 12:58 WBC RBC Hgb 8.3 L Hct MCV MCH MCHC RDW Std Deviation RDW Coeff of Viktor Plt Count MPV Sodium Potassium Chloride Carbon Dioxide Anion Gap BUN Creatinine Est Cr Clr Drug Dosing eGFR BUN/Creatinine Ratio Glucose POC Glucose 101 H Calcium Phosphorus Total Creatine Kinase 17 L Albumin 08/12/24 08/12/24 08/13/24 17:08 20:03 06:14 WBC 14.38 H RBC 2.83 L Hgb 7.4 L Hct 22.3 L MCV 78.8 L MCH 26.1 MCHC 33.2 RDW Std Deviation 44.4 RDW Coeff of Viktor 15.5 H Plt Count 183 MPV 10.6 Sodium 136 Potassium 3.7 Chloride 101 Carbon Dioxide 23 Anion Gap 12 H BUN 47 H Creatinine 2.64 H D Est Cr Clr Drug Dosing 14.9 eGFR 17.99 BUN/Creatinine Ratio 17.8 Glucose 169 H POC Glucose 111 H 138 H Calcium 8.3 L Phosphorus 4.8 D Total Creatine Kinase Albumin 2.8 L 08/13/24 08:05 WBC RBC Hgb Hct MCV MCH MCHC RDW Std Deviation RDW Coeff of Viktor Plt Count MPV Sodium Potassium Chloride Carbon Dioxide Anion Gap BUN Creatinine Est Cr Clr Drug Dosing eGFR BUN/Creatinine Ratio Glucose POC Glucose 188 H Calcium Phosphorus Total Creatine Kinase Albumin PG Care Time/CCT Total # of Minutes Spent Total Time Spent with Patient: Total time spent is greater than 50% in coordination of care (as documented) at patient's floor/unit and/or counseling patient: Coding Level of Care Code 04988 SUB INP/OBS CARE 3/50MIN Diagnoses LYNN (acute kidney injury) N17.9 Hypokalemia E87.6 Prosthetic valve endocarditis T82.6XXA; I38 SIADH (syndrome of inappropriate ADH production) E22.2
--- NOTE | 2024-08-13 10:40 | Infectious Disease Progress Nt ---
Date of Service August 13, 2024 Assessment & Plan (1) Leukocytosis: (2) LYNN (acute kidney injury): (3) Prosthetic valve endocarditis: (4) Viridans streptococci infection: Plan 78yo F with h/o and MS s/p bioprosthetic MV and bioprosthetic AV [place] [facility] [place] CHF, CAD, TIA, inflammatory arthritis, SIADH, recently admitted to [facility] on 07/17/24 - 07/23/24 with fatigue, confusion, and fever, dx with prosthetic mitral valve endocarditis with OSH BCx ([facility]) + Strep mutans ( 07/14) and BCx at [facility] ( 07/17) + Strep spp in 2 of 2 bottles (07/21 DION confirmed prosthetic mitral valve endocarditis, tx 6-week course of CTX 07/19 08/30 and a 2 week course of gentamicin 07/19 08/02), who presented on 08/05 with 2 days of general weakness and fatigue with recent fall due to unsteadiness. In the ED T36.5, pulse 76, RR 16, BP 117/68. Labs: WBC 11.36-, Na 128, BUN 29, Cr 2.41, PCT 0.85. UA 0-5 WBC. RVP neg. CXR without opacities, pleural effusions or pneumothorax. CT head neg. Renal ultrasound unremarkable. MRI brain with no evidence of septic emboli, noted chronic volume loss and age- related white matter changes. Her WBC increased to 18.06. Cr down 1.90. BCX ngtd. ID consulted 08/07 for history of prosthetic valve endocarditis, LYNN, lethargy and fever, one time Tmax 38 on 08/06 (04: 06). CXR with interstitial edema, trace pleural effusion with interval development of asymmetric R lung base opacites which may represent atelectasis or pneumonitis. CTAP was advised, study on 08/07 without acute findings. On 08/09, she was noted to be unresponsive, vitals stable, making gurgling noises. Her abx were changed to zosyn and linezolid x 1d. CTH negative. CTAP repeated 08/09 showed wall thickening of GB, small gallstones, mild fluid distended small bowel. RUQ u/s with GB wall thickening and pericholecystic fluid, no mccann sign. CRP up to 28 from 11, PCT up to 1.98>2.95 from 0.85. UA with 11-20 WBC. Mentation had improved on zosyn and abx were changed back to CTX on 08/12. However, that day she developed lethargy again along with a maculopapular rash. Mentation improved 08/13 with resolution of rash. I will change abx to cefazolin to cover her prosthetic valve endocarditis, which is due to Strep mutans. Unfortunately we dont have sensitivities after chart review. Her options would be vancomycin or a different penicillin. Given her rash, will hold off on PCNs and given renal issues, will also avoid vancomycin. Daptomycin in general should not be routinely used due to emergence of resistance in Strep viridans group and no availability of MICs on Strep mutans. Since cefazolin is relatively different from the other cephalosporins, will trial this medication (also discussed this option with [facility] ID pharmacist). I have also sent C diff given reported diarrhea. # AMS improved # Leukocytosis - downtrending # RUQ tenderness post fall # Prosthetic mitral valve endocarditis (seen on 07/21 DION) # Recent Strep mutans bacteremia 07/14 and Strep spp bacteremia 07/17 (2 of 2 bottles) # History of bioprosthetic mitral valve and bioprosthetic aortic valve replacements (06/19/2022 at [facility] [place]) # Antibiotic allergy history: penicillin (rash 44 years ago; no hx of anaphylaxis/throat closure # PICC in place # LYNN - improving - CTX stopped - I ordered cefazolin 1g IV q12h (increase dose as renal function improves) targeting her known PVE with end date 08/30 - stool C diff ordered ID will continue to follow. If questions or concerns, contact via [employer] or Infectious Disease Call Center . Marielle Sharif MD [facility], Division of Infectious Diseases IDConnect: [phone] Admission and Anticipated Discharge Date Admission Date: August 05, 2024 Subjective Subsequent visit was provided via telemedicine using two-way real-time interactive telecommunication between the patient and the telemedicine provider. For the duration of the visit, the provider was performing the assessment from a different facility than the patient. This includesuse of bluetooth stethoscope forauscultationperformed by the telepresenter that the telemedicine provider can hear if described in the physical exam. Oil Derrick Operator contact information: Please call ID Connect Call Center . (Phone Number For Physician Use Only) After establishing a telemedicine visit, patient was: Patient was verified with two unique identifiers, Patient/authorized rep acknowledged consent and understanding and Gave permission to continue telehealth session Time Spent with Patient: Subsequent => 55 min Patient says she didn't feel well yesterday, had felt off and was confused. Also said she had a rash on her chest and extremities that is now resolved. Not pruritic. Today, she is feeling better. She is also reporting 5-6 loose watery stools. No abdominal pain. Physical Exam Physical Exam: General: Awake, alert, some slurring, no acute distress HEENT: NC/AT, EOMI, mmm Neck: supple Lungs: respirations non-labored Abdomen: soft, NT/ND Skin: faint pinkish rash on legs Results & Data Vital Signs (Past 12 Hours) Vital Signs Temp Pulse Resp BP Pulse Ox O2 Del Method 08/13/24 07:42 36.3 C L 84 20 135/73 96 Room Air 08/13/24 04:00 36.7 C 86 18 143/74 H 93 Room Air 08/13/24 00:00 36.6 C 91 H 18 101/64 94 Room Air Laboratory Results Labs reviewed. Diagnostic Findings Imaging reviewed.
[2024-08-13 18:08] LABS: Cdiff Antigen Positive; Cdiff Toxin A+B Negative Cdiff Toxin (Negative); Cdiff Toxin B Gene (2yr or >) Positive Cdiff Gene (Neg)
--- NOTE | 2024-08-13 23:17 | XCELERA ---
[id number]
--- NOTE | 2024-08-14 08:48 | Infectious Disease Progress Nt ---
Date of Service August 14, 2024 Assessment & Plan (1) Leukocytosis: (2) Prosthetic valve endocarditis: (3) LYNN (acute kidney injury): (4) Viridans streptococci infection: Plan 78yo F with h/o and MS s/p bioprosthetic MV and [place]oprosthetic AV [place] [facility] [place] CHF, CAD, TIA, inflammatory arthritis, SIADH, recently admitted to [facility] on 07/17/24 - 07/23/24 with fatigue, confusion, and fever, dx with prosthetic mitral valve endocarditis with OSH BCx ([facility]) + Strep mutans ( 07/14) and BCx at [facility] ( 07/17) + Strep spp in 2 of 2 bottles (07/21 DION confirmed prosthetic mitral valve endocarditis, tx 6-week course of CTX 07/19 08/30 and a 2 week course of gentamicin 07/19 08/02), who presented on 08/05 with 2 days of general weakness and fatigue with recent fall due to unsteadiness. In the ED T36.5, pulse 76, RR 16, BP 117/68. Labs: WBC 11.36-, Na 128, BUN 29, Cr 2.41, PCT 0.85. UA 0-5 WBC. RVP neg. CXR without opacities, pleural effusions or pneumothorax. CT head neg. Renal ultrasound unremarkable. MRI brain with no evidence of septic emboli, noted chronic volume loss and age- related white matter changes. Her WBC increased to 18.06. Cr down 1.90. BCX ngtd. ID consulted 08/07 for history of prosthetic valve endocarditis, LYNN, lethargy and fever, one time Tmax 38 on 08/06 (04: 06). CXR with interstitial edema, trace pleural effusion with interval development of asymmetric R lung base opacites which may represent atelectasis or pneumonitis. CTAP was advised, study on 08/07 without acute findings. On 08/09, she was noted to be unresponsive, vitals stable, making gurgling noises. Her abx were changed to zosyn and linezolid x 1d. CTH negative. CTAP repeated 08/09 showed wall thickening of GB, small gallstones, mild fluid distended small bowel. RUQ u/s with GB wall thickening and pericholecystic fluid, no mccann sign. CRP up to 28 from 11, PCT up to 1.98>2.95 from 0.85. UA with 11-20 WBC. Mentation had improved on zosyn and abx were changed back to CTX on 08/12. However, that day she developed lethargy again along with a maculopapular rash. Mentation improved 08/13 with resolution of rash. Abx changed to cefazolin on 08/13, doing well on this regimen today. She did report loose stools, C diff tested, gene+, toxin-. On late morning of 08/14, patient was inappropriately given CTX (which was not ordered) instead of cefazolin and patient developed a rash. I suspect leukocytosis may be related to number of her recent abx changes causing allergic reactions. Would monitor for now. Extensive workup has already been done. Patient has been tolerating cefazolin appropriately and I would continue this. Increase dose as renal function improves. Note cefazolin has a separate side chain from other cephalosporins and therefore should be adequately tolerated even if there is CTX-allergy. Patient also says her diarrhea has resolved and has had formed stools. C diff gene positive, toxin negative. Likely carrier, will hold on treatment for now. # Allergic reaction to CTX inadvertently given by nursing on 08/14 # Leukocytosis # AMS improved # RUQ tenderness post fall # Prosthetic mitral valve endocarditis (seen on 07/21 DION) # Recent Strep mutans bacteremia 07/14 and Strep spp bacteremia 07/17 (2 of 2 bottles) # History of bioprosthetic mitral valve and bioprosthetic aortic valve replacements (06[place]19/[place] [facility] [place] # Antibiotic allergy history: penicillin (rash 44 years ago; no hx of anaphylaxis/throat closure # PICC in place # LYNN - improving - monitor WBC count and temp - continue cefazolin 1g IV q12h (increase dose as renal function improves, goal 2g IV q8h when CrCl > 50) - continue abx for known PVE with end date 08/30 - continue outpatient monitoring with CBC w diff and CMP while on IV abx - f/u with local outpatient ID provider - if she develops fevers or rising leukocytosis, may consider repeating TTE to ensure she doesnt have any worsening of her endocarditis (note no prior sensitivities of Strep in cultures) - if she develops >3 loose watery stools in 24h, please start fidaxomicin for C diff ID will continue to follow. If questions or concerns, contact via [employer] or Infectious Disease Call Center . Marielle Sharif MD [facility], Division of Infectious Diseases IDConnect: [phone] Admission and Anticipated Discharge Date Admission Date: August 05, 2024 Subjective Subsequent visit was provided via telemedicine using two-way real-time interactive telecommunication between the patient and the telemedicine provider. For the duration of the visit, the provider was performing the assessment from a different facility than the patient. This includesuse of bluetooth stethoscope forauscultationperformed by the telepresenter that the tele medicine provider can hear if described in the physical exam. Rolfer contact information: Please call ID Connect Call Center . (Phone Number For Physician Use Only) After establishing a telemedicine visit, patient was: Patient was verified with two unique identifiers, Patient/authorized rep acknowledged consent and understanding and Gave permission to continue telehealth session Time Spent with Patient: Subsequent => 55 min Patient feeling well. She says she had a formed stool today. Had diarrhe for only half a day yesterday. No abdominal pain. I was messaged around noon that patient was inappropriately given CTX instead of cefazolin that is ordered and developed a rash. Physical Exam Physical Exam: General: Awake, alert, some slurring, no acute distress HEENT: NC/AT, EOMI, mmm Neck: supple Lungs: respirations non-labored Abdomen: soft, NT/ND Results & Data Vital Signs (Past 12 Hours) Vital Signs Temp Pulse Pulse Resp BP Pulse Ox O2 Del Method 08/14/24 07:41 68 08/14/24 07:26 36.6 C 76 20 151/73 H 95 Room Air 08/14/24 03:28 36.4 C L 68 16 158/71 H 98 Room Air 08/14/24 00:47 84 08/13/24 23:15 36.4 C L 75 16 148/74 H 97 Room Air Laboratory Results Labs reviewed.
[2024-08-14 08:51] LABS: Hematocrit (blood only) 21.9 % (37.0-47.0); Hemoglobin 7.3 g/dl (12.0-16.0); Mean Corpuscular Hemoglobin 26.4 pg (25.0-34.0); Mean Corpuscular Hgb Conc 33.3 g/dL (32.0-36.0); Mean Corpuscular Volume 79.3 fL (80.0-100.0); Platelet Count 225 K/uL (130-400); RDW Coefficient of Variation 15.3 % (11.5-14.5); RDW Standard Deviation 44.2 fL (36.4-46.3); Red Blood Count 2.76 M/uL (4.20-5.40); White Blood Count 17.26 K/ul (4.8-10.8)
[2024-08-14 09:07] LABS: BUN Creatinine Ratio 18.9 (10-20); Calcium 8.5 mg/dl (8.6-10.3); Creatinine Clr Calc Pharmacy 15.9 ml/min
--- NOTE | 2024-08-14 10:06 | Hospitalist Progress Note ---
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 Has bioprosthetic MVR and AVR Recommendation was for 2 weeks IV gentamycin (completed 08/02) and six weeks ceftriaxone CRP 16 --> 11.5-->24.9, ESR increased from 86-->106, 105 blood cultures 08/05 and 08/07 no growth to date stopping ceftrixone due to allergic reaction, patient received a dose of cefazolin today and had an allergic reaction as well will defer to ID regarding antibiotics (3) Acute encephalopathy: Plan: Acute encephalopathy, resolved resolved hyponatremia -brain MRI with contrast 08/06 evaluate for septic emboli - was negative also no evidence of stroke (4) LYNN (acute kidney injury): Plan: 78 y/o woman 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 gentamicin but completed 08/02 Continue to hold metformin, furosemide and losartan No obstruction or stones on CT abdomen/pelvis. Cloth Cutter consulting (5) SIADH (syndrome of inappropriate ADH production): Plan: resolved urine sodium elevated because of loop diuretic normal salt diet (currently NPO for ultrasound) Mentation is improved -Na bicarb po started by nephrology since then -LYNN resolved (6) Controlled diabetes mellitus with microalbuminuria, without long-term current use of insulin: Plan: HbA1C 7.4 in June, no need to repeat Hold metformin due to LYNN continue premeal aspart and added glargine 5 bid (7) Benign essential hypertension: Plan: Continue amlodipine Hold losartan and furosemide due to LYNN as above Plan VTE Prophylaxis - apixaban reports two falls 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 Physical Exam Physical Exam: The patient is awake, alert and oriented 3, well developed and well nourished, normocephalic and atraumatic, lying in bed and in no acute distress. HEENT--PERRL, EOMI, mucous membranes and oropharynx mildly dry Neck--supple. No JVD. No bruits. Thyroid normal, trachea midline, no adenopathy. Heart--normal S1 and S2. No murmurs, rubs or gallops. Lungs--clear bilaterally, no respiratory distress, no accessory muscle use. Abdomen--normal bowel sounds and soft. Extremities--no cyanosis or clubbing. No edema. Dermatologic--normal skin turgor, normal color, no abnormal lymph nodes, no rash. Neurologic--cranial nerves II through XII grossly intact. Rheumatologic--normal range of motion. Psychiatric--normal affect. Results & Data Results & Data Vital Signs (Past 12 Hours) Vital Signs Temp Pulse Pulse Resp BP Pulse Ox O2 Del Method 08/14/24 07:41 68 08/14/24 07:26 97.9 F 76 20 151/73 H 95 Room Air 08/14/24 03:28 97.5 F L 68 16 158/71 H 98 Room Air 08/14/24 00:47 84 08/13/24 23:15 97.5 F L 75 16 148/74 H 97 Room Air PG Care Time/CCT Total # of Minutes Spent Total Time Spent with Patient: Total time spent is greater than 50% in coordination of care (as documented) at patient's floor/unit and/or counseling patient: Coding Level of Care Code 21242 SUB INP/OBS CARE 2/35MIN Diagnoses Allergic reaction caused by a drug T78.40XA Prosthetic valve endocarditis T82.6XXA; I38 Acute encephalopathy G93.40 LYNN (acute kidney injury) N17.9 SIADH (syndrome of inappropriate ADH production) E22.2 Controlled diabetes mellitus with microalbuminuria, without long-term current use of insulin E11.29; R80.9 Benign essential hypertension I10 Time Spent (min) 35
--- NOTE | 2024-08-14 10:09 | Nephrology Progress Note ---
Date of Service August 14, 2024 Assessment & Plan (1) LYNN (acute kidney injury): Plan: Non-oliguric. Volume status acceptable. Creatinine improving. Electrolytes otherwise normal. LYNN attributed to ATN. Now in recovery phase. Appears to be auto-diuresing. Volu me status acceptable. Repeat metabolic profile tomorrow AM. Document strict I/O's. Medications are appropriate for kidney dysfunction. Continue to hold losartan and metformin. Rosuvastatin dose reduced to 10 mg daily pending improvement in eGFR. (2) Hypokalemia: Plan: Remains on KCl 20 mEQ BID. Additional 20 mEq provided this AM. Monitor daily while inpatient. Check Mg with AM labs. (3) Prosthetic valve endocarditis: Plan: Viridans strep with mitral valve vegetation. Bioprosthetic AVR and MVR. Completed gentamicin 08/02. Blood cultures 08/05 + 08/07 NGTD. Switched to Cefazolin. Did not tolerate Ceftriaxone -- encephalopathy and rash. (4) SIADH (syndrome of inappropriate ADH production): Plan: Identified during prior admission. Sodium dropped to 123 mmol/L with isotonic fluids last weekend. Sodium has now normalized. Volume status acceptable. Continue to monitor. PO fluid restriction has not been required. Remains on NaHCO3 supplement twice daily. Admission and Anticipated Discharge Date Admission Date: August 05, 2024 Subjective No acute events overnight. No fevers or chills. Penny was working with OT this AM. She reports feeling better overall. Increased urine output noted. Denies significant fluid retention or edema. Denies shortness of breath. Nose bleeding resolved. Review of Systems Review of Systems: All systems reviewed & are unremarkable except as noted in HPI & below Physical Exam Constitutional: well developed; no acute distress Eyes: + anicteric sclerae ENMT: Mouth: + dry oral mucous membranes Neck: normal visual inspection and trachea midline Respiratory: normal respiratory effort Auscultation: lungs clear to auscultation bilaterally and + rales (basilar) Cardiovascular: Rate/Rhythm: regular rate and + irregularly irregular Heart Sounds: normal S1 and normal S2 Extremities: + edema (improving) Musculoskeletal: Extremities: no cyanosis and no clubbing Skin: normal turgor; no rashes and no jaundice Neurologic: Motor/Sensory: no tremor and no asterixis Psychiatric: Orientation: alert and oriented x 3 Results & Data Vital Signs (Past 12 Hours) Vital Signs Temp Pulse Pulse Resp BP Pulse Ox O2 Del Method 08/14/24 09:56 Room Air 08/14/24 07:41 68 08/14/24 07:26 36.6 C 76 20 151/73 H 95 Room Air 08/14/24 03:28 36.4 C L 68 16 158/71 H 98 Room Air 08/14/24 00:47 84 08/13/24 23:15 36.4 C L 75 16 148/74 H 97 Room Air Laboratory Results Laboratory Results - last 24 hr 08/13/24 08/13/24 08/13/24 12:24 15:50 16:59 WBC RBC Hgb Hct MCV MCH MCHC RDW Std Deviation RDW Coeff of Viktor Plt Count MPV Sodium Potassium Chloride Carbon Dioxide Anion Gap BUN Creatinine Est Cr Clr Drug Dosing eGFR BUN/Creatinine Ratio Glucose POC Glucose 274 H 259 H Calcium Stl C. diff Tox B Gene Positive Cdiff Gene H Stl C.difficile Tox A&B Negative Cdiff Toxin 08/13/24 08/14/24 08/14/24 20:33 08:04 08:05 WBC 17.26 H RBC 2.76 L Hgb 7.3 L Hct 21.9 L MCV 79.3 L MCH 26.4 MCHC 33.3 RDW Std Deviation 44.2 RDW Coeff of Viktor 15.3 H Plt Count 225 MPV 10.0 Sodium 137 Potassium 3.0 L Chloride 101 Carbon Dioxide 28 Anion Gap 8 BUN 46 H Creatinine 2.44 H Est Cr Clr Drug Dosing 15.9 eGFR 19.77 BUN/Creatinine Ratio 18.9 Glucose 104 H POC Glucose 264 H 122 H Calcium 8.5 L Stl C. diff Tox B Gene Stl C.difficile Tox A&B PG Care Time/CCT Total # of Minutes Spent Total Time Spent with Patient: Total time spent is greater than 50% in coordination of care (as documented) at patient's floor/unit and/or counseling patient: Coding Level of Care Code 48833 SUB INP/OBS CARE 3/50MIN Diagnoses LYNN (acute kidney injury) N17.9 Hypokalemia E87.6 Prosthetic valve endocarditis T82.6XXA; I38 SIADH (syndrome of inappropriate ADH production) E22.2
[2024-08-14] MEDS: POTASSIUM CHLORIDE CRTAB 20 MEQ TABCR PO STA (11:08)
[2024-08-14] MEDS: diphenhydrAMINE 50 MG/ML VIAL IV PRN (11:08)
--- NOTE | 2024-08-15 09:00 | Nephrology Progress Note ---
Date of Service August 15, 2024 Assessment & Plan (1) LYNN (acute kidney injury): Plan: * LYNN possibly due to AIN from PCN/cephalosporin drug allergy. Patient developed rash/hives in response to ceftriaxone * Ceftriaxone has been stopped. Creatinine has improved from 3.19-->2.09. * Recommend discussion with ID wardrobe image consultant to determine whether cephalosporins should be avoided and alternative therapy for endocarditis provided * Continue to hold losartan and metformin * Monitor PRP, UO (2) Hypokalemia: Plan: * Remains on KCl 20 mEQ BID * Magnesium 1.4 this a.m. Will provide Magnesium sulfate 1 g IV x 1 today. (3) Prosthetic valve endocarditis: Plan: * Viridans strep with mitral valve vegetation. Bioprosthetic AVR and MVR. * Completed gentamicin 08/02. * Blood cultures 08/05 +, 08/07 NGTD. * Switched to Cefazolin. Did not tolerate Ceftriaxone -- encephalopathy and rash. Await further ID input (4) SIADH (syndrome of inappropriate ADH production): Plan: * Serum sodium 134 mmol/L this a.m. * Remains on NaCl 1 g daily Admission and Anticipated Discharge Date Admission Date: August 05, 2024 Subjective Ms. Camarena was evaluated in her hospital room this morning. She notes that her rash has resolved. She remains weak but is otherwise subjectively improved. Review of Systems Constitutional: no fever Eyes: no problem reported Ear, Nose, Mouth, Throat: no problem reported Respiratory: no cough and no dyspnea Cardiovascular: no chest pain Gastrointestinal: no abdominal pain, no nausea, no vomiting and no diarrhea/loose stools Integumentary: no rash Physical Exam Constitutional: + frail appearing; no acute distress Eyes: PERRL, conjunctivae normal, anicteric sclerae ENMT: external ear and nose normal, oropharynx normal Neck: trachea midline, no thyromegaly Respiratory: normal respiratory effort, lungs clear to auscultation Cardiovascular: RRR, no murmur, no edema Gastrointestinal (Abdomen): normal bowel sounds, soft, nontender, no hepatosplenomegaly Skin: no rashes, warm and dry Neurologic: Speech / Cognition: normal speech and normal cognition Results & Data Vital Signs (Past 12 Hours) Vital Signs Temp Pulse Pulse Resp BP BP Pulse Ox 08/15/24 07:38 36.9 C 86 20 146/77 H 96 08/15/24 03:07 36.8 C 87 18 163/70 H 96 08/14/24 23:55 08/14/24 23:26 37.3 C 89 18 143/65 H 97 08/14/24 21:58 95 H O2 Del Method 08/15/24 07:38 Room Air 08/15/24 03:07 Room Air 08/14/24 23:55 Room Air 08/14/24 23:26 Room Air 08/14/24 21:58 Laboratory Results Laboratory Results - last 24 hr 08/14/24 08/14/24 08/14/24 12:22 17:16 20:10 WBC RBC Hgb Hct MCV MCH MCHC RDW Std Deviation RDW Coeff of Viktor Plt Count MPV Sodium Potassium Chloride Carbon Dioxide Anion Gap BUN Creatinine Est Cr Clr Drug Dosing eGFR BUN/Creatinine Ratio Glucose POC Glucose 217 H 203 H 171 H Calcium Magnesium 08/15/24 08/15/24 08:10 09:17 WBC 14.87 H RBC 2.98 L Hgb 7.9 L Hct 23.8 L MCV 79.9 L MCH 26.5 MCHC 33.2 RDW Std Deviation 46.4 H RDW Coeff of Viktor 16.1 H Plt Count 211 MPV 10.4 Sodium 134 L Potassium 3.4 L Chloride 98 Carbon Dioxide 28 Anion Gap 8 BUN 35 H Creatinine 2.09 H D Est Cr Clr Drug Dosing 18.7 eGFR 23.81 BUN/Creatinine Ratio 16.7 Glucose 202 H POC Glucose 132 H Calcium 8.4 L Magnesium 1.4 L PG Care Time/CCT Total # of Minutes Spent Total Time Spent with Patient: Total time spent is greater than 50% in coordination of care (as documented) at patient's floor/unit and/or counseling patient: Coding Level of Care Code 28619 SUB INP/OBS CARE 3/50MIN Diagnoses LYNN (acute kidney injury) N17.9 Hypokalemia E87.6 Prosthetic valve endocarditis T82.6XXA; I38 SIADH (syndrome of inappropriate ADH production) E22.2
[2024-08-15 09:47] LABS: Hematocrit (blood only) 23.8 % (37.0-47.0); Hemoglobin 7.9 g/dl (12.0-16.0); Mean Corpuscular Hemoglobin 26.5 pg (25.0-34.0); Mean Corpuscular Hgb Conc 33.2 g/dL (32.0-36.0); Mean Corpuscular Volume 79.9 fL (80.0-100.0); Mean Platelet Volume 10.4 fL (9.4-12.4); Platelet Count 211 K/uL (130-400); RDW Coefficient of Variation 16.1 % (11.5-14.5); RDW Standard Deviation 46.4 fL (36.4-46.3); Red Blood Count 2.98 M/uL (4.20-5.40); White Blood Count 14.87 K/ul (4.8-10.8)
[2024-08-15 09:58] LABS: BUN Creatinine Ratio 16.7 (10-20); Calcium 8.4 mg/dl (8.6-10.3); Creatinine Clr Calc Pharmacy 18.7 ml/min; Magnesium 1.4 mg/dl (1.7-2.4); Potassium 3.4 mmol/L (3.5-5.1)
--- NOTE | 2024-08-15 10:12 | Hospitalist Progress Note ---
Date of Service August 15, 2024 Assessment & Plan (1) Allergic reaction caused by a drug: Plan: Patient has allergy to Ceftriaxone Was inappropriately given ceftriaxone again instead of cefazolin and she developed a rash She is doing well today, no complaints (2) Prosthetic valve endocarditis: Plan: Viridans strep, mitral valve vegetation seen on DION. 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 gentamicin but completed 08/02 Continue to hold metformin, furosemide and losartan No obstruction or stones on CT abdomen/pelvis. Eyewear Manufacturing Supervisor consulting (5) SIADH (syndrome of inappropriate ADH production): Plan: resolved urine sodium elevated because of loop diuretic normal salt diet (currently NPO for ultrasound) Mentation is improved -Na bicarb po started by nephrology since then -LYNN resolved (6) Controlled diabetes mellitus with microalbuminuria, without long-term current use of insulin: Plan: HbA1C 7.4 in June, no need to repeat Hold metformin due to LYNN continue premeal aspart and added glargine 5 bid (7) Benign essential hypertension: Plan: Continue amlodipine Hold losartan and furosemide due to LYNN as above Plan VTE Prophylaxis - apixaban reports two falls 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 Physical Exam Physical Exam: The patient is awake, alert and oriented 3, well developed and well nourished, normocephalic and atraumatic, lying in bed and in no acute distress. HEENT--PERRL, EOMI, mucous membranes and oropharynx mildly dry Neck--supple. No JVD. No bruits. Thyroid normal, trachea midline, no adenopathy. Heart--normal S1 and S2. No murmurs, rubs or gallops. Lungs--clear bilaterally, no respiratory distress, no accessory muscle use. Abdomen--normal bowel sounds and soft. Extremities--no cyanosis or clubbing. No edema. Dermatologic--normal skin turgor, normal color, no abnormal lymph nodes, no rash. Neurologic--cranial nerves II through XII grossly intact. Rheumatologic--normal range of motion. Psychiatric--normal affect. Results & Data Results & Data Vital Signs (Past 12 Hours) Vital Signs Temp Pulse Resp BP BP Pulse Ox O2 Del Method 08/15/24 07:38 98.4 F 86 20 146/77 H 96 Room Air 08/15/24 03:07 98.2 F 87 18 163/70 H 96 Room Air 08/14/24 23:55 Room Air 08/14/24 23:26 99.1 F 89 18 143/65 H 97 Room Air PG Care Time/CCT Total # of Minutes Spent Total Time Spent with Patient: Total time spent is greater than 50% in coordination of care (as documented) at patient's floor/unit and/or counseling patient: Coding Level of Care Code 83959 SUB INP/OBS CARE 2/35MIN Diagnoses Allergic reaction caused by a drug T78.40XA Prosthetic valve endocarditis T82.6XXA; I38 Acute encephalopathy G93.40 LYNN (acute kidney injury) N17.9 SIADH (syndrome of inappropriate ADH production) E22.2 Controlled diabetes mellitus with microalbuminuria, without long-term current use of insulin E11.29; R80.9 Benign essential hypertension I10 Time Spent (min) 35
[2024-08-15] MEDS: MAGNESIUM SULFATE / D5W 1 GM/100 ML BAG IV ONE (12:19)
[2024-08-16 06:43] LABS: Hematocrit (blood only) 22.5 % (37.0-47.0); Hemoglobin 7.4 g/dl (12.0-16.0); Mean Corpuscular Hemoglobin 26.7 pg (25.0-34.0); Mean Corpuscular Hgb Conc 32.9 g/dL (32.0-36.0); Mean Corpuscular Volume 81.2 fL (80.0-100.0); Mean Platelet Volume 10.4 fL (9.4-12.4); Platelet Count 169 K/uL (130-400); RDW Coefficient of Variation 16.1 % (11.5-14.5); RDW Standard Deviation 47.4 fL (36.4-46.3); Red Blood Count 2.77 M/uL (4.20-5.40); White Blood Count 14.94 K/ul (4.8-10.8)
[2024-08-16 07:09] LABS: BUN Creatinine Ratio 16.1 (10-20); Calcium 8.3 mg/dl (8.6-10.3); Magnesium 1.5 mg/dl (1.7-2.4); Potassium 3.3 mmol/L (3.5-5.1)
--- NOTE | 2024-08-16 09:00 | Nephrology Progress Note ---
Date of Service August 16, 2024 Assessment & Plan (1) LYNN (acute kidney injury): Plan: * LYNN possibly due to AIN from PCN/cephalosporin drug allergy. Patient developed rash/hives in response to ceftriaxone * Ceftriaxone has been stopped. Creatinine has improved from 3.19-->1.93 (baseline creatinine 1.0). * Recommend discussion with ID wine consultant to determine whether cephalosporins should be avoided and alternative therapy for endocarditis provided * Continue to hold losartan and metformin * Monitor PRP, UO (2) Anemia: Plan: * Will provide SQ GUS this morning * Will order iron studies w/ next lab draw (3) Hypokalemia: Plan: * Remains on KCl 20 mEQ BID * Magnesium 1.5 this a.m. Will provide Magnesium sulfate 1 g IV x 1 today. (4) Prosthetic valve endocarditis: Plan: * Viridans strep with mitral valve vegetation. Bioprosthetic AVR and MVR. * Completed gentamicin 08/02. * Blood cultures 08/05 +, 08/07 NGTD. * Switched to Cefazolin. Did not tolerate Ceftriaxone -- encephalopathy and rash. Await further ID input (5) SIADH (syndrome of inappropriate ADH production): Plan: * Serum sodium 134 mmol/L this a.m. * Remains on NaCl 1 g daily Admission and Anticipated Discharge Date Admission Date: August 05, 2024 Subjective Ms. Camarena was evaluated in her hospital room this morning. She remains weak but is otherwise subjectively improved. She voices no new medical concerns. Review of Systems Constitutional: no fever Eyes: no problem reported Ear, Nose, Mouth, Throat: no problem reported Respiratory: no cough and no dyspnea Cardiovascular: no chest pain Gastrointestinal: no abdominal pain, no nausea, no vomiting and no diarrhea/loose stools Integumentary: no rash Physical Exam Constitutional: + frail appearing; no acute distress Eyes: PERRL, conjunctivae normal, anicteric sclerae ENMT: external ear and nose normal, oropharynx normal Neck: trachea midline, no thyromegaly Respiratory: normal respiratory effort, lungs clear to auscultation Cardiovascular: RRR, no murmur, no edema Gastrointestinal (Abdomen): normal bowel sounds, soft, nontender, no hepatosplenomegaly Skin: no rashes, warm and dry Neurologic: Speech / Cognition: normal speech and normal cognition Results & Data Vital Signs (Past 12 Hours) Vital Signs Temp Pulse Pulse Resp BP BP Pulse Ox 08/16/24 07:53 36.9 C 81 16 127/67 96 08/16/24 07:22 08/16/24 03:02 37.1 C 80 18 124/69 97 08/15/24 22:29 36.9 C 82 18 134/73 97 08/15/24 22:00 81 O2 Del Method 08/16/24 07:53 Room Air 08/16/24 07:22 Room Air 08/16/24 03:02 Room Air 08/15/24 22:29 Room Air 08/15/24 22:00 Laboratory Results Laboratory Results - last 24 hr 08/15/24 08/15/24 08/15/24 09:17 12:06 17:06 WBC 14.87 H RBC 2.98 L Hgb 7.9 L Hct 23.8 L MCV 79.9 L MCH 26.5 MCHC 33.2 RDW Std Deviation 46.4 H RDW Coeff of Viktor 16.1 H Plt Count 211 MPV 10.4 Sodium 134 L Potassium 3.4 L Chloride 98 Carbon Dioxide 28 Anion Gap 8 BUN 35 H Creatinine 2.09 H D Est Cr Clr Drug Dosing 18.7 eGFR 23.81 BUN/Creatinine Ratio 16.7 Glucose 202 H POC Glucose 229 H 155 H Calcium 8.4 L Magnesium 1.4 L 08/15/24 08/16/24 08/16/24 20:49 06:16 07:15 WBC 14.94 H RBC 2.77 L Hgb 7.4 L Hct 22.5 L MCV 81.2 MCH 26.7 MCHC 32.9 RDW Std Deviation 47.4 H RDW Coeff of Viktor 16.1 H Plt Count 169 MPV 10.4 Sodium 134 L Potassium 3.3 L Chloride 100 Carbon Dioxide 26 Anion Gap 8 BUN 31 H Creatinine 1.93 H Est Cr Clr Drug Dosing 20.0 eGFR 26.20 BUN/Creatinine Ratio 16.1 Glucose 121 H POC Glucose 216 H 133 H Calcium 8.3 L Magnesium 1.5 L PG Care Time/CCT Total # of Minutes Spent Total Time Spent with Patient: Total time spent is greater than 50% in coordination of care (as documented) at patient's floor/unit and/or counseling patient: Coding Level of Care Code 44957 SUB INP/OBS CARE 3/50MIN Diagnoses LYNN (acute kidney injury) N17.9 Anemia D64.9 Hypokalemia E87.6 Prosthetic valve endocarditis T82.6XXA; I38 SIADH (syndrome of inappropriate ADH production) E22.2
--- NOTE | 2024-08-16 09:52 | Hospitalist Progress Note ---
Date of Service August 16, 2024 Assessment & Plan (1) Allergic reaction caused by a drug: Plan: Patient has allergy to Ceftriaxone On the ,Was inappropriately given ceftriaxone again instead of cefazolin and she developed a rash She is doing well today, no complaints (2) Prosthetic valve endocarditis: Plan: Viridans strep, mitral valve vegetation seen on DION. 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 gentamicin but completed 08/02 Continue to hold metformin, furosemide and losartan No obstruction or stones on CT abdomen/pelvis. 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 Physical Exam Physical Exam: The patient is awake, alert and oriented 3, well developed and well nourished, normocephalic and atraumatic, lying in bed and in no acute distress. HEENT--PERRL, EOMI, mucous membranes and oropharynx mildly dry Neck--supple. No JVD. No bruits. Thyroid normal, trachea midline, no adenopathy. Heart--normal S1 and S2. No murmurs, rubs or gallops. Lungs--clear bilaterally, no respiratory distress, no accessory muscle use. Abdomen--normal bowel sounds and soft. Extremities--no cyanosis or clubbing. No edema. Dermatologic--normal skin turgor, normal color, no abnormal lymph nodes, no rash. Neurologic--cranial nerves II through XII grossly intact. Rheumatologic--normal range of motion. Psychiatric--normal affect. Results & Data Results & Data Vital Signs (Past 12 Hours) Vital Signs Temp Pulse Pulse Resp BP BP Pulse Ox 08/16/24 07:53 98.4 F 81 16 127/67 96 08/16/24 07:22 08/16/24 03:02 98.8 F 80 18 124/69 97 08/15/24 22:29 98.4 F 82 18 134/73 97 08/15/24 22:00 81 O2 Del Method 08/16/24 07:53 Room Air 08/16/24 07:22 Room Air 08/16/24 03:02 Room Air 08/15/24 22:29 Room Air 08/15/24 22:00 PG Care Time/CCT Total # of Minutes Spent Total Time Spent with Patient: Total time spent is greater than 50% in coordination of care (as documented) at patient's floor/unit and/or counseling patient: Coding Level of Care Code 95535 SUB INP/OBS CARE 2/35MIN Diagnoses Allergic reaction caused by a drug T78.40XA Prosthetic valve endocarditis T82.6XXA; I38 Acute encephalopathy G93.40 LYNN (acute kidney injury) N17.9 SIADH (syndrome of inappropriate ADH production) E22.2 Controlled diabetes mellitus with microalbuminuria, without long-term current use of insulin E11.29; R80.9 Benign essential hypertension I10 Time Spent (min) 35
[2024-08-16] MEDS: MAGNESIUM SULFATE / D5W 1 GM/100 ML BAG IV ONE (12:26)
[2024-08-16] MEDS: ceFAZolin 2000MG 2,000 MG/15 ML SYR IV SCH (17:55)
[2024-08-17 06:35] LABS: Hematocrit (blood only) 21.7 % (37.0-47.0); Mean Corpuscular Hemoglobin 26.4 pg (25.0-34.0); Mean Corpuscular Hgb Conc 32.3 g/dL (32.0-36.0); Mean Corpuscular Volume 81.9 fL (80.0-100.0); Mean Platelet Volume 10.7 fL (9.4-12.4); Platelet Count 159 K/uL (130-400); RDW Coefficient of Variation 16.3 % (11.5-14.5); RDW Standard Deviation 48.3 fL (36.4-46.3); Red Blood Count 2.65 M/uL (4.20-5.40); White Blood Count 14.52 K/ul (4.8-10.8)
[2024-08-17 07:00] LABS: BUN Creatinine Ratio 12.9 (10-20); Creatinine Clr Calc Pharmacy 18.2 ml/min; Magnesium 1.6 mg/dl (1.7-2.4); Potassium 3.3 mmol/L (3.5-5.1)
[2024-08-17 07:20] LABS: Ferritin 271.3 ng/ml (8-388)
[2024-08-17] MEDS: POTASSIUM CHLORIDE CRTAB 20 MEQ TABCR PO STA (08:01)
[2024-08-17] MEDS: MAGNESIUM SULFATE / D5W 1 GM/100 ML BAG IV SCH (08:03)
--- NOTE | 2024-08-17 08:49 | Nephrology Progress Note ---
Date of Service August 17, 2024 Assessment & Plan (1) LYNN (acute kidney injury): Plan: * LYNN possibly due to AIN from PCN/cephalosporin drug allergy. Patient developed rash/hives in response to ceftriaxone * Ceftriaxone has been stopped. Creatinine has improved from 3.19-->2.0 (baseline creatinine 1.0). * Recommend discussion with ID alliances consultant to determine whether cephalosporins should be avoided and alternative therapy for endocarditis provided * Continue to hold losartan and metformin * Monitor PRP, UO (2) Anemia: Plan: * Epogen 10,000 units SQ x1 administered 08/16/24 * Iron saturation and ferritin are low. Will order Venofer 100 mg IV daily x 5 doses * If discharge is anticipated, would consider FeSO4 325 mg QOD to help correct anemia (3) Hypokalemia: Plan: * Primary service has ordered KCl and Mg supplements (4) Prosthetic valve endocarditis: Plan: * Viridans strep with mitral valve vegetation. Bioprosthetic AVR and MVR. * Completed gentamicin 08/02. * Blood cultures 08/05 +, 08/07 NGTD. * Switched to Cefazolin. Did not tolerate Ceftriaxone -- encephalopathy and rash. Await further ID input (5) SIADH (syndrome of inappropriate ADH production): Plan: * Serum sodium 134 mmol/L this a.m. * Remains on NaCl 1 g daily Admission and Anticipated Discharge Date Admission Date: August 05, 2024 Subjective Ms. Camarena was evaluated in her hospital room this morning. She remains weak and hopes to be transferred to a SNF near her home in [place], [place]. She voices no new medical concerns Review of Systems Constitutional: no fever Eyes: no problem reported Ear, Nose, Mouth, Throat: no problem reported Respiratory: no cough and no dyspnea Cardiovascular: no chest pain Gastrointestinal: no abdominal pain, no nausea, no vomiting and no diarrhea/loose stools Integumentary: no rash Physical Exam Constitutional: + frail appearing; no acute distress Eyes: PERRL, conjunctivae normal, anicteric sclerae ENMT: external ear and nose normal, oropharynx normal Neck: trachea midline, no thyromegaly Respiratory: normal respiratory effort, lungs clear to auscultation Cardiovascular: RRR, no murmur, no edema Gastrointestinal (Abdomen): normal bowel sounds, soft, nontender, no hepatosplenomegaly Skin: no rashes, warm and dry Neurologic: Speech / Cognition: normal speech and normal cognition Results & Data Vital Signs (Past 12 Hours) Vital Signs Temp Pulse Pulse Resp BP Pulse Ox O2 Del Method 08/17/24 07:57 36.6 C 72 17 135/65 97 Room Air 08/17/24 03:34 37.1 C 76 16 130/74 96 Room Air 08/17/24 00:15 37 C 81 16 148/75 H 96 Room Air 08/16/24 23:54 82 Laboratory Results Abnormal Lab Results 08/16/24 08/16/24 08/16/24 11:46 16:19 20:16 WBC RBC Hgb Hct MCV MCH MCHC RDW Std Deviation RDW Coeff of Viktor Plt Count MPV Sodium Potassium Chloride Carbon Dioxide Anion Gap BUN Creatinine Est Cr Clr Drug Dosing eGFR BUN/Creatinine Ratio Glucose POC Glucose 227 H 183 H 121 H Calcium Magnesium Iron TIBC Unsaturated IBC Transferrin % Sat Ferritin 08/17/24 08/17/24 06:06 08:25 WBC 14.52 H RBC 2.65 L Hgb 7.0 L Hct 21.7 L MCV 81.9 MCH 26.4 MCHC 32.3 RDW Std Deviation 48.3 H RDW Coeff of Viktor 16.3 H Plt Count 159 MPV 10.7 Sodium 134 L Potassium 3.3 L Chloride 101 Carbon Dioxide 27 Anion Gap 6 BUN 27 H Creatinine 2.09 H Est Cr Clr Drug Dosing 18.2 eGFR 23.81 BUN/Creatinine Ratio 12.9 Glucose 105 H POC Glucose 120 H Calcium 8.0 L Magnesium 1.6 L Iron 23 L TIBC 180 L Unsaturated IBC 157 Transferrin % Sat 13 L Ferritin 271.3 PG Care Time/CCT Total # of Minutes Spent Total Time Spent with Patient: Total time spent is greater than 50% in coordination of care (as documented) at patient's floor/unit and/or counseling patient: Coding Level of Care Code 59252 SUB INP/OBS CARE 3/50MIN Diagnoses LYNN (acute kidney injury) N17.9 Anemia D64.9 Hypokalemia E87.6 Prosthetic valve endocarditis T82.6XXA; I38 SIADH (syndrome of inappropriate ADH production) E22.2
[2024-08-17] MEDS: IRON SUCROSE 200 MG in SODIUM CHLORIDE 0.9% 100 ML IV SCH (11:17)
--- NOTE | 2024-08-17 12:18 | Hospitalist Progress Note ---
Date of Service August 17, 2024 Assessment & Plan (1) Allergic reaction caused by a drug: Plan: Patient has allergy to Ceftriaxone On the ,Was inappropriately given ceftriaxone again instead of cefazolin and she developed a rash She is doing well today, no complaints (2) Prosthetic valve endocarditis: Plan: Viridans strep, mitral valve vegetation seen on DION. 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 gentamicin but completed 08/02 Continue to hold metformin, furosemide and losartan No obstruction or stones on CT abdomen/pelvis. 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 Physical Exam Physical Exam: The patient is awake, alert and oriented 3, well developed and well nourished, normocephalic and atraumatic, lying in bed and in no acute distress. HEENT--PERRL, EOMI, mucous membranes and oropharynx mildly dry Neck--supple. No JVD. No bruits. Thyroid normal, trachea midline, no adenopathy. Heart--normal S1 and S2. No murmurs, rubs or gallops. Lungs--clear bilaterally, no respiratory distress, no accessory muscle use. Abdomen--normal bowel sounds and soft. Extremities--no cyanosis or clubbing. No edema. Dermatologic--normal skin turgor, normal color, no abnormal lymph nodes, no rash. Neurologic--cranial nerves II through XII grossly intact. Rheumatologic--normal range of motion. Psychiatric--normal affect. Results & Data Results & Data Vital Signs (Past 12 Hours) Vital Signs Temp Pulse Resp BP Pulse Ox O2 Del Method 08/17/24 11:43 97.9 F 75 18 132/57 L 99 Room Air 08/17/24 07:57 97.9 F 72 17 135/65 97 Room Air 08/17/24 03:34 98.8 F 76 16 130/74 96 Room Air PG Care Time/CCT Total # of Minutes Spent Total Time Spent with Patient: Total time spent is greater than 50% in coordination of care (as documented) at patient's floor/unit and/or counseling patient: Coding Level of Care Code 04394 SUB INP/OBS CARE 2/35MIN Diagnoses Allergic reaction caused by a drug T78.40XA Prosthetic valve endocarditis T82.6XXA; I38 Acute encephalopathy G93.40 LYNN (acute kidney injury) N17.9 SIADH (syndrome of inappropriate ADH production) E22.2 Controlled diabetes mellitus with microalbuminuria, without long-term current use of insulin E11.29; R80.9 Benign essential hypertension I10 Time Spent (min) 35
--- NOTE | 2024-08-17 17:00 | Infectious Disease Progress Nt ---
Date of Service August 17, 2024 Assessment & Plan (1) Leukocytosis: (2) Prosthetic valve endocarditis: (3) LYNN (acute kidney injury): (4) Viridans streptococci infection: Plan 78yo F with h/o and MS s/p bioprosthetic MV and bioprosthetic AV [place] [facility] CHF, CAD, TIA, inflammatory arthritis, SIADH, recently admitted to [facility] on 07/17/24 - 07/23/24 with fatigue, confusion, and fever, dx with prosthetic mitral valve endocarditis with OSH BCx ([facility]) + Strep mutans ( 07/14) and BCx at [facility] ( 07/17) + Strep spp in 2 of 2 bottles (07/21 DION confirmed prosthetic mitral valve endocarditis, tx 6-week course of CTX 07/19 08/30 and a 2 week course of gentamicin 07/19 08/02), who presented on 08/05 with 2 days of general weakness and fatigue with recent fall due to unsteadiness. In the ED T36.5, pulse 76, RR 16, BP 117/68. Labs: WBC 11.36-, Na 128, BUN 29, Cr 2.41, PCT 0.85. UA 0-5 WBC. RVP neg. CXR without opacities, pleural effusions or pneumothorax. CT head neg. Renal ultrasound unremarkable. MRI brain with no evidence of septic emboli, noted chronic volume loss and age- related white matter changes. Her WBC increased to 18.06. Cr down 1.90. BCX ngtd. ID consulted 08/07 for history of prosthetic valve endocarditis, LYNN, lethargy and fever, one time Tmax 38 on 08/06 (04: 06). CXR with interstitial edema, trace pleural effusion with interval development of asymmetric R lung base opacites which may represent atelectasis or pneumonitis. CTAP was advised, study on 08/07 without acute findings. On 08/09, she was noted to be unresponsive, vitals stable, making gurgling noises. Her abx were changed to zosyn and linezolid x 1d. CTH negative. CTAP repeated 08/09 showed wall thickening of GB, small gallstones, mild fluid distended small bowel. RUQ u/s with GB wall thickening and pericholecystic fluid, no mccann sign. CRP up to 28 from 11, PCT up to 1.98>2.95 from 0.85. UA with 11-20 WBC. Mentation had improved on zosyn and abx were changed back to CTX on 08/12. However, that day she developed lethargy again along with a maculopapular rash. Mentation improved 08/13 with resolution of rash. Abx changed to cefazolin on 08/13, doing well on this regimen today. She did report loose stools, C diff tested, gene+, toxin-. On late morning of 08/14, patient was inappropriately given CTX (which was not ordered) instead of cefazolin and patient developed a rash. I suspect leukocytosis may be related to number of her recent abx changes causing allergic reactions. Would monitor for now. Extensive workup has already been done. Patient has been tolerating cefazolin appropriately and I would continue this. Increase dose as renal function improves. Note cefazolin has a separate side chain from other cephalosporins and therefore should be adequately tolerated even if there is CTX-allergy. Patient also says her diarrhea has resolved and has had formed stools. C diff gene positive, toxin negative. Likely carrier, will hold on treatment for now. # Allergic reaction to CTX inadvertently given by nursing on 08/14 # Leukocytosis # AMS improved # RUQ tenderness post fall # Prosthetic mitral valve endocarditis (seen on 07/21 DION) # Recent Strep mutans bacteremia 07/14 and Strep spp bacteremia 07/17 (2 of 2 bottles) # History of bioprosthetic mitral valve and bioprosthetic aortic valve replacements [place] [facility] # Antibiotic allergy history: penicillin (rash 44 years ago; no hx of anaphylaxis/throat closure # PICC in place # LYNN - improving - monitor WBC count and temp - continue cefazolin 1g IV q12h ( current crcl 18; increase dose as renal function improves, goal 2g IV q8h when CrCl > 50) - continue abx for known PVE with end date 08/30 - continue outpatient monitoring with CBC w diff and CMP while on IV abx - f/u with local outpatient ID provider - if she develops fevers or rising leukocytosis, may consider repeating TTE to ensure she doesnt have any worsening of her endocarditis (note no prior sensitivities of Strep in cultures) - if she develops >3 loose watery stools in 24h, please start fidaxomicin for C diff ID will continue to follow Sherri Mora MD, MPH Infectious Disease [facility], ID Division Call [phone] with questions Admission and Anticipated Discharge Date Admission Date: August 05, 2024 Subjective This patient recommendation is based on a telemedicine consult request which was completed asynchronously through chart review and information provided by the primary physician. The patient was not seen or examined today. The evaluation is consultative in nature and all patient care and treatment decisions can either be accepted or rejected by the patient's primary hospital-based treating physician using their own independent medical judgment for their patient. Time Spent Reviewing Chart: 21 - 30 minutes WBC 14.52 Results & Data Vital Signs (Past 12 Hours) Vital Signs Temp Pulse Resp BP Pulse Ox O2 Del Method 08/17/24 15:54 36.5 C 75 17 119/61 98 Room Air 08/17/24 11:43 36.6 C 75 18 132/57 L 99 Room Air 08/17/24 07:57 36.6 C 72 17 135/65 97 Room Air Laboratory Results Laboratory Results - last 48 hr 08/15/24 08/15/24 08/16/24 17:06 20:49 06:16 WBC 14.94 H RBC 2.77 L Hgb 7.4 L Hct 22.5 L MCV 81.2 MCH 26.7 MCHC 32.9 RDW Std Deviation 47.4 H RDW Coeff of Viktor 16.1 H Plt Count 169 MPV 10.4 Sodium 134 L Potassium 3.3 L Chloride 100 Carbon Dioxide 26 Anion Gap 8 BUN 31 H Creatinine 1.93 H Est Cr Clr Drug Dosing 20.0 eGFR 26.20 BUN/Creatinine Ratio 16.1 Glucose 121 H POC Glucose 155 H 216 H Calcium 8.3 L Magnesium 1.5 L Iron TIBC Unsaturated IBC Transferrin % Sat Ferritin 08/16/24 08/16/24 08/16/24 07:15 11:46 16:19 WBC RBC Hgb Hct MCV MCH MCHC RDW Std Deviation RDW Coeff of Viktor Plt Count MPV Sodium Potassium Chloride Carbon Dioxide Anion Gap BUN Creatinine Est Cr Clr Drug Dosing eGFR BUN/Creatinine Ratio Glucose POC Glucose 133 H 227 H 183 H Calcium Magnesium Iron TIBC Unsaturated IBC Transferrin % Sat Ferritin 08/16/24 08/17/2408/17/24 20:16 06:06 08:25 WBC 14.52 H RBC 2.65 L Hgb 7.0 L Hct 21.7 L MCV 81.9 MCH 26.4 MCHC 32.3 RDW Std Deviation 48.3 H RDW Coeff of Viktor 16.3 H Plt Count 159 MPV 10.7 Sodium 134 L Potassium 3.3 L Chloride 101 Carbon Dioxide 27 Anion Gap 6 BUN 27 H Creatinine 2.09 H Est Cr Clr Drug Dosing 18.2 eGFR 23.81 BUN/Creatinine Ratio 12.9 Glucose 105 H POC Glucose 121 H 120 H Calcium 8.0 L Magnesium 1.6 L Iron 23 L TIBC 180 L Unsaturated IBC 157 Transferrin % Sat 13 L Ferritin 271.3 08/17/24 12:25 WBC RBC Hgb Hct MCV MCH MCHC RDW Std Deviation RDW Coeff of Viktor Plt Count MPV Sodium Potassium Chloride Carbon Dioxide Anion Gap BUN Creatinine Est Cr Clr Drug Dosing eGFR BUN/Creatinine Ratio Glucose POC Glucose 218 H Calcium Magnesium Iron TIBC Unsaturated IBC Transferrin % Sat Ferritin Diagnostic Findings Microbiology 08/07/24 10:35 Blood Aerobic Blood Culture - Final No growth in Aerobic bottle after 5 days. 08/07/24 10:35 Blood Anaerobic Blood Culture - Final No growth in Anaerobic bottle after 5 days. 08/05/24 12:05 Blood Aerobic Blood Culture - Final No growth in Aerobic bottle after 5 days. 08/05/24 12:05 Blood Anaerobic Blood Culture - Final No growth in Anaerobic bottle after 5 days. 08/05/24 23:45 Urine,Clean Catch Urine Culture - Final Three types of organisms present, all moderate counts. Repeat collection recommended. No further identifications or sensitivities to follow. Medications Administered Home Medications Medication Instructions Recorded Confirmed Last Taken lancets 33 gauge (OneTouch Delica #100 ea 05/07/19 07/29/24 Unknown Lancets) blood sugar diagnostic #50 ea 06/07/22 07/29/24 Unknown cholecalciferol (vitamin D3) 25 2,000 unit PO DAILY #30 caps 08/16/22 08/05/24 08/04/24 mcg (1,000 unit) capsule (Vitamin D3) docusate sodium 100 mg capsule 100 mg PO DAILY 08/17/22 08/05/24 Unknown (Dulcolax Stool Softener (docusate)) fluticasone propionate 50 2 spray intranasal DAILY PRN 08/17/22 08/05/24 Unknown mcg/actuation nasal allergy symptoms spray,suspension losartan 100 mg tablet 100 mg PO DAILY #90 tabs 12/04/23 08/05/24 08/04/24 rosuvastatin 20 mg tablet 20 mg PO DAILY #90 tabs 12/04/23 08/05/24 08/04/24 albuterol sulfate 90 mcg/actuation 2 puff inhalation Q6H PRN 02/18/24 08/05/24 Unknown aerosol inhaler shortness of breath or wheezing #6.7 grams blood sugar diagnostic (OneTouch #100 ea 02/18/24 07/29/24 Unknown Ultra Test strips) blood-glucose meter (OneTouch #1 ea 02/18/24 07/29/24 Unknown Ultra2 Meter) lancets 30 gauge (OneTouch #100 ea 02/18/24 07/29/24 Unknown UltraSoft 2 Lancet) amitriptyline 10 mg tablet 20 mg (2 x 10 mg) PO DAILY #180 04/27/24 08/05/24 08/04/24 tabs furosemide 20 mg tablet 20 mg PO DAILY #90 tabs 06/16/24 08/05/24 08/04/24 metformin 500 mg tablet 500 mg PO BID #180 tabs 07/02/24 08/05/24 08/04/24 syringe with needle, safety 3 mL #10 ea 07/13/24 07/29/24 Unknown 25 gauge x 1" (BD Integra Syringe) amlodipine 5 mg tablet 5 mg PO DAILY 07/17/24 08/05/24 08/04/24 cyanocobalamin (vitamin B-12) 1,000 mcg IM UD 07/17/24 08/05/24 08/04/24 1,000 mcg/mL injection solution ceftriaxone 1 gram intravenous 2 g IV DAILY 07/27/24 08/05/24 08/04/24 piggyback apixaban 5 mg tablet (Eliquis) 5 mg PO BID #60 tabs 07/31/24 08/05/24 08/04/24 Active Medications Generic Name Dose Route Start Last Admin Trade Name Freq PRN Reason Stop Dose Admin Acetaminophen 650 mg 08/06/24 20:25 08/08/24 20:15 Acetaminophen 325 Mg Tab PO 09/05/24 20:24 650 mg Q6H PRN Administration Pain or Fever Albuterol 2.5 mg 08/07/24 17:08 08/09/24 00:01 Albuterol 0.083% Nebu Soln 3 Ml Vial NEB 09/06/24 17:07 2.5 mg Q4H PRN Administration Shortness Of Breath Or Wheezing Protocol Amitriptyline HCl 20 mg 08/05/24 21:00 08/16/24 21:05 Amitriptyline Hcl 10 Mg Tab PO 09/04/24 20:59 20 mg HS JON Administration Amlodipine Besylate 5 mg 08/06/24 09:00 08/10/24 08:01 Amlodipine Besylate 5 Mg Tab PO 09/05/24 08:59 5 mg DAILY JON Administration Apixaban 5 mg 08/05/24 21:00 08/17/24 07:54 Apixaban 5 Mg Tablet PO 09/04/24 20:59 5 mg BID JON Administration Diphenhydramine HCl 50 mg 08/14/24 10:52 08/14/24 11:08 Diphenhydramine 50 Mg/Ml Vial IV 09/13/24 10:51 50 mg Q6 PRN Administration itch Docusate Sodium 100 mg 08/06/24 09:00 08/17/24 08:01 Docusate Sodium 100 Mg Cap PO 09/05/24 08:59 100 mg DAILY JON Administration Heparin Sodium (Beef Lung) 5 ml 08/09/24 00:34 08/12/24 14:16 Heparin 10 Unit/Ml 5 Ml Flush FLUSH 09/08/24 00:33 5 ml PRN PRN Administration Flush Cefazolin Sodium 2,000 mg in 15 mls @ 3.75 mls/min 08/16/24 18:00 08/17/24 05:51 Ancef 2000mg IV 08/30/24 23:59 3.75 mls/min Q12H JON Administration Iron Sucrose 200 mg/ Sodium 110 mls @ 220 mls/hr 08/17/24 09:30 08/17/24 12:06 Chloride IV 08/21/24 09:29 Infused DAILY JON Infusion Protocol Insulin Aspart 0 units 08/05/24 21:00 08/17/24 13:22 Insulin Aspart Per Unit Charge SC 09/04/24 20:59 10 units ACHS JON Administration Insulin Glargine 5 units 08/10/24 21:00 08/17/24 09:54 Lantus Per Unit Charge SQ 09/09/24 20:59 5 units Q12H JON Administration Lactobacillus Acidophilus 1,250 mg 08/05/24 16:45 08/17/24 07:54 Advanced Probiotic 625 Mg Capsule PO 09/04/24 16:44 1,250 mg DAILY JON Administration Potassium Chloride 20 meq 08/10/24 17:00 08/17/24 11:20 Potassium Chloride Crtab 20 Meq Tabcr PO 09/09/24 16:59 20 meq BID17 JON Administration Rosuvastatin Calcium 10 mg 08/09/24 09:00 08/17/24 07:54 Rosuvastatin Calcium 10 Mg Tab PO 09/08/24 08:59 10 mg DAILY JON Administration Sodium Chloride 1 gm 08/12/24 09:30 08/17/24 07:54 Sodium Chloride 1 Gm Tablet PO 09/11/24 09:29 1 gm DAILY JON Administration Vitamin D 50 mcg 08/06/24 09:00 08/17/24 07:54 Cholecalciferol 25 Mcg (1000 Units) Tab PO 09/05/24 08:59 50 mcg DAILY JON Administration
[2024-08-18 06:46] LABS: Hematocrit (blood only) 20.5 % (37.0-47.0); Hemoglobin 6.8 g/dl (12.0-16.0); Mean Corpuscular Hemoglobin 26.9 pg (25.0-34.0); Mean Corpuscular Hgb Conc 33.2 g/dL (32.0-36.0); Mean Platelet Volume 10.6 fL (9.4-12.4); Platelet Count 147 K/uL (130-400); RDW Coefficient of Variation 16.6 % (11.5-14.5); Red Blood Count 2.53 M/uL (4.20-5.40)
[2024-08-18 06:54] LABS: BUN Creatinine Ratio 12.1 (10-20); Calcium 8.1 mg/dl (8.6-10.3); Creatinine Clr Calc Pharmacy 18.4 ml/min; Magnesium 1.7 mg/dl (1.7-2.4); Potassium 4.2 mmol/L (3.5-5.1)
[2024-08-18] MEDS ORDERED: SODIUM CHLORIDE 0.9% 100 ML IV PRN (07:22)
[2024-08-18] MEDS ORDERED: SODIUM CHLORIDE 0.9% 50 ML IV PRN (07:22)
--- NOTE | 2024-08-18 08:50 | Nephrology Progress Note ---
Date of Service August 18, 2024 Assessment & Plan (1) LYNN (acute kidney injury): Plan: * LYNN possibly due to AIN from PCN/cephalosporin drug allergy. Patient developed rash/hives in response to ceftriaxone * Ceftriaxone has been stopped. Creatinine has improved from 3.19-->2.14 (baseline creatinine 1.0) * Continue to hold losartan and metformin * Monitor PRP, UO (2) Anemia: Plan: * Epogen 10,000 units SQ x1 administered 08/16/24 * Iron saturation and ferritin are low. 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 Bioprosthetic AVR and MVR. * Completed gentamicin 08/02. * Blood cultures 08/05 +, 08/07 NGTD. * Switched to Cefazolin. Did not tolerate Ceftriaxone -- encephalopathy and rash (5) SIADH (syndrome of inappropriate ADH production): Plan: * Serum sodium 133 mmol/L this a.m. * Remains on NaCl 1 g daily Admission and Anticipated Discharge Date Admission Date: August 05, 2024 Subjective Ms. Camarena was evaluated in her hospital room this morning. She received 1st dose IV Venofer yesterday without side effect. Ms. Gerber denies overt blood loss. She voices no new medical concerns Review of Systems Constitutional: no fever Eyes: no problem reported Ear, Nose, Mouth, Throat: no problem reported Respiratory: no cough and no dyspnea Cardiovascular: no chest pain Gastrointestinal: no abdominal pain, no nausea, no vomiting and no diarrhea/loose stools Integumentary: no rash Physical Exam Constitutional: + frail appearing; no acute distress Eyes: PERRL, conjunctivae normal, anicteric sclerae ENMT: external ear and nose normal, oropharynx normal Neck: trachea midline, no thyromegaly Respiratory: normal respiratory effort, lungs clear to auscultation Cardiovascular: RRR, no murmur, no edema Gastrointestinal (Abdomen): normal bowel sounds, soft, nontender, no hepatosplenomegaly Skin: no rashes, warm and dry Neurologic: Speech / Cognition: normal speech and normal cognition Results & Data Vital Signs (Past 12 Hours) Vital Signs Temp Pulse Pulse Resp BP BP Pulse Ox 10/29/24 07:03 36.6 C 75 18 130/78 97 08/18/24 03:20 36.7 C 74 20 115/64 98 08/18/24 00:10 36.6 C 71 18 135/73 96 08/18/24 00:00 75 O2 Del Method 08/18/24 07:03 Room Air 08/18/24 03:20 Room Air 08/18/24 00:10 Room Air 08/18/24 00:00 Laboratory Results Laboratory Results - last 24 hr 08/17/24 08/17/24 08/17/24 06:06 12:25 17:08 WBC RBC Hgb Hct MCV MCH MCHC RDW Std Deviation RDW Coeff of Viktor Plt Count MPV Sodium Potassium Chloride Carbon Dioxide Anion Gap BUN Creatinine Est Cr Clr Drug Dosing eGFR BUN/Creatinine Ratio Glucose POC Glucose 218 H 137 H Calcium Magnesium Blood Type Blood Type Recheck Pending Antibody Screen Crossmatch 08/17/24 08/18/24 08/18/24 20:42 06:14 07:37 WBC 14.00 H RBC 2.53 L Hgb 6.8 L* Hct 20.5 L* MCV 81.0 MCH 26.9 MCHC 33.2 RDW Std Deviation 48.0 H RDW Coeff of Viktor 16.6 H Plt Count 147 MPV 10.6 Sodium 133 L Potassium 4.2 D Chloride 102 Carbon Dioxide 25 Anion Gap 6 BUN 26 H Creatinine 2.14 H Est Cr Clr Drug Dosing 18.4 eGFR 23.14 BUN/Creatinine Ratio 12.1 Glucose 104 H POC Glucose 130 H Calcium 8.1 L Magnesium 1.7 Blood Type A Positive Blood Type Recheck Antibody Screen NEGATIVE Crossmatch See Detail 08/18/24 07:54 WBC RBC Hgb Hct MCV MCH MCHC RDW Std Deviation RDW Coeff of Viktor Plt Count MPV Sodium Potassium Chloride Carbon Dioxide Anion Gap BUN Creatinine Est Cr Clr Drug Dosing eGFR BUN/Creatinine Ratio Glucose POC Glucose 102 H Calcium Magnesium Blood Type Blood Type Recheck Antibody Screen Crossmatch PG Care Time/CCT Total # of Minutes Spent Total Time Spent with Patient: Total time spent is greater than 50% in coordination of care (as documented) at patient's floor/unit and/or counseling patient: Coding Level of Care Code 19997 SUB INP/OBS CARE 3/50MIN Diagnoses LYNN (acute kidney injury) N17.9 Anemia D64.9 Hypokalemia E87.6 Prosthetic valve endocarditis T82.6XXA; I38 SIADH (syndrome of inappropriate ADH production) E22.2
[2024-08-18 11:27] VITALS: O2SAT 97
--- NOTE | 2024-08-18 11:43 | Hospitalist Progress Note ---
Date of Service August 18, 2024 Assessment & Plan (1) Allergic reaction caused by a drug: Plan: Patient has allergy to Ceftriaxone On the ,Was inappropriately given ceftriaxone again instead of cefazolin and she developed a rash She is doing well today, no complaints (2) Anemia: Plan: Hb dropped to 6.7 today Denies any blood in stool Likely a combination of iron def anemia and anemia of chronic disease Received iron infusion yesterday and 1 unit of blood today recheck hemglobin (3) Prosthetic valve endocarditis: Plan: Viridans strep, mitral valve vegetation seen on DION. 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 gentamicin but completed 08/02 Continue to hold metformin, furosemide and losartan No obstruction or stones on CT abdomen/pelvis. 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 Physical Exam Physical Exam: The patient is awake, alert and oriented 3, well developed and well nourished, normocephalic and atraumatic, lying in bed and in no acute distress. HEENT--PERRL, EOMI, mucous membranes and oropharynx mildly dry Neck--supple. No JVD. No bruits. Thyroid normal, trachea midline, no adenopathy. Heart--normal S1 and S2. No murmurs, rubs or gallops. Lungs--clear bilaterally, no respiratory distress, no accessory muscle use. Abdomen--normal bowel sounds and soft. Extremities--no cyanosis or clubbing. No edema. Dermatologic--normal skin turgor, normal color, no abnormal lymph nodes, no rash. Neurologic--cranial nerves II through XII grossly intact. Rheumatologic--normal range of motion. Psychiatric--normal affect. Results & Data Results & Data Vital Signs (Past 12 Hours) Vital Signs Temp Pulse Pulse Resp BP BP BP 08/18/24 11:26 97.7 F 67 16 132/75 08/18/24 11:11 97.5 F L 75 16 132/79 08/18/24 11:01 97.9 F 73 16 144/75 H 08/18/24 10:52 97.7 F 76 16 143/77 H 08/18/24 07:03 97.9 F 75 18 130/78 08/18/24 03:20 98.1 F 74 20 115/64 08/18/24 00:10 97.9 F 71 18 135/73 08/18/24 00:00 75 Pulse Ox O2 Del Method 08/18/24 11:26 97 08/18/24 11:11 95 08/18/24 11:01 96 Room Air 08/18/24 10:52 97 08/18/24 07:03 97 Room Air 08/18/24 03:20 98 Room Air 08/18/24 00:10 96 Room Air 08/18/24 00:00 PG Care Time/CCT Total # of Minutes Spent Total Time Spent with Patient: Total time spent is greater than 50% in coordination of care (as documented) at patient's floor/unit and/or counseling patient: Coding Level of Care Code 13316 SUB INP/OBS CARE 2/35MIN Diagnoses Allergic reaction caused by a drug T78.40XA Anemia D64.9 Prosthetic valve endocarditis T82.6XXA; I38 Acute encephalopathy G93.40 LYNN (acute kidney injury) N17.9 Controlled diabetes mellitus with microalbuminuria, without long-term current use of insulin E11.29; R80.9 Benign essential hypertension I10 SIADH (syndrome of inappropriate ADH production) E22.2 Time Spent (min) 35
[2024-08-18 12:07] VITALS: RESP 18; TEMP 97.9
--- NOTE | 2024-08-18 13:18 | Discharge Summary ---
Date of Service August 18, 2024 Admission HPI Per Admitting Provider Penny Pierre is a 78 year old female with recent diagnosis of endocarditis currently on ceftriaxone who presents to the ER with generalized weakness. She notes yesterday felt more fatigued and struggling to keep her eyes open therefore drinking less although she did have a full meal last night. She fell backwards yesterday from standing and hit her head but not hard and no loss of consciousness. She appeared to be much more fatigued today therefore decided to come to the ER for evaluation. In the ER she was noted to have LYNN. She was recently on gentamicin although this was finished on August 02 and Cr was normal on July 28. She denies any urinary symptoms, rash, fever or chills. She was diagnosed with Strep Viridans endocarditis during her hospitalization from July 17 t July 23. This was treated with ceftriaxone and gentamicin with gentamicin course discontinued on August 02 per ID recommendations. Admission Exam (Per Admitting) Constitutional The patient is awake, alert and oriented 3, well developed and well nourished, normocephalic and atraumatic, lying in bed and in no acute distress. HEENT--PERRL, EOMI, mucous membranes and oropharynx mildly dry Neck--supple. No JVD. No bruits. Thyroid normal, trachea midline, no adenopathy. Heart--normal S1 and S2. No murmurs, rubs or gallops. Lungs--clear bilaterally, no respiratory distress, no accessory muscle use. Abdomen--normal bowel sounds and soft. Extremities--no cyanosis or clubbing. No edema. Dermatologic--normal skin turgor, normal color, no abnormal lymph nodes, no rash. Neurologic--cranial nerves II through XII grossly intact. Rheumatologic--normal range of motion. Psychiatric--normal affect. Discharge Data Consultations 08/05/24 14:02 ED Decision to Admit Stat 08/07/24 10:35 Consult Infectious Diseases Routine 08/08/24 07:47 Consult Nephrology Routine Hospital Course (1) Allergic reaction caused by a drug: Patient has allergy to Ceftriaxone On the ,Was inappropriately given ceftriaxone again instead of cefazolin and she developed a rash She is doing well today, no complaints (2) Anemia: Hb dropped to 6.7 today Denies any blood in stool Likely a combination of iron def anemia and anemia of chronic disease Received iron infusion yesterday and 1 unit of blood today recheck hemglobin (3) Prosthetic valve endocarditis: Viridans strep, mitral valve vegetation seen on DION. 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 gentamicin but completed 08/02 Continue to hold metformin, furosemide and losartan No obstruction or stones on CT abdomen/pelvis. 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 (6) Controlled diabetes mellitus with microalbuminuria, without long-term current use of insulin: HbA1C 7.4 in June, no need to repeat Hold metformin due to LYNN continue premeal aspart and added glargine 5 bid (7) Benign essential hypertension: Continue amlodipine Hold losartan and furosemide due to LYNN as above (8) SIADH (syndrome of inappropriate ADH production): resolved Plan VTE Prophylaxis - apixaban reports two falls [employer] - PT, OT - rec rehab Has PICC line , plan is for SNF when accepted, auth pending Coding Level of Care Code 50868 INP/OBS DISCH >30 MIN Diagnoses Allergic reaction caused by a drug T78.40XA Anemia D64.9 Prosthetic valve endocarditis T82.6XXA; I38 Acute encephalopathy G93.40 LYNN (acute kidney injury) N17.9 Controlled diabetes mellitus with microalbuminuria, without long-term current use of insulin E11.29; R80.9 Benign essential hypertension I10 SIADH (syndrome of inappropriate ADH production) E22.2 Time Spent (min) 35
[2024-08-18 14:32] VITALS: BP 144/75; PULSE 73
[2024-08-20 17:57] LABS: Complement C3 139 mg/dL (83-193); Complement Total(CH50) >60 U/mL (31-60)
== END 2024-08-18 16:00 | DRG 683 ==
LOC: ED 11:52 → 2N 14:30 → SUATTDRO 14:30 → 2N 15:42 → 2S 08-09 00:19 → 2N 08-11 14:34